=== PATIENT | male | born 1940 | race Caucasian/White ===

== ENCOUNTER → 2017-12-31 09:23 | Outpatient (REF) | payer MEDICARE, BC, SELFPAY ==
[2017-12-31 13:31] LABS: Anion Gap 11.2 mmol/L (3-11); BUN 14 mg/dL (7-18); CO2 25.8 mmol/L (21.0-32.0); CREATININE 1.36 mg/dL (0.70-1.30); Calcium 9.7 mg/dL (8.5-10.1); Chloride 103 mmol/L (98-107); Estimated GFR 50.81 (mL/min/1.73m2); Glucose 194 mg/dL (70-100); Potassium 4.6 mmol/L (3.5-5.1); Sodium 140 mmol/L (136-145); TSH 1.29 uIU/mL (0.358-3.74)
== END ==
LOC: LBN 09:23
PROVIDERS: PCP Student in an Organized Health Care Education/Training Program; Visit Provider Student in an Organized Health Care Education/Training Program
DX: E03.9 Hypothyroidism, unspecified (principal); E78.5 Hyperlipidemia, unspecified; E11.65 Type 2 diabetes mellitus with hyperglycemia
CPT/HCPCS: 80048; 84443

== ENCOUNTER 2018-01-05 05:55 | Emergency (ER) | payer MEDICARE, BC, SELFPAY ==
[2018-01-05] VITALS (14 sets, daily range): BP systolic 105–158; BP diastolic 54–87; PULSE 64–79; RESP 20; TEMP 36.4–36.6; O2SAT 86–96
--- NOTE | 2018-01-05 06:19 | ED.GENADUL ---
Disposition Clinical Impression: Lower back pain Disposition: HOME Condition: Stable Instructions: Low Back Strain (ED) Additional Instructions: follow up with primary care provider within a week if you have inability to urinate, changes in sensation in the legs or weakness or fevers return to the emergency department Medical Decision Making - Radiology Data Radiology results: image reviewed - Medical Decision Making pt here with acute on chronic lower back pain, suspect contusion but will image to eval for fx. He has no other pain elsewhere and no signs of trauma to the head or pain on rom of the neck so do not feel imaging of head and c spine indicated. Pain started after fall, no urinary retention or saddle anesthesia so doubt cauda equina I do not see any acute fracutres or findings on my read. The patient feels well enough to go home if negative and agrees to take him home as well. Oncoming provider will f/u on radiology read and if negative will d/c home - Differential Diagnosis contusion, chronic back pain, fracture History of Present Illness - General Chief complaint: Nk/Back Pain Stated complaint: CALEX Time Seen by Provider: 01/05/18 05:59 Source: patient Mode of arrival: EMS Limitations: no limitations - History of Present Illness Initial comments: 77 yo male with hx of dementia and lower chronic back pain comes in with cc of lower back pain. HE apparently had a mechanical fall where he tripped and hit his lower back on a chair. HE did not lose consciousness or strike his head per his who saw the fall. He has had lower back pain since and is unsure if it is worse than his chronic lower back pain. denies trouble urinating or weakness in the legs. He has midline lower lumbar pain, no stepoffs or other palpable deformities, no pain elsewhere in the thoracic or c spine, no headaches or signs of trauma to the head and no abdominal tenderness MD Complaint: lower back pain Onset/Timin -: year(s) Location: back Radiation: non-radiation Severity scale (1-10): 10 Quality: aching Consistency: constant Improves with: none Worsens with: none Associated Symptoms: denies other symptoms Treatments Prior to Arrival: none - Related Data Aspirin [Aspir 81] 81 mg PO DAILY #100 tab 01/25/14 Calcium Carbonate [Tums] 300 mg PO PRN PRN tab.chew 01/25/14 Ferrous Sulfate [Iron] 325 mg PO DAILY #100 tab 10/03/16 Pen Needle, Diabetic [Insulin Pen Needle] 1 each MC DAILY #100 05/10/17 Nitroglycerin 0.4 mg BC ONCE PRN #25 tab 07/02/17 Metformin HCl 850 mg PO TID #240 tab-cap 07/30/17 Atorvastatin Calcium 10 mg PO DAILY #90 tab-cap 08/03/17 Glimepiride 1 mg PO BID #180 tab 08/03/17 Cholecalciferol (Vitamin D3) [Vitamin D3] 1,000 unit PO DAILY #90 tab-cap 09/03/17 Hydromorphone HCl 8 mg PO Q6H PRN #40 tab-cap 10/14/17 Levothyroxine [Levothroid] 125 mcg PO DAILY #90 tab-cap 11/06/17 Onetouch Ultra Test Strips 1 each MC QID #400 strip 11/16/17 Insulin Degludec [Tresiba Flextouch U-100] 60 unit SQ DAILY #10 pen 12/03/17 Divalproex Sodium [Depakote] 250 mg PO BID #180 tab-cap 12/06/17 Allergies Allergy/AdvReac Type Severity Reaction Status Date / Time prednisone Allergy Intermediate Skin Rash Unverified 01/05/18 06:12 tapentadol Allergy unknown Unverified 01/05/18 06:12 omeprazole AdvReac Severe Low Unverified 01/05/18 06:12 Magnesium Review of Systems Constitutional: denies: chills, fever Respiratory: denies: shortness of breath Cardiovascular: denies: chest pain Gastrointestinal: denies: abdominal pain, nausea, vomiting Musculoskeletal: back pain Neurological: denies: headache Comment: All other systems reviewed and negative Past Medical History - Past Medical History Medical history: AMI, diabetes, GERD, hyperlipidemia, hypertension Renal calculi Surgical history: angioplasty/stent, herniorraphy, other (Cardiac ablation) Family history: cancer, diabetes - Social History Alcohol use: none Drug use: none General Exam - General Limitations: other (dementia) General appearance: alert, in no apparent distress - Head Head exam: Present: atraumatic, normocephalic - Eye Eye exam: Present: normal apperance, PERRL, EOMI - ENT ENT exam: Present: mucous membranes moist - Neck Neck exam: Present: normal inspection, full ROM. Absent: tenderness - Respiratory Respiratory exam: Absent: respiratory distress - Cardiovascular Cardiovascular Exam: Present: regular rate - GI/Abdominal GI/Abdominal exam: Present: soft. Absent: tenderness - Extremities Exam Extremities exam: Present: normal inspection, full ROM - Back Exam Back exam: Present: normal inspection, vertebral tenderness. Absent: CVA tenderness (R), CVA tenderness (L) - Neurological Exam Neurological exam: Present: alert, other (oriented to place and name, not time). Absent: motor sensory deficit - Psychiatric Psychiatric exam: Present: normal affect - Skin Skin exam: Present: warm Course Vital Signs - 24 hr 01/05/18 06:08 Temperature 97.5 F L Pulse 79 Respiratory 20 Rate Blood Pressure 158/87 Pulse Oximetry 96
--- NOTE | 2018-01-05 06:20 | DI.RPTCT_ITS ---
SYMPTOM/DIAGNOSIS: LOWER BACK PAIN CT LUMBAR SPINE: Osteopenia is noted. The vertebral bodies are intact. There is no evidence of a fracture or dislocation. There is mild multi-level degenerative changes with disc space narrowing and facet joint hypertrophy and osteophyte formation. There is an apparent mild broad-based disc protrusion at L2-3 without evidence of significant central or foraminal stenosis. Also, a broad based disc protrusion is noted at L3-4 where there is prominent facet joint DJD and ligamentous hypertrophy. There is mild central canal stenosis at this level. Also, note is made of a broad-based disc protrusion and facet joint hypertrophy at L4-5 which results in mild central spinal stenosis. No significant foraminal stenosis is seen. There are atherosclerotic changes involving the aorta without evidence of an aneurysm. SUMMARY: No acute abnormality is demonstrated. Note is made of degenerative changes as described above.
[2018-01-05] MEDS: Ketorolac 30 MG/ML VIAL IM (06:23)
[2018-01-05] MEDS: HYDROmorphone 4 MG TAB 8 MG PO (06:47)
--- NOTE | 2018-01-05 08:00 | DI.VRAD_ITS ---
EXAM: CT Lumbar Spine Without Intravenous Contrast EXAM DATE/TIME: Exam ordered 01/05/2018 6:21 AM CLINICAL HISTORY: 77 years old, male; Injury or trauma; Fall; Initial encounter; Sprain or strain, lumbar ligaments TECHNIQUE: Axial computed tomography images of the lumbar spine without intravenous contrast. Coronal and sagittal reformatted images were created and reviewed. COMPARISON: No relevant prior studies available. FINDINGS: Vertebrae: Osteopenia. Normal alignment. No acute fracture. Discs/spinal canal/neural foramina: Mild multilevel degenerative changes with disc space narrowing, facet hypertrophy and osteophyte formation throughout the spine. . There is mild broad-based disc at the L2-3 level without evidence of significant foraminal or central canal stenosis. There is prominent facet and ligamentous hypertrophy with a broad-based disc at the L3-4 level. No significant foraminal stenosis. Mild central canal stenosis seen. Mild broad-based disc with facet hypertrophy at the L4-5 level results in mild central canal narrowing. No significant foraminal stenosis. Soft tissues: Atherosclerotic disease. IMPRESSION: No acute findings. Multilevel degenerative changes. Dictated and Authenticated by: Glenis Mansfield MD. Ordering:CAROLINA YEBOAH MD
--- NOTE | 2018-01-05 08:31 | ED.FU ---
Disposition Clinical Impression: Lower back pain Disposition: HOME Condition: Stable Instructions: Low Back Strain (ED) Additional Instructions: follow up with primary care provider within a week if you have inability to urinate, changes in sensation in the legs or weakness or fevers return to the emergency department Care Signed Out By:: Aaron - Vital Signs Recent Vitals - 8H: Vital Signs - 8 hr 01/05/18 01/05/18 01/05/18 06:08 06:17 06:20 Temperature 36.4 C L Pulse 79 Respiratory 20 Rate Blood Pressure 158/87 Pulse Oximetry 96 95 94 L - Continuation of Care Continuation of Care Plan: This patient was signed out to me by my colleague Dr. Walker. CT scan results have returned from virtual radiology of the lumbar spine and demonstrate no acute findings. Multilevel degenerative changes. I reassess the patient and he is pain-free at this point. He is in no acute distress and continues to demonstrate a normal neurologic exam. No red flags or signs or symptoms suggestive of cauda equina syndrome. Patient will be discharged home. We discussed the importance of close follow-up and the patient understands. I have extensively reviewed the treatment plan and discharge instructions with the patient. I have addressed all patient concerns at this time. The patient was made aware of what symptoms to monitor for that would warrant a return to the emergency department. Discussed the plan with the patient, they demonstrate verbal understanding and agreement with our assessment and plan at this time.
--- NOTE | 2018-01-05 15:30 | PDOC.ERCMPRO ---
Care Management Progress Note 01/05-Dr. Walker and nursing requested that I meet with Jimmy and his friend Kaur. Kaur is Jimmy's significant other and she care for him at home. Discussed services. At this time, Jimmy does not have any home services, he did have wound care through [facility]. Currently Kaur utilizes [employer] for insurance. Discussed support groups and services for caregivers through the [employer]. Kaur stated she is aware of those programs but feels at this time, things are going ok at home. The good days out weigh the bad days still. Kaur stated at this time she feels she can manage Jimmy. States that Jimmy is normally happy and easy to get along with. Plan is for Jimmy to be discharged home with Kaur. Kaur has my contact information if further assistance is needed.
--- NOTE | 2018-01-05 15:33 | CMPROGNOTE_ITS ---
Care Management Progress Note 01/05-Dr. Walker and nursing requested that I meet with Jimmy and his friend Kaur. Kaur is Jimmy's significant other and she care for him at home. Discussed services. At this time, Jimmy does not have any home services, he did have wound care through [facility]. Currently Kaur utilizes [employer] for insurance. Discussed support groups and services for caregivers through the [place] [employer]. Kaur stated she is aware of those programs but feels at this time, things are going ok at home. The good days out weigh the bad days still. Kaur stated at this time she feels she can manage Jimmy. States that Jimmy is normally happy and easy to get along with. Plan is for Jimmy to be discharged home with Kaur. Kaur has my contact information if further assistance is needed.
== END 2018-01-05 08:46 | disposition home or self-care (01) ==
PROVIDERS: Emergency Provider Emergency Medicine; PCP Student in an Organized Health Care Education/Training Program
DX: M54.5 Low back pain (principal); G89.29 Other chronic pain; W01.190A Fall on same level from slipping, tripping and stumbling with subsequent striking against furniture, initial encounter; F03.90 Unspecified dementia, unspecified severity, without behavioral disturbance, psychotic disturbance, mood disturbance, and anxiety; E11.9 Type 2 diabetes mellitus without complications; Z79.4 Long term (current) use of insulin
CPT/HCPCS: 72131; 96372; 99284 ×2; J1885

== ENCOUNTER 2018-01-07 09:36 | Inpatient (IN) | payer MEDICARE, BC, SELFPAY ==
[2018-01-07 09:43] VITALS: BP 135/76; PULSE 67; RESP 18; TEMP 36.4; O2SAT 93
[2018-01-07] MEDS: Ketorolac 15 MG/ML VIAL IVP (10:24)
[2018-01-07] MEDS: HYDROmorphone 2 MG/ML VIAL 1 MG IVP (10:25)
--- NOTE | 2018-01-07 10:50 | ED.GENADUL ---
Disposition Clinical Impression: Acute exacerbation of chronic low back pain Disposition: [facility] INPATIENT Condition: Stable Medical Decision Making - Medical Decision Making Patient presenting to the emergency department for continued back pain after fall 3 days ago. Patient states no new or worsening symptoms but simply that symptoms are not resolving. Patient does state and previous records agree with chronic back pain and similar pattern and fashion as his presentation today. Patient only took 4 mg of hydromorphone at 2:30 AM which seemed to provide some relief but patient has been laying supine in bed for the last 2 days as he has been worried about movement and movement causes further pain and discomfort. Patient denies any saddle anesthesia, changes in bowel or bladder function, fever or chills, severe radiating numbness or tingling. Given this I feel that this is more of a natural sequela of chronic back pain with acute injury and reviewing records patient already had radiological imaging performed 2 days ago that showed no acute findings but degenerative changes including bulging disc. Due to patient's significant amount of pain and not taking his hydromorphone as normally prescribed and as frequently as I feel that he may need it I do feel that acute pain medication may benefit the patient. Given otherwise benign exam beyond lumbar tenderness in region of bulging disc along with some right-sided paraspinal tenderness physical exam is unremarkable. I do feel that it is not beneficial for patient to lay supine for 2 days so plan is after we achieve some level of pain relief I do feel that it would be beneficial for patient to have physical therapy assessment in regards to patient being able to safely return home and manage his symptoms at home with further assistance if required. Patient is agreeable to this. I do not feel that any radiological imaging or testing needs to be done due to patient describing and physical exam confirming more natural sequela of acute on chronic back pain. Patient was reassessed and did state appropriate level of pain control while at rest. Physical therapy was contacted for an assessment. Physical therapist stated that patient was able to get out of bed but with any sort of standing he had significant and severe pain causing him to not be able to ambulate. Due to this fact I do feel that patient may need a rehab stay or at least observation stay for more tightly controlled pain control or adjustment of his pain medications and a physical therapy reassessment after pain is more controlled. I spoke with the hospitalist whom accepted the patient for admission and further physical therapy evaluation and possible consideration of rehab outpatient admission or home health resources to help him with his acute on chronic back pain. Patient was in agreement with this plan. History of Present Illness - General Chief complaint: Nk/Back Pain Stated complaint: CALEX Time Seen by Provider: 01/07/18 09:55 Source: patient, RN notes reviewed, old records reviewed Mode of arrival: EMS Limitations: no limitations - History of Present Illness Initial comments: Patient reports 3 days ago he had a fall. After he fell he waited overnight before coming to the emergency department because his pain was not improving. He states that he has chronic back pain from an injury that happened many years ago and that this pain is similar to what he is always had but just is not improving. Patient does state he took his prescribed hydromorphone at 2:30 AM and had been feeling slightly better early this morning when a friend was visiting but then went to turn in bed and had severe onset of pain. Given the pain is not improved he is presenting to the emergency department. Patient denies any fever chills, change in pain pattern, numbness or tingling, bowel or bladder incontinence or retention. Patient states no new injury or trauma just not improving Onset/Timin -: days(s) Location: back Severity scale (1-10): 10 Quality: sharp Consistency: constant Improves with: none Worsens with: movement Associated Symptoms: denies other symptoms Treatments Prior to Arrival: other (4 mg hydromorphone at 2:30 AM) - Related Data Aspirin [Aspir 81] 81 mg PO DAILY #100 tab 01/25/14 Calcium Carbonate [Tums] 300 mg PO PRN PRN tab.chew 01/25/14 Ferrous Sulfate [Iron] 325 mg PO DAILY #100 tab 03/02/16 Pen Needle, Diabetic [Insulin Pen Needle] 1 each MC DAILY #100 05/10/17 Nitroglycerin 0.4 mg BC ONCE PRN #25 tab 07/02/17 Metformin HCl 850 mg PO TID #240 tab-cap 07/30/17 Atorvastatin Calcium 10 mg PO DAILY #90 tab-cap 08/03/17 Glimepiride 1 mg PO BID #180 tab 08/03/17 Cholecalciferol (Vitamin D3) [Vitamin D3] 1,000 unit PO DAILY #90 tab-cap 09/03/17 Hydromorphone HCl 8 mg PO Q6H PRN #40 tab-cap 10/14/17 Levothyroxine [Levothroid] 125 mcg PO DAILY #90 tab-cap 11/06/17 Onetouch Ultra Test Strips 1 each MC QID #400 strip 11/16/17 Insulin Degludec [Tresiba Flextouch U-100] 60 unit SQ DAILY #10 pen 12/03/17 Divalproex Sodium [Depakote] 250 mg PO BID #180 tab-cap 12/06/17 Allergies Allergy/AdvReac Type Severity Reaction Status Date / Time prednisone Allergy Intermediate Skin Rash Unverified 01/07/18 09:48 tapentadol Allergy unknown Unverified 01/07/18 09:48 omeprazole AdvReac Severe Low Unverified 01/07/18 09:48 Magnesium Review of Systems Constitutional: denies: chills, fever Respiratory: denies: cough, shortness of breath Cardiovascular: denies: chest pain Gastrointestinal: denies: abdominal pain, nausea, vomiting, diarrhea, constipation Genitourinary: denies: dysuria, discharge Musculoskeletal: as per HPI, back pain Skin: denies: change in color Neurological: denies: numbness, paresthesias Past Medical History - Past Medical History Medical history: AMI, diabetes, GERD, hyperlipidemia, hypertension Renal calculi, chronic back pain since on disability Surgical history: angioplasty/stent, herniorraphy, other (Cardiac ablation) Family history: cancer, diabetes - Social History Smoking status: never smoker Alcohol use: none Drug use: none Living Situation: lives with family General Exam - General Limitations: no limitations General appearance: alert, obese, other (pt in obvious discomfort) - Head Head exam: Present: atraumatic, normocephalic - Eye Eye exam: Present: PERRL - Neck Neck exam: Present: full ROM - Respiratory Respiratory exam: Present: normal lung sounds bilaterally. Absent: respiratory distress, wheezes, rales, rhonchi, stridor - Cardiovascular Cardiovascular Exam: Present: regular rate, normal rhythm, normal heart sounds. Absent: bradycardia, systolic murmur, diastolic murmur, rubs - GI/Abdominal GI/Abdominal exam: Present: soft, normal bowel sounds. Absent: tenderness, guarding, rebound, rigid, organomegaly, mass, bruit, pulsatile mass - Rectal Rectal exam: Present: deferred - Back Exam Back exam: Present: paraspinal tenderness (2 right sided lumbar spine), vertebral tenderness (2 mid lumbar spine). Absent: rash noted - Expanded Back Exam No standard instances Back exam: Sciatic Notch Tenderness: (Right), Positive Straight Leg Raise: (Right) - Neurological Exam Neurological exam: Present: alert, oriented X3. Absent: motor sensory deficit - Skin Skin exam: Present: warm, dry, normal color. Absent: cyanosis, diaphoretic, erythema, pallor, mottled Course Vital Signs - 24 hr 01/07/18 09:43 Temperature 36.4 C L Pulse 67 Respiratory 18 Rate Blood Pressure 135/76 Pulse Oximetry 93 L
[2018-01-07] MEDS: HYDROmorphone 4 MG TAB PO ×2 (12:06→17:01)
[2018-01-07 13:11] VITALS: BP 138/96; PULSE 66; RESP 18; TEMP 36.6; O2SAT 100
[2018-01-07 13:12] VITALS: BP 152/76; PULSE 72; RESP 19; TEMP 37; O2SAT 93
[2018-01-07 13:47] VITALS: BP 152/76; PULSE 72; RESP 19; TEMP 37; O2SAT 93
--- NOTE | 2018-01-07 14:47 | INPTTR_ITS ---
PHYSICAL THERAPY PROGRESS NOTE Date: 01/07/18 SUBJECTIVE: Jimmy stating he has no pain when lying on his back. This increases with any type of movement. OBJECTIVE Supine in bed. Agreeable to PT treatment. BED MOBILITY/TRANSFERS Rolling L/R: Log Roll instruction Supine-sit: Log roll Min A x 1 Sit-supine: Min A x 1 Sit-stand: CGA Stand-sit: CGA GAIT Stood in place x 30 seconds. Was unable to walk due to pain and spasm right low back. Assistive Device FWW Weightbearing Full Assist: CGA THEREX: Review log roll technique. ASSESSMENT: Continues to have increase in discomfort when moving. He does not tolerate sitting position so once he log rolls he immediately stand up to the walker. Unable to take steps due to spasm right low back. PLAN: Continue with function mobility as he is able to tolerate. TREATMENT CODES/TIME: 10 minutes DANITZA Michaels, [place]
[2018-01-07] MEDS: Heparin 5,000 UNITS/ML VIAL 5000 UNITS SC ×2 (15:06→21:38)
--- NOTE | 2018-01-07 15:21 | IN_ITS ---
INPATIENT PHYSICAL THERAPY EVALUATION Date: January 07, 2018 Referring Doctor: Fahad Duggan NP PT Orders:Chronic back pain with acute worsening due to fall. Pt non-ambulatory x 2 days. Precautions: PATIENT PROFILE/ADMITTING DIAGNOSIS: Pt seen in the ER for evaluation of severe LBP. Pt has a multi-year history of back pain dating back to the . He had a previous ER visit on 01/05/18 after a fall at home, resulting in a sharp increase in back pain. He had a CT scan performed, which showed mild lumbar stenosis and facet DJD. Pt to be admitted on observation status for pain management and initiation of PT intervention. PMHX: Obesity, diabetes, history of [place], hyperlipidemia, multi-year history of LBP. Social History/Home Situation: Pt lives with his Kaur, who is present at time of evaluation. He is normally independent in the home, although has been supine in bed for the past 2 days due to the severity of his pain. Current Functional Limitations: Equipment owned/DME: Walker. SUBJECTIVE: Pt states that he is in 7/10 pain, stating that he knows this will increase if he moves at all. He has not had an episode of pain this bad in many years and states that when he does get episodes like this, it typically takes time to go away. He has had PT in the past and has also done pain management treatments with multiple nerve ablations. He also receives massages 2x/week, which seem to keep his pain at bay. Pt denies radiation of pain to LEs. Denies bowel or bladder changes. OBJECTIVE: General Observation: Pt laying supine with knee supported in slightly flexed position with pillow. He is conversant and not displaying any significant pain behaviors. No lines. Mental Status: A & O x 3. Pt is very hard of hearing. Pain: 7/10. ROM: RUE: Grossly WNL LUE: Grossly WNL RLE: Hip flexion allows at least 90 degrees bilaterally. Knee motion grossly WNL. LLE: Hip flexion allows at least 90 degrees bilaterally. Knee motion grossly WNL. STRENGTH: RUE: Grossly 3/5 for all motions. LUE: Grossly 3/5 for all motions. RLE: WFL LLE: WFL. BED MOBILITY/TRANSFERS: Supine-sit: Pt was instructed in log rolling technique. He requires mod assist x 2 for transition to sitting position. Sit-stand: Pt performs a very rapid sit to stand transfer, requiring CG only. Stand-sit: CG. Sit-supine: Min assist x 1. GAIT: Pt is unable to ambulate. He stands with a walker x 30 sec. with increasing pain with pt reporting 10/10. He is unable to tolerate sitting position, moving quickly out of seated position, where his pain is most severe. During transfers and intensive standing, he does demonstrate poor safety awareness with rapid and poorly controlled movements. BALANCE: Static sitting: Good, although with limited tolerance to position. Dynamic Sitting: Good. Static Standing: Fair. Dynamic Standing: Poor SPECIAL TESTS: Mobility Limitations Standardized Measure [facility] AM -PAC 6 clicks Basic Mobility Inpatient Short Form: raw score: 11 standardized score: 33.86 CMS score: 73% deficit CMS modifier: CL INFORMED CONSENT/EDUCATION: Pt instructed in purpose of PT Consult and plan of care ASSESSMENT: Patient is a 77 year old male referred to physical therapy services with diagnosis of acute on chronic LBP. Patient presents with clinical signs and symptoms consistent with diagnosis with significant limitations in mobility resulting from his sharp increase in pain as demonstrated by the following impairment level findings: 1. Severe pain. . Impairments are contributing to the following functional limitations: 1. Unable to independently transfer. 2.Unable to ambulate. AMPAC score 11 Patient is assessed as a Moderate [id number] __X__complexity based on the following: History: 77 yo pt with acute on chronic LBP without radiation, although with severe limitations in mobility preventing him from returning home with family assistance. Pt will be admitted on observation status for management. Examination: Functional limitations as above. Presentation: Evolving. Decision Making: Moderate complexity. GOALS Goals x1 week 1. Supine-sit: I 2. Sit-Supine: I 3. Sit-Stand: I 4. Stand-sit: I 5. Bed-chair: I 6. Chair-bed: I 7. Gait: I with lease restrictive device x 25 ft. PLAN OF CARE/TREATMENT PLAN: 1-2x/day, 7 days/ week x 1 week Plan of care has been reviewed with the DIRECTOR OF [employer]PERATIONS providing the service under Physical therapy direction. Initiate physical therapy intervention for strengthening, bed mobility, transfers, gait, stairs, balance training, use of assistive device. DISCHARGE RECOMMENDATIONS Home. Pt has been encouraged to seek out PT intervention, either by HH or outpatient services. TREATMENT TIME/MINUTES/CODES 15 min. G Codes in the area mobility of walking and moving around: current status [id number] ___CL based on [facility] score of 73%____projected status GP [id number] . SS/fw
[2018-01-07 15:42] VITALS: BP 114/71; PULSE 75; RESP 18; TEMP 36.7; O2SAT 95
--- NOTE | 2018-01-07 16:09 | CMPROGNOTE_ITS ---
Date of Service: 01/07/18 Time of Service: 15:55 Care Management Progress Note CM received report from ED CM No Bateman, Jimmy is being admitted observation for uncontrolled back pain and Physical therapy. Jimmy lives in his own home in [place], [place] with his spouse he is usually independent with ADL's per his report. He uses a FWW at home. His spouse provides him support at home his children are grown. He states he was receiving home health in the past which he has been discharged due to meeting his goals. He is willing to have home health services again including home PT. Jimmy will return home with his spouse and new home health services for PT and nursing when medically ready for discharge. CM will follow up with patient and complete a full assessment when his spouse returns tomorrow.
[2018-01-07] MEDS: Glimepiride 2 MG TAB 1 MG PO (17:00)
[2018-01-07] MEDS: Acetaminophen 325 MG TAB PO (17:01)
--- NOTE | 2018-01-07 17:02 | HPE_ITS ---
DATE OF ADMISSION: January 07, 2018 REASON FOR ADMISSION: [id number] back pain. ASSESSMENT/PLAN: 1. Back pain - [id number] back pain status post fall three days prior to his admission. Plan t o continue p.o. Dilaudid, as he was taking it at home. Will add a Lidocaine patch to the site and of adelfo heat and ice. PT has been consulted. Will plan to get his pain under control, get him mobilized and hopefully get him back home soon. 2. Hyperlipidemia - continue home dosing of his Lipitor. 3. Coronary artery disease - continue Aspirin 81 mg daily. 4. Diabetes - will continue his home dosing of his Glimepiride and his long-acting insulin, Tresiba F lextouch U-100, 60 units. 5. Disposition - he is a FULL CODE. The plan is for him to get mobilized with Physical Therapy and g et his pain under control and get him discharged back home. This case was discussed with Dr. Wesley, who is in agreement. +++++++++++++++++++++++ HISTORY OF PRESENT ILLNESS: Mr. Arcos is a 76-year-old man with a history of type 2 diabetes, my ocardial infarction with stent placement, memory problems, hyperlipidemia and chronic back pain who p resented to the Emergency Department today with reports of [id number] back pain. He fell three days ago while trying to get up out of his chair; he tripped; he denied any dizziness or syncope at the time. He had difficulty getting up; however his was able to help him up. The following mor ana he could not get out of bed due to increased pain in his right lower back. The ambulance was ca lled and he was taken to the Emergency Department. In the Emergency Department he and his repo rt that he received Toradol and Dilaudid. He was subsequently discharged back home. He reports that yesterday he did not get out of bed all day long due to the severe back pain. At 2:30 this morning his gave him some Dilaudid with some improvement in the pain; however he consistently had signif icant pain and eventually presented back to the hospital today. He did not have any imaging in the Emergency Department today, as he previously had a CT lumbar spine on 8/8/18, two days ago, where no acute abnormality was demonstrated; however he does have degenerat keshav changes in his spine with disc space narrowing and facet joint hypertrophy and osteophyte formati on. There was note made of a mild broad-based disc protrusion at L2-3 without evidence of significan t central or foraminal stenosis. There was also note of a broad-based disc protrusion noted at L3-4 where there is permanent facet joint DJD and ligamentous hypertrophy. There is mild central canal st enosis at this level. Also there is note made of broad-based disc protrusion and facet joint hypertr ophy at L4-5, which results in mild central spinal stenosis. No significant foraminal stenosis noted . Mr. Arcos reports pain only with activity. If he lies still, he is comfortable. He denies any n umbness or tingling. No loss of bowel or bladder. He has had no new injury or trauma since the fall three days ago. He denies any other concerns. He has no other symptoms. No fevers or chills at [facility]. No cough, shortness of breath or wheeze. No chest pain, pressure or palpitations. He is eating and drinking well without nausea, vomiting or diarrhea. He had his last bowel movement yesterday. PAST MEDICAL HISTORY: 1. Obesity. 2. Chronic back pain. 3. Hyperlipidemia. 4. Diverticulitis of the large intestine without perforation. 5. Diabetes type 2. a. Most recent hemoglobin A1c was 7.5 on 12/31/17. 6. Cardiac history. a. Non Q-wave AL in 1998. b. Stent placement x2, most recently in 2012. c. Followed by Cardiology at [facility]. He was a patient of Dr. Garcia. 7. Memory disturbance. 8. Pulmonary nodules. 9. Polyneuropathy. 10. Hearing loss. 11. Elevated PSA. 12. Macular degeneration. 13. GERD. 14. History of renal calculi. PAST SURGICAL HISTORY: 1. Cardiac catheterization. 2. He reports an ablation x6 [facility] in [place] for his chronic back pain. 3. Left rotator cuff surgery x2 by Dr. Cameron. 4. Knee surgery by Dr. Cameron. 5. Colonoscopy and gastroscopy by Dr. Higgins. 6. Hernia repair x2, most recently performed by Dr. Zambrano. ALLERGIES: 1. Prednisone gave him a skin rash. 2. Tapentadol, unknown reaction. MEDICATIONS: 1. Hydromorphone Hcl 8 mg p.o. q6h p.r.n. 2. Glimepiride 1 mg p.o. b.i.d. 3. Iron 325 mg p.o. daily. 4. Depakote 250 mg p.o. b.i.d. 5. Vitamin D3 1000 units p.o. daily. 6. Tums 300 mg p.o. daily p.r.n. 7. Atorvastatin calcium 10 mg p.o. daily. 8. Aspirin 81 mg p.o. daily. 9. Levothyroxine 125 mcg p.o. daily. 10. Tresiba Flextouch U-100 insulin 60 units subcu daily. 11. Nitroglycerin 0.4 mg p.o. p.r.n. as directed. 12. Metformin 850 mg p.o. t.i.d. FAMILY HISTORY: His mother at 50; she gave to eighteen children; he thinks she of stomach cancer. His dad had a cardiac history and at 84. Most of his siblings are . SOCIAL HISTORY: He lives with his in [facility]. 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 He is a non-s moker. He does have a light smoking history that was intermittent. He does have an occasional alcoh olic drink. REVIEW OF SYSTEMS: GENERAL: He denies any constitutional symptoms. No fevers, no chills, no sweats, no weakness, malai se or fatigue. HEENT: He denies headaches. He denies any sinus pain or congestion. No rhinorrhea. No ear pain o r discharge. No difficulty swallowing. No problems with his speech. RESPIRATORY: He denies cough, shortness of breath or wheeze. CARDIAC: He denies chest pain, pressure, palpitations or edema. GI: He had a bowel movement yesterday. He denies any abdominal pain, bloating, nausea, vomiting, di arrhea or constipation. : He denies any urinary changes; no dysuria. He has not noticed any hematuria. No leaking. EXTREMITIES: He reports chronic back pain with intermittent acute flares, which he is currently expe riencing status post fall. He denies any pain, swelling or stiffness of any other joints. SKIN: He has scattered scabs about his arms and legs, which are reportedly from picking. His r eports that he continues to pick at his scabs so they cannot heal. PHYSICAL EXAMINATION: GENERAL: He is an obese male who does not appear to be in any distress at rest. He is alert and paul ented x3. He does have some short-term memory loss, for which his helps him answer questions. HEENT: Normocephalic, atraumatic. Pupils are equal and round. Mucous membranes are moist. Conjunc tivae are clear. Sclerae are nonicteric. NECK: Supple. CARDIAC: Heart has a regular rate and rhythm with distant heart sounds. No murmur appreciated. RESPIRATORY: Respirations are even and unlabored. Lung sounds are clear to auscultation throughout. ABDOMEN: Large and round; it is soft; it is nontender on palpation. No masses appreciated, however it is difficult to assess for HSM due to body habitus. EXTREMITIES: Well-perfused. Trace edema to bilateral ankles. He does have scabs scattered across b oth his upper and lower extremities bilaterally from picking. His peripheral pulses are intact. BACK: He does have some paraspinal tenderness on palpation in the lumbar region to the right side. He has pain with leg lift on the right and none on the left. NEUROLOGIC EXAM: Nonfocal. Speech is clear. LABORATORY DATA: No new labs as of today. However, labs from 12/31 reveal a sodium of 140, potassium 4.6, BUN of 14, creatinine of 1.36, hemoglobin A1c on 12/31/[address] of the lumbar spine reveals osteopenia. No evidence of fracture or dislocation. There are multi- level degenerative changes with disc space narrowing and facet joint hypertrophy and osteophyte forma tion. There is an apparent broad-based disc protrusion at L2-L3 without evidence of significant cent ral or foraminal stenosis. There is a broad-based disc protrusion noted at L3-4 where there is promi nent facet joint DJD and ligamentous hypertrophy. There is mild central canal stenosis at this level . Also note is made of a broad-based disc protrusion and facet joint hypertrophy at L4-5 which resul ts in mild central spinal stenosis. No acute abnormality was demonstrated.
[2018-01-07] MEDS: Divalproex 250 MG TABEC PO (21:36)
[2018-01-07] MEDS: Lidocaine 5% Patch 1 PATCH TP (21:38)
[2018-01-08 00:57] VITALS: BP 170/91; PULSE 70; RESP 20; TEMP 36.8; O2SAT 96
[2018-01-08] MEDS: HYDROmorphone 4 MG TAB PO (01:06)
[2018-01-08] MEDS: Refresh PLUS Eye Drops 0.4ml OU ×2 (04:43→06:11)
[2018-01-08] MEDS: Heparin 5,000 UNITS/ML VIAL 5000 UNITS SC ×3 (06:12→21:18)
[2018-01-08 07:07] LABS: HCT 36.9 % (40.0-50.0); HGB 12.8 g/dL (13.5-17.5); Mean Corp. HGB Concentration 34.7 g/dL (32.0-36.0); Mean Corpuscular Volume 95.1 fL (80-95); Mean Platelet Volume 9.7 fL (8.0-11.0); Platelet Count 212 x1000/uL (130-400); RBC 3.88 m/cumm (4.50-6.00); RBC Distribution Width 12.7 % (11.8-14.1)
[2018-01-08 07:19] LABS: Anion Gap 10.5 mmol/L (3-11); BUN 22 mg/dL (7-18); CO2 27.5 mmol/L (21.0-32.0); CREATININE 1.09 mg/dL (0.70-1.30); Calcium 9.4 mg/dL (8.5-10.1); Chloride 101 mmol/L (98-107); Glucose 101 mg/dL (70-100); Potassium 4.3 mmol/L (3.5-5.1); Sodium 139 mmol/L (136-145)
[2018-01-08 07:55] VITALS: BP 131/73; PULSE 72; RESP 18; TEMP 36.6; O2SAT 94
--- NOTE | 2018-01-08 08:16 | PHARADMIT ---
Addendum entered by Miracle Mejía 01/10/18 17:22: Pharmacy Note Subjective Objective VS-okay SCr-1.38(up) Assessment ketorolac was ordered, but SCr increased so this was discontinued, dexamethasone was started today (challenge dose due to prednisone allergy listed then daily, diphenhydramine ordered PRN if signs/symptoms of allergic reaction occurred). Plan continue to watch VS, labs and for med changes. Original Note: Addendum entered by Red Castillo III 01/09/18 11:30: Observation patient: Provider trying to control back pain. Flexeril TID prn started yesterday to help with muscle spasm. Ketorolac X1 given today, Hydromorphone increased to 6mg. Continue PT. If symptoms pesist or no safe DC plan, may be conveerted to Swing Bed. VS-OK Pain: 01/07 No Labs No BM yet. Original Note: Admission Pharmacy Clinical Review BACK PAIN Code Status Full Code Current Weight Wgt- 120.7 kg Renally Cleared and Narrow Therapeutic Index Meds CrCl~ 58mL/min Meds-OK QTc Value / Action Taken none current BP Control, Fever BP- 170/91 Tmax- 36.8C Electrolytes reviewed Na-139 K+4.3 DVT Prophylaxis Heparin SC Opiate Usage / Scheduled Bowel Regimen Ordered Yes Yes Plt/SCr for Heparin / Enoxaparin Plts-212 SCr-1.09 INR for Warfarin na H/H stable, WBC/Bands H&H- 12.8/36.9 WBC- 6.10 Antibiotic appropriateness none Cultures and Sensitivities none Surgical ABX d/c within 24 hr na DM control / Insulin Dosing BG-101 GLIMEPIRIDE, TRESIBA FLEXPEN Heart Failure (Check EF%) (MAGDALENE's, B-Block, Diuretics) NTG, IV to PO Switch No Home Meds Reviewed Yes Home Meds Not Ordered Metformin Comments PatOwn TRESIBA FLEXPEN
[2018-01-08] MEDS: Atorvastatin 10 MG TAB PO (08:57)
[2018-01-08] MEDS: Glimepiride 2 MG TAB 1 MG PO ×2 (08:57→17:56)
[2018-01-08] MEDS: Levothyroxine 125 MCG TAB PO (08:57)
[2018-01-08] MEDS: Aspirin E.C. 81 MG TABEC PO (08:57)
[2018-01-08] MEDS: Ferrous Sulfate 325 MG TAB PO (08:57)
[2018-01-08] MEDS: Divalproex 250 MG TABEC PO ×2 (08:58→19:42)
--- NOTE | 2018-01-08 10:22 | INPTTR_ITS ---
PHYSICAL THERAPY PROGRESS NOTE Date: 01/08/18 PRECAUTIONS: Fall SUBJECTIVE: Pt reports that he is experiencing a lot of discomfort. He states that he feels no better to day then he did yesterday. OBJECTIVE PAIN: BED MOBILITY/TRANSFERS Rolling L/R: Supine-sit: log roll with Min Assist Sit-supine: I Sit-stand: CGA Stand-sit: CGA Bed-Chair: Chair-bed: GAIT Assistive Device FWW Weightbearing Full Assist: CGAx2 Distance: Pt could only tolerate 10 sec of static standing and was in too much discomfort and had to lie back down. Deviation VITALS: THEREX: I educated pt in single knee to chest stretches and to try and work toward holding for 20 sec each side. Also discussed pt could try ankle pumps throughout the day. STAIRS: ASSESSMENT: Pt seems to be experiencing a lot of discomfort which is not allowing much participation in PT. We will monitor pt's response to today's session and progress accordingly. PLAN: Cont as per Pt POC. TREATMENT CODES/TIME: 10-10:20 (20) TA
--- NOTE | 2018-01-08 11:27 | PDOC.CMIN ---
Date of Service: 01/08/18 Time of Service: 11:27 Care Management Initial Assess REASON FOR HOSPITALIZATION:: Back pain. PAST MEDICAL HISTORY/PAST SURGICAL HISTORY:: Tubular adenomas, cataract, macular degeneration, hearing loss, hyperlipidemia, diverticulitis, type II diabetes, excoriation disorder, frontotemporal dementia, atherosclerosis, neurodermatitis, memory disturbance, pulmonary nodules, tubular adenoma of colon, polyneuropathy. Surgical hx: angioplasty/stent, hernirraphy, cardiac ablation PREVIOUS FUNCTIONAL STATUS/SOCIAL/FAMILY SUPPORTS:: Jimmy resides in [facility] with his , Norma. According to his he has suffered with chronic back pain for quite some time and recently has had increased confusion and trouble swallowing. Kendrick is independent with his ADLs and reports that he has good support from his , Norma. CURRENT FUNCTIONAL STATUS:: Jimmy is lying in bed with Norma at his bedside when CM visits for the second time this morning. He is engaged in conversation, makes good eye contact and is talkative. He has just now been administered flexiril and is waiting for the medication to kick in before attempting to sit up and eat lunch. Kendrick and Norma report that he has been having trouble swallowing. JIVE DEVELOPER aware and ordering a speech consult. ADVANCE DIRECTIVES:: On file at [facility]. Has patient been provided with information about the portal?: Yes Did the patient sign up for the portal?: No CODE STATUS:: Full Code INSURANCE COVERAGE / FINANCIAL ISSUES:: Medicare, [employer]. CURRENT HOME/COMMUNITY SERVICES/EQUIPMENT:: Jimmy currently has no home or community services. He will discharge with new home health nursing and PT services. PRIMARY CARE PHYSICIAN:: Natasha Norton. POTENTIAL DISCHARGE NEEDS:: Follow up appointment with primary care provider. Home health nursing and PT services. PATIENT/FAMILY EDUCATION NEEDS:: Discharge education, limitations and follow up plan of care. Ask Me Three discussion. ANTICIPATED BARRIERS TO DISCHARGE:: No anticipated barriers to discharge. TRANSPORTATION:: Jimmy will transport via private vehicle with his , Norma, when medically ready. PLAN:: Jimmy will discharge home when medically ready per MD. Anticipate pt will follow up with his PCP and have new home health nursing and PT services. CM to continue to provide support to patient, family and careteam in regards to discharge planning and disposition.
[2018-01-08] MEDS: Cyclobenzaprine 10 MG TAB PO (12:03)
--- NOTE | 2018-01-08 12:53 | INITIAL_ITS ---
Date of Service: 01/08/18 Time of Service: 11:27 Care Management Initial Assess REASON FOR HOSPITALIZATION:: Back pain. PAST MEDICAL HISTORY/PAST SURGICAL HISTORY:: Tubular adenomas, cataract, macular degeneration, hearing loss, hyperlipidemia, diverticulitis, type II diabetes, excoriation disorder, frontotemporal dementia, atherosclerosis, neurodermatitis, memory disturbance, pulmonary nodules, tubular adenoma of colon , polyneuropathy. Surgical hx: angioplasty/stent, hernirraphy, cardiac ablation PREVIOUS FUNCTIONAL STATUS/SOCIAL/FAMILY SUPPORTS:: Jimmy resides in [facility] with his , Norma. According to his he has suffered with chronic back pain for quite some time and recently has had increased confusion and trouble swallowing. Kendrick is independent with his ADLs and reports that he has good support from his , Norma. CURRENT FUNCTIONAL STATUS:: Jimmy is lying in bed with Norma at his bedside when CM visits for the second time this morning. He is engaged in conversation, makes good eye contact and is talkative. He has just now been administered flexiril and is waiting for the medication to kick in before attempting to sit up and eat lunch. Kendrick and Norma report that he has been having trouble swallowing. LIQUID COMPOUNDER aware and ordering a speech consult. ADVANCE DIRECTIVES:: On file at [facility]. Has patient been provided with information about the portal?: Yes Did the patient sign up for the portal?: No CODE STATUS:: Full Code INSURANCE COVERAGE / FINANCIAL ISSUES:: Medicare, [employer]. CURRENT HOME/COMMUNITY SERVICES/EQUIPMENT:: Jimmy currently has no home or community services. He will discharge with new home health nursing and PT services. PRIMARY CARE PHYSICIAN:: Natasha Norton. POTENTIAL DISCHARGE NEEDS:: Follow up appointment with primary care provider. Home health nursing and PT services. PATIENT/FAMILY EDUCATION NEEDS:: Discharge education, limitations and follow up plan of care. Ask Me Three discussion. ANTICIPATED BARRIERS TO DISCHARGE:: No anticipated barriers to discharge. TRANSPORTATION:: Jimmy will transport via private vehicle with his , Norma, when medically ready. PLAN:: Jimmy will discharge home when medically ready per MD. Anticipate pt will follow up with his PCP and have new home health nursing and PT services. CM to continue to provide support to patient, family and careteam in regards to discharge planning and disposition.
--- NOTE | 2018-01-08 13:54 | PDOC.PROG ---
Date of Service: 01/08/18 Time of Service: 11:05 Assessment/Plan - Assessment/Plan (1) Back pain Plan: According to nursing patient had a good night and his pain seemed to be well managed. Continue dilaudid at current dosage. I am hesitant to increase any further as he appears quite fatigued and overall comfortable. Unfortunately he has an allergy to prednisone which would be helpful in managing any inflammation. Will hold off on starting NSAIDs for now. Added PRN cyclobenzaprine but discussed that this may lead to increased fatigue and confusion. The patient and his are aware and will let nursing staff know. (2) Type 2 diabetes mellitus Plan: Continue home insulin and glimepiride and monitoring fingersticks. If hyperglycemic would add SS insulin coverage. (3) Coronary artery disease Plan: Continue ASA and statin. Interestingly is not on a BB. Resting HR 60-70 bpm. No med changes currently. Needs routine follow up with cardiology on discharge. Time spent with patient 30 mins Discussed case with Dr. Wesley who is in agreement. History of Present Illness - History of Present Illness History of Present Illness: Jimmy is a 77 yo gentleman with dementia, chronic low back pain who was admitted after a fall resulting in acute worsening of his back discomfort. Overnight he seemed to do well according to nursing, however his reports that he called her at home several times in the middle of the night complaining of back pain. He described the pain to her as muscle spasms. Unfortunately he is allergic to prednisone. Also his describes dysphagia that began a few days/weeks prior to his admission to the hospital. Has been having trouble swallowing food, liquids and meds. Symptoms seem random. Sometimes he tolerates medications fine, other times he will have trouble and be noted to a lot of coughing. Review of Systems - Review of Systems Constitutional: Other (10 point ROS obtained with pertinent positives noted in HPI, otherwise negative) - Medications/Allergies Allergies/Adverse Reactions: Allergies Allergy/AdvReac Type Severity Reaction Status Date / Time prednisone Allergy Intermediate Skin Rash Unverified 01/07/18 09:48 tapentadol Allergy unknown Unverified 01/07/18 09:48 omeprazole AdvReac Severe Low Unverified 01/07/18 09:48 Magnesium Medications: Current Medications Acetaminophen (Tylenol) 0 mg PO Q4H PRN PRN Last Admin: 01/07/18 17:01 Dose: 650 mg Al Hydrox/Mg Hydrox/Simethicone (Mylanta Liquid) 30 ml PO Q2H PRN PRN Albuterol/Ipratropium (Duoneb Updraft) 3 ml UPD Q6H PRN PRN Aspirin (Ecotrin) 81 mg PO DAILY [facility] Last Admin: 01/08/18 08:57 Dose: 81 mg Atorvastatin Calcium (Lipitor) 10 mg PO DAILY [facility] Last Admin: 01/08/18 08:57 Dose: 10 mg Calcium Carbonate (Tums) 500 mg CH PRN PRN Carboxymethylcellulose Sodium (Refresh Plus Eye Drops) 1 - 2 each OU PRN PRN Last Admin: 01/08/18 06:11 Dose: 2 drp Cholecalciferol (Vitamin D) 1,000 units PO DAILY [facility] Last Admin: 01/08/18 08:57 Dose: 1,000 units Cyclobenzaprine HCl (Flexeril) 10 mg PO TID PRN PRN Last Admin: 01/08/18 12:03 Dose: 10 mg Dimethicone/Zinc Oxide (Alexander Protect Cream) 0 gm TP PRN PRN Divalproex Sodium (Depakote) 250 mg PO BID [facility] Last Admin: 01/08/18 08:58 Dose: 250 mg Docusate Sodium (Colace) 100 mg PO TID PRN PRN Ferrous Sulfate (Iron) 325 mg PO DAILY [facility] Last Admin: 01/08/18 08:57 Dose: 325 mg Glimepiride (Amaryl) 1 mg PO BID INSULIN [facility] Last Admin: 01/08/18 08:57 Dose: 1 mg Heparin Sodium (Porcine) () 5,000 units SC Q8H [facility] Last Admin: 01/08/18 06:12 Dose: 5,000 units Hydromorphone HCl (Dilaudid) 4 mg PO Q6H PRN [facility] Last Admin: 01/08/18 01:06 Dose: 4 mg Levothyroxine Sodium (Levothroid) 125 mcg PO DAILY [facility] Last Admin: 01/08/18 08:57 Dose: 125 mcg Lidocaine (Lidoderm 5% Patch) 1 patch TP DAILY@1800 [facility] Last Admin: 01/07/18 21:38 Dose: 1 patch Magnesium Hydroxide (Milk Of Magnesia) 30 ml PO DAILY PRN PRN Miscellaneous (Remove Patch) 1 each TP DAILY@0600 [facility] Last Admin: 01/08/18 06:17 Dose: 1 each Nitroglycerin (Nitrostat) 0.4 mg SL ONCE PRN Patient's Own ( Insulin Degludec [ Tresiba Flextouch U- 100] 0 each SC DAILY@1200 [facility] Last Admin: 01/08/18 11:52 Dose: 60 each Polyethylene Glycol (Miralax) 17 gm PO DAILY PRN PRN PRN Reason: Constipation Objective - Exam Vitals and I&O: Vital Signs Temp 36.8 C 01/08/18 00:57 Pulse 70 01/08/18 00:57 Resp 20 01/08/18 00:57 BP 170/91 01/08/18 00:57 Pulse Ox 96 01/08/18 00:57 Intake & Output 01/07/18 01/08/18 01/08/18 23:59 11:59 23:59 Intake Total 240 150 Output Total 300 400 Balance -60 -250 Weight 120.7 kg Intake: Oral 240 150 Output: Urine 300 400 Other: Urine Color Dark Luisa Dark Luisa Urine Appearance Clear Clear Urine Odor Normal Voiding Methods Urinal Urinal General: Oriented x3, Cooperative, No acute distress, Other (fatigued, short term memory impairement) HEENT: Atraumatic, PERRLA, EOMI, Mucous membr. moist/pink Neck: Supple Lungs: Clear to auscultation, Normal air movement Cardiovascular: Regular rate, Normal S1, Normal S2, Other (distant heart sounds) Abdomen: Normal bowel sounds, Soft. denies: Tenderness, Hepatospenomegaly, Masses, Other Skin: denies: Rashes, Breakdown, Significant lesion Neurological: Other (nonfocal) Psych/Mental Status: Mood NL - Results Results: Laboratory Results WBC 6.10 k/cumm (4.4-10.8) 01/08/18 06:50 RBC 3.88 m/cumm (4.50-6.00) L 01/08/18 06:50 Hgb 12.8 g/dL (13.5-17.5) L 01/08/18 06:50 Hct 36.9 % (40.0-50.0) L 01/08/18 06:50 MCV 95.1 fL (80-95) H 01/08/18 06:50 MCH 33.0 pg (27.0-33.0) 01/08/18 06:50 MCHC 34.7 g/dL (32.0-36.0) 01/08/18 06:50 RDW 12.7 % (11.8-14.1) 01/08/18 06:50 Plt Count 212 x1000/uL (130-400) 01/08/18 06:50 MPV 9.7 fL (8.0-11.0) 01/08/18 06:50 Sodium 139 mmol/L (136-145) 01/08/18 06:50 Potassium 4.3 mmol/L (3.5-5.1) 01/08/18 06:50 Chloride 101 mmol/L (98-107) 01/08/18 06:50 Carbon Dioxide 27.5 mmol/L (21.0-32.0) 01/08/18 06:50 Anion Gap 10.5 mmol/L (3-11) 01/08/18 06:50 BUN 22 mg/dL (7-18) H 01/08/18 06:50 Creatinine 1.09 mg/dL (0.70-1.30) 01/08/18 06:50 Estimated GFR/1.73 m2 >= 60.00 (mL/min/1.73m2) 01/08/18 06:50 Glucose 101 mg/dL (70-100) H 01/08/18 06:50 Calcium 9.4 mg/dL (8.5-10.1) 01/08/18 06:50
--- NOTE | 2018-01-08 13:58 | PDOC.PROG_ITS ---
Date of Service: 01/08/18 Time of Service: 11:05 Assessment/Plan - Assessment/Plan (1) Back pain Plan: According to nursing patient had a good night and his pain seemed to be well managed. Continue dilaudid at current dosage. I am hesitant to increase any further as he appears quite fatigued and overall comfortable. Unfortunately he has an allergy to prednisone which would be helpful in managing any inflammation. Will hold off on starting NSAIDs for now. Added PRN cyclobenzaprine but discussed that this may lead to increased fatigue and confusion. The patient and his are aware and will let nursing staff know. (2) Type 2 diabetes mellitus Plan: Continue home insulin and glimepiride and monitoring fingersticks. If hyperglycemic would add SS insulin coverage. (3) Coronary artery disease Plan: Continue ASA and statin. Interestingly is not on a BB. Resting HR 60-70 bpm. No med changes currently. Needs routine follow up with cardiology on discharge. Time spent with patient 30 mins Discussed case with Dr. Wesley who is in agreement. History of Present Illness - History of Present Illness History of Present Illness: Jimmy is a 77 yo gentleman with dementia, chronic low back pain who was admitted after a fall resulting in acute worsening of his back discomfort. Overnight he seemed to do well according to nursing, however his reports that he called her at home several times in the middle of the night complaining of back pain. He described the pain to her as muscle spasms. Unfortunately he is allergic to prednisone. Also his describes dysphagia that began a few days/weeks prior to his admission to the hospital. Has been having trouble swallowing food, liquids and meds. Symptoms seem random. Sometimes he tolerates medications fine, other times he will have trouble and be noted to a lot of coughing. Review of Systems - Review of Systems Constitutional: Other (10 point ROS obtained with pertinent positives noted in HPI, otherwise negative) - Medications/Allergies Allergies/Adverse Reactions: Allergies Allergy/AdvReac Type Severity Reaction Status Date / Time prednisone Allergy Intermediate Skin Rash Unverified 01/07/18 09:48 tapentadol Allergy unknown Unverified 01/07/18 09:48 omeprazole AdvReac Severe Low Unverified 01/07/18 09:48 Magnesium Medications: Current Medications Acetaminophen (Tylenol) 0 mg PO Q4H PRN PRN Last Admin: 01/07/18 17:01 Dose: 650 mg Al Hydrox/Mg Hydrox/Simethicone (Mylanta Liquid) 30 ml PO Q2H PRN PRN Albuterol/Ipratropium (Duoneb Updraft) 3 ml UPD Q6H PRN PRN Aspirin (Ecotrin) 81 mg PO DAILY [facility] Last Admin: 01/08/18 08:57 Dose: 81 mg Atorvastatin Calcium (Lipitor) 10 mg PO DAILY [facility] Last Admin: 01/08/18 08:57 Dose: 10 mg Calcium Carbonate (Tums) 500 mg CH PRN PRN Carboxymethylcellulose Sodium (Refresh Plus Eye Drops) 1 - 2 each OU PRN PRN Last Admin: 01/08/18 06:11 Dose: 2 drp Cholecalciferol (Vitamin D) 1,000 units PO DAILY [facility] Last Admin: 01/08/18 08:57 Dose: 1,000 units Cyclobenzaprine HCl (Flexeril) 10 mg PO TID PRN PRN Last Admin: 01/08/18 12:03 Dose: 10 mg Dimethicone/Zinc Oxide (Alexander Protect Cream) 0 gm TP PRN PRN Divalproex Sodium (Depakote) 250 mg PO BID [facility] Last Admin: 01/08/18 08:58 Dose: 250 mg Docusate Sodium (Colace) 100 mg PO TID PRN PRN Ferrous Sulfate (Iron) 325 mg PO DAILY [facility] Last Admin: 01/08/18 08:57 Dose: 325 mg Glimepiride (Amaryl) 1 mg PO BID INSULIN [facility] Last Admin: 01/08/18 08:57 Dose: 1 mg Heparin Sodium (Porcine) () 5,000 units SC Q8H [facility] Last Admin: 01/08/18 06:12 Dose: 5,000 units Hydromorphone HCl (Dilaudid) 4 mg PO Q6H PRN [facility] Last Admin: 01/08/18 01:06 Dose: 4 mg Levothyroxine Sodium (Levothroid) 125 mcg PO DAILY [facility] Last Admin: 01/08/18 08:57 Dose: 125 mcg Lidocaine (Lidoderm 5% Patch) 1 patch TP DAILY@1800 [facility] Last Admin: 01/07/18 21:38 Dose: 1 patch Magnesium Hydroxide (Milk Of Magnesia) 30 ml PO DAILY PRN PRN Miscellaneous (Remove Patch) 1 each TP DAILY@0600 [facility] Last Admin: 01/08/18 06:17 Dose: 1 each Nitroglycerin (Nitrostat) 0.4 mg SL ONCE PRN Patient's Own ( Insulin Degludec [ Tresiba Flextouch U- 100] 0 each SC DAILY@ 1200 [facility] Last Admin: 01/08/18 11:52 Dose: 60 each Polyethylene Glycol (Miralax) 17 gm PO DAILY PRN PRN PRN Reason: Constipation Objective - Exam Vitals and I&O: Vital Signs Temp 36.8 C 01/08/18 00:57 Pulse 70 01/08/18 00:57 Resp 20 01/08/18 00:57 BP 170/91 01/08/18 00:57 Pulse Ox 96 01/08/18 00:57 Intake & Output 01/07/18 01/08/18 01/08/18 23:59 11:59 23:59 Intake Total 240 150 Output Total 300 400 Balance -60 -250 Weight 120.7 kg Intake: Oral 240 150 Output: Urine 300 400 Other: Urine Color Dark Luisa Dark Luisa Urine Appearance Clear Clear Urine Odor Normal Voiding Methods Urinal Urinal General: Oriented x3, Cooperative, No acute distress, Other (fatigued, short term memory impairement) HEENT: Atraumatic, PERRLA, EOMI, Mucous membr. moist/pink Neck: Supple Lungs: Clear to auscultation, Normal air movement Cardiovascular: Regular rate, Normal S1, Normal S2, Other (distant heart sounds) Abdomen: Normal bowel sounds, Soft. denies: Tenderness, Hepatospenomegaly, Masses, Other Skin: denies: Rashes, Breakdown, Significant lesion Neurological: Other (nonfocal) Psych/Mental Status: Mood NL - Results Results: Laboratory Results WBC 6.10 k/cumm (4.4-10.8) 01/08/18 06:50 RBC 3.88 m/cumm (4.50-6.00) L 01/08/18 06:50 Hgb 12.8 g/dL (13.5-17.5) L 01/08/18 06:50 Hct 36.9 % (40.0-50.0) L 01/08/18 06:50 MCV 95.1 fL (80-95) H 01/08/18 06:50 MCH 33.0 pg (27.0-33.0) 01/08/18 06:50 MCHC 34.7 g/dL (32.0-36.0) 01/08/18 06:50 RDW 12.7 % (11.8-14.1) 01/08/18 06:50 Plt Count 212 x1000/uL (130-400) 01/08/18 06:50 MPV 9.7 fL (8.0-11.0) 01/08/18 06:50 Sodium 139 mmol/L (136-145) 01/08/18 06:50 Potassium 4.3 mmol/L (3.5-5.1) 01/08/18 06:50 Chloride 101 mmol/L (98-107) 01/08/18 06:50 Carbon Dioxide 27.5 mmol/L (21.0-32.0) 01/08/18 06:50 Anion Gap 10.5 mmol/L (3-11) 01/08/18 06:50 BUN 22 mg/dL (7-18) H 01/08/18 06:50 Creatinine 1.09 mg/dL (0.70-1.30) 01/08/18 06:50 Estimated GFR/1.73 m2 >= 60.00 (mL/min/1.73m2) 01/08/18 06:50 Glucose 101 mg/dL (70-100) H 01/08/18 06:50 Calcium 9.4 mg/dL (8.5-10.1) 01/08/18 06:50
[2018-01-08 16:00] VITALS: BP 105/72; PULSE 64; RESP 19; TEMP 36.6; O2SAT 97
[2018-01-08] MEDS: Lidocaine 5% Patch 1 PATCH TP (17:56)
[2018-01-08 23:59] VITALS: BP 131/80; PULSE 75; RESP 18; TEMP 36; O2SAT 99
[2018-01-09] MEDS: Heparin 5,000 UNITS/ML VIAL 5000 UNITS SC ×2 (06:12→13:57)
[2018-01-09] MEDS: Cyclobenzaprine 10 MG TAB PO ×2 (07:24→17:31)
[2018-01-09] MEDS: Acetaminophen 325 MG TAB PO ×3 (07:24→22:33)
[2018-01-09 07:45] VITALS: BP 108/77; PULSE 68; RESP 18; TEMP 36.7; O2SAT 96
[2018-01-09] MEDS: Ferrous Sulfate 325 MG TAB PO (08:32)
[2018-01-09] MEDS: Divalproex 250 MG TABEC PO ×2 (08:32→20:14)
[2018-01-09] MEDS: HYDROmorphone 4 MG TAB PO ×2 (08:32→22:33)
[2018-01-09] MEDS: Aspirin E.C. 81 MG TABEC PO (08:32)
[2018-01-09] MEDS: Glimepiride 2 MG TAB 1 MG PO ×2 (08:32→17:29)
[2018-01-09] MEDS: Atorvastatin 10 MG TAB PO (08:32)
[2018-01-09] MEDS: Levothyroxine 125 MCG TAB PO (08:33)
--- NOTE | 2018-01-09 10:49 | INPTTR_ITS ---
PHYSICAL THERAPY PROGRESS NOTE Date: 01/09/18 PRECAUTIONS: Fall SUBJECTIVE: Pt reports that he is still experiencing a significant amount of discomfort. He reports that it is no better then yesterday. OBJECTIVE PAIN: BED MOBILITY/TRANSFERS Rolling L/R: Supine-sit: Min assist Sit-supine: Sit-stand: Min assist x2 Stand-sit: Min assist x2 Bed-Chair: Chair-bed: GAIT Assistive Device FWW Weightbearing Full Assist: CGAx2 Distance: Static standing while the bed was being made. Too fatigued/in pain to complete anything else. Deviation VITALS: THEREX: Pt is completing single knee to chest stretching on his own. STAIRS: ASSESSMENT: Pt still cont to not have his pain under control which is making it difficult for him to progress with is PT sessions. We will monitor pt's response to today's session and progress accordingly. PLAN: Cont as per PT POC. TREATMENT CODES/TIME: 10-10:10 (10) TA
--- NOTE | 2018-01-09 11:04 | PDOC.CMPRO ---
Date of Service: 01/09/18 Time of Service: 11:04 Care Management Progress Note S/O: Pt was presented at interdisciplinary rounds. Jimmy is lying in bed with his , Norma, at bedside when CM visits this morning. He is engaged in conversation and makes good eye contact. His pain remains uncontrolled and PT has been unable to get him out of bed. Jimmy's status will change from observation to acute today. Jimmy will be having a speech consult while here due to his reported difficulties with swallowing. A: 77 year old male admitted for back pain. P: Jimmy will discharge home with new nursing services and PT when medically ready per MD. Jimmy will need a follow up appointment with his primary care provider. Pt will transport via private vehicle with his , Norma. CM will continue to provide support to patient, family and careteam regarding discharge planning and disposition.
--- NOTE | 2018-01-09 11:05 | PDOC.PROG_ITS ---
Date of Service: 01/09/18 Time of Service: 09:45 Assessment/Plan - Assessment/Plan (1) Back pain Plan: Continue flexeril TID PRN which seems to have helped with muscle spasm. Will increase dilaudid from 4 mg to 6 mg and try a one time dose of ketorolac IV to see if this helps at all. Continue to participate in PT. May need to consider swing bed or short rehab stay if symptoms persist as his is unable to care for him at home. CM is working on a safe D/C plan. (2) Type 2 diabetes mellitus Plan: Continue home insulin and glimepiride. Continue to check regular fingersticks and will make medication adjustments accordingly. (3) Coronary artery disease Plan: Continue ASA and statin. Interestingly not on a BB with resting HR in the 60- 70bpm. No med changes currently. Should have routine f/u with cardiology as an outpatient. Time spent with patient and his 25 mins Discussed case with Dr. Wesley who is in agreement History of Present Illness - History of Present Illness History of Present Illness: Mr. Arcos is a pleasant 77 yo with newly diagnosed dementia, DM, CAD who is being treated for acute on chronic low back pain. This was recently exacerbated by a fall at home. So far his back pain has been poorly controlled. Flexeril was added to dilaudid yesterday with minimal improvement. His back pain is significantly limiting his ability to mobilize. He is only able to briefly stand at the bedside and has not been able to participate in PT. Other than his discomfort Jimmy has no further complaints or concerns. Review of Systems - Review of Systems Constitutional: Other (10 point ROS obtained with pertinent positives noted in HPI, otherwise negative.) - Medications/Allergies Allergies/Adverse Reactions: Allergies Allergy/AdvReac Type Severity Reaction Status Date / Time prednisone Allergy Intermediate Skin Rash Unverified 01/07/18 09:48 tapentadol Allergy unknown Unverified 01/07/18 09:48 omeprazole AdvReac Severe Low Unverified 01/07/18 09:48 Magnesium Medications: Current Medications Acetaminophen (Tylenol) 0 mg PO Q4H PRN PRN Last Admin: 01/09/18 07:24 Dose: 650 mg Al Hydrox/Mg Hydrox/Simethicone (Mylanta Liquid) 30 ml PO Q2H PRN PRN Albuterol/Ipratropium (Duoneb Updraft) 3 ml UPD Q6H PRN PRN Aspirin (Ecotrin) 81 mg PO DAILY [facility] Last Admin: 01/09/18 08:32 Dose: 81 mg Atorvastatin Calcium (Lipitor) 10 mg PO DAILY [facility] Last Admin: 01/09/18 08:32 Dose: 10 mg Calcium Carbonate (Tums) 500 mg CH PRN PRN Carboxymethylcellulose Sodium (Refresh Plus Eye Drops) 1 - 2 each OU PRN PRN Last Admin: 01/08/18 06:11 Dose: 2 drp Cholecalciferol (Vitamin D) 1,000 units PO DAILY [facility] Last Admin: 01/09/18 08:32 Dose: 1,000 units Cyclobenzaprine HCl (Flexeril) 10 mg PO TID PRN PRN Last Admin: 01/09/18 07:24 Dose: 10 mg Dimethicone/Zinc Oxide (Alexander Protect Cream) 0 gm TP PRN PRN Divalproex Sodium (Depakote) 250 mg PO BID [facility] Last Admin: 01/09/18 08:32 Dose: 250 mg Docusate Sodium (Colace) 100 mg PO TID PRN PRN Ferrous Sulfate (Iron) 325 mg PO DAILY [facility] Last Admin: 01/09/18 08:32 Dose: 325 mg Glimepiride (Amaryl) 1 mg PO BID INSULIN [facility] Last Admin: 01/09/18 08:32 Dose: 1 mg Heparin Sodium (Porcine) () 5,000 units SC Q8H [facility] Last Admin: 01/09/18 06:12 Dose: 5,000 units Hydromorphone HCl (Dilaudid) 4 mg PO Q6H PRN [facility] Last Admin: 01/09/18 08:32 Dose: 4 mg Levothyroxine Sodium (Levothroid) 125 mcg PO DAILY [facility] Last Admin: 01/09/18 08:33 Dose: 125 mcg Lidocaine (Lidoderm 5% Patch) 1 patch TP DAILY@1800 [facility] Last Admin: 01/08/18 17:56 Dose: 1 patch Magnesium Hydroxide (Milk Of Magnesia) 30 ml PO DAILY PRN PRN Miscellaneous (Remove Patch) 1 each TP DAILY@0600 [facility] Last Admin: 01/09/18 06:19 Dose: 1 each Nitroglycerin (Nitrostat) 0.4 mg SL ONCE PRN Patient's Own ( Insulin Degludec [ Tresiba Flextouch U- 100] 0 each SC DAILY@ 1200 [facility] Last Admin: 01/08/18 11:52 Dose: 60 each Polyethylene Glycol (Miralax) 17 gm PO DAILY PRN PRN PRN Reason: Constipation Sodium Chloride (Saline Flush 10 Ml Syringe) 10 ml IVP PRN PRN Objective - Exam Vitals and I&O: Vital Signs Temp 36.7 C 01/09/18 07:45 Pulse 68 01/09/18 07:45 Resp 18 01/09/18 07:45 BP 108/77 01/09/18 07:45 Pulse Ox 96 01/09/18 07:45 Intake & Output 01/08/18 01/08/18 01/09/18 11:59 23:59 11:59 Intake Total 780 Output Total 1290 Balance -510 Intake: Oral 780 Output: Urine 1290 Other: Urine Color Yellow Urine Appearance Clear Clear Urine Odor None Voiding Methods Urinal General: Alert, Oriented x3, Cooperative, No acute distress, Other (short term memory impairement) HEENT: Atraumatic, PERRLA, EOMI, Mucous membr. moist/pink Neck: Supple Lungs: Clear to auscultation, Normal air movement Cardiovascular: Regular rate, Normal S1, Normal S2, Other (distant heart sounds) Abdomen: Normal bowel sounds, Soft. denies: Tenderness, Hepatospenomegaly, Masses, Other Extremities: Normal pulses. denies: Clubbing, Cyanosis, Edema, Tenderness/ swelling, Other Neurological: Other (nonfocal) Psych/Mental Status: Mental status NL - Results Results: Laboratory Results WBC 6.10 k/cumm (4.4-10.8) 01/08/18 06:50 RBC 3.88 m/cumm (4.50-6.00) L 01/08/18 06:50 Hgb 12.8 g/dL (13.5-17.5) L 01/08/18 06:50 Hct 36.9 % (40.0-50.0) L 01/08/18 06:50 MCV 95.1 fL (80-95) H 01/08/18 06:50 MCH 33.0 pg (27.0-33.0) 01/08/18 06:50 MCHC 34.7 g/dL (32.0-36.0) 01/08/18 06:50 RDW 12.7 % (11.8-14.1) 01/08/18 06:50 Plt Count 212 x1000/uL (130-400) 01/08/18 06:50 MPV 9.7 fL (8.0-11.0) 01/08/18 06:50 Sodium 139 mmol/L (136-145) 01/08/18 06:50 Potassium 4.3 mmol/L (3.5-5.1) 01/08/18 06:50 Chloride 101 mmol/L (98-107) 01/08/18 06:50 Carbon Dioxide 27.5 mmol/L (21.0-32.0) 01/08/18 06:50 Anion Gap 10.5 mmol/L (3-11) 01/08/18 06:50 BUN 22 mg/dL (7-18) H 01/08/18 06:50 Creatinine 1.09 mg/dL (0.70-1.30) 01/08/18 06:50 Estimated GFR/1.73 m2 >= 60.00 (mL/min/1.73m2) 01/08/18 06:50 Glucose 101 mg/dL (70-100) H 01/08/18 06:50 Calcium 9.4 mg/dL (8.5-10.1) 01/08/18 06:50
[2018-01-09] MEDS: Ketorolac 15 MG/ML VIAL IVP (11:23)
--- NOTE | 2018-01-09 14:43 | EVALE_ITS ---
DATE: January 09, 2018 SUBJECTIVE: Jimmy Arcos was evaluated at [facility] on January 09, 2018 for diso rders of swallowing. This 77-year-old, male was admitted after a fall in his home significantly affected the jana n in his back and he was admitted to the hospital. He sustained a major fall of 20 or more feet appr oximately 20 years ago which altered his back and seating positioning, but the current disorder has r endered him almost in a supine position for most of his intake. He is able to elevate himself to christine roximately 170 degrees with his head supported by roughly two pillows. This does not appear to be a very safe way for the patient to swallow but the evaluation proved otherwise. TESTS AND RESULTS: The bedside assessment for dysphagia was administered to determine if the patient could take his pill s more effectively and to ascertain if the current diet was safe given his extenuating circumstances. The results are as follows: #1. The patient safely and effectively took his medications with applesauce and for those that were larger and more difficult he was able to safely take them by being crushed in applesauce. #2. He had no difficulty with any texture of food including level 4, level 3, level 2, and surprisin gly level 1 thin liquids. There were no signs of aspiration. The patient did not cough or did not c rob. Transit times were satisfactory and the patient seemed to manage the gravitational pull withou t difficulty. His reports he has had no recent episodes of pneumonia and has not experienced as piration as I describe this to her. She did note, however, that this is the worst pain he has been i n in many years and was not suffering from any difficulty taking pills. CONCLUSIONS AND RECOMMENDATIONS: Jimmy Arcos presents the clinical picture of compromise with seating safety for oral intake due to excruciating back pain. This pathologist observed Mr. Arcos in approximately a 170-degree po sition for thin liquids, puree, altered mechanical soft, and solid foods, and he presented no signifi cant impairment. His voice remained dry, excursion of the larynx was satisfactory, and transit times were within normal limits. Based upon these findings, this pathologist is not recommending therapy at this time but I am recomme nding that his current diet continue with solid foods and thin liquids. Medications should be offere d in puree, either in small whole pills with puree or crushed larger pills in puree. This appears to be the only effective way right now to currently combat the significant and excruciating pain that t his patient experiences. Thank you for referring Mr. Arcos to my attention. Jonathan Causey M.A., C.C.C., Speech Pathologist
[2018-01-09 15:38] VITALS: BP 114/79; PULSE 76; RESP 24; TEMP 36.6; O2SAT 96
[2018-01-09] MEDS: Lidocaine 5% Patch 1 PATCH TP (17:30)
[2018-01-10 00:32] VITALS: BP 108/67; PULSE 60; RESP 19; TEMP 35.9; O2SAT 95
[2018-01-10] MEDS: Cyclobenzaprine 10 MG TAB PO ×4 (01:21→22:15)
[2018-01-10 06:03] LABS: HCT 38.9 % (40.0-50.0); HGB 13.7 g/dL (13.5-17.5); Mean Corp. HGB Concentration 35.2 g/dL (32.0-36.0); Mean Corpuscular Hemoglobin 33.4 pg (27.0-33.0); Mean Corpuscular Volume 94.9 fL (80-95); Mean Platelet Volume 9.8 fL (8.0-11.0); Platelet Count 219 x1000/uL (130-400); RBC Distribution Width 12.8 % (11.8-14.1)
[2018-01-10] MEDS: Heparin 5,000 UNITS/ML VIAL 5000 UNITS SC ×3 (06:53→22:14)
[2018-01-10 07:30] VITALS: BP 137/80; PULSE 70; RESP 19; TEMP 36; O2SAT 97
[2018-01-10] MEDS: Atorvastatin 10 MG TAB PO (08:38)
[2018-01-10] MEDS: Acetaminophen 325 MG TAB PO ×2 (08:38→22:14)
[2018-01-10] MEDS: Aspirin E.C. 81 MG TABEC PO (08:38)
[2018-01-10] MEDS: HYDROmorphone 4 MG TAB PO ×3 (08:38→22:15)
[2018-01-10] MEDS: Ferrous Sulfate 325 MG TAB PO (08:38)
[2018-01-10] MEDS: Divalproex 250 MG TABEC PO ×2 (08:38→19:20)
[2018-01-10] MEDS: Levothyroxine 125 MCG TAB PO (08:38)
[2018-01-10] MEDS: Glimepiride 2 MG TAB 1 MG PO ×2 (08:38→17:05)
[2018-01-10] MEDS: Normal Saline Flush 10 ML SYR IVP ×3 (08:39→15:37)
[2018-01-10 09:45] VITALS: O2SAT 93
--- NOTE | 2018-01-10 12:02 | INPTTR_ITS ---
PHYSICAL THERAPY PROGRESS NOTE Date: 01/10/18 PRECAUTIONS: fall, standard SUBJECTIVE: Jimmy states that his back continues to be incredibly painful. He has not been able to ambulate as of yet. He's planning to transition to [facility] tomorrow. OBJECTIVE PAIN: well managed at rest; 03/09 with movement BED MOBILITY/TRANSFERS Rolling L/R: max cues, min A Supine-sit: min A, max cues, HOB at 45 Sit-supine: min A Sit-stand: CGA Stand-sit: CGA Bed-Chair: unable GAIT Unable. Patient able to stand at WW x 45 seconds with poor safety awareness and sharply increased pain. THEREX: as noted on flow sheet. Patient also received single knee to chest stretching, which he tolerates to approx 95 degrees bilat. ASSESSMENT: Limited gains in mobility due to poorly controlled pain. PLAN: Continue efforts to maximize mobility. TREATMENT CODES/TIME: 30 minutes (GARRISON BOSCH)
[2018-01-10 12:03] LABS: Anion Gap 10.8 mmol/L (3-11); BUN 31 mg/dL (7-18); CO2 27.2 mmol/L (21.0-32.0); CREATININE 1.38 mg/dL (0.70-1.30); Calcium 9.9 mg/dL (8.5-10.1); Chloride 103 mmol/L (98-107); Estimated GFR 49.96 (mL/min/1.73m2); Glucose 109 mg/dL (70-100); Potassium 4.4 mmol/L (3.5-5.1); Sodium 141 mmol/L (136-145)
[2018-01-10] MEDS: Ketorolac 15 MG/ML VIAL IVP (12:10)
--- NOTE | 2018-01-10 13:03 | PDOC.CMPRO ---
Date of Service: 01/10/18 Time of Service: 13:03 Care Management Progress Note S/O: Pt was presented at interdisciplinary rounds. Jimmy is lying in bed with his , Norma, at bedside when CM visits this morning. He is engaged in conversation and makes good eye contact. Jimmy and Norma would like pt to go to a SNF for rehab following discharge. Referral faxed to [facility] per pt. request. [facility] has offered bed and pt has accepted. Pt reports that he had reiki this morning and enjoyed it. CM spoke with reiki provider who is willing to work with Jimmy again later today. His pain remains uncontrolled and PT has been unable to get him out of bed. A: 77 year old male admitted for back pain. P: Jimmy will discharge when medically ready per MD. Pt will transport to [facility] via w/c van at 1400. Norma will bring pt's home medications and clothing at that time. CM will continue to provide support to patient, family and careteam regarding discharge planning and disposition.
--- NOTE | 2018-01-10 13:40 | PGE_ITS ---
DATE: JANUARY 10, 2018 @13:40 ASSESSMENT/PLAN: 1. Acute on chronic low back pain. Continue Flexeril t.i.d. p.r.n. for muscle spasms. Will see how he responds to increased Dilaudid. He did receive one dose of IV Ketorolac at 15 mg. which did seem to help some. Will order this q. 6 hours for a total of 5 doses. I did put in a repeat BMP to evaluate kidney function. If his creatinine has worsened at all will need to reconsider, or at the very least consult with pharmacy. Case Management is currently working on a safe discharge plan that will likely include a short rehab stay. 2. Type 2 diabetes Continue home insulin and Glimepiride. Blood sugars have been trending upward. Will add sliding scale insulin coverage while he is an in-patient. 3. Coronary artery disease No reports of chest discomfort or other exertional symptoms. Continue aspirin and statin. Should discuss initiation of a beta andrea as an out-patient and follow-up with cardiology. Time spent with the patient 35 minutes, over 50% of which was in direct counselling and discussion regarding a safe discharge plan with Case Management at the bedside. I discussed the case with Dr. Wesley who is in agreement. HISTORY: Mr. Arcos is a pleasant 77 year-old gentleman with newly diagnosed dementia (October 2017), diabetes, coronary artery disease who is currently admitted for acute on chronic low back pain that started after a fall at home. Over the last couple of days we have added Flexeril which has been effective in managing muscle spasms. Additionally his Dilaudid was increased from 4 mg. to 6 mg. with minimal improvement. Yesterday we tried an IV dose of Toradol which did seem to help some, however, physical therapy reports that he has still been unable to actively participate more than just standing at the bedside for short periods of time. His does not feel comfortable bringing him home when he is this reliant on physical assistance. Other than his back pain, Kendrick has no other complaints or concerns. REVIEW OF SYSTEMS: Ten point review of systems obtained with pertinent positives noted in history of present illness, otherwise negative. EXAMINATION: General: 77 year-old obese, male. He appears his stated age and in no acute distress. He is alert and oriented times three. He is pleasant and cooperative. He is well developed and well nourished. He has some short term memory impairment. Vital Signs: Temperature 36, pulse 70, blood pressure 137/80, respiratory rate 19, O2 sat 97% on room air. HEENT: Unremarkable. Cardiovascular: Regular rate and rhythm, S-1, S-2, no S-3, S-4. No murmurs, rubs, gallops or thrills. Somewhat distant heart sounds. Lungs: Chest expansion symmetrical, respirations unlabored. Lung are clear to auscultation throughout all lung arroyo, no adventitious breath sounds. Abdomen: Obese, soft, nontender to palpation with normal active bowel sounds in all four quadrants, no hepatosplenomegaly or prominent masses although somewhat difficult to assess given body habitus. Lower extremities: Without deformity or edema, intact pulses. Neurological examination is nonfocal. LABORATORY DATA: White blood count 7.1, hemoglobin 13.7, hematocrit 38.9, platelets 219. Sodium 141, potassium 4.4, chloride 103, bicarb 27.2, BUN 31, creatinine 1.38. Dictated by Cami Lopes N.P. under the supervision of Armani Wesley M.D.
[2018-01-10] MEDS: Dexamethasone 4 MG TAB PO (14:12)
[2018-01-10] MEDS: Polyethylene Glycol 3350 17 GM PACKET PO (14:23)
[2018-01-10] MEDS: diphenhydrAMINE 50 MG/ML VIAL 25 MG IVP (15:36)
--- NOTE | 2018-01-10 16:03 | INPTTR_ITS ---
PHYSICAL THERAPY PROGRESS NOTE Date: 01/10/18 PRECAUTIONS: Fall SUBJECTIVE: Jimmy is agreeable to PT, although he states I will do what I can. Nsg reports that patient walked to bathroom with nsg assist earlier today. OBJECTIVE PAIN: Patient c/o R sided low back pain with all movement and in all positions. BED MOBILITY/TRANSFERS Rolling L/R: Instructed in log rolling technique Supine-sit: Min A with max cuing Sit-supine: Min A Sit-stand: SBA Stand-sit: CGA GAIT Assistive Device FWW Weightbearing WBAT Assist: CGA Distance: 3 steps fwd/back + 3 side steps Deviation Pain THEREX: Patient completed a core stabilization program, as per flow sheet. ASSESSMENT: Patient appears limited by pain, however was able to take several steps. Patient c/o pain with ther ex, although was able to participate some. PLAN: Continue with PT's POC TREATMENT CODES/TIME: 20 minutes; TAx1
[2018-01-10 16:10] VITALS: BP 119/74; PULSE 66; RESP 20; TEMP 36.6; O2SAT 95
[2018-01-10] MEDS: Insulin Aspart 300 UNITS/3 ML PEN SC (17:05)
[2018-01-10] MEDS: Lidocaine 5% Patch 1 PATCH TP (17:06)
[2018-01-10] MEDS: Milk of Magnesia 30 ML CUP PO (22:16)
[2018-01-11 00:04] VITALS: BP 169/94; PULSE 71; RESP 18; TEMP 36.6; O2SAT 93
[2018-01-11] MEDS: Heparin 5,000 UNITS/ML VIAL 5000 UNITS SC (06:18)
[2018-01-11] MEDS: Cyclobenzaprine 10 MG TAB PO (06:18)
[2018-01-11 07:20] VITALS: BP 168/89; PULSE 68; RESP 19; TEMP 36.8; O2SAT 95
[2018-01-11] MEDS: Normal Saline Flush 10 ML SYR IVP (08:14)
[2018-01-11] MEDS: Polyethylene Glycol 3350 17 GM PACKET PO (08:14)
[2018-01-11] MEDS: Glimepiride 2 MG TAB 1 MG PO (08:14)
[2018-01-11] MEDS: HYDROmorphone 4 MG TAB PO (08:15)
[2018-01-11] MEDS: Insulin Aspart 300 UNITS/3 ML PEN SC ×2 (08:15→11:54)
[2018-01-11] MEDS: Dexamethasone 4 MG TAB PO (08:15)
[2018-01-11] MEDS: Aspirin E.C. 81 MG TABEC PO (08:15)
[2018-01-11] MEDS: Ferrous Sulfate 325 MG TAB PO (08:15)
[2018-01-11] MEDS: Levothyroxine 125 MCG TAB PO (08:15)
[2018-01-11] MEDS: Divalproex 250 MG TABEC PO (08:15)
[2018-01-11] MEDS: Atorvastatin 10 MG TAB PO (08:15)
[2018-01-11 09:59] VITALS: O2SAT 94
--- NOTE | 2018-01-11 11:32 | INDS_ITS ---
PHYSICAL THERAPY INPATIENT DISCHARGE NOTE Date: 01/11/18 Dates of Service: 01/07/18-01/10/18 SUBJECTIVE: NT OBJECTIVE 01/07/18-01/10/18 BED MOBILITY/TRANSFERS: Supine-sit minAx1 Sit-supine minAx1 Sit-stand SBA Stand-sit CGA GAIT: CGA with FWW 3-5 steps, limited by pain BALANCE: Static sitting good Dynamic sitting fair Static standing fair Dynamic standing poor ASSESSMENT: Pt was seen for 6 PT visits. Progressed from modAx2 bed transfers to minAx1, from minAx1 standing transfers to SBA, from unable to stand to CGA with FWW 3-5 steps. Pt is limited in mobility due to low back pain. He is being transferred today to rehab facility for continued strengthening and mobility training. GOALS Goals x1 week 1. Supine-sit: I 2. Sit-Supine: I 3. Sit-Stand: I 4. Stand-sit: I 5. Bed-chair: I 6. Chair-bed: I 7. Gait: I with lease restrictive device x 25 ft. Pt did not meet goals due to back pain, recommend continued PT DISCHARGE PLAN/RECOMMENDATIONS: snf care facility for rehab Jeannette Cisneros PT
--- NOTE | 2018-01-11 12:12 | DISCHARGE ---
Discharge - Discharge Orders Referrals: Natasha Norton DO [Primary Care Provider] - 01/21/18 3:15 pm Other Amb Orders: Basic Metabolic Panel [LAB] Time Frame: 3 Days, Location: Determined By Patient - Discharge Plan Disposition: SNF (LEVEL 1) [facility] Condition: Improving Diet:: Carb Counting Equipment/Supplies:: No Equipment Needed Activity:: Activity as Tolerated - Instructions Micromedex Instructions: Acute Low Back Pain (DC)
--- NOTE | 2018-01-11 12:30 | PDOC.CMDIS ---
Date of Service: 01/11/18 Time of Service: 12:31 LACE Index Scoring Tool - Questions: Length of Stay (in days): 4 - 6 Acuity (Admit via E.D.?): Yes Comorbidities: Diabetes w/o Complication, Dementia E.D. Visits: 3 - Answers: Total Score: 15 Risk of Readmission: High Risk Care Management Discharge Reason for Hospitalization: Back pain. Discharge Plan: Jimmy will discharge to [facility] today via W/C van at 1400. CM requested that [facility]R bring a w/c for transport. CM has notified staff climate scientist of time and mode of transport. SNF forms placed on the front of the chart for completion. Patient/Family Education Needs: Review DC instructions, any limitations, and discuss Ask Me three Services Needed at Discharge: Alf Facility ([facility] ), Transportation ([facility] w/c van.)
--- NOTE | 2018-01-11 12:42 | CMDISCH_ITS ---
Date of Service: 01/11/18 Time of Service: 12:31 LACE Index Scoring Tool - Questions: Length of Stay (in days): 4 - 6 Acuity (Admit via E.D.?): Yes Comorbidities: Diabetes w/o Complication, Dementia E.D. Visits: 3 - Answers: Total Score: 15 Risk of Readmission: High Risk Care Management Discharge Reason for Hospitalization: Back pain. Discharge Plan: Jimmy will discharge to [facility] today via W/C van at 1400. CM requested that [facility]R bring a w/c for transport. CM has notified staff development coordinator of time and mode of transport. SNF forms placed on the front of the chart for completion. Patient/Family Education Needs: Review DC instructions, any limitations, and discuss Ask Me three Services Needed at Discharge: Mcfp Facility ([facility] ), Transportation ([facility] w/c van.)
--- NOTE | 2018-01-11 13:30 | DSE_ITS ---
REASON FOR ADMISSION: Back pain, acute on chronic. HOSPITAL COURSE: Mr. Arcos is a 76-year-old man with a history of Type 2 diabetes, myocardial in farction with stent placement, newly diagnosed dementia, hyperlipidemia and chronic back pain, who pr esents to the Emergency Department on 01/08/18 with reports of acute on chronic back pain. He had fal phyllis 3 days prior to his admission when he was attempting to get up out of his chair. The following day, he could not get up out of bed due to increased pain in his right lower back. He was initially discharged back home from the Emergency Department, however his back pain continued despite the pres cription for Dilaudid at home. On the morning of admission, he had difficulty getting up out of bed due to pain, therefore he presented back to the Emergency Department and was admitted to the [facility]. He had a CT of the lumbar spine prior to his admission on an Emergency Room visit which showed n o acute abnormality. However, he did have degenerative changes in his spine with some disc space da rowing and facet joint hypertrophy with osteophyte formation. There was also mild disc protrusion n oted at L2-3, L3-4 and L4-5 which resulted in mild central spinal stenosis. He continued to have pa in and Flexeril was added for muscle spasms which appeared to help with the pain somewhat. However, he was unable to mobilize with Physical Therapy therefore he will transition to [facility] where he will continue rehabilitation with Physical Therapy prior to returning [facility]. He has no other complaints. On examination, he continues to have mild discomfort on palpation of his right lower paraspinous musc les. He was started on Dexamethasone the day prior to his discharge. He will continue this at [facility] for a short time. SIGNIFICANT TEST RESULTS: His most recent sodium was within normal limits at 141, potassium 4.4, ch loride 103, CO2 27.2, BUN elevated at 31, creatinine 1.38. His glucose was 109. He had no leukocyto sis. White blood cell count was 7.10. Red blood cells stable at 4.10. HGB within normal limits at 13.7 . HCT 38.9. Platelet count normal at 219,000. No imaging during this acute hospitalization. CT scan from previous Emergency Room visit of his [facility] dated 01/05/18 revealed degenerative changes but no acute abnormalities as above. DISCHARGE DIAGNOSIS: Acute problems - 1) Acute on chronic back pain, S/P fall at home 3 days prior to admission. Chronic problems - 1) Obesity. 2) Hyperlipidemia. 3) Chronic back pain. 4) Diverticulitis of the large intestine without perforation. 5) Diabetes, Type 2. a) Most recent HGB A1c was 7.5 on 12/31/17. 6) Significant cardiac history. a) Non-Q-wave myocardial infarction in 1998. b) Stent placement x 2 most recently in 2012. c) Followed by Cardiology at . 7) Newly diagnosed dementia in October of 2017. 8) Pulmonary nodule. 9) Polyneuropathy. 10) Hearing loss. 11) Elevated PSA. 12) Macular degeneration. 13) Gastroesophageal reflux disease. 14) History of renal calculi. PAST SURGICAL HISTORY: 1) Cardiac catheterization with stent placement. 2) Reportedly [facility] [place] for his chronic back pain. 3) Left rotator cuff surgery x [address] Cameron. 4) Knee surgery by Dr. Cameron. 5) Colonoscopy and gastroscopy by Dr. Higgins. 6) Hernia repair x 2, most recently by Dr. Zambrano. DISCHARGE MEDICATIONS: Aspirin 81 mg PO daily. Iron 325 mg PO daily. Nitroglycerin 0.4 mg PO as directed. Metformin 850 mg PO t.i.d., placed on hold during acute hospitalization, to be resumed upon discharge . Atorvastatin calcium 10 mg PO daily. Glimepiride 1 mg PO b.i.d. Vitamin D3 1000 U PO daily. Levothyroxine 125 mcg PO daily. Tresiba insulin FlexTouch U 100, 60 U subcutaneous daily. Depakote 250 mg PO b.i.d. Dilaudid 4 mg PO q 6 h PRN. Flexeril 10 mg PO t.i.d. PRN. Dexamethasone 4 mg PO daily x 5 more days. Insulin Aspart per sensitive sliding scale. Lidoderm patch 1 patch topically daily at 1800 hours. MiraLAX 17 gram PO daily PRN. Refresh Plus eyedrops 1-2 drops OU PRN. Milk of Magnesia 30 ml PO daily PRN. Acetaminophen 650 mg PO q 6 h PRN. DISPOSITION: Mr. Arcos is discharged to [facility] where he will co ntinflo to mobilize with Physical Therapy prior to returning home. He will have a follow-up basic metabolic panel in 3 days as he did have elevated BUN and creatinine o n his most recent lab draw. This case was discussed with Dr. Vásquez who is in agreement.
--- NOTE | 2018-01-11 13:36 | PLE_ITS ---
January 11, 2018 Acute problems - 1) Acute on chronic back pain, S/P fall at home 3 days prior to admission. Chronic problems - 1) Obesity. 2) Hyperlipidemia. 3) Chronic back pain. 4) Diverticulitis of the large intestine without perforation. 5) Diabetes, Type 2. a) Most recent HGB A1c was 7.5 on 12/31/17. 6) Significant cardiac history. a) Non-Q-wave myocardial infarction in 1998. b) Stent placement x 2 most recently in 2012. c) Followed by Cardiology at [facility]. 7) Newly diagnosed dementia in October of 2017. 8) Pulmonary nodule. 9) Polyneuropathy. 10) Hearing loss. 11) Elevated PSA. 12) Macular degeneration. 13) Gastroesophageal reflux disease. 14) History of renal calculi.
== END 2018-01-11 14:13 | disposition skilled nursing facility (03) | DRG 552 ==
PROVIDERS: Nurse Practitioner; Nurse Practitioner Primary Care; Admitting Provider Internal Medicine; Emergency Provider Physician Assistant; Visit Provider Family Medicine
DX: M54.5 Low back pain (principal); G89.29 Other chronic pain; W19.XXXA Unspecified fall, initial encounter; E66.9 Obesity, unspecified; I25.10 Atherosclerotic heart disease of native coronary artery without angina pectoris; E11.42 Type 2 diabetes mellitus with diabetic polyneuropathy; Z79.4 Long term (current) use of insulin; I25.2 Old myocardial infarction; Z95.5 Presence of coronary angioplasty implant and graft; F03.90 Unspecified dementia, unspecified severity, without behavioral disturbance, psychotic disturbance, mood disturbance, and anxiety; E78.5 Hyperlipidemia, unspecified; K21.9 Gastro-esophageal reflux disease without esophagitis; E03.9 Hypothyroidism, unspecified
CPT/HCPCS: 36415 ×3; 80048 ×2; 85027 ×2; 97530 ×5; 97110; 97162; 99284; 96374; 96375; 99232; 99233; J8540 ×2; J1200; J1644 ×11; J1885 ×3; G0378 ×2; 92610; 99285; 99219; 99239; G8978; J3490

== ENCOUNTER → 2018-01-14 16:36 | Outpatient (REF) | payer MEDICARE, BC, SELFPAY ==
[2018-01-14 18:47] LABS: Anion Gap 12.8 mmol/L (3-11); BUN 36 mg/dL (7-18); CO2 26.2 mmol/L (21.0-32.0); Calcium 9.4 mg/dL (8.5-10.1); Chloride 100 mmol/L (98-107); Estimated GFR 49.14 (mL/min/1.73m2); Glucose 115 mg/dL (70-100); Potassium 4.8 mmol/L (3.5-5.1); Sodium 139 mmol/L (136-145)
== END ==
LOC: LBN 16:36
PROVIDERS: PCP Student in an Organized Health Care Education/Training Program; Visit Provider Student in an Organized Health Care Education/Training Program
DX: D64.9 Anemia, unspecified (principal); E78.5 Hyperlipidemia, unspecified; E11.9 Type 2 diabetes mellitus without complications; E03.9 Hypothyroidism, unspecified; E55.9 Vitamin D deficiency, unspecified
CPT/HCPCS: 80048

== ENCOUNTER → 2018-02-02 14:09 | Outpatient (BNVA) | payer MEDICARE, BC, SELFPAY | PROVIDERS: PCP Student in an Organized Health Care Education/Training Program; Visit Provider Psychiatry & Neurology Neurology | DX: G31.09 Other frontotemporal neurocognitive disorder (principal); R13.10 Dysphagia, unspecified; F42.4 Excoriation (skin-picking) disorder | CPT/HCPCS: 99214 ==

== ENCOUNTER 2018-02-04 16:01 | Outpatient (REF) | payer MEDICARE, BC, SELFPAY ==
[2018-02-04 18:21] LABS: COMMENT (LAB VIEW ONLY) 339.38 mg/dL; Microalb ug/mg Crea 4.7 ug/mg Cr
== END 2018-02-04 16:21 ==
LOC: LBN 16:01
PROVIDERS: PCP Student in an Organized Health Care Education/Training Program; Visit Provider Student in an Organized Health Care Education/Training Program
DX: E11.9 Type 2 diabetes mellitus without complications (principal)
CPT/HCPCS: 82043; 82570

== ENCOUNTER → 2018-03-15 09:14 | Outpatient (BNVA) | payer MEDICARE, BC, SELFPAY | PROVIDERS: Visit Provider Psychiatry & Neurology Neurology | DX: L98.1 Factitial dermatitis (principal); G31.09 Other frontotemporal neurocognitive disorder; E11.9 Type 2 diabetes mellitus without complications; Z79.4 Long term (current) use of insulin; R13.10 Dysphagia, unspecified | CPT/HCPCS: 99214 ==

== ENCOUNTER → 2018-05-17 08:27 | Outpatient (BNVA) | payer MEDICARE, BC, SELFPAY | PROVIDERS: PCP Student in an Organized Health Care Education/Training Program; Visit Provider Psychiatry & Neurology Neurology | DX: R13.10 Dysphagia, unspecified (principal); G31.09 Other frontotemporal neurocognitive disorder; L98.1 Factitial dermatitis; F02.80 Dementia in other diseases classified elsewhere, unspecified severity, without behavioral disturbance, psychotic disturbance, mood disturbance, and anxiety; E11.9 Type 2 diabetes mellitus without complications; Z79.4 Long term (current) use of insulin | CPT/HCPCS: 99213 ==

== ENCOUNTER → 2018-07-19 13:16 | Outpatient (BNVA) | payer MEDICARE, BC, SELFPAY | PROVIDERS: PCP Student in an Organized Health Care Education/Training Program; Visit Provider Psychiatry & Neurology Neurology | DX: G31.09 Other frontotemporal neurocognitive disorder (principal); F02.80 Dementia in other diseases classified elsewhere, unspecified severity, without behavioral disturbance, psychotic disturbance, mood disturbance, and anxiety; L98.1 Factitial dermatitis; E11.9 Type 2 diabetes mellitus without complications; Z97.4 Presence of external hearing-aid | CPT/HCPCS: 99213 ==

== ENCOUNTER 2018-08-26 11:35 | Outpatient (CLI) | payer MEDICARE, BC, SELFPAY ==
[2018-08-26 12:51] LABS: Hemoglobin A1C 6.5 % (4.5-6.2)
[2018-08-26 13:26] LABS: TSH (W/Ref FT4) 2.74 uIU/mL (0.358-3.74)
[2018-08-29 11:06] LABS: HIV-1/2 Ag & Ab Screen Negative (NEGAT)
[2018-08-29 12:26] LABS: Syphilis Serology (RPR) Negative (Negative)
[2018-08-29 14:02] LABS: Chlamydia Result Negative; GC Result Negative; Specimen Description URINE
== END 2018-08-26 11:55 ==
PROVIDERS: PCP Student in an Organized Health Care Education/Training Program; Visit Provider Student in an Organized Health Care Education/Training Program
DX: E03.9 Hypothyroidism, unspecified (principal); E11.9 Type 2 diabetes mellitus without complications; Z20.2 Contact with and (suspected) exposure to infections with a predominantly sexual mode of transmission
CPT/HCPCS: 36415; 87389; 87491; 87591; 83036; 84443; 86592

== ENCOUNTER 2018-09-16 10:29 | Emergency (ER) | payer MEDICARE, BC, SELFPAY ==
[2018-09-16] VITALS (31 sets, daily range): BP systolic 99–159; BP diastolic 56–122; PULSE 45–75; RESP 8–23; TEMP 36.6; O2SAT 95–100
--- NOTE | 2018-09-16 10:46 | W.ED.GENAD ---
Discharge Plan Disposition Patient Disposition: HOME Condition: Stable Discharge Details Chief Complaint: Chest Pain Clinical Impression: Atrial fibrillation, Chest pain Primary Care Provider: Natasha Nroton ED Provider: Kelechi Walker Home Meds and New Rx's Prescriptions: New Eliquis 5 mg tablet 5 mg PO BID Qty: 60 RF: 0 No Action divalproex 500 mg tablet,delayed release (DR/EC) 500 mg PO BID Qty: 180 RF: 3 blood sugar diagnostic strip .ROUTE .MEDSUPPLY Qty: 10 RF: 0 aspirin [Aspir-81] 81 MG tablet,delayed release (DR/EC) 81 mg PO DAILY Qty: 100 RF: 6 ferrous sulfate 325 MG tablet 325 mg PO DAILY Qty: 100 RF: 6 nitroglycerin 0.4 MG tablet, sublingual 0.4 mg Buccal ONCE PRNQty: 25 RF: 6 cholecalciferol (vitamin D3) 1,000 UNIT capsule 1,000 unit PO DAILY Qty: 90 RF: 0 levothyroxine 125 mcg tablet 125 mcg PO DAILY Qty: 90 RF: 0 pen needle, diabetic 31 gauge x 1/6 needle 1 ea Miscellaneous DAILY Qty: 100 RF: 4 metformin 850 mg tablet 850 mg PO BID Qty: 240 RF: 6 atorvastatin 10 mg tablet 10 mg PO DAILY Qty: 30 RF: 0 acetaminophen 325 MG tablet 650 mg PO Q6H PRN PRNQty: 10 RF: 0 Tresiba FlexTouch U-100 100 UNIT/1 ML insulin pen 40 unit SQ DAILY RF: 0 Discharge Instructions Instructions: Atrial Fibrillation (ED) Additional Instructions: If you have severe worsening of pain or difficulty breathing return to the emergency department follow up as scheduled with your primary care provider next week Medical Decision Making 78 yo male with hx of dm, cad, htn, who comes in with left sided chest pain. He states that it started after he was helping a friend put up a fence, denies any trauma or falls. He has point tenderness to the left atnerior chest just inferior to the left breast and has severe pain when I push in this area and also pain with deep breathing. Denies radiation of the pain and denies n/v or diaphoresis, no abdominal tenderness. He saw his pcp today and had an ecg showing afib which is new for him so he was sent here for an eval. His pain does seem musculoskeletal in nature but given age and risk factors will obtain troponin and also CTA given wells score is moderate to eval for pe. Has no tearing back pain and normal vascular exam so doubt dissection cta negative per Dr. Cristobal, initial labs show probnp of 1300 and troponin of 0.07 but appears to be around where he normally is, around 0.06. Only has pain with palpation. I reommended admission given his new afib and troponin but he declined and doesn't want to stay as he feels better. He has capacity to make his own decisions and willing to accept risks of missing [place]. He is willing to stay for a delta troponin and ecg, so will obtain these and monitor pt remains stable, troponin unchagned, he remains stable and laughing in no distress. Spoke with his pcp who will f/u with him next week, will start eliquis for his afib Differential Diagnosis afib, pe, chest wall strain, acs Medical Records Medical records reviewed: Yes I reviewed the patient's medical records. Imaging Data Radiologic Study: Attestation: I personally reviewed and interpreted this imaging study as follows: Imaging: CT Scan Radiologist's impression: CT ANGIOGRAPHY CHEST: CT angiography was performed with multi slice acquisition and multi planar and 3D reconstruction. CT Angiography of the chest was performed with a bolus infusion of 100 cc's of Omnipaque 350 and ingestion of dilute barium. There was significant motion artifact which limits interpretation of this study. There is no evidence of pulmonary embolic disease. No thoracic aortic aneurysm seen. The lungs are generally clear. The tracheobronchial tree appears intact. No mediastinal or hilar adenopathy. The heart is mildly enlarged. Images obtained through the upper abdomen show unremarkable appearance of visualized portions of the kidneys, adrenals, liver, spleen and pancreas. CONCLUSION: No evidence of pulmonary embolic disease Lab Data Lab results reviewed: Yes I reviewed the patient's lab results. ECG Data Attestation: I personally reviewed and interpreted this ECG (s) as follows: Prior ECG tracings: available for review Interpretation: afib, rate of 50, qtc 396, no acute st t wave ischemic changes 2nd ekg shows afib, rate of 50, qtc 407, no acute st t wave ischemic changes HPI General Mode of arrival: ambulatory. Date/Time Provider Initiated Documentation: 09/16/18 10:30. Limitations to Documentation: no limitations. Information obtained by: patient. History of Present Illness 78 year old M presents to the emergency department with the chief complaint of chest pain, described as moderate, Quality is described as stabbing and aching, and is localized to the chest. Patient reports no radiation. Patient started experiencing this day(s) (1) and it has been intermittent. No relieving factors improve symptom(s), Other factors that worsen symptoms (palpation) . Patient did receive the following treatments prior to arrival, none Related Data Home Medications Medication Instructions Recorded Confirmed aspirin [Aspir-81] 81 mg PO DAILY #100 tab 01/25/14 09/16/18 ferrous sulfate 325 mg PO DAILY #100 tab 03/02/16 09/16/18 nitroglycerin 0.4 mg BUCCAL ONCE PRN #25 tab 07/02/17 09/16/18 cholecalciferol (vitamin D3) 1,000 unit PO DAILY #90 tab-cap 09/03/17 09/16/18 acetaminophen 650 mg PO Q6H PRN PRN #10 tab 01/11/18 09/16/18 divalproex 500 mg tablet,delayed 500 mg PO BID #180 tab 05/17/18 09/16/18 release levothyroxine 125 mcg tablet 125 mcg PO DAILY #90 tab-cap 06/17/18 09/16/18 blood sugar diagnostic strips #10 each 07/01/18 09/16/18 pen needle, diabetic 31 gauge x #100 07/21/18 09/16/18 1/ metformin 850 mg tablet 850 mg PO BID #240 tab-cap 08/11/18 09/16/18 atorvastatin 10 mg tablet 10 mg PO DAILY #30 tab 09/08/18 09/16/18 apixaban [Eliquis] 5 mg PO BID #60 tab 09/16/18 insulin degludec [Tresiba 40 unit SQ DAILY 09/16/18 09/16/18 Flextouch U-100] Previous Rx's Medication Instructions Recorded cholecalciferol (vitamin D3) 1,000 unit PO DAILY #90 tab-cap 09/03/17 acetaminophen 650 mg PO Q6H PRN PRN #10 tab 01/11/18 divalproex 500 mg tablet,delayed 500 mg PO BID #180 tab 05/17/18 release levothyroxine 125 mcg tablet 125 mcg PO DAILY #90 tab-cap 06/17/18 pen needle, diabetic 31 gauge x #100 07/21/18 1/6 metformin 850 mg tablet 850 mg PO BID #240 tab-cap 08/11/18 atorvastatin 10 mg tablet 10 mg PO DAILY #30 tab 09/08/18 apixaban [Eliquis] 5 mg PO BID #60 tab 09/16/18 Allergies Allergy/AdvReac Type Severity Reaction Status Date / Time prednisone Allergy Intermediate Skin Rash Verified 09/16/18 12:22 tapentadol Allergy Unknown unknown Verified 09/16/18 12:22 omeprazole AdvReac Severe Low Verified 09/16/18 12:22 Magnesium Review of Systems Review of Systems All systems reviewed & are unremarkable except as noted in HPI and below Constitutional Denies chills, Denies fever(s) and Denies weakness Eyes Denies loss of vision ENT Denies change in voice Cardiovascular Denies dyspnea Respiratory Denies cough and Denies dyspnea Gastrointestinal Denies abdominal pain, Denies nausea and Denies vomiting Integumentary/Breasts Denies rash Neurologic Denies loss of vision and Denies weakness PFSH Medical History Compulsive skin picking (Chronic) Adjustment disorder, unspecified (Chronic 06/09/16) Dysphagia (Acute) Obstructive sleep apnea (Chronic) Nephrolithiasis (Chronic) Tubular adenoma of colon (Chronic 01/19/14) Pulmonary nodules (Chronic 07/24/16) Memory disturbance (Chronic 09/08/16) Hyperlipidemia (Chronic 08/27/11) Hearing loss (Chronic 08/27/11) 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) Elevated prostate specific antigen [PSA] (Chronic 08/27/11) Diabetes mellitus type 2, controlled, without complications (Chronic 05/31/93) Chronic rhinitis (Chronic 08/27/11) Atherosclerosis of hoh coronary artery of hoh heart without angina pectoris (Chronic 08/21/98) Age-related macular degeneration (Chronic 08/27/11) Acute right-sided low back pain without sciatica (Chronic 01/14/18) Acquired hypothyroidism (Chronic 11/05/17) Back pain (Chronic) Type 2 diabetes mellitus (Acute) Coronary artery disease (Acute) Surgical History H/O lithotripsy (Chronic) H/O umbilical hernia repair (Chronic) History of heart artery stent (Chronic) H/O cardiac radiofrequency ablation (Chronic) S/P right knee arthroscopy (Chronic) Rotator cuff arthropathy of right shoulder (Chronic) Arthroscopy, Shoulder (Resolved 10/02/13) Colonoscopy - MAC (Resolved 02/16/17) Coronary Stent (Resolved 04/03/13) H/O percutaneous transluminal coronary angioplasty (Resolved ~08/23/98) H/O umbilical hernia repair (Resolved ~10/14/09) Hx of arthroscopy of left knee (Resolved ~05/31/05) S/P left rotator cuff repair (Resolved ~03/12/08) H/O lithotripsy (Inactive ~08/25/06) H/O umbilical hernia repair (Inactive ~05/30/79) Status post ablation of ventricular arrhythmia (Inactive ~10/04/09) Social History Smoking/Tobacco Use Status: Former Tobacco Use Tobacco: How many years used: 12 Alcohol Intake: current Alcohol Intake frequency: a few times a week Drug use: Never Substance use type: does not use Housing: house 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 What type of physical activity do you participate in: none Seatbelt use: sometimes Drive intox or ride w/intox chassis driver: No Working smoke detector in home: Yes Do you feel safe at home: Yes Do you feel safe in your relationship?: Yes Exam Const General: no acute distress Orientation: alert HENMT Head: normal to inspection Ears: external ears normal General nose exam: external nose normal Mouth: moist mucous membranes Eyes General: appearance normal, both eyes and all related structures Neck Neck: normal visual inspection Resp Effort & Inspection: normal respiratory effort and able to speak in complete sentences Cardio Rate: regular rate Skin General skin exam: no rashes or lesions noted Neuro General: alert and oriented x3 Extrem General: normal to inspection Psych Mental Status: mental status grossly normal
--- NOTE | 2018-09-16 10:49 | ED.GENADUL_ITS ---
Discharge Plan Disposition Patient Disposition: HOME Condition: Stable Discharge Details Chief Complaint: Chest Pain Clinical Impression: Atrial fibrillation, Chest pain Primary Care Provider: Natasha Norton ED Provider: Kelechi Walker Home Meds and New Rx's Prescriptions: New Eliquis 5 mg tablet 5 mg PO BID Qty: 60 RF: 0 No Action divalproex 500 mg tablet,delayed release (DR/EC) 500 mg PO BID Qty: 180 RF: 3 blood sugar diagnostic strip .ROUTE .MEDSUPPLY Qty: 10 RF: 0 aspirin [Aspir-81] 81 MG tablet,delayed release (DR/EC) 81 mg PO DAILY Qty: 100 RF: 6 ferrous sulfate 325 MG tablet 325 mg PO DAILY Qty: 100 RF: 6 nitroglycerin 0.4 MG tablet, sublingual 0.4 mg Buccal ONCE PRNQty: 25 RF: 6 cholecalciferol (vitamin D3) 1,000 UNIT capsule 1,000 unit PO DAILY Qty: 90 RF: 0 levothyroxine 125 mcg tablet 125 mcg PO DAILY Qty: 90 RF: 0 pen needle, diabetic 31 gauge x 1/6 needle 1 ea Miscellaneous DAILY Qty: 100 RF: 4 metformin 850 mg tablet 850 mg PO BID Qty: 240 RF: 6 atorvastatin 10 mg tablet 10 mg PO DAILY Qty: 30 RF: 0 acetaminophen 325 MG tablet 650 mg PO Q6H PRN PRNQty: 10 RF: 0 Tresiba FlexTouch U-100 100 UNIT/1 ML insulin pen 40 unit SQ DAILY RF: 0 Discharge Instructions Instructions: Atrial Fibrillation (ED) Additional Instructions: If you have severe worsening of pain or difficulty breathing return to the emergency department follow up as scheduled with your primary care provider next week Medical Decision Making 78 yo male with hx of dm, cad, htn, who comes in with left sided chest pain. He states that it started after he was helping a friend put up a fence, denies any trauma or falls. He has point tenderness to the left atnerior chest just inferior to the left breast and has severe pain when I push in this area and also pain with deep breathing. Denies radiation of the pain and denies n/v or diaphoresis, no abdominal tenderness. He saw his pcp today and had an ecg showing afib which is new for him so he was sent here for an eval. His pain does seem musculoskeletal in nature but given age and risk factors will obtain troponin and also CTA given wells score is moderate to eval for pe. Has no tearing back pain and normal vascular exam so doubt dissection cta negative per Dr. Cristobal, initial labs show probnp of 1300 and troponin of 0.07 but appears to be around where he normally is, around 0.06. Only has pain with palpation. I reommended admission given his new afib and troponin but he declined and doesn't want to stay as he feels better. He has capacity to make his own decisions and willing to accept risks of missing [place]. He is willing to stay for a delta troponin and ecg, so will obtain these and monitor pt remains stable, troponin unchagned, he remains stable and laughing in no distress. Spoke with his pcp who will f/u with him next week, will start eliquis for his afib Differential Diagnosis afib, pe, chest wall strain, acs Medical Records Medical records reviewed: Yes I reviewed the patient's medical records. Imaging Data Radiologic Study: Attestation: I personally reviewed and interpreted this imaging study as follows: Imaging: CT Scan Radiologist's impression: CT ANGIOGRAPHY CHEST: CT angiography was performed with multi slice acquisition and multi planar and 3D reconstruction. CT Angiography of the chest was performed with a bolus infusion of 100 cc's of Omnipaque 350 and ingestion of dilute barium. There was significant motion artifact which limits interpretation of this study. There is no evidence of pulmonary embolic disease. No thoracic aortic aneurysm seen. The lungs are generally clear. The tracheobronchial tree appears intact. No mediastinal or hilar adenopathy. The heart is mildly enlarged. Images obtained through the upper abdomen show unremarkable appearance of visualized portions of the kidneys, adrenals, liver, spleen and pancreas. CONCLUSION: No evidence of pulmonary embolic disease Lab Data Lab results reviewed: Yes I reviewed the patient's lab results. ECG Data Attestation: I personally reviewed and interpreted this ECG (s) as follows: Prior ECG tracings: available for review Interpretation: afib, rate of 50, qtc 396, no acute st t wave ischemic changes 2nd ekg shows afib, rate of 50, qtc 407, no acute st t wave ischemic changes HPI General Mode of arrival: ambulatory . Date/Time Provider Initiated Documentation: 09/16/18 10:30 . Limitations to Documentation: no limitations . Information obtained by: patient . History of Present Illness 78 year old M presents to the emergency department with the chief complaint of chest pain, described as moderate, Quality is described as stabbing and aching, and is localized to the chest. Patient reports no radiation. Patient started experiencing this day(s) (1) and it has been intermittent. No relieving factors improve symptom(s), Other factors that worsen symptoms (palpation) . Patient did receive the following treatments prior to arrival, none Related Data Home Medications Medication Instructions Recorded Confirmed aspirin [Aspir-81] 81 mg PO DAILY #100 tab 01/25/14 09/16/18 ferrous sulfate 325 mg PO DAILY #100 tab 03/02/16 09/16/18 nitroglycerin 0.4 mg BUCCAL ONCE PRN #25 tab 07/02/17 09/16/18 cholecalciferol (vitamin D3) 1,000 unit PO DAILY #90 tab-cap 09/03/17 09/16/18 acetaminophen 650 mg PO Q6H PRN PRN #10 tab 01/11/18 09/16/18 divalproex 500 mg tablet,delayed 500 mg PO BID #180 tab 05/17/18 09/16/18 release levothyroxine 125 mcg tablet 125 mcg PO DAILY #90 tab-cap 06/17/18 09/16/18 blood sugar diagnostic strips #10 each 07/01/18 09/16/18 pen needle, diabetic 31 gauge x #100 07/21/18 09/16/18 1/ metformin 850 mg tablet 850 mg PO BID #240 tab-cap 08/11/18 09/16/18 atorvastatin 10 mg tablet 10 mg PO DAILY #30 tab 09/08/18 09/16/18 apixaban [Eliquis] 5 mg PO BID #60 tab 09/16/18 insulin degludec [Tresiba 40 unit SQ DAILY 09/16/18 09/16/18 Flextouch U-100] Previous Rx's Medication Instructions Recorded cholecalciferol (vitamin D3) 1,000 unit PO DAILY #90 tab-cap 09/03/17 acetaminophen 650 mg PO Q6H PRN PRN #10 tab 01/11/18 divalproex 500 mg tablet,delayed 500 mg PO BID #180 tab 05/17/18 release levothyroxine 125 mcg tablet 125 mcg PO DAILY #90 tab-cap 06/17/18 pen needle, diabetic 31 gauge x #100 07/21/18 1/6 metformin 850 mg tablet 850 mg PO BID #240 tab-cap 08/11/18 atorvastatin 10 mg tablet 10 mg PO DAILY #30 tab 09/08/18 apixaban [Eliquis] 5 mg PO BID #60 tab 09/16/18 Allergies Allergy/AdvReac Type Severity Reaction Status Date / Time prednisone Allergy Intermediate Skin Rash Verified 09/16/18 12:22 tapentadol Allergy Unknown unknown Verified 09/16/18 12:22 omeprazole AdvReac Severe Low Verified 09/16/18 12:22 Magnesium Review of Systems Review of Systems All systems reviewed & are unremarkable except as noted in HPI and below Constitutional Denies chills, Denies fever(s) and Denies weakness Eyes Denies loss of vision ENT Denies change in voice Cardiovascular Denies dyspnea Respiratory Denies cough and Denies dyspnea Gastrointestinal Denies abdominal pain, Denies nausea and Denies vomiting Integumentary/Breasts Denies rash Neurologic Denies loss of vision and Denies weakness PFSH Medical History Compulsive skin picking (Chronic) Adjustment disorder, unspecified (Chronic 06/09/16) Dysphagia (Acute) Obstructive sleep apnea (Chronic) Nephrolithiasis (Chronic) Tubular adenoma of colon (Chronic 01/19/14) Pulmonary nodules (Chronic 07/24/16) Memory disturbance (Chronic 09/08/16) Hyperlipidemia (Chronic 08/27/11) Hearing loss (Chronic 08/27/11) 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) Elevated prostate specific antigen [PSA] (Chronic 08/27/11) Diabetes mellitus type 2, controlled, without complications (Chronic 05/31/93) Chronic rhinitis (Chronic 08/27/11) Atherosclerosis of [place] coronary artery of [place] heart without angina pectoris (Chronic 08/21/98) Age-related macular degeneration (Chronic 08/27/11) Acute right-sided low back pain without sciatica (Chronic 01/14/18) Acquired hypothyroidism (Chronic 11/05/17) Back pain (Chronic) Type 2 diabetes mellitus (Acute) Coronary artery disease (Acute) Surgical History H/O lithotripsy (Chronic) H/O umbilical hernia repair (Chronic) History of heart artery stent (Chronic) H/O cardiac radiofrequency ablation (Chronic) S/P right knee arthroscopy (Chronic) Rotator cuff arthropathy of right shoulder (Chronic) Arthroscopy, Shoulder (Resolved 10/02/13) Colonoscopy - MAC (Resolved 02/16/17) Coronary Stent (Resolved 04/03/13) H/O percutaneous transluminal coronary angioplasty (Resolved ~08/23/98) H/O umbilical hernia repair (Resolved ~10/14/09) Hx of arthroscopy of left knee (Resolved ~05/31/05) S/P left rotator cuff repair (Resolved ~03/12/08) H/O lithotripsy (Inactive ~08/25/06) H/O umbilical hernia repair (Inactive ~05/30/79) Status post ablation of ventricular arrhythmia (Inactive ~10/04/09) Social History Smoking/Tobacco Use Status: Former Tobacco Use Tobacco: How many years used: 12 Alcohol Intake: current Alcohol Intake frequency: a few times a week Drug use: Never Substance use type: does not use Housing: house 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 What type of physical activity do you participate in: none Seatbelt use: sometimes Drive intox or ride w/intox 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 lift truck driver: No Working smoke detector in home: Yes Do you feel safe at home: Yes Do you feel safe in your relationship?: Yes Exam Const General: no acute distress Orientation: alert HENMT Head: normal to inspection Ears: external ears normal General nose exam: external nose normal Mouth: moist mucous membranes Eyes General: appearance normal, both eyes and all related structures Neck Neck: normal visual inspection Resp Effort & Inspection: normal respiratory effort and able to speak in complete sentences Cardio Rate: regular rate Skin General skin exam: no rashes or lesions noted Neuro General: alert and oriented x3 Extrem General: normal to inspection Psych Mental Status: mental status grossly normal
[2018-09-16] MEDS: Aspirin 325 MG TAB PO (10:52)
[2018-09-16] MEDS: Normal Saline Flush 10 ML SYR IVP (11:05)
[2018-09-16 11:08] LABS: Abs Immature Grans 0.03 k/cumm (0.0-0.09); Absolute Basophil Count 0.01 k/cumm (0.0-0.2); Absolute Eosinophil Count 0.08 k/cumm (0.0-0.7); Absolute Lymphocyte Count 1.78 k/cumm (1.2-3.4); Absolute Neutrophil Count 4.41 k/cumm (1.2-6.7); Basophils % 0.1; Eosinophils % 1.1; HCT 40.2 % (40.0-50.0); HGB 13.7 g/dL (13.5-17.5); Immature Grans % 0.4; Lymphocytes % 25.4; Mean Corp. HGB Concentration 34.1 g/dL (32.0-36.0); Mean Corpuscular Hemoglobin 33.4 pg (27.0-33.0); Mean Platelet Volume 10.5 fL (8.0-11.0); Platelet Count 199 x1000/uL (130-400); RBC Distribution Width 13.9 % (11.8-14.1); White Blood Cell Count 7.01 k/cumm (4.4-10.8)
[2018-09-16 11:22] LABS: INR 1.1 (0.9-1.1); PTT Activated 24.5 sec (21.0-31.4)
[2018-09-16 11:32] LABS: ALT 17 U/L (12-78); AST 13 U/L (15-37); Albumin 3.3 g/dL (3.4-5.0); Alkaline Phosphatase 67 U/L (46-116); Anion Gap 9.2 mmol/L (3-11); BUN 20 mg/dL (7-18); Bilirubin, Total 0.8 mg/dL (0.2-1.0); CO2 28.8 mmol/L (21.0-32.0); CREATININE 1.43 mg/dL (0.70-1.30); Calcium 9.6 mg/dL (8.5-10.1); Chloride 101 mmol/L (98-107); Estimated GFR 47.83 (mL/min/1.73m2); Glucose 181 mg/dL (70-100); Magnesium 1.5 mg/dL (1.8-2.4); NT-proBNP 1305 pg/mL; Potassium 4.2 mmol/L (3.5-5.1); Sodium 139 mmol/L (136-145); Total Protein 6.9 g/dL (6.4-8.2)
[2018-09-16 11:33] LABS: Troponin I 0.07 ng/mL (0.00-0.06)
--- NOTE | 2018-09-16 11:50 | DI.CT_ITS ---
SYMPTOMS/DIAGNOSIS: LT SIDED CHEST PAIN CT ANGIOGRAPHY CHEST: CT angiography was performed with multi slice acquisition and multi planar and 3D reconstruction. CT Angiography of the chest was performed with a bolus infusion of 100 cc's of Omnipaque 350 and ingestion of dilute barium. There was significant motion artifact which limits interpretation of this study. There is no evidence of pulmonary embolic disease. No thoracic aortic aneurysm seen. The lungs are generally clear. The tracheobronchial tree appears intact. No mediastinal or hilar adenopathy. The heart is mildly enlarged. Images obtained through the upper abdomen show unremarkable appearance of visualized portions of the kidneys, adrenals, liver, spleen and pancreas. CONCLUSION: No evidence of pulmonary embolic disease.
[2018-09-16] MEDS: Omnipaque 350 MG/ML 100 ML BTL IJ (12:00)
[2018-09-16 14:47] LABS: Troponin I 0.07 ng/mL (0.00-0.06)
== END 2018-09-16 15:06 | disposition home or self-care (01) ==
PROVIDERS: Emergency Provider Emergency Medicine; PCP Student in an Organized Health Care Education/Training Program
DX: I48.91 Unspecified atrial fibrillation (principal); R07.9 Chest pain, unspecified; E11.9 Type 2 diabetes mellitus without complications; I25.10 Atherosclerotic heart disease of native coronary artery without angina pectoris
CPT/HCPCS: 36415; 71275; 80053; 93005; 99285; 83735; 83880; 84484; 85025; 85610; 85730; 93010; J3490

== ENCOUNTER 2018-09-19 01:54 | Emergency (ER) | payer MEDICARE, BC, SELFPAY ==
[2018-09-19] VITALS (52 sets, daily range): BP systolic 113–159; BP diastolic 61–108; PULSE 34–68; RESP 11–31; TEMP 36.6; O2SAT 92–100
--- NOTE | 2018-09-19 02:03 | DI.RAD_ITS ---
SYMPTOMS/DIAGNOSIS: LT SIDED CHEST PAIN PORTABLE CHEST: Comparison is made with [id number]. Leads overlie the chest. The lungs are suboptimally inflated. No infiltrate, effusion or pulmonary edema is seen. IMPRESSION: Limited exam. No acute abnormality.
--- NOTE | 2018-09-19 02:06 | W.ED.GENAD ---
Discharge Plan Disposition Patient Disposition: [facility] Condition: Stable Discharge Details Chief Complaint: Chest Pain Clinical Impression: Non-ST elevation HI (NSTEMI), Chest pain Primary Care Provider: Natasha Norton ED Provider: Renan Hopper Home Meds and New Rx's Prescriptions: No Action divalproex 500 mg tablet,delayed release (DR/EC) 500 mg PO BID Qty: 180 RF: 3 blood sugar diagnostic strip .ROUTE .MEDSUPPLY Qty: 10 RF: 0 aspirin [Aspir-81] 81 MG tablet,delayed release (DR/EC) 81 mg PO DAILY Qty: 100 RF: 6 ferrous sulfate 325 MG tablet 325 mg PO DAILY Qty: 100 RF: 6 nitroglycerin 0.4 MG tablet, sublingual 0.4 mg Buccal ONCE PRNQty: 25 RF: 6 cholecalciferol (vitamin D3) 1,000 UNIT capsule 1,000 unit PO DAILY Qty: 90 RF: 0 levothyroxine 125 mcg tablet 125 mcg PO DAILY Qty: 90 RF: 0 pen needle, diabetic 31 gauge x 1/6 needle 1 ea Miscellaneous DAILY Qty: 100 RF: 4 metformin 850 mg tablet 850 mg PO BID Qty: 240 RF: 6 atorvastatin 10 mg tablet 10 mg PO DAILY Qty: 30 RF: 0 acetaminophen 325 MG tablet 650 mg PO Q6H PRN PRNQty: 10 RF: 0 Tresiba FlexTouch U-100 100 UNIT/1 ML insulin pen 40 unit SQ DAILY RF: 0 Eliquis 5 mg tablet 5 mg PO BID Qty: 60 RF: 0 Medical Decision Making This is a 78-year-old male with past medical history of coronary artery disease with a stent, HI, diabetes, hypertension high cholesterol, who is a notably poor historian. He was seen and assessed here 3 days ago at that time he had a negative CT angiogram, notable reproducible chest pain, elevated troponin which appeared stable, he refused to stay overnight. Patient was given a prescription for Eliquis however he is uncertain as to whether or not he is actually been taking this medication since then. Currently he states that for the last hour he has had chest pain that occurred while resting. It is sharp it at the left side of his chest. CT angiogram 3 days ago notes no evidence of PE or fracture or dissection. Patient states that the pain is similar. EKG demonstrates A. fib with mild bradycardia. Pacer pads will be placed. The patient remains hemodynamically stable here. We will trial nitroglycerin for his chest pain, as well as a Lidoderm patch. We will evaluate for cardiac etiology. 4:36 AM Troponin has returned higher than before at 0.09, proBNP is slightly improved at 950. TSH is elevated at 7.9. Chest x-ray reads the pacer pads is a masslike structure, this is not the case. There is no evidence of infiltrate. Patient had temporary improvement with nitroglycerin, however the pain eventually came back, he was subsequently started on a nitroglycerin drip which is now relieved his pain. Started him on aspirin, heparin. I have contacted the [facility] and they do not have any beds available at this time. I have contacted [facility] and discussed the case with , he agrees with the assessment and plan, and recommends transfer under Dr. Karl Warren. We also recommend administration of 300 mg Plavix. No additional recommendations at this time. I have extensively reviewed the treatment plan with the patient. I have addressed all patient concerns at this time. I have also discussed the plan with the admitting physician and they agree with the current assessment and plan and have agreed to assume responsibility for the patient. All parties demonstrate verbal understanding and agreement with our assessment and plan at this time. Of note in conjunction with the patient's notable poor historian component, he did have some repeat questioning here in the ED, because of this I did get a CT scan to make sure there is no acute process. CT scan was negative. The patient shows no focal neurologic deficits, no evidence of stroke. At time of transfer the patient was reassessed and continued to demonstrate current medical stability. No signs of acute respiratory distress requiring intubation, hemodynamic instability requiring pressor support, or rapidly declining mental status. The patient is stable for transport. EKG 2: 01 Rate 56, QTc 427, QRS 96, atrial fibrillation versus flutter with irregular conduction, nonspecific ST elevation or depression, no Q waves. FINDINGS: Lungs: There is no evidence of focal pulmonary consolidation. The pulmonary vasculature is normal. Pleural space: There is no evidence of pneumothorax. There are no pleural effusions present. Heart/Mediastinum: Well-circumscribed masslike structure within the left pericardial region. This may be extrinsic to the patient. Clinical correlation recommended. Consider CT for further evaluation if indicated. Probable external monitoring device overlying the mid mediastinum. The cardiac silhouette is within normal limits. The mediastinum is prominent but unchanged. Diaphragm: Mild elevation of the right hemidiaphragm. Bones/joints: The spine, sternum, ribs, and pectoral girdles show no evidence of acute abnormality Soft tissues: There are no soft tissue masses or calcifications. Other findings: Prominent epicardial fat pad present. IMPRESSION: 1. Well-circumscribed masslike structure within the left pericardial region. This may be extrinsic to the patient. Clinical correlation recommended. Consider CT for further evaluation if indicated. 2. Probable external monitoring device overlying the mid mediastinum. 3. Mild elevation of the right hemidiaphragm. 4. Otherwise, no definitive explanation for patient's current clinical presentation elicited on this study. Dictated and Authenticated by: Wilmar Johnson MD. Ordering:DARLING Urrutia MD COMPARISON: CT HEAD WITHOUT CONTRAST 03/29/2014 12:24 PM FINDINGS: Brain: There is moderate diffuse heterogeneity of the white matter attenuation, consistent with chronic white matter microangiopathic ischemic changes. There is moderate diffuse cerebral atrophy present. There is no evidence of intracranial hemorrhage. There is no evidence of acute intracranial injury or other pathologic process. There is no evidence of an acute ischemic event. Ventricles: The ventricular system demonstrates mild to moderate diffuse compensatory enlargement. Bones/joints: The orbits are normal without evidence of fracture. The bony cranium shows no evidence of injury or other acute pathologic processes. Sinuses: Mucoperiosteal thickening consistent with chronic sinusitis. No air-fluid levels to suggest evidence of acute sinusitis. Mastoid air cells: The mastoid aircells are normal. Orbits: There is no evidence of retro-bulbar hemorrhage. There is no evidence of globe or lens injury. Soft tissues: The extracranial soft tissues are normal. Vasculature: Vascular calcifications seen consistent with chronic atherosclerotic cerebrovascular disease. IMPRESSION: 1. No evidence of an acute intracranial abnormality. 2. There is moderate age-related atrophy and chronic white matter ischemic changes, with compensatory ventricular dilation. Dictated and Authenticated by: Wilmar Johnson MD. Ordering:DARLING Urrutia MD HPI General Date/Time Provider Initiated Documentation: 09/19/18 01:55. HPI Narrative: This is a 78-year-old male who is an extremely poor historian with very little insight, with a past medical history of coronary artery disease, diabetes, hypertension, previous HI, who presents today for evaluation of chest pain. The patient states that roughly 1 hour ago he began having left-sided chest pain which she describes as sharp in nature. He denies any pleuritic component, shortness of breath, or radiation to his arms, neck, or shoulder. He denies any cough, hemoptysis, fever, or chills. He denies any vomiting or diarrhea. He did have similar pain that began when he was moving a fence 4 days ago, at that time he was seen here in the ED where he had a negative CT angiogram. He did have new onset A. fib and was given a prescription for Eliquis, and he refused admission at that time. He did have an elevated troponin at that time, but in spite of this refused admission when it was found to be relatively stable. Patient denies any recent surgeries or procedures. He denies any IV or illicit drug use. Of note the patient was given a prescription for Eliquis, however patient is uncertain if he has been taking this or not. Related Data Home Medications Medication Instructions Recorded Confirmed aspirin [Aspir-81] 81 mg PO DAILY #100 tab 01/25/14 09/19/18 ferrous sulfate 325 mg PO DAILY #100 tab 03/02/16 09/19/18 nitroglycerin 0.4 mg BUCCAL ONCE PRN #25 tab 07/02/17 09/19/18 cholecalciferol (vitamin D3) 1,000 unit PO DAILY #90 tab-cap 09/03/17 09/19/18 acetaminophen 650 mg PO Q6H PRN PRN #10 tab 01/11/18 09/19/18 divalproex 500 mg tablet,delayed 500 mg PO BID #180 tab 05/17/18 09/19/18 release levothyroxine 125 mcg tablet 125 mcg PO DAILY #90 tab-cap 06/17/18 09/19/18 blood sugar diagnostic strips #10 each 07/01/18 09/19/18 pen needle, diabetic 31 gauge x #100 07/21/18 09/19/18 1/ metformin 850 mg tablet 850 mg PO BID #240 tab-cap 08/11/18 09/19/18 atorvastatin 10 mg tablet 10 mg PO DAILY #30 tab 09/08/18 09/19/18 apixaban [Eliquis] 5 mg PO BID #60 tab 09/16/18 09/19/18 insulin degludec [Tresiba 40 unit SQ DAILY 09/16/18 09/19/18 Flextouch U-100] Previous Rx's Medication Instructions Recorded cholecalciferol (vitamin D3) 1,000 unit PO DAILY #90 tab-cap 09/03/17 acetaminophen 650 mg PO Q6H PRN PRN #10 tab 01/11/18 divalproex 500 mg tablet,delayed 500 mg PO BID #180 tab 05/17/18 release levothyroxine 125 mcg tablet 125 mcg PO DAILY #90 tab-cap 06/17/18 pen needle, diabetic 31 gauge x #100 07/21/1806/05 metformin 850 mg tablet 850 mg PO BID #240 tab-cap 08/11/18 atorvastatin 10 mg tablet 10 mg PO DAILY #30 tab 09/08/18 apixaban [Eliquis] 5 mg PO BID #60 tab 09/16/18 Allergies Allergy/AdvReac Type Severity Reaction Status Date / Time prednisone Allergy Intermediate Skin Rash Verified 09/19/18 02:02 tapentadol Allergy Unknown unknown Verified 09/19/18 02:02 omeprazole AdvReac Severe Low Verified 09/19/18 02:02 Magnesium General Stated Complaint: Chest Pain MAHNAZ: 2 Review of Systems Review of Systems All systems reviewed & are unremarkable except as noted in HPI and below PFSH Medical History Compulsive skin picking (Chronic) Adjustment disorder, unspecified (Chronic 06/09/16) Dysphagia (Acute) Obstructive sleep apnea (Chronic) Nephrolithiasis (Chronic) Tubular adenoma of colon (Chronic 01/19/14) Pulmonary nodules (Chronic 07/24/16) Memory disturbance (Chronic 09/08/16) Hyperlipidemia (Chronic 08/27/11) Hearing loss (Chronic 08/27/11) 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) Elevated prostate specific antigen [PSA] (Chronic 08/27/11) Diabetes mellitus type 2, controlled, without complications (Chronic 05/31/93) Chronic rhinitis (Chronic 08/27/11) Atherosclerosis of [place] coronary artery of [place] heart without angina pectoris (Chronic 08/21/98) Age-related macular degeneration (Chronic 08/27/11) Acute right-sided low back pain without sciatica (Chronic 01/14/18) Acquired hypothyroidism (Chronic 11/05/17) Back pain (Chronic) Type 2 diabetes mellitus (Acute) Coronary artery disease (Acute) Surgical History H/O lithotripsy (Chronic) H/O umbilical hernia repair (Chronic) History of heart artery stent (Chronic) H/O cardiac radiofrequency ablation (Chronic) S/P right knee arthroscopy (Chronic) Rotator cuff arthropathy of right shoulder (Chronic) Arthroscopy, Shoulder (Resolved 10/02/13) Colonoscopy - MAC (Resolved 02/16/17) Coronary Stent (Resolved 04/03/13) H/O percutaneous transluminal coronary angioplasty (Resolved ~08/23/98) H/O umbilical hernia repair (Resolved ~10/14/09) Hx of arthroscopy of left knee (Resolved ~05/31/05) S/P left rotator cuff repair (Resolved ~03/12/08) H/O lithotripsy (Inactive ~08/25/06) H/O umbilical hernia repair (Inactive ~05/30/79) Status post ablation of ventricular arrhythmia (Inactive ~10/04/09) Social History Smoking/Tobacco Use Status: Former Tobacco Use Tobacco: How many years used: 12 Alcohol Intake: current Alcohol Intake frequency: a few times a month Drug use: Never Substance use type: does not use Housing: house 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 3.ENT: Atraumatic external nose and ears. Moist MM. Neck: Symmetric, trachea midline, No thyromegaly. 4.CVS: +S1/S2, No murmurs or gallops. Peripheral pulses 2+ and equal in all extremities. Brisk capillary refill in all extremities. Notable reproducible chest pain on palpation of the left anterior chest wall by the left breast. Radial pulses +2 bilaterally, no evidence of vascular compromise. 5.RESP: Unlabored respiratory effort. Clear to auscultation bilaterally. No wheezes rales or rhonchi 6.GI: Soft, Nontender/Nondistended, No hepatosplenomegaly. No guarding or rebound. 7.MSK: Normocephalic/Atraumatic, Extremities w/o deformity or ttp No cyanosis or clubbing, Normal movement of all extremities. No calf tenderness. 8.Skin: Warm, Dry. No rashes or lesions. 9.Neuro: farebox repairer II-XII grossly intact. Sensation grossly intact, no focal neurologic deficits. 10.Psych: (AAO) x3. Appropriate mood and affect Course Vital Signs Temperature 36.6 C 09/19/18 01:59 Pulse 56 L 09/19/18 01:59 Respiratory Rate 15 09/19/18 01:59 Blood Pressure 159/102 H 09/19/18 01:59 Pulse Oximetry 99 09/19/18 01:59 Temperature 36.6 C 09/19/18 01:59 Temperature Source Temporal Artery Scan 09/19/18 01:59 Pulse 56 L 09/19/18 01:59 Respiratory Rate 15 09/19/18 01:59 Blood Pressure 159/102 H 09/19/18 01:59 Blood Pressure Position Supine 09/19/18 01:59 Pulse Oximetry 99 09/19/18 01:59 Oxygen Delivery Method Room Air 09/19/18 01:59 Oxygen Flow Rate 0 09/19/18 01:59 Pain Level 10 09/19/18 01:59
[2018-09-19 02:13] LABS: Abs Immature Grans 0.03 k/cumm (0.0-0.09); Absolute Basophil Count 0.02 k/cumm (0.0-0.2); Absolute Eosinophil Count 0.12 k/cumm (0.0-0.7); Absolute Lymphocyte Count 2.38 k/cumm (1.2-3.4); Absolute Monocyte Count 0.73 k/cumm (0.11-0.7); Absolute Neutrophil Count 5.33 k/cumm (1.2-6.7); Basophils % 0.2; Eosinophils % 1.4; HCT 45.4 % (40.0-50.0); HGB 15.3 g/dL (13.5-17.5); Immature Grans % 0.3; Lymphocytes % 27.6; Mean Corp. HGB Concentration 33.7 g/dL (32.0-36.0); Mean Corpuscular Hemoglobin 33.3 pg (27.0-33.0); Mean Corpuscular Volume 98.9 fL (80-95); Mean Platelet Volume 10.2 fL (8.0-11.0); Monocytes % 8.5; Platelet Count 217 x1000/uL (130-400); RBC 4.59 m/cumm (4.50-6.00); RBC Distribution Width 14.2 % (11.8-14.1); White Blood Cell Count 8.61 k/cumm (4.4-10.8)
[2018-09-19] MEDS: Lidocaine 5% Patch 1 PATCH TP (02:20)
[2018-09-19 02:22] LABS: Magnesium 1.7 mg/dL (1.8-2.4)
[2018-09-19 02:27] LABS: PTT Activated 24.2 sec (21.0-31.4); Prothrombin Time 10.3 sec (9.3-11.0)
[2018-09-19 02:34] LABS: ALT 21 U/L (12-78); AST 17 U/L (15-37); Alkaline Phosphatase 79 U/L (46-116); Anion Gap 9.4 mmol/L (3-11); BUN 18 mg/dL (7-18); Bilirubin, Total 0.7 mg/dL (0.2-1.0); CO2 30.6 mmol/L (21.0-32.0); CREATININE 1.52 mg/dL (0.70-1.30); Calcium 9.8 mg/dL (8.5-10.1); Chloride 99 mmol/L (98-107); Estimated GFR 44.58 (mL/min/1.73m2); Glucose 115 mg/dL (70-100); NT-proBNP 957 pg/mL; Potassium 4.2 mmol/L (3.5-5.1); Sodium 139 mmol/L (136-145); TSH (W/Ref FT4) 7.98 uIU/mL (0.358-3.74); Total Protein 8.4 g/dL (6.4-8.2)
[2018-09-19 02:37] LABS: Troponin I 0.09 ng/mL (0.00-0.06)
[2018-09-19 02:53] LABS: FREE T4 1.03 ng/dL (0.76-1.46)
--- NOTE | 2018-09-19 02:57 | DI.VRAD_ITS ---
EXAM: XR Chest, 1 View EXAM DATE/TIME: 09/19/2018 2:03 AM CLINICAL HISTORY: 78 years old, male; Chest wall pain; Patient HX: Left sided chest pain. TECHNIQUE: Imaging protocol: XR of the chest, 1 view. COMPARISON: CR CHEST 2 VIEWS PA,LAT 10/19/2017 5:20 PM FINDINGS: Lungs: There is no evidence of focal pulmonary consolidation. The pulmonary vasculature is normal. Pleural space: There is no evidence of pneumothorax. There are no pleural effusions present. Heart/Mediastinum: Well-circumscribed masslike structure within the left pericardial region. This may be extrinsic to the patient. Clinical correlation recommended. Consider CT for further evaluation if indicated. Probable external monitoring device overlying the mid mediastinum. The cardiac silhouette is within normal limits. The mediastinum is prominent but unchanged. Diaphragm: Mild elevation of the right hemidiaphragm. Bones/joints: The spine, sternum, ribs, and pectoral girdles show no evidence of acute abnormality Soft tissues: There are no soft tissue masses or calcifications. Other findings: Prominent epicardial fat pad present. IMPRESSION: 1. Well-circumscribed masslike structure within the left pericardial region. This may be extrinsic to the patient. Clinical correlation recommended. Consider CT for further evaluation if indicated. 2. Probable external monitoring device overlying the mid mediastinum. 3. Mild elevation of the right hemidiaphragm. 4. Otherwise, no definitive explanation for patient's current clinical presentation elicited on this study. Dictated and Authenticated by: Wilmar Johnson MD. Ordering:DARLING Urrutia MD
[2018-09-19] MEDS: Aspirin 81 MG CHEW (03:49)
--- NOTE | 2018-09-19 05:15 | DI.CT_ITS ---
SYMPTOMS/DIAGNOSIS: PERSEVERATIONS NONCONTRAST HEAD CT: Comparison is made with [id number]. No acute infarct, hemorrhage or mass is identified. There is moderate cerebral atrophy, unchanged. There are mild hyperdensities consistent with microvascular changes. There is mild mucosal thickening in the sinuses. Cerumen is seen in the left external auditory canal. IMPRESSION: No acute abnormality.
--- NOTE | 2018-09-19 05:31 | DI.VRAD_ITS ---
EXAM: CT Head Without Contrast EXAM DATE/TIME: 09/19/2018 4:49 AM CLINICAL HISTORY: 78 years old, male; Signs and symptoms; Other: Perseverations TECHNIQUE: Imaging protocol: Axial computed tomography images of the head/brain without contrast. Coronal and sagittal reformatted images were created and reviewed. Radiation optimization: All CT scans at this facility use at least one of these dose optimization techniques: automated exposure control; mA and/or kV adjustment per patient size (includes targeted exams where dose is matched to clinical indication); or iterative reconstruction. COMPARISON: CT HEAD WITHOUT CONTRAST 03/29/2014 12:24 PM FINDINGS: Brain: There is moderate diffuse heterogeneity of the white matter attenuation, consistent with chronic white matter microangiopathic ischemic changes. There is moderate diffuse cerebral atrophy present. There is no evidence of intracranial hemorrhage. There is no evidence of acute intracranial injury or other pathologic process. There is no evidence of an acute ischemic event. Ventricles: The ventricular system demonstrates mild to moderate diffuse compensatory enlargement. Bones/joints: The orbits are normal without evidence of fracture. The bony cranium shows no evidence of injury or other acute pathologic processes. Sinuses: Mucoperiosteal thickening consistent with chronic sinusitis. No air-fluid levels to suggest evidence of acute sinusitis. Mastoid air cells: The mastoid aircells are normal. Orbits: There is no evidence of retro-bulbar hemorrhage. There is no evidence of globe or lens injury. Soft tissues: The extracranial soft tissues are normal. Vasculature: Vascular calcifications seen consistent with chronic atherosclerotic cerebrovascular disease. IMPRESSION: 1. No evidence of an acute intracranial abnormality. 2. There is moderate age-related atrophy and chronic white matter ischemic changes, with compensatory ventricular dilation. Dictated and Authenticated by: Wilmar Johnson MD. Ordering:DARLING Urrutia MD
[2018-09-19] MEDS: Clopidogrel 300 MG TAB PO (05:34)
--- NOTE | 2018-09-19 06:11 | NUR.NOTE ---
Nursing Note: pt resting comfortably at this time. Attempt has been made to contact all local services for mold preparer level transfer, including [facility], [facility], [facility], [address] [place] [address], and [facility] ground. No mold preparer service available. Pt to continue to wait in ED until mold preparer crew is able to transfer, hopefully after change of shift 0700 for [facility].
--- NOTE | 2018-09-19 06:32 | NUR.NOTE ---
Nursing Note: Pt continues throughout the evening/early AM to repeatedly ask questions which have been answered many times during the night, including where he is going and whether or not he had a heart attack. Provider is aware. No mention of dementia or short term memory problems. Pt has talked to to inquire about his truck and leaving it here at [facility].
[2018-09-19] MEDS: Acetaminophen 500 MG TAB (07:49)
== END 2018-09-19 07:45 | disposition short-term general hospital (02) ==
LOC: ER 04:50
PROVIDERS: Emergency Provider Student in an Organized Health Care Education/Training Program; PCP Student in an Organized Health Care Education/Training Program
DX: I21.4 Non-ST elevation (NSTEMI) myocardial infarction (principal); R48.8 Other symbolic dysfunctions; R00.1 Bradycardia, unspecified; I48.91 Unspecified atrial fibrillation; I10 Essential (primary) hypertension; E11.9 Type 2 diabetes mellitus without complications; Z95.5 Presence of coronary angioplasty implant and graft; Z79.84 Long term (current) use of oral hypoglycemic drugs
CPT/HCPCS: 36415; 80053; 93005; 96365; 96366; 96368; 99285; 70450; 71045; 83735; 83880; 84439; 84443; 84484; 85025; 85610; 85730; 93010

== ENCOUNTER 2018-10-03 02:19 | Outpatient (CLI) | payer MEDICARE, BC, SELFPAY ==
--- NOTE | 2018-10-26 11:43 | ZIOP_ITS ---
HOLTER MONITOR DATE OF DICTATION October 26, 2018 STUDY INDICATION Atrial fibrillation. REQUESTING PROVIDER Natasha Vega D.O. FINDINGS The patient was monitored for 14 days. The patient was in atrial fibrillation throughout, average heart rate 63 beats per minute, range 32 to 144 beats per minute. There were 2 pauses, the longest lasting 3.2 and 3 seconds, occurring at 1:49 a.m. and 9:53 p.m. No patient events. FINAL INTERPRETATION Atrial fibrillation with overall controlled ventricular response Nocturnal pauses of up to 3.2 seconds, asymptomatic. Warren Ewing M.D. HIMANSHU/sarkis T - 10/26/2018
== END 2018-10-03 02:39 ==
PROVIDERS: PCP Student in an Organized Health Care Education/Training Program; Visit Provider Student in an Organized Health Care Education/Training Program
DX: I48.91 Unspecified atrial fibrillation (principal)
CPT/HCPCS: 0296T

== ENCOUNTER → 2018-10-18 13:20 | Outpatient (BNVA) | payer MEDICARE, BC, SELFPAY | PROVIDERS: PCP Student in an Organized Health Care Education/Training Program; Visit Provider Psychiatry & Neurology Neurology | DX: L98.1 Factitial dermatitis; G31.09 Other frontotemporal neurocognitive disorder; F02.80 Dementia in other diseases classified elsewhere, unspecified severity, without behavioral disturbance, psychotic disturbance, mood disturbance, and anxiety; I48.91 Unspecified atrial fibrillation; Z79.01 Long term (current) use of anticoagulants; E11.42 Type 2 diabetes mellitus with diabetic polyneuropathy | CPT/HCPCS: 99213 ==

== ENCOUNTER 2018-10-26 08:11 | Outpatient (CLI) | payer MEDICARE, BC, SELFPAY | END 2018-10-26 08:31 | PROVIDERS: PCP Student in an Organized Health Care Education/Training Program; Referring Provider Student in an Organized Health Care Education/Training Program; Visit Provider Student in an Organized Health Care Education/Training Program | DX: I48.91 Unspecified atrial fibrillation (principal) | CPT/HCPCS: 0298T ==

== ENCOUNTER 2019-01-03 09:26 | Inpatient (IN) | payer MEDICARE, BC, SELFPAY ==
[2019-01-03] VITALS (44 sets, daily range): BP systolic 138–199; BP diastolic 79–165; PULSE 43–73; RESP 11–29; TEMP 36.1–37.5; O2SAT 92–100
--- NOTE | 2019-01-03 09:37 | W.ED.GENAD ---
Discharge Plan Discharge Details Chief Complaint: Abd Prob Admit Date/Time: 01/03/19 12:57 Admit Provider: Cira Dang Attending Provider: Cira Dang Primary Care Provider: Natasha Norton ED Provider: Fior Cantu Discharge Data Discharge Date/Time-TO BE ENTERED AT DEPARTURE: 01/03/19 13:53 Medical Decision Making Jimmy Arcos is a 78 y/o man with history of atrial fibrillation with slow ventricular response, NSTEMI, obstructive sleep apnea, hyperlipidemia, dementia, diabetes who presented to the emergency department with abdominal pain and vomiting. On exam patient appears uncomfortable and in pain but nontoxic. Cardiopulmonary exam shows bradycardic atrial fibrillation which patient has had in the past, and is otherwise benign. Generalized abdominal tenderness without focality, positive guarding, positive rebound, positive Burns sign. [id number] bedside ultrasound shows no free fluid in the abdomen, no apparent abnormality of the abdominal aorta. Concern for acute aortic pathology versus mesenteric ischemia versus appendicitis versus cholecystitis versus pancreatitis versus other. Doubt ACS. Exam/history is not consistent with sepsis, meningitis, acute emergent intracranial process. Plan for EKG, CTA abdomen/pelvis, screening labs, IV pain control, IV fluid hydration, UA, telemetry. Will monitor and reassess. Patient received IV fentanyl en route, which he reported did not help his pain at all. Has required multiple doses of IV opiate pain medication in the emergency department. CTA read as negative. Patient does have gallstones in the gallbladder and positive Burns sign, plan for right upper quadrant ultrasound for further evaluation. Vital signs remain unchanged. Right upper quadrant ultrasound with abnormal findings but no cholecystitis. Unclear etiology of the abdominal pain at this time, but suspect biliary cause. Patient's troponin resulted at 0.07 patient without chest pain, without shortness of breath, with exquisite abdominal tenderness that reproduces pain. Doubt cardiac etiology at this time. Will send repeat troponin and will repeat EKG. Dr. Dang of surgery consulted at 1140 for further evaluation of abdominal pain. Patient admitted to Dr. Dang. Clinical impression: Abdominal pain Disposition: [facility] inpatient Medical Records Medical records reviewed: Yes I reviewed the patient's medical records. Imaging Data Radiologic Study: Attestation: I personally reviewed and interpreted this imaging study as follows: Radiologist's impression: CT angiography was performed with multi slice acquisition and multi planar and 3D reconstruction. There is enlargement of both atria and both ventricles. Dependent changes are seen at the lung bases. There may be mild pulmonary edema versus fibrotic changes. There is no evidence of aortic aneurysm, dissection, significant stenosis or branch vessel occlusion. Stones are noted in the gallbladder. There is no biliary dilatation or gallbladder wall thickening. The liver, spleen and adrenals are unremarkable. The pancreas is somewhat atrophic. There is no hydronephrosis. The appendix appears normal. There is a normal quantity of stool. There are diverticula in the descending and sigmoid colon but no evidence of inflammatory changes. The small bowel is unremarkable. The prostate is mildly enlarged. The urinary bladder is mildly distended. There is a small hiatal hernia. Degenerative changes are seen in the spine. IMPRESSION: Mild atherosclerotic changes. No evidence of significant stenosis., occlusion or dissection. Lab Data Lab results reviewed: Yes I reviewed the patient's lab results. ECG Data Attestation: I personally reviewed and interpreted this ECG (s) as follows: Interpretation: EKG shows atrial fibrillation at 50, normal axis, no acute ischemic changes, nondiagnostic EKG HPI General Mode of arrival: EMS. Date/Time Provider Initiated Documentation: 01/03/19 09:37. Limitations to Documentation: no limitations. Information obtained by: patient, RN notes reviewed and old records reviewed. HPI Narrative: Jimmy Arcos is a 78 y/o man with history of atrial fibrillation with slow ventricular response, NSTEMI, obstructive sleep apnea, hyperlipidemia, dementia, diabetes presenting to the emergency department with abdominal pain. Patient reports that approximately 6 and this morning he developed abdominal pain that is generalized but worse around the umbilicus, constant, does not wax and wane. Patient has also had several episodes of vomiting that began more recently, reports yellow emesis. Patient reports that he had a normal bowel movement yesterday and no bowel movement since. He is unsure if he is passing gas or not. He denies any other pain, shortness of breath, cough, numbness/weakness the extremities, fever. Had been eating and drinking as usual. No recent illness. Related Data Home Medications Medication Instructions Recorded Confirmed aspirin [Aspir-81] 81 mg PO DAILY #100 tab 01/25/14 01/03/19 ferrous sulfate 325 mg PO DAILY #100 tab 03/02/16 01/03/19 nitroglycerin 0.4 mg BUCCAL ONCE PRN #25 tab 02/02/18 08/06/19 cholecalciferol (vitamin D3) 1,000 unit PO DAILY #90 tab-cap 09/03/17 01/03/19 acetaminophen 650 mg PO Q6H PRN PRN #10 tab 01/11/18 01/03/19 divalproex 500 mg tablet,delayed 500 mg PO BID #180 tab 05/17/18 01/03/19 release blood sugar diagnostic #10 each 07/01/18 12/21/18 pen needle, diabetic 31 gauge x #100 07/21/18 12/21/1806/05 metformin 850 mg tablet 850 mg PO BID #240 tab-cap 08/11/18 01/03/19 insulin degludec [Tresiba 40 unit SQ DAILY 09/16/18 01/03/19 Flextouch U-100] atorvastatin 40 mg tablet 40 mg PO DAILY 09/21/18 01/03/19 diclofenac sodium 1 % topical gel 2 gm TP QID #100 gm 09/23/18 01/03/19 lidocaine 5 % topical patch 1 patch TP DAILY #15 each 09/23/18 01/03/19 levothyroxine 125 mcg tablet 125 mcg PO DAILY #90 tab-cap 10/20/18 01/03/19 apixaban 5 mg tablet 5 mg PO BID #60 tab 11/04/18 01/03/19 tramadol 50 mg tablet 50 mg PO Q8H PRN #6 tab 11/17/18 01/03/19 Previous Rx's Medication Instructions Recorded cholecalciferol (vitamin D3) 1,000 unit PO DAILY #90 tab-cap 09/03/17 acetaminophen 650 mg PO Q6H PRN PRN #10 tab 01/11/18 divalproex 500 mg tablet,delayed 500 mg PO BID #180 tab 05/17/18 release pen needle, diabetic 31 gauge x #100 07/21/1806/05 metformin 850 mg tablet 850 mg PO BID #240 tab-cap 08/11/18 diclofenac sodium 1 % topical gel 2 gm TP QID #100 gm 09/23/18 lidocaine 5 % topical patch 1 patch TP DAILY #15 each 09/23/18 levothyroxine 125 mcg tablet 125 mcg PO DAILY #90 tab-cap 10/20/18 apixaban 5 mg tablet 5 mg PO BID #60 tab 11/04/18 tramadol 50 mg tablet 50 mg PO Q8H PRN #6 tab 11/17/18 Allergies Allergy/AdvReac Type Severity Reaction Status Date / Time prednisone Allergy Intermediate Skin Rash Verified 01/03/19 10:09 tapentadol Allergy Unknown unknown Verified 01/03/19 10:09 omeprazole AdvReac Severe Low Verified 01/03/19 10:09 Magnesium General MAHNAZ: 2 Review of Systems Review of Systems Constitutional: denies fevers Eyes: denies eye pain ENT: denies facial pain, dental pain, sore throat Cardiovascular: denies chest pain, edema Respiratory: denies SOB, cough GI: Reports abdominal pain, vomiting, denies constipation, diarrhea : denies flank pain MSK: denies back pain, neck pain, arthralgias, myalgias Skin: denies rash Neuro: denies headaches, numbness, weakness PFS Medical History (Updated 01/11/19 @ 12:12 by Sophie Bush DO) Acquired hypothyroidism (Chronic 11/05/17) Acute right-sided low back pain without sciatica (Chronic 01/14/18) Adjustment disorder, unspecified (Chronic 06/09/16) Age-related macular degeneration (Chronic 08/27/11) Atherosclerosis of [place] coronary artery of [place] heart without angina pectoris (Chronic 08/21/98) Back pain (Chronic) Chronic rhinitis (Chronic 08/27/11) Compulsive skin picking (Chronic) Coronary artery disease (Acute) Diabetes mellitus type 2, controlled, without complications (Chronic 05/31/93) Dysphagia (Acute) Elevated prostate specific antigen [PSA] (Chronic 08/27/11) 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) Hearing loss (Chronic 08/27/11) Hyperlipidemia (Chronic 08/27/11) Memory disturbance (Chronic 09/08/16) Nephrolithiasis (Chronic) Obstipation (Acute) Obstructive sleep apnea (Chronic) Pulmonary nodules (Chronic 07/24/16) Sick sinus syndrome (Acute) Type 2 diabetes mellitus (Acute) Surgical History (Updated 01/12/19 @ 12:47 by Danielle Ta RN) Arthroscopy, Shoulder (Resolved 10/02/13) Colonoscopy - MAC (Resolved 02/16/17) Coronary Stent (Resolved 04/03/13) H/O cardiac radiofrequency ablation (Resolved) H/O lithotripsy (Inactive ~08/25/06) H/O lithotripsy (Resolved) H/O percutaneous transluminal coronary angioplasty (Resolved ~08/23/98) H/O umbilical hernia repair (Resolved ~10/14/09) H/O umbilical hernia repair (Inactive ~05/30/79) H/O umbilical hernia repair (Resolved) History of heart artery stent (Resolved) Hx of arthroscopy of left knee (Resolved ~05/31/05) Hx of cholecystectomy (Chronic) Rotator cuff arthropathy of right shoulder (Resolved) S/P left rotator cuff repair (Resolved ~03/12/08) S/P right knee arthroscopy (Resolved) Status post ablation of ventricular arrhythmia (Inactive ~10/04/09) Tubular adenoma of colon (Resolved 01/19/14) Family History Mother Personal history of malignant neoplasm Father Heart disease Sister Colon cancer Diabetes Other Colon cancer Brother Diabetes Social History Smoking/Tobacco Use Status: Former Tobacco Use Tobacco: How many years used: 12 Alcohol Intake: current Alcohol Intake frequency: a few times a month Drug use: Never Substance use type: does not use Household members: none Housing: house Number of Children: 2 Communication Needs: Corrective Lenses 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 What type of physical activity do you participate in: none Seatbelt use: sometimes Drive intox or ride w/intox tier truck driver: No Working smoke detector in home: Yes Carbon monox detector in home: Yes Do you feel safe at home: Yes Exam Narrative Exam Narrative: Constitutional: Uncomfortable but [id number], conversing normally HENT: head atraumatic/normocephalic/normal inspection, mucous membranes moist Eyes: conjunctiva normal, sclera normal, pupils 3mm b/l Neck: no stridor, normal ROM, trachea midline Chest: normal inspection Resp: normal work of breathing, LCTAB Cardio: Bradycardic rate, irregularly irregular rhythm GI: abdomen soft, diffusely tender to palpation, positive guarding, positive rebound, positive Burns sign, no focal McBurney's point tenderness to palpation Back: normal inspection, no rash Skin: warm, dry, normal color, no rash Neuro: alert, not altered, grossly non-focal, normal tone Ext: no edema Psych: normal mood, normal affect, normal behavior
--- NOTE | 2019-01-03 09:43 | DI.CT_ITS ---
SYMPTOM/DIAGNOSIS: ABD PAIN CTA OF THE ABDOMEN AND PELVIS: CT angiography was performed with multi slice acquisition and multi planar and 3D reconstruction. There is enlargement of both atria and both ventricles. Dependent changes are seen at the lung bases. There may be mild pulmonary edema versus fibrotic changes. There is no evidence of aortic aneurysm, dissection, significant stenosis or branch vessel occlusion. Stones are noted in the gallbladder. There is no biliary dilatation or gallbladder wall thickening. The liver, spleen and adrenals are unremarkable. The pancreas is somewhat atrophic. There is no hydronephrosis. The appendix appears normal. There is a normal quantity of stool. There are diverticula in the descending and sigmoid colon but no evidence of inflammatory changes. The small bowel is unremarkable. The prostate is mildly enlarged. The urinary bladder is mildly distended. There is a small hiatal hernia. Degenerative changes are seen in the spine. IMPRESSION: Mild atherosclerotic changes. No evidence of significant stenosis., occlusion or dissection.
[2019-01-03] MEDS: Normal Saline 500 ML 1000 ML IV ×2 (09:45→11:49)
[2019-01-03] MEDS: HYDROmorphone 2 MG/ML VIAL (09:45)
[2019-01-03 09:57] LABS: Abs Immature Grans 0.02 k/cumm (0.0-0.09); Absolute Basophil Count 0.01 k/cumm (0.0-0.2); Absolute Eosinophil Count 0.05 k/cumm (0.0-0.7); Absolute Lymphocyte Count 1.22 k/cumm (1.2-3.4); Absolute Monocyte Count 0.63 k/cumm (0.11-0.7); Absolute Neutrophil Count 6.16 k/cumm (1.2-6.7); Basophils % 0.1; Eosinophils % 0.6; HCT 40.6 % (40.0-50.0); HGB 14.2 g/dL (13.5-17.5); Immature Grans % 0.2; Lymphocytes % 15.1; Mean Corpuscular Hemoglobin 34.1 pg (27.0-33.0); Mean Corpuscular Volume 97.6 fL (80-95); Mean Platelet Volume 10.3 fL (8.0-11.0); Monocytes % 7.8; Neutrophils % 76.2; Platelet Count 187 x1000/uL (130-400); RBC 4.16 m/cumm (4.50-6.00); RBC Distribution Width 13.3 % (11.8-14.1); White Blood Cell Count 8.09 k/cumm (4.4-10.8)
[2019-01-03 10:09] LABS: INR 1.1 (0.9-1.1)
[2019-01-03] MEDS: Omnipaque 350 MG/ML 100 ML BTL IJ (10:14)
[2019-01-03 10:19] LABS: Bilirubin Negative (Negative); Blood Negative (Negative); Clarity Clear (Clear); Glucose Negative (Negative); Ketones Negative (Negative); Leukocyte Esterase Negative (Negative); Nitrite Negative (Negative); Specific Gravity 1.015 (1.005-1.025)
[2019-01-03 10:29] LABS: ALT 164 U/L (12-78); AST 143 U/L (15-37); Albumin 3.5 g/dL (3.4-5.0); Alkaline Phosphatase 207 U/L (46-116); Anion Gap 13.1 mmol/L (3-11); BUN 14 mg/dL (7-18); Bilirubin, Total 1.7 mg/dL (0.2-1.0); CO2 25.9 mmol/L (21.0-32.0); CREATININE 1.27 mg/dL (0.70-1.30); Calcium 9.5 mg/dL (8.5-10.1); Chloride 102 mmol/L (98-107); Estimated GFR 54.85 (mL/min/1.73m2); Glucose 146 mg/dL (70-100); Lipase 64 U/L (73-393); Potassium 3.2 mmol/L (3.5-5.1); Sodium 141 mmol/L (136-145); TSH (W/Ref FT4) 1.77 uIU/mL (0.36-3.74); Total Protein 7.9 g/dL (6.4-8.2)
--- NOTE | 2019-01-03 10:34 | DI.US_ITS ---
SYMPTOMS/DIAGNOSIS: ABD PAIN, ? BILIARY DISEASE RIGHT UPPER QUADRANT ULTRASOUND: Comparison is made with CT of the abdomen performed earlier the same day. Gallstones are again demonstrated. There is no significant gallbladder wall thickening or pericholecystic fluid. The patient was not tender while scanning over the gallbladder. No biliary dilatation is seen. No common duct stones are visible. IMPRESSION: Cholelithiasis and gallbladder sludge.
[2019-01-03] MEDS: Ondansetron 4 MG/2 ML VIAL IVP ×2 (10:36→12:03)
[2019-01-03] MEDS: HYDROmorphone 2 MG/ML VIAL 0.5 MG IVP ×2 (10:37→12:23)
[2019-01-03 10:52] LABS: Lactate-non-spesis 2.4 mmol/l (0.6-1.4)
[2019-01-03] MEDS: POTASSIUM CHLORIDE 20 MEQ/100 ML BAG 50 MEQ IVPB ×2 (11:50→14:53)
[2019-01-03] MEDS: Normal Saline 1,000 ML 125 ML IV (12:05)
[2019-01-03 12:58] LABS: Troponin I 0.06 ng/mL (0.00-0.06)
[2019-01-03] MEDS: Normal Saline Flush 10 ML SYR IVP (14:23)
[2019-01-03] MEDS: Acetaminophen 325 MG TAB 650 MG PO ×2 (14:25→19:29)
[2019-01-03] MEDS: Lactated Ringers 1,000 ML 125 ML IV ×2 (14:26→21:39)
--- NOTE | 2019-01-03 15:29 | NUR.NOTE ---
Nursing Note: 1344 pt transferred to room 211 from emergency room via stretcher.
--- NOTE | 2019-01-03 15:34 | W.PM.HP.N ---
Date of service: 01/03/19 Time of Service: 12:30 Assessment and Plan (1) Cholelithiases: Current visit: Yes Status: Acute The location of the patient's pain ia difficult to assess based on his dementia. He points to the central abdomen but is tender in the left lower quadrant and right upper quadrant. The objective findings of gallstones and mildly elevated LFTs do suggest a gallbladder source for his symptoms. The elevated liver tests are new finding from previous labs. His lipase is normal. The patient will be placed in the hospital for pain management, fluids and repeat labs in the a.m. His Eliquis will be held. Hopefully these issues will resolve and he can have an outpatient cardiology clearance with possible outpatient cholecystectomy. The patient was diagnosed with an LA in August and ideally would not have surgery for 6 months afterwards. Cardiology notes from [facility] have been requested. Qualifiers: Cholecystitis presence: without cholecystitis Biliary obstruction: without biliary obstruction History of Present Illness Narrative: Patient presents with complaints of abdominal pain since approximately 6:00 this morning. This is been constant and located centrally. He has had some nausea. He does not recall having this pain in the past. He is a poor historian due to dementia. He had a CT angiogram of the abdomen and pelvis initially due to his atrial fibrillation which was normal. Subsequent gallbladder ultrasound showed cholelithiasis with no pericholecystic fluid or biliary dilation. Review of Systems Review of Systems Unobtainable due to mental condition (patient is a vague and poor historian but does deny chest pain or SOB) [facility] Medical History Acquired hypothyroidism (Chronic 11/05/17) Acute right-sided low back pain without sciatica (Chronic 01/14/18) Adjustment disorder, unspecified (Chronic 06/09/16) Age-related macular degeneration (Chronic 08/27/11) Atherosclerosis of [place] coronary artery of [place] heart without angina pectoris (Chronic 08/21/98) Back pain (Chronic) Chronic rhinitis (Chronic 08/27/11) Compulsive skin picking (Chronic) Coronary artery disease (Acute) Diabetes mellitus type 2, controlled, without complications (Chronic 05/31/93) Dysphagia (Acute) Elevated prostate specific antigen [PSA] (Chronic 08/27/11) 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) Hearing loss (Chronic 08/27/11) Hyperlipidemia (Chronic 08/27/11) Memory disturbance (Chronic 09/08/16) Nephrolithiasis (Chronic) Obstructive sleep apnea (Chronic) Pulmonary nodules (Chronic 07/24/16) Tubular adenoma of colon (Chronic 01/19/14) Type 2 diabetes mellitus (Acute) Surgical History Arthroscopy, Shoulder (Resolved 10/02/13) Colonoscopy - MAC (Resolved 02/16/17) Coronary Stent (Resolved 04/03/13) H/O cardiac radiofrequency ablation (Chronic) H/O lithotripsy (Inactive ~08/25/06) H/O lithotripsy (Chronic) H/O percutaneous transluminal coronary angioplasty (Resolved ~08/23/98) H/O umbilical hernia repair (Resolved ~10/14/09) H/O umbilical hernia repair (Inactive ~05/30/79) H/O umbilical hernia repair (Chronic) History of heart artery stent (Chronic) Hx of arthroscopy of left knee (Resolved ~05/31/05) Rotator cuff arthropathy of right shoulder (Chronic) S/P left rotator cuff repair (Resolved ~03/12/08) S/P right knee arthroscopy (Chronic) Status post ablation of ventricular arrhythmia (Inactive ~10/04/09) Family History Mother Personal history of malignant neoplasm Father Heart disease Sister Colon cancer Diabetes Other Colon cancer Brother Diabetes Social History Smoking/Tobacco Use Status: Former Tobacco Use Tobacco: How many years used: 12 Alcohol Intake: current Alcohol Intake frequency: a few times a month Drug use: Never Substance use type: does not use Household members: none Housing: house Number of Children: 2 Communication Needs: Corrective Lenses 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 What type of physical activity do you participate in: none Seatbelt use: sometimes Drive intox or ride w/intox flag car driver: No Working smoke detector in home: Yes Carbon monox detector in home: Yes Do you feel safe at home: Yes Meds Home Medications Medication Instructions Recorded Confirmed Type aspirin [Aspir-81] 81 mg PO DAILY #100 tab 01/25/14 01/03/19 History ferrous sulfate 325 mg PO DAILY #100 tab 03/02/16 01/03/19 History nitroglycerin 0.4 mg BUCCAL ONCE PRN #25 tab 07/02/17 01/03/19 History cholecalciferol (vitamin D3) 1,000 unit PO DAILY #90 tab-cap 09/03/17 01/03/19 Rx acetaminophen 650 mg PO Q6H PRN PRN #10 tab 01/11/18 01/03/19 Rx divalproex 500 mg tablet,delayed 500 mg PO BID #180 tab 05/17/18 01/03/19 Rx release blood sugar diagnostic #10 each 07/01/18 12/21/18 History pen needle, diabetic 31 gauge x #100 07/21/18 12/21/18 Rx / metformin 850 mg tablet 850 mg PO BID #240 tab-cap 08/11/18 01/03/19 Rx insulin degludec [Tresiba 40 unit SQ DAILY 09/16/18 01/03/19 History Flextouch U-100] atorvastatin 40 mg tablet 40 mg PO DAILY 09/21/18 01/03/19 History diclofenac sodium 1 % topical gel 2 gm TP QID #100 gm 09/23/18 01/03/19 Rx lidocaine 5 % topical patch 1 patch TP DAILY #15 each 09/23/18 01/03/19 Rx levothyroxine 125 mcg tablet 125 mcg PO DAILY #90 tab-cap 10/20/18 01/03/19 Rx apixaban 5 mg tablet 5 mg PO BID #60 tab 11/04/18 01/03/19 Rx tramadol 50 mg tablet 50 mg PO Q8H PRN #6 tab 11/17/18 01/03/19 Rx Allergies Allergy/AdvReac Type Severity Reaction Status Date / Time prednisone Allergy Intermediate Skin Rash Verified 01/03/19 10:09 tapentadol Allergy Unknown unknown Verified 01/03/19 10:09 omeprazole AdvReac Severe Low Verified 01/03/19 10:09 Magnesium Exam Const General: not in acute distress Nutritional Appearance: well nourished Orientation: oriented x3 HENMT Head: normal to inspection Eyes Sclera: sclerae normal Pupils: PERRL Neck Neck: no lymphadenopathy Thyroid: thyroid normal Carotids: no bruits Resp Effort & Inspection: normal respiratory effort Auscultation: clear to auscultation bilaterally and no wheezes Cardio Rate: regular rate Rhythm: regular rhythm GI Inspection: non-distended Palpation: soft, no hepatosplenomegaly, no hernias and tender in the LLQ and in the RUQ Neuro General: alert Extrem General: normal to inspection Psych Attitude: cooperative Results Labs : 01/03/19 09:40 01/03/19 09:40 Laboratory Results - last 24 hr 01/03/19 01/03/19 01/03/19 09:40 09:40 09:40 WBC 8.09 RBC 4.16 L Hgb 14.2 Hct 40.6 MCV 97.6 H MCH 34.1 H MCHC 35.0 RDW 13.3 Plt Count 187 MPV 10.3 Immature Gran % 0.2 Neutrophils % 76.2 Lymphocytes % 15.1 Monocytes % 7.8 Eosinophils % 0.6 Basophils % 0.1 Absolute Neutrophils 6.16 Absolute Lymphocytes 1.22 Absolute Monocytes 0.63 Absolute Eosinophils 0.05 Absolute Basophils 0.01 PT 11.0 INR 1.1 Sodium 141 Potassium 3.2 L Chloride 102 Carbon Dioxide 25.9 Anion Gap 13.1 H BUN 14 Creatinine 1.27 Estimated GFR/1.73 m2 54.85 Glucose 146 H Lactate Calcium 9.5 Total Bilirubin 1.7 H AST 143 H ALT 164 H Alkaline Phosphatase 207 H Troponin I 0.07 H Total Protein 7.9 Albumin 3.5 Lipase 64 L TSH 1.77 Urine Color Urine Clarity Urine pH Ur Specific [place] Urine Protein Urine Ketones Urine Blood Urine Nitrite Urine Bilirubin Urine Urobilinogen Ur Leukocyte Esterase Urine Glucose 01/03/19 01/03/19 01/03/19 10:13 10:45 12:33 WBC RBC Hgb Hct MCV MCH MCHC RDW Plt Count MPV Immature Gran % Neutrophils % Lymphocytes % Monocytes % Eosinophils % Basophils % Absolute Neutrophils Absolute Lymphocytes Absolute Monocytes Absolute Eosinophils Absolute Basophils PT INR Sodium Potassium Chloride Carbon Dioxide Anion Gap BUN Creatinine Estimated GFR/1.73 m2 Glucose Lactate 2.4 H Calcium Total Bilirubin AST ALT Alkaline Phosphatase Troponin I 0.06 Total Protein Albumin Lipase TSH Urine Color Yellow Urine Clarity Clear Urine pH 8.0 Ur Specific [place] 1.015 Urine Protein Negative Urine Ketones Negative Urine Blood Negative Urine Nitrite Negative Urine Bilirubin Negative Urine Urobilinogen 1.0 H Ur Leukocyte Esterase Negative Urine Glucose Negative Last Vital Signs Temp 97.7 F 01/03/19 15:19 Pulse 60 01/03/19 15:19 Resp 20 01/03/19 15:19 BP 185/95 H 01/03/19 15:19 Pulse Ox 99 01/03/19 15:19
[2019-01-03] MEDS: Insulin Aspart 300 UNITS/3 ML PEN SC (17:04)
[2019-01-03] MEDS: Divalproex 500 MG TABEC PO (19:30)
[2019-01-04] VITALS (13 sets, daily range): BP systolic 100–162; BP diastolic 60–97; PULSE 64–77; RESP 18–22; TEMP 36.1–38.4; O2SAT 95–98
[2019-01-04] MEDS: Levothyroxine 125 MCG TAB PO (05:21)
[2019-01-04] MEDS: Lactated Ringers 1,000 ML 125 ML IV (05:21)
--- NOTE | 2019-01-04 06:52 | W.PM.PROGNOT ---
Date of Service Date of service: 01/04/19 Time of Service: 06:53 Assessment and Plan (1) Cholelithiases: Current visit: Yes Status: Acute Abdominal pain is improving. Complaints of mild abdominal pain. However with exam, he denies pain/discomfort with palpation. Tolerating regular diet. Continue with IV hydration and pain management. Encouraged activity out of bed as tolerated. AM labs pending. Qualifiers: Cholecystitis presence: without cholecystitis Biliary obstruction: without biliary obstruction Subjective Interval history since last seen: Mr. Arcos reports that he is feeling better than yesterday. Denies any nausea or vomiting. Tolerating a regular diet without any difficulty. Exam Const General: cooperative, healthy appearing and comfortable Orientation: alert and oriented to person Resp Effort & Inspection: normal respiratory effort, audible wheezes and cough GI Inspection: normal to inspection and non-distended Palpation: soft, no guarding and nontender Objective Objective Clinical Data: Abnormal lab results 01/03/19 01/03/19 01/03/19 Range/Units 09:40 09:40 10:13 RBC 4.16 L (4.50-6.00) m/cumm MCV 97.6 H (80-95) fL MCH 34.1 H (27.0-33.0) pg Potassium 3.2 L (3.5-5.1) mmol/L Anion Gap 13.1 H (3-11) mmol/L Glucose 146 H (70-100) mg/dL Lactate (0.6-1.4) mmol/l Total Bilirubin 1.7 H (0.2-1.0) mg/dL AST 143 H (15-37) U/L ALT 164 H (12-78) U/L Alkaline Phosphatase 207 H (46-116) U/L Troponin I 0.07 H (0.00-0.06) ng/mL Lipase 64 L (73-393) U/L Urine Urobilinogen 1.0 H (Up TO 0.2) EU/dL 01/03/19 Range/Units 10:45 RBC (4.50-6.00) m/cumm MCV (80-95) fL MCH (27.0-33.0) pg Potassium (3.5-5.1) mmol/L Anion Gap (3-11) mmol/L Glucose (70-100) mg/dL Lactate 2.4 H (0.6-1.4) mmol/l Total Bilirubin (0.2-1.0) mg/dL AST (15-37) U/L ALT (12-78) U/L Alkaline Phosphatase (46-116) U/L Troponin I (0.00-0.06) ng/mL Lipase (73-393) U/L Urine Urobilinogen (Up TO 0.2) EU/dL Vital Signs Temperature 37.2 C 01/04/19 03:54 Temperature Source Tympanic 01/04/19 03:54 Pulse 70 01/04/19 03:54 Pulse Rhythm Regular 01/03/19 19:20 Pulse 60 01/03/19 13:20 Respiratory Rate 20 01/04/19 03:54 Respiratory Effort 01/03/19 19:20 Respiratory Depth Normal 01/03/19 19:20 Respiratory Pattern Normal 01/03/19 19:20 Blood Pressure 150/65 H 01/04/19 03:54 Blood Pressure Mean 125 01/03/19 13:16 Blood Pressure Position Supine 01/03/19 09:32 Pulse Oximetry 98 01/04/19 03:54 Oxygen Delivery Method Nasal Cannula 01/04/19 03:54 Oxygen Flow Rate 2 01/04/19 03:54 Pain Level 10 01/04/19 05:22 Intake & Output 01/03/19 01/03/19 01/04/19 06:59 18:59 06:59 Intake Total 1695.833 / 3560.416 1864.583 / 3560.416 Output Total 2952 / 3552 600 / 3552 Balance -1256.167 / 8.416 1264.583 / 8.416 Weight 110.2 kg Intake: IV 1395.833 / 3260.416 1864.583 / 3260.416 Oral 300 / 300 Output: Urine 2500 / 3100 600 / 3100 Emesis 452 / 452 Other: Urine Color Yellow Dark Luisa Urine Appearance Clear Clear Urine Odor Strong Emesis Description Bile Gastric Occult Blood Negative Voiding Methods Urinal Urinal Laboratory Results WBC 8.09 k/cumm (4.4-10.8) 01/03/19 09:40 RBC 4.16 m/cumm (4.50-6.00) L 01/03/19 09:40 Hgb 14.2 g/dL (13.5-17.5) 01/03/19 09:40 Hct 40.6 % (40.0-50.0) 01/03/19 09:40 MCV 97.6 fL (80-95) H 01/03/19 09:40 MCH 34.1 pg (27.0-33.0) H 01/03/19 09:40 MCHC 35.0 g/dL (32.0-36.0) 01/03/19 09:40 RDW 13.3 % (11.8-14.1) 01/03/19 09:40 Plt Count 187 x1000/uL (130-400) 01/03/19 09:40 MPV 10.3 fL (8.0-11.0) 01/03/19 09:40 Immature Gran % 0.2 01/03/19 09:40 76.2 01/03/19 09:40 15.1 01/03/19 09:40 7.8 01/03/19 09:40 0.6 01/03/19 09:40 0.1 01/03/19 09:40 Absolute Neutrophils 6.16 k/cumm (1.2-6.7) 01/03/19 09:40 Absolute Lymphocytes 1.22 k/cumm (1.2-3.4) 01/03/19 09:40 Absolute Monocytes 0.63 k/cumm (0.11-0.7) 01/03/19 09:40 Absolute Eosinophils 0.05 k/cumm (0.0-0.7) 01/03/19 09:40 Absolute Basophils 0.01 k/cumm (0.0-0.2) 01/03/19 09:40 PT 11.0 sec (9.3-11.0) 01/03/19 09:40 INR 1.1 (0.9-1.1) 01/03/19 09:40 Sodium 141 mmol/L (136-145) 01/03/19 09:40 Potassium 3.2 mmol/L (3.5-5.1) L 01/03/19 09:40 Chloride 102 mmol/L (98-107) 01/03/19 09:40 Carbon Dioxide 25.9 mmol/L (21.0-32.0) 01/03/19 09:40 13.1 mmol/L (3-11) H 01/03/19 09:40 BUN 14 mg/dL (7-18) 01/03/19 09:40 1.27 mg/dL (0.70-1.30) 01/03/19 09:40 54.85 (mL/min/1.73m2) 01/03/19 09:40 Glucose 146 mg/dL (70-100) H 01/03/19 09:40 2.4 mmol/l (0.6-1.4) H 01/03/19 10:45 Calcium 9.5 mg/dL (8.5-10.1) 01/03/19 09:40 1.7 mg/dL (0.2-1.0) H 01/03/19 09:40 AST 143 U/L (15-37) H 01/03/19 09:40 ALT 164 U/L (12-78) H 01/03/19 09:40 207 U/L (46-116) H 01/03/19 09:40 0.06 ng/mL (0.00-0.06) 01/03/19 12:33 7.9 g/dL (6.4-8.2) 01/03/19 09:40 3.5 g/dL (3.4-5.0) 01/03/19 09:40 64 U/L (73-393) L 01/03/19 09:40 TSH 1.77 uIU/mL (0.36-3.74) 01/03/19 09:40 Yellow (Yellow) 01/03/19 10:13 Clear (Clear) 01/03/19 10:13 8.0 (5-8) 01/03/19 10:13 Ur Specific [place] 1.015 (1.005-1.025) 01/03/19 10:13 Negative mg/dL (Negative) 01/03/19 10:13 Negative mg/dL (Negative) 01/03/19 10:13 Negative (Negative) 01/03/19 10:13 Negative (Negative) 01/03/19 10:13 Negative (Negative) 01/03/19 10:13 1.0 EU/dL (Up TO 0.2) H 01/03/19 10:13 Ur Leukocyte Esterase Negative (Negative) 01/03/19 10:13 Negative mg/dL (Negative) 01/03/19 10:13
[2019-01-04 07:18] LABS: Abs Immature Grans 0.04 k/cumm (0.0-0.09); Absolute Eosinophil Count 0.03 k/cumm (0.0-0.7); Absolute Lymphocyte Count 0.61 k/cumm (1.2-3.4); Absolute Monocyte Count 1.17 k/cumm (0.11-0.7); Basophils % 0.1; Eosinophils % 0.2; HCT 40.1 % (40.0-50.0); HGB 13.5 g/dL (13.5-17.5); Immature Grans % 0.3; Mean Corp. HGB Concentration 33.7 g/dL (32.0-36.0); Mean Corpuscular Hemoglobin 33.6 pg (27.0-33.0); Mean Corpuscular Volume 99.8 fL (80-95); Mean Platelet Volume 10.4 fL (8.0-11.0); Monocytes % 7.6; Neutrophils % 87.8; Platelet Count 166 x1000/uL (130-400); RBC 4.02 m/cumm (4.50-6.00); RBC Distribution Width 13.7 % (11.8-14.1); White Blood Cell Count 15.34 k/cumm (4.4-10.8)
[2019-01-04 07:19] LABS: Absolute Basophil Count 0.02 k/cumm (0.0-0.2); Absolute Neutrophil Count 13.47 k/cumm (1.2-6.7)
[2019-01-04 07:37] LABS: ALT 141 U/L (12-78); AST 83 U/L (15-37); Albumin 2.9 g/dL (3.4-5.0); Alkaline Phosphatase 177 U/L (46-116); Anion Gap 10.2 mmol/L (3-11); BUN 12 mg/dL (7-18); Bilirubin, Total 3.4 mg/dL (0.2-1.0); CO2 26.8 mmol/L (21.0-32.0); CREATININE 1.28 mg/dL (0.70-1.30); Calcium 8.8 mg/dL (8.5-10.1); Chloride 99 mmol/L (98-107); Estimated GFR 54.35 (mL/min/1.73m2); Glucose 148 mg/dL (70-100); Lipase 76 U/L (73-393); Potassium 4.1 mmol/L (3.5-5.1); Sodium 136 mmol/L (136-145)
--- NOTE | 2019-01-04 08:16 | PHARADMIT ---
Addendum entered by Cheyenne Ferrera 01/15/19 12:26: Pharmacy Note Subjective not eating well, refusing to wear oxygen, refusing SCD's Objective Temp 37.7, BP 163/81, FSBS 154, pain 10/10 Assessment refused PT x 2 due to pain in abdomen-given Vicodin Plan Pt using own Tresiba to be returned at discharge working w/PT discharge planned for Wednesday to new SNF in [facility] Addendum entered by Cheyenne Ferrera 01/14/19 10:58: Pharmacy Note Subjective Objective VS good, no labs, no urine or stool recorded although incontinent Assessment no med changes Plan Pt using own Tresiba to be returned at discharge working w/PT discharge planned for Wednesday to new SNF in [facility] Addendum entered by Miracle Mejía 01/13/19 15:59: Pharmacy Note Subjective [place] [facility] [place] for symptom relief per progress note Objective BP-144/83 other VS okay BG-133 Assessment now dose of hydromorphone given prior to transport Plan continue to watch VS, labs and for med changes Addendum entered by Kaitlyn Arcos 01/10/19 16:25: Pharmacy Note Subjective post op pt needing palliative consult, and constipated Objective bp 144/92, pain 8/10 Assessment pt own tresiba brought in today. one pen sent upstairs the rest is in pharmacy fridge. ordered mag citrate which pt refused Plan palliative care consult with family present Addendum entered by Red Castillo III 01/07/19 11:46: Pharmacy Note Subjective Post-op Day#1 Gallbladder removal. Patient was to be on clears but received a food tray and consumed it. C/O of abdominal pain now.(02/07). Overnight Tele showed HR-38 ??? to review. Objective VS-OK HR-66 K+3.6 SCr-1.25 WBC-9.04 H&H,Plts-OK Assessment Dilaudid IV for pain control ordered. Zosyn continues. Plan Overall plan is for him to go to SNF Wednesday. Original Note: Admission Pharmacy Clinical Review CHOLELITHIASIS Code Status Full Code Current Weight Wgt-110.2 kg Renally Cleared and Narrow Therapeutic Index Meds CrCl~ 49 mL/min Meds-OK QTc Value / Action Taken QTc-453 BP Control, Fever BP- 162/97 Tmax- 37.5C Electrolytes reviewed Na- 136 K+4.1 DVT Prophylaxis ASA, SCDs Opiate Usage / Scheduled Bowel Regimen Ordered Yes No Plt/SCr for Heparin / Enoxaparin Plts- 166 SCr- 1.28 INR for Warfarin inr-1.1 H/H stable, WBC/Bands H&H- 13.5/40.1 WBC- 15.34 Antibiotic appropriateness Zosyn Cultures and Sensitivities none Surgical ABX d/c within 24 hr na DM control / Insulin Dosing BG-148 Aspart, Heart Failure (Check EF%) (MAGDALENE's, B-Block, Diuretics) NTG IV to PO Switch No Home Meds Reviewed Yes Home Meds Not Ordered Apixaban, Vit-D, Diclofenac Gel, Iron, Tramodol, Tresiba, Dilaudid, Glimepiride, Lidoderm, Metformin Comments ALT-141 AST-83 [id number]
[2019-01-04] MEDS: Normal Saline Flush 10 ML SYR IVP ×5 (08:32→19:59)
[2019-01-04] MEDS: Normal Saline 1,000 ML 125 ML IV ×2 (08:33→19:59)
[2019-01-04] MEDS: PIPERACILLIN/TAZO 3.375 GM in Normal Saline 50 ML IVPB ×3 (08:41→20:02)
[2019-01-04] MEDS: Aspirin E.C. 81 MG TABEC PO (08:42)
[2019-01-04] MEDS: Atorvastatin 40 MG TAB PO (08:42)
[2019-01-04] MEDS: Acetaminophen 325 MG TAB 650 MG PO ×2 (08:46→21:18)
[2019-01-04] MEDS: Divalproex 500 MG TABEC PO ×2 (08:46→20:00)
[2019-01-04] MEDS: Ondansetron 4 MG/2 ML VIAL IVP (09:13)
[2019-01-04] MEDS: Ketorolac 15 MG/ML VIAL IVP ×2 (10:29→20:00)
--- NOTE | 2019-01-04 11:08 | CHAPLAIN ---
Jimmy was out for an MRI, but I visited with his son who is here with him and brought his laptop so he could work from here today. Jimmy is listed as being a member of [employer], but his son said he hasn't been in [employer] in many years and would not be interested in having the [employer] know he is here. I explained my role and offered support.
[2019-01-04] MEDS: Insulin Aspart 300 UNITS/3 ML PEN SC (11:52)
[2019-01-04 12:24] LABS: ALT 140 U/L (12-78); AST 92 U/L (15-37); Albumin 2.6 g/dL (3.4-5.0); Alkaline Phosphatase 186 U/L (46-116); Anion Gap 10.7 mmol/L (3-11); BUN 16 mg/dL (7-18); Bilirubin, Total 4.6 mg/dL (0.2-1.0); CO2 25.3 mmol/L (21.0-32.0); CREATININE 1.39 mg/dL (0.70-1.30); Calcium 8.5 mg/dL (8.5-10.1); Chloride 99 mmol/L (98-107); Estimated GFR 49.42 (mL/min/1.73m2); Glucose 153 mg/dL (70-100); Potassium 4.2 mmol/L (3.5-5.1); Sodium 135 mmol/L (136-145); Total Protein 6.5 g/dL (6.4-8.2)
--- NOTE | 2019-01-04 13:06 | W.PM.PROGNOT ---
Date of Service Date of service: 01/04/19 Time of Service: 12:30 Assessment and Plan (1) Cholelithiases: Current visit: Yes Status: Acute A\\ Todays increase in T. bilirubin and LFTs' is suspicious for a stone being in the CBD vs ascending Cholangitis MRI ordered but patient is unable to tolerate P\\ Diet: NPO Fluids: continue NS at 125 cc/hr Activity: ambulate as tolerated Leukocytosis: Zosyn started this am Hyperbilirubinemia and Increased LFT's: Continue to watch. HIDA scan tomorrow Pain control: Tylenol and Toradol as needed. Unable to give Narcotics until after HIDA scan Plan discussed with family. Will discuss patient with Dr. Dang who will see him tomorrow and take over care May need to call GI at [facility] Qualifiers: Cholecystitis presence: without cholecystitis Biliary obstruction: without biliary obstruction Cholelithiasis location: gallbladder Qualified Code(s): K80.20 - Calculus of gallbladder without cholecystitis without obstruction Subjective Interval history since last seen: Mr. Arcos is doing OK. he intermittently complains of pain in his abdomen. usually not in the same spot. he is hungry and wants to eat. reminded patient that he had been throwing up all last night. He denies nausea now since being NPO. He was unable to tolerate the MRCP I ordered. Family is in the room. Discussed with Daughter and son the Labs from this morning and the testing I am trying to do. We also discussed potential surgery and that he may or may not be able to have surgery done here depending on the Cardiac clearance and how sick he is. Exam Const General: cooperative, comfortable and no acute distress Orientation: alert HENFL Head: normocephalic and atraumatic Resp Auscultation: clear to auscultation bilaterally Cardio Rate: regular rate Rhythm: abnormal rhythm GI Inspection: normal to inspection Palpation: soft and nontender Auscultation: normal bowel sounds Objective Objective Clinical Data: Abnormal lab results 01/04/19 01/04/19 01/04/19 Range/Units 06:30 06:30 11:58 WBC 15.34 H D (4.4-10.8) k/cumm RBC 4.02 L (4.50-6.00) m/cumm MCV 99.8 H (80-95) fL MCH 33.6 H (27.0-33.0) pg Absolute Neutrophils 13.47 H (1.2-6.7) k/cumm Absolute Lymphocytes 0.61 L (1.2-3.4) k/cumm Absolute Monocytes 1.17 H (0.11-0.7) k/cumm Sodium 135 L (136-145) mmol/L Creatinine 1.39 H (0.70-1.30) mg/dL Glucose 148 H 153 H (70-100) mg/dL Total Bilirubin 3.4 H 4.6 H (0.2-1.0) mg/dL AST 83 H 92 H (15-37) U/L ALT 141 H 140 H (12-78) U/L Alkaline Phosphatase 177 H 186 H (46-116) U/L Albumin 2.9 L 2.6 L (3.4-5.0) g/dL Vital Signs Temperature 97.0 F L 01/04/19 11:32 Temperature Source Tympanic 01/04/19 11:32 Pulse 64 01/04/19 11:32 Pulse Rhythm Regular 01/04/19 08:56 Pulse 60 01/03/19 13:20 Respiratory Rate 21 01/04/19 11:32 Respiratory Effort Non-Labored 01/04/19 08:56 Respiratory Depth Normal 01/04/19 08:56 Respiratory Pattern Normal 01/04/19 08:56 Blood Pressure 112/70 01/04/19 11:32 Blood Pressure Mean 125 01/03/19 13:16 Blood Pressure Position Supine 01/03/19 09:32 Pulse Oximetry 95 01/04/19 11:32 Oxygen Delivery Method Room Air 01/04/19 11:32 Oxygen Flow Rate 0 01/04/19 11:32 Pain Level 7 01/04/19 11:32 Intake & Output 01/03/19 01/04/19 01/04/19 23:59 11:59 23:59 Intake Total 2097.916 / 2597.916 1402.917 / 1402.917 Output Total 2350 / 3302 375 / 375 Balance -252.084 / -574.354 2815.917 / 1027.917 Weight 242 lb 15.19 oz Intake: IV 1797.916 / 2297.916 1402.917 / 1402.917 Oral 300 / 300 Output: Urine 2050 / 2850 375 / 375 Emesis 300 / 452 Other: Urine Color Dark Luisa Dark Luisa Urine Appearance Clear Clear Urine Odor None Strong Emesis Description Bile Voiding Methods Urinal Urinal Laboratory Results WBC 15.34 k/cumm (4.4-10.8) H D 01/04/19 06:30 RBC 4.02 m/cumm (4.50-6.00) L 01/04/19 06:30 Hgb 13.5 g/dL (13.5-17.5) 01/04/19 06:30 Hct 40.1 % (40.0-50.0) 01/04/19 06:30 MCV 99.8 fL (80-95) H 01/04/19 06:30 MCH 33.6 pg (27.0-33.0) H 01/04/19 06:30 MCHC 33.7 g/dL (32.0-36.0) 01/04/19 06:30 RDW 13.7 % (11.8-14.1) 01/04/19 06:30 Plt Count 166 x1000/uL (130-400) 01/04/19 06:30 MPV 10.4 fL (8.0-11.0) 01/04/19 06:30 Immature Gran % 0.3 01/04/19 06:30 87.8 01/04/19 06:30 4.0 01/04/19 06:30 7.6 01/04/19 06:30 0.2 01/04/19 06:30 0.1 01/04/19 06:30 Absolute Neutrophils 13.47 k/cumm (1.2-6.7) H 01/04/19 06:30 Absolute Lymphocytes 0.61 k/cumm (1.2-3.4) L 01/04/19 06:30 Absolute Monocytes 1.17 k/cumm (0.11-0.7) H 01/04/19 06:30 Absolute Eosinophils 0.03 k/cumm (0.0-0.7) 01/04/19 06:30 Absolute Basophils 0.02 k/cumm (0.0-0.2) 01/04/19 06:30 PT 11.0 sec (9.3-11.0) 01/03/19 09:40 INR 1.1 (0.9-1.1) 01/03/19 09:40 Sodium 135 mmol/L (136-145) L 01/04/19 11:58 Potassium 4.2 mmol/L (3.5-5.1) 01/04/19 11:58 Chloride 99 mmol/L (98-107) 01/04/19 11:58 Carbon Dioxide 25.3 mmol/L (21.0-32.0) 01/04/19 11:58 10.7 mmol/L (3-11) 01/04/19 11:58 BUN 16 mg/dL (7-18) 01/04/19 11:58 1.39 mg/dL (0.70-1.30) H 01/04/19 11:58 49.42 (mL/min/1.73m2) 01/04/19 11:58 Glucose 153 mg/dL (70-100) H 01/04/19 11:58 2.4 mmol/l (0.6-1.4) H 01/03/19 10:45 Calcium 8.5 mg/dL (8.5-10.1) 01/04/19 11:58 4.6 mg/dL (0.2-1.0) H 01/04/19 11:58 AST 92 U/L (15-37) H 01/04/19 11:58 ALT 140 U/L (12-78) H 01/04/19 11:58 186 U/L (46-116) H 01/04/19 11:58 0.06 ng/mL (0.00-0.06) 01/03/19 12:33 6.5 g/dL (6.4-8.2) 01/04/19 11:58 2.6 g/dL (3.4-5.0) L 01/04/19 11:58 76 U/L (73-393) 01/04/19 06:30 TSH 1.77 uIU/mL (0.36-3.74) 01/03/19 09:40 Yellow (Yellow) 01/03/19 10:13 Clear (Clear) 01/03/19 10:13 8.0 (5-8) 01/03/19 10:13 Ur Specific [place] 1.015 (1.005-1.025) 01/03/19 10:13 Negative mg/dL (Negative) 01/03/19 10:13 Negative mg/dL (Negative) 01/03/19 10:13 Negative (Negative) 01/03/19 10:13 Negative (Negative) 01/03/19 10:13 Negative (Negative) 01/03/19 10:13 1.0 EU/dL (Up TO 0.2) H 01/03/19 10:13 Ur Leukocyte Esterase Negative (Negative) 01/03/19 10:13 Negative mg/dL (Negative) 01/03/19 10:13
[2019-01-04 13:53] LABS: Abs Immature Grans 0.06 k/cumm (0.0-0.09); Absolute Eosinophil Count 0.03 k/cumm (0.0-0.7); Absolute Lymphocyte Count 0.85 k/cumm (1.2-3.4); Absolute Monocyte Count 1.22 k/cumm (0.11-0.7); Basophils % 0.1; Eosinophils % 0.2; HCT 36.3 % (40.0-50.0); HGB 12.4 g/dL (13.5-17.5); Immature Grans % 0.4; Lymphocytes % 5.5; Mean Corp. HGB Concentration 34.2 g/dL (32.0-36.0); Mean Corpuscular Volume 99.5 fL (80-95); Mean Platelet Volume 10.1 fL (8.0-11.0); Monocytes % 7.9; Neutrophils % 85.9; Platelet Count 153 x1000/uL (130-400); RBC 3.65 m/cumm (4.50-6.00); RBC Distribution Width 13.5 % (11.8-14.1); White Blood Cell Count 15.44 k/cumm (4.4-10.8)
[2019-01-04 13:55] LABS: Absolute Basophil Count 0.02 k/cumm (0.0-0.2); Absolute Neutrophil Count 13.26 k/cumm (1.2-6.7); Lactate-non-spesis 2.3 mmol/l (0.6-1.4)
--- NOTE | 2019-01-04 14:15 | DI.RAD_ITS ---
SYMPTOMS/DIAGNOSIS: LEUKOCYTOSIS, CHOLELITHIASIS PA AND LATERAL CHEST: Comparison is made with portable chest of December,. The heart size is at the upper limits of normal. There are underlying fibrotic changes. A prominent spur is again noted at the end of the right 1st rib. There are mild underlying fibrotic changes. No superimposed infiltrate, effusion or pulmonary edema is seen. IMPRESSION: No acute abnormality.
--- NOTE | 2019-01-04 16:02 | INITIAL_ITS ---
Care Management Initial Assess REASON FOR HOSPITALIZATION:: Cholelithiasis PAST MEDICAL HISTORY/PAST SURGICAL HISTORY:: Tubular adenomas, cataract, macular degeneration, hearing loss, hyperlipidemia, diverticulitis, type II diabetes, excoriation disorder, frontotemporal dementia, atherosclerosis, neurodermatitis, memory disturbance, pulmonary nodules, tubular adenoma of colon, polyneuropathy. Surgical hx: angioplasty/stent, hernirraphy, cardiac ablation PREVIOUS FUNCTIONAL STATUS/SOCIAL/FAMILY SUPPORTS:: Kendrick is residing alone in [facility] as his , Norma eleven months ago. Kendrick has [facility] private pay service 1x/mth and reports his toe nails are trimmed and homemaker supports completed. Kendrick shares that he is independent with all ADLs in the community; though it appears he has required SNF rehab and home supports over the last year. Kendrick's daughter reports that her and her brother Clive pour Kendrick's medications weekly but often are noticing that the medications remain in their trays. She reports Kendrick historically has discontinued coordinated supports. Francine reports Kendrick would be best served with increased services at home and daily medication management; she reports he will self pay for these services. CURRENT FUNCTIONAL STATUS:: Kendrick was lying in bed when CM met with him. He used good humor to interact with this life insurance underwriter fully though after a period of time it became apparent that Kendrick was presenting with memory deficits as he reported his car was in the parking lot and he would be driving himself home. He did present well and offered mostly accurate information; as confirmed by his son, Clive, daughter; Francine and his brother who were present at his bedside. ADVANCE DIRECTIVES:: On file at [facility]. Has patient been provided with information about the portal?: Yes Did the patient sign up for the portal?: No CODE STATUS:: Full Code INSURANCE COVERAGE / FINANCIAL ISSUES:: Medicare, Blue Cross Blue Shield. CURRENT HOME/COMMUNITY SERVICES/EQUIPMENT:: Jimmy currently has non skilled VNA RN for medication management per Umm at [facility]. Anticipate he will discharge with new orders for home health nursing (medication management), [employer] and PT services. PRIMARY CARE PHYSICIAN:: Natasha Norton POTENTIAL DISCHARGE NEEDS:: Increased service support coordination, PATIENT/FAMILY EDUCATION NEEDS:: Review of community based supports, discuss [employer]. ANTICIPATED BARRIERS TO DISCHARGE:: None identified. TRANSPORTATION:: Via private vehicle with family. PLAN:: Kendrick continues to be closely monitored; undetermined at this time if Jimmy will require surgical intervention; CM continues to follow. 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 He will transport home via private vehicle with family.
[2019-01-05] MEDS: PIPERACILLIN/TAZO 3.375 GM in Normal Saline 50 ML IVPB ×4 (02:20→22:05)
[2019-01-05 03:46] VITALS: BP 131/83; PULSE 69; RESP 18; TEMP 37.2; O2SAT 96
[2019-01-05] MEDS: Normal Saline 1,000 ML 125 ML IV ×2 (04:51→16:50)
[2019-01-05 07:20] VITALS: BP 162/110; PULSE 74; RESP 19; TEMP 37.4; O2SAT 93
--- NOTE | 2019-01-05 07:30 | DI.NM_ITS ---
SYMPTOM/DIAGNOSIS: INCREASED BILIRUBIN HEPATOBILIARY SCAN: Hepatobiliary scan was performed according to the usual protocol with intravenous infusion of 5.0 millicuries of Technetium 99 labeled Mebrofenin. Following intravenous administration of radiopharmaceutical, there is prompt homogeneous hepatic uptake and prompt uptake in the bile ducts and small intestine. 2 and 4 hour delayed images as well as the initial images show no evidence of gallbladder uptake. CONCLUSION: No gallbladder uptake. The findings are consistent with acute or chronic cholecystitis.
[2019-01-05 07:31] LABS: Abs Immature Grans 0.04 k/cumm (0.0-0.09); Absolute Basophil Count 0.01 k/cumm (0.0-0.2); Absolute Eosinophil Count 0.03 k/cumm (0.0-0.7); Absolute Lymphocyte Count 0.64 k/cumm (1.2-3.4); Basophils % 0.1; Eosinophils % 0.2; HCT 36.9 % (40.0-50.0); HGB 12.4 g/dL (13.5-17.5); Immature Grans % 0.3; Lymphocytes % 4.9; Mean Corp. HGB Concentration 33.6 g/dL (32.0-36.0); Mean Corpuscular Hemoglobin 33.3 pg (27.0-33.0); Mean Corpuscular Volume 99.2 fL (80-95); Mean Platelet Volume 10.4 fL (8.0-11.0); Monocytes % 7.8; Neutrophils % 86.7; Platelet Count 142 x1000/uL (130-400); RBC 3.72 m/cumm (4.50-6.00); RBC Distribution Width 13.6 % (11.8-14.1); White Blood Cell Count 13.03 k/cumm (4.4-10.8)
[2019-01-05] MEDS: Normal Saline Flush 10 ML SYR IVP ×2 (07:36→10:21)
[2019-01-05] MEDS: LORazepam 2 MG/ML VIAL 1 MG IVP (07:36)
[2019-01-05 07:49] LABS: ALT 95 U/L (12-78); AST 38 U/L (15-37); Albumin 2.5 g/dL (3.4-5.0); Alkaline Phosphatase 168 U/L (46-116); Anion Gap 11.9 mmol/L (3-11); BUN 22 mg/dL (7-18); Bilirubin, Total 4.2 mg/dL (0.2-1.0); CO2 25.1 mmol/L (21.0-32.0); CREATININE 1.44 mg/dL (0.70-1.30); Calcium 8.4 mg/dL (8.5-10.1); Chloride 102 mmol/L (98-107); Estimated GFR 47.45 (mL/min/1.73m2); Glucose 86 mg/dL (70-100); Potassium 3.8 mmol/L (3.5-5.1); Sodium 139 mmol/L (136-145); Total Protein 6.6 g/dL (6.4-8.2)
[2019-01-05 08:04] LABS: Absolute Monocyte Count 1.02 k/cumm (0.11-0.7)
--- NOTE | 2019-01-05 08:28 | PGE_ITS ---
Date of Service Date of service: 01/05/19 Time of Service: 08:28 Assessment and Plan (1) Cholelithiases: Current visit: Yes Status: Acute Diet- Continue NPO Scheduled to have HIDA scan today. Encouraged use of mouth swabs and oral hygiene for complaints of dry mouth. Continue IV fluids and Zoysn. WBC count decreased from yesterday. Qualifiers: Biliary obstruction: without biliary obstruction Cholecystitis presence: without cholecystitis Cholelithiasis location: gallbladder Qualified Code(s): K80.20 - Calculus of gallbladder without cholecystitis without obstruction Subjective Interval history since last seen: I just want to drink something. Denies abdominal pain at this time. Exam Const General: cooperative and comfortable Orientation: alert and confused Resp Effort & Inspection: normal respiratory effort, no audible wheezes and no cough GI Inspection: normal to inspection and non-distended Palpation: soft, no guarding and nontender Objective Objective Clinical Data: Abnormal lab results 01/04/19 01/04/19 01/04/19 Range/Units 11:58 13:43 13:43 WBC 15.44 H (4.4-10.8) k/cumm RBC 3.65 L (4.50-6.00) m/cumm Hgb 12.4 L (13.5-17.5) g/dL Hct 36.3 L (40.0-50.0) % MCV 99.5 H (80-95) fL MCH 34.0 H (27.0-33.0) pg Absolute Neutrophils 13.26 H (1.2-6.7) k/cumm Absolute Lymphocytes 0.85 L (1.2-3.4) k/cumm Absolute Monocytes 1.22 H (0.11-0.7) k/cumm Sodium 135 L (136-145) mmol/L Anion Gap (3-11) mmol/L BUN (7-18) mg/dL Creatinine 1.39 H (0.70-1.30) mg/dL Glucose 153 H (70-100) mg/dL Lactate 2.3 H (0.6-1.4) mmol/l Calcium (8.5-10.1) mg/dL Total Bilirubin 4.6 H (0.2-1.0) mg/dL AST 92 H (15-37) U/L ALT 140 H (12-78) U/L Alkaline Phosphatase 186 H (46-116) U/L Albumin 2.6 L (3.4-5.0) g/dL 01/05/19 01/05/19 Range/Units 06:55 06:55 WBC 13.03 H (4.4-10.8) k/cumm RBC 3.72 L (4.50-6.00) m/cumm Hgb 12.4 L (13.5-17.5) g/dL Hct 36.9 L (40.0-50.0) % MCV 99.2 H (80-95) fL MCH 33.3 H (27.0-33.0) pg Absolute Neutrophils 11.30 H (1.2-6.7) k/cumm Absolute Lymphocytes 0.64 L (1.2-3.4) k/cumm Absolute Monocytes 1.02 H (0.11-0.7) k/cumm Sodium (136-145) mmol/L Anion Gap 11.9 H (3-11) mmol/L BUN 22 H D (7-18) mg/dL Creatinine 1.44 H (0.70-1.30) mg/dL Glucose (70-100) mg/dL Lactate (0.6-1.4) mmol/l Calcium 8.4 L (8.5-10.1) mg/dL Total Bilirubin 4.2 H (0.2-1.0) mg/dL AST 38 H (15-37) U/L ALT 95 H (12-78) U/L Alkaline Phosphatase 168 H (46-116) U/L Albumin 2.5 L (3.4-5.0) g/dL Vital Signs Temperature 37.4 C 01/05/19 07:20 Temperature Source Tympanic 01/05/19 07:20 Pulse 74 01/05/19 07:20 Pulse Rhythm Regular 01/04/19 19:50 Pulse 60 01/03/19 13:20 Respiratory Rate 19 01/05/19 07:20 Respiratory Effort Non-Labored 01/04/19 19:50 Respiratory Depth Normal 01/04/19 19:50 Respiratory Pattern Normal 01/04/19 19:50 Blood Pressure 162/110 H 01/05/19 07:20 Blood Pressure Mean 125 01/03/19 13:16 Blood Pressure Position Supine 01/03/19 09:32 Pulse Oximetry 93 L 01/05/19 07:20 Oxygen Delivery Method Room Air 01/05/19 07:20 Oxygen Flow Rate 0 01/05/19 07:20 Pain Level 0 01/04/19 23:31 Comment 01/04/19 21:13 Intake & Output 01/04/19 01/05/19 01/05/19 18:59 06:59 18:59 Intake Total 1240.417 / 2384.167 1143.75 / 2384.167 Output Total 225 / 1112 887 / 1112 125 / 125 Balance 1015.417 / 1272.167 256.75 / 1272.167 -125 / -125 Intake: IV 1240.417 / 2384.167 1143.75 / 2384.167 Output: Urine 225 / 1112 887 / 1112 125 / 125 Other: Urine Color Dark Luisa Dark Luisa Light Luisa Urine Appearance Clear Clear Clear Urine Odor None None None Comment pt breif was lightly wet diaper weighed 0.5 lb 8 ounce of urine Voiding Methods Urinal Urinal Laboratory Results WBC 13.03 k/cumm (4.4-10.8) H 01/05/19 06:55 RBC 3.72 m/cumm (4.50-6.00) L 01/05/19 06:55 Hgb 12.4 g/dL (13.5-17.5) L 01/05/19 06:55 Hct 36.9 % (40.0-50.0) L 01/05/19 06:55 MCV 99.2 fL (80-95) H 01/05/19 06:55 MCH 33.3 pg (27.0-33.0) H 01/05/19 06:55 MCHC 33.6 g/dL (32.0-36.0) 01/05/19 06:55 RDW 13.6 % (11.8-14.1) 01/05/19 06:55 Plt Count 142 x1000/uL (130-400) 01/05/19 06:55 MPV 10.4 fL (8.0-11.0) 01/05/19 06:55 Immature Gran % 0.3 01/05/19 06:55 86.7 01/05/19 06:55 4.9 01/05/19 06:55 7.8 01/05/19 06:55 0.2 01/05/19 06:55 0.1 01/05/19 06:55 Absolute Neutrophils 11.30 k/cumm (1.2-6.7) H 01/05/19 06:55 Absolute Lymphocytes 0.64 k/cumm (1.2-3.4) L 01/05/19 06:55 Absolute Monocytes 1.02 k/cumm (0.11-0.7) H 01/05/19 06:55 Absolute Eosinophils 0.03 k/cumm (0.0-0.7) 01/05/19 06:55 Absolute Basophils 0.01 k/cumm (0.0-0.2) 01/05/19 06:55 PT 11.0 sec (9.3-11.0) 01/03/19 09:40 INR 1.1 (0.9-1.1) 01/03/19 09:40 Sodium 139 mmol/L (136-145) 01/05/19 06:55 Potassium 3.8 mmol/L (3.5-5.1) 01/05/19 06:55 Chloride 102 mmol/L (98-107) 01/05/19 06:55 Carbon Dioxide 25.1 mmol/L (21.0-32.0) 01/05/19 06:55 11.9 mmol/L (3-11) H 01/05/19 06:55 BUN 22 mg/dL (7-18) H D 01/05/19 06:55 1.44 mg/dL (0.70-1.30) H 01/05/19 06:55 47.45 (mL/min/1.73m2) 01/05/19 06:55 Glucose 86 mg/dL (70-100) D 01/05/19 06:55 2.3 mmol/l (0.6-1.4) H 01/04/19 13:43 Calcium 8.4 mg/dL (8.5-10.1) L 01/05/19 06:55 4.2 mg/dL (0.2-1.0) H 01/05/19 06:55 AST 38 U/L (15-37) H 01/05/19 06:55 ALT 95 U/L (12-78) H 01/05/19 06:55 168 U/L (46-116) H 01/05/19 06:55 0.06 ng/mL (0.00-0.06) 01/03/19 12:33 6.6 g/dL (6.4-8.2) 01/05/19 06:55 2.5 g/dL (3.4-5.0) L 01/05/19 06:55 76 U/L (73-393) 01/04/19 06:30 TSH 1.77 uIU/mL (0.36-3.74) 01/03/19 09:40 Yellow (Yellow) 01/03/19 10:13 Clear (Clear) 01/03/19 10:13 8.0 (5-8) 01/03/19 10:13 Ur Specific [place] 1.015 (1.005-1.025) 01/03/19 10:13 Negative mg/dL (Negative) 01/03/19 10:13 Negative mg/dL (Negative) 01/03/19 10:13 Negative (Negative) 01/03/19 10:13 Negative (Negative) 01/03/19 10:13 Negative (Negative) 01/03/19 10:13 1.0 EU/dL (Up TO 0.2) H 01/03/19 10:13 Ur Leukocyte Esterase Negative (Negative) 01/03/19 10:13 Negative mg/dL (Negative) 01/03/19 10:13
--- NOTE | 2019-01-05 10:47 | PGE_ITS ---
Date of Service Date of service: 01/05/19 Time of Service: 10:47 Assessment and Plan (1) Cholelithiases: Current visit: Yes Status: Acute prelim on HIDA show filling into sm bowel after 2hrs and the GB does not appear. will re-imagine at 4hrs and see if there is GB visualization. pt has been NPO. labs show slt improvement. TBil around 4.0. pt has had no pain. VSS repeat at noon adn will d/w pt and family. Qualifiers: Biliary obstruction: without biliary obstruction Cholecystitis presence: without cholecystitis Cholelithiasis location: gallbladder Qualified Code(s): K80.20 - Calculus of gallbladder without cholecystitis without obstruction Objective Objective Clinical Data: Abnormal lab results 01/04/19 01/04/19 01/04/19 Range/Units 11:58 13:43 13:43 WBC 15.44 H (4.4-10.8) k/cumm RBC 3.65 L (4.50-6.00) m/cumm Hgb 12.4 L (13.5-17.5) g/dL Hct 36.3 L (40.0-50.0) % MCV 99.5 H (80-95) fL MCH 34.0 H (27.0-33.0) pg Absolute Neutrophils 13.26 H (1.2-6.7) k/cumm Absolute Lymphocytes 0.85 L (1.2-3.4) k/cumm Absolute Monocytes 1.22 H (0.11-0.7) k/cumm Sodium 135 L (136-145) mmol/L Anion Gap (3-11) mmol/L BUN (7-18) mg/dL Creatinine 1.39 H (0.70-1.30) mg/dL Glucose 153 H (70-100) mg/dL Lactate 2.3 H (0.6-1.4) mmol/l Calcium (8.5-10.1) mg/dL Total Bilirubin 4.6 H (0.2-1.0) mg/dL AST 92 H (15-37) U/L ALT 140 H (12-78) U/L Alkaline Phosphatase 186 H (46-116) U/L Albumin 2.6 L (3.4-5.0) g/dL 01/05/19 01/05/19 Range/Units 06:55 06:55 WBC 13.03 H (4.4-10.8) k/cumm RBC 3.72 L (4.50-6.00) m/cumm Hgb 12.4 L (13.5-17.5) g/dL Hct 36.9 L (40.0-50.0) % MCV 99.2 H (80-95) fL MCH 33.3 H (27.0-33.0) pg Absolute Neutrophils 11.30 H (1.2-6.7) k/cumm Absolute Lymphocytes 0.64 L (1.2-3.4) k/cumm Absolute Monocytes 1.02 H (0.11-0.7) k/cumm Sodium (136-145) mmol/L Anion Gap 11.9 H (3-11) mmol/L BUN 22 H D (7-18) mg/dL Creatinine 1.44 H (0.70-1.30) mg/dL Glucose (70-100) mg/dL Lactate (0.6-1.4) mmol/l Calcium 8.4 L (8.5-10.1) mg/dL Total Bilirubin 4.2 H (0.2-1.0) mg/dL AST 38 H (15-37) U/L ALT 95 H (12-78) U/L Alkaline Phosphatase 168 H (46-116) U/L Albumin 2.5 L (3.4-5.0) g/dL Vital Signs Temperature 37.4 C 01/05/19 07:20 Temperature Source Tympanic 01/05/19 07:20 Pulse 74 01/05/19 07:20 Pulse Rhythm Regular 01/04/19 19:50 Pulse 60 01/03/19 13:20 Respiratory Rate 19 01/05/19 07:20 Respiratory Effort Non-Labored 01/04/19 19:50 Respiratory Depth Normal 01/04/19 19:50 Respiratory Pattern Normal 01/04/19 19:50 Blood Pressure 162/110 H 01/05/19 07:20 Blood Pressure Mean 125 01/03/19 13:16 Blood Pressure Position Supine 01/03/19 09:32 Pulse Oximetry 93 L 01/05/19 07:20 Oxygen Delivery Method Room Air 01/05/19 07:20 Oxygen Flow Rate 0 01/05/19 07:20 Pain Level 0 01/04/19 23:31 Comment 01/04/19 21:13 Intake & Output 01/04/19 01/04/19 01/05/19 11:59 23:59 11:59 Intake Total 1402.917 / 2502.917 1100.000 / 2502.917 843.75 / 843.75 Output Total 375 / 912 537 / 912 575 / 575 Balance 1027.917 / 1590.917 563.000 / 1590.917 268.75 / 268.75 Intake: IV 1402.917 / 2502.917 1100.000 / 2502.917 843.75 / 843.75 Output: Urine 375 / 912 537 / 912 575 / 575 Other: Urine Color Dark Luisa Dark Luisa Light Luisa Urine Appearance Clear Clear Clear Urine Odor Strong Normal None Comment diaper weighed 0.5 lb 8 ounce of urine 16 oz of urine noted (diaper weighed) Voiding Methods Urinal Incontinent Urinal Laboratory Results WBC 13.03 k/cumm (4.4-10.8) H 01/05/19 06:55 RBC 3.72 m/cumm (4.50-6.00) L 01/05/19 06:55 Hgb 12.4 g/dL (13.5-17.5) L 01/05/19 06:55 Hct 36.9 % (40.0-50.0) L 01/05/19 06:55 MCV 99.2 fL (80-95) H 01/05/19 06:55 MCH 33.3 pg (27.0-33.0) H 01/05/19 06:55 MCHC 33.6 g/dL (32.0-36.0) 01/05/19 06:55 RDW 13.6 % (11.8-14.1) 01/05/19 06:55 Plt Count 142 x1000/uL (130-400) 01/05/19 06:55 MPV 10.4 fL (8.0-11.0) 01/05/19 06:55 Immature Gran % 0.3 01/05/19 06:55 86.7 01/05/19 06:55 4.9 01/05/19 06:55 7.8 01/05/19 06:55 0.2 01/05/19 06:55 0.1 01/05/19 06:55 Absolute Neutrophils 11.30 k/cumm (1.2-6.7) H 01/05/19 06:55 Absolute Lymphocytes 0.64 k/cumm (1.2-3.4) L 01/05/19 06:55 Absolute Monocytes 1.02 k/cumm (0.11-0.7) H 01/05/19 06:55 Absolute Eosinophils 0.03 k/cumm (0.0-0.7) 01/05/19 06:55 Absolute Basophils 0.01 k/cumm (0.0-0.2) 01/05/19 06:55 PT 11.0 sec (9.3-11.0) 01/03/19 09:40 INR 1.1 (0.9-1.1) 01/03/19 09:40 Sodium 139 mmol/L (136-145) 01/05/19 06:55 Potassium 3.8 mmol/L (3.5-5.1) 01/05/19 06:55 Chloride 102 mmol/L (98-107) 01/05/19 06:55 Carbon Dioxide 25.1 mmol/L (21.0-32.0) 01/05/19 06:55 11.9 mmol/L (3-11) H 01/05/19 06:55 BUN 22 mg/dL (7-18) H D 01/05/19 06:55 1.44 mg/dL (0.70-1.30) H 01/05/19 06:55 47.45 (mL/min/1.73m2) 01/05/19 06:55 Glucose 86 mg/dL (70-100) D 01/05/19 06:55 2.3 mmol/l (0.6-1.4) H 01/04/19 13:43 Calcium 8.4 mg/dL (8.5-10.1) L 01/05/19 06:55 4.2 mg/dL (0.2-1.0) H 01/05/19 06:55 AST 38 U/L (15-37) H 01/05/19 06:55 ALT 95 U/L (12-78) H 01/05/19 06:55 168 U/L (46-116) H 01/05/19 06:55 0.06 ng/mL (0.00-0.06) 01/03/19 12:33 6.6 g/dL (6.4-8.2) 01/05/19 06:55 2.5 g/dL (3.4-5.0) L 01/05/19 06:55 76 U/L (73-393) 01/04/19 06:30 TSH 1.77 uIU/mL (0.36-3.74) 01/03/19 09:40 Yellow (Yellow) 01/03/19 10:13 Clear (Clear) 01/03/19 10:13 8.0 (5-8) 01/03/19 10:13 Ur Specific [place] 1.015 (1.005-1.025) 01/03/19 10:13 Negative mg/dL (Negative) 01/03/19 10:13 Negative mg/dL (Negative) 01/03/19 10:13 Negative (Negative) 01/03/19 10:13 Negative (Negative) 01/03/19 10:13 Negative (Negative) 01/03/19 10:13 1.0 EU/dL (Up TO 0.2) H 01/03/19 10:13 Ur Leukocyte Esterase Negative (Negative) 01/03/19 10:13 Negative mg/dL (Negative) 01/03/19 10:13
[2019-01-05 11:45] VITALS: BP 141/87; PULSE 84; RESP 20; TEMP 37.3; O2SAT 95
--- NOTE | 2019-01-05 12:21 | W.INDIABCONS ---
Date of service: 01/05/19 Time of Service: 12:21 Diabetes Inpatient Consult DESCRIPTION/ASSESSMENT: Appreciate diabetes consult for Jimmy Arcos who is 78 years with dementia. A1c 5.9 His medication list indicates he manages his diabetes at home with 40u tresiba and Metformin. During this hospitalization he has received sensitive insulin correction only. Blood sugars all below 147mg/dl. after first day. He is not visited today. INTERVENTION: No intervention suggested at this time. PLAN: Will follow blood sugars Time Spent in Nutritional Counseling and Treatment: 0 minutes face to face
[2019-01-05 15:53] VITALS: BP 157/90; PULSE 72; RESP 21; TEMP 38.5; O2SAT 97
--- NOTE | 2019-01-05 16:49 | W.MEDCONSULT ---
Date of service: 01/05/19 Time of Service: 16:49 History of Present Illness Chief Complaint: Abdominal Pain Narrative: 78 year old man with a prior history of CAD and Afib on AC, admitted from [facility] Emergency Department on 01/03 with a diagnosis of Acute Cholecystitis. Mr. Arcos has a Past Medical History significant for Afib on AC, KIYA, Dyslipidemia, NIDDM, GERD, Dementia, and prior tobacco use. There is note of a prior cardiac radiofrequency ablation by review of records, details unavailable. He also has a history of CAD, with noted PCI to LAD in 1997, and OM in 2012. [place] [facility] [place] with a chronic appearing CP that had worsened, with a minimal and equivocal elevation in troponin. At that time he was transferred at presentation to [facility] where he had negative serial Troponins, and underwent testing with a normal appearing ECHO (normal LVEF, no wall motion abnormalities), and a negative nuclear stress test. His CP was deemed atypical, positional, and reproducible, and he was discharged from the hospital. The patient presented to the ED with reported abdominal pain, with concurrent nausea and vomiting. His labwork showed evidence of leukocytosis, and new transaminits. His troponin was minimally and equivocally elevated, and soon trended down. Lactate was also elevated. Imaging with CTA of the abdomen showed no stenosis, occlusion, or dissection, with gallstones but no biliary dilation or gallbladder wall thickening. Ultrasound showed cholelithiasis and GB sludge, but similiarly no evidence of acute cholecystitis. The patient however continued to have significant discomfort, and eventually developed fevers despite broad spectrum antibiotic therapy. There is also note of potential food aversion in the recent past, with evidence of 15-17 pound weight loss over the last 6 months. HIDA scan obtained today was grossly abnormal and suggestive of either acute or chronic Cholecystitis. Medicine service was consulted regarding a pre-operative evaluation for a planned Cholecystectomy. Assessment and Plan: 1. Cholecystitis Plans for surgical intervention. Currently with leukocytosis and fever, with continued abdominal pain and abnormal HIDA scan. - ECG reviewed, non-ischemic and unchanged. Also reassuring that patient underwent a negative ischemic work-up in August of this year with ECHO and nuclear stress test. - Unsure of functional capacity, but patient verbally reports being able to perform everyday activities of daily living. No prior history of CHF, CKD, or prior CVA. - Risk is not completely absent in elderly male with history of DM and CAD about to undergo an intermediate risk surgery. Recent negative ischemic work-up is reassuring however. No further testing or medication change is required at this time. Apixaban has been on hold since admission. May proceed with planned procedure without need for further testing or change in medication regimen. Review of Systems Review of Systems All systems reviewed & are unremarkable except as noted in HPI and below (Abdominal Pain, Nausea, fever.) [facility] Medical History (Updated 01/04/19 @ 13:37 by Parris Erwin MD) Acquired hypothyroidism (Chronic 11/05/17) Acute right-sided low back pain without sciatica (Chronic 01/14/18) Adjustment disorder, unspecified (Chronic 06/09/16) Age-related macular degeneration (Chronic 08/27/11) Atherosclerosis of barrow coronary artery of barrow heart without angina pectoris (Chronic 08/21/98) Back pain (Chronic) Chronic rhinitis (Chronic 08/27/11) Compulsive skin picking (Chronic) Coronary artery disease (Acute) Diabetes mellitus type 2, controlled, without complications (Chronic 05/31/93) Dysphagia (Acute) Elevated prostate specific antigen [PSA] (Chronic 08/27/11) 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) Hearing loss (Chronic 08/27/11) Hyperlipidemia (Chronic 08/27/11) Memory disturbance (Chronic 09/08/16) Nephrolithiasis (Chronic) Obstructive sleep apnea (Chronic) Pulmonary nodules (Chronic 07/24/16) Type 2 diabetes mellitus (Acute) Surgical History (Updated 01/04/19 @ 11:43 by MAREK Manzanares) Arthroscopy, Shoulder (Resolved 10/02/13) Colonoscopy - MAC (Resolved 02/16/17) Coronary Stent (Resolved 04/03/13) H/O cardiac radiofrequency ablation (Resolved) H/O lithotripsy (Inactive ~08/25/06) H/O lithotripsy (Resolved) H/O percutaneous transluminal coronary angioplasty (Resolved ~08/23/98) H/O umbilical hernia repair (Resolved ~10/14/09) H/O umbilical hernia repair (Inactive ~05/30/79) H/O umbilical hernia repair (Resolved) History of heart artery stent (Resolved) Hx of arthroscopy of left knee (Resolved ~05/31/05) Rotator cuff arthropathy of right shoulder (Resolved) S/P left rotator cuff repair (Resolved ~03/12/08) S/P right knee arthroscopy (Resolved) Status post ablation of ventricular arrhythmia (Inactive ~10/04/09) Tubular adenoma of colon (Resolved 01/19/14) Family History Mother Personal history of malignant neoplasm Father Heart disease Sister Colon cancer Diabetes Other Colon cancer Brother Diabetes Social History Smoking/Tobacco Use Status: Former Tobacco Use Tobacco: How many years used: 12 Alcohol Intake: current Alcohol Intake frequency: a few times a month Drug use: Never Substance use type: does not use Household members: none Housing: house Number of Children: 2 Communication Needs: Corrective Lenses 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 Pulmonary: Clear to auscultation bilaterally, no crackles, wheezing, or rhonchi Abdomen: + Bowel Sounds, soft, nondistended. RUQ pain endorsed. Vascular: No lower extremity edema Psych: Normal mood and affect. Results Last Vital Signs Temp 38.5 C H 01/05/19 15:53 Pulse 72 01/05/19 15:53 Resp 21 01/05/19 15:53 BP 157/90 H 01/05/19 15:53 Pulse Ox 97 01/05/19 15:53 Labs : 01/05/19 06:55 01/05/19 06:55 Laboratory Results - last 24 hr 01/05/19 01/05/19 06:55 06:55 WBC 13.03 H RBC 3.72 L Hgb 12.4 L Hct 36.9 L MCV 99.2 H MCH 33.3 H MCHC 33.6 RDW 13.6 Plt Count 142 MPV 10.4 Immature Gran % 0.3 Neutrophils % 86.7 Lymphocytes % 4.9 Monocytes % 7.8 Eosinophils % 0.2 Basophils % 0.1 Absolute Neutrophils 11.30 H Absolute Lymphocytes 0.64 L Absolute Monocytes 1.02 H Absolute Eosinophils 0.03 Absolute Basophils 0.01 Sodium 139 Potassium 3.8 Chloride 102 Carbon Dioxide 25.1 Anion Gap 11.9 H BUN 22 H D Creatinine 1.44 H Estimated GFR/1.73 m2 47.45 Glucose 86 D Calcium 8.4 L Total Bilirubin 4.2 H AST 38 H ALT 95 H Alkaline Phosphatase 168 H Total Protein 6.6 Albumin 2.5 L
--- NOTE | 2019-01-05 17:09 | W.PM.PROGNOT ---
Date of Service Date of service: 01/05/19 Time of Service: 17:09 Assessment and Plan (1) Cholelithiases: Current visit: Yes Status: Acute I did review his HIDA scan- there was no visulization of the GB at 4 hrs. There was ready visualizaton of the tracer into the small.bowel. The pt cannot give any Hx. He does appear to have limited short term memory. He does appear to be clinically better today I did review the pt extensively w/ his son and daughter. Pt is no longer a good historian. Apparently he has been having vomting for the past year. He has not forthcoming with any s/s to his family. They don't feel he has been having any nausea or heartburn. He eats a very fatty diet. He has been vomting, and not telling his family. He has been losing wt over the psat year. He hasn't been eating well. He is very adement about maintining his independence. He did deny having H/I. chest pain or back pain. Nausea e or diarrhea. He has not had a bad Rx to anethesia in the past. He was in the hosp 8wks ago w/ Chest pain. Per the son and daughter- the pt was found that he had a nl echo and stress test. He does not walk very much and has developed a shuffling gate. He has lost muscle mass in the last year as well. I did review the case w/ aenthesia and hosp- who agree the pt is slt higher risk, but adequate candidate to do at [facility]. I did review the option w/ the son and daughter. We did review the pro's adn con's of surgery vs abx and waiting. At this time- it apears that the pt has been having s/s for about a yrs time. His recent cardiology eval showed a nl echo and GXT. He is currently rate controlled. anticoags have been held. There is a concern for further infection and sepsis and continued Dx. B/c the pt is not eating well- there is a concern for quality of life. risks of surgery include; bleeding infection pneumonia and blood clots. Damage to bowel bladder blood vessels bile ducts. Possibility of open procedure complications of anesthesia anesthesia including MA CVA . Possibility of progression of dementia following anesthesia and decline. Patient's family is very realistic in the understanding of the risks versus expectations in the past possibility of and morbidity from this surgery. quests. Family would like him to be DNR- but the pt does't wish to be. family does wish to proceed w/ surgery. The pt is a full code at this time- per his request. Qualifiers: Biliary obstruction: without biliary obstruction Cholecystitis presence: without cholecystitis Cholelithiasis location: gallbladder Qualified Code(s): K80.20 - Calculus of gallbladder without cholecystitis without obstruction Subjective Interval history since last seen: pt denies pain or nausea. very thirsty. pt states he was told he had a fever earlier today by RN's. pt can't really give me any pertinent PMHx or ROS He doesn't remember if he's had any abdominal surgery before. He has a scar from what appears to be a umbiical hernia repair. Exam Const General: comfortable Orientation: alert, awake and oriented to person Other: no distress Eyes Sclera: sclerae normal Other: no jaundice Chest Chest: normal inspection of the chest Resp Effort & Inspection: normal respiratory effort and able to speak in complete sentences Auscultation: clear to auscultation bilaterally Other: a. fib Cardio Rhythm: other GI Inspection: normal to inspection and scar Palpation: soft Auscultation: normal bowel sounds Other: no abdominal pain or distention. no n/v. scar from umiblical hernia noted. Objective Objective Clinical Data: Abnormal lab results 01/05/19 01/05/19 Range/Units 06:55 06:55 WBC 13.03 H (4.4-10.8) k/cumm RBC 3.72 L (4.50-6.00) m/cumm Hgb 12.4 L (13.5-17.5) g/dL Hct 36.9 L (40.0-50.0) % MCV 99.2 H (80-95) fL MCH 33.3 H (27.0-33.0) pg Absolute Neutrophils 11.30 H (1.2-6.7) k/cumm Absolute Lymphocytes 0.64 L (1.2-3.4) k/cumm Absolute Monocytes 1.02 H (0.11-0.7) k/cumm Anion Gap 11.9 H (3-11) mmol/L BUN 22 H D (7-18) mg/dL Creatinine 1.44 H (0.70-1.30) mg/dL Calcium 8.4 L (8.5-10.1) mg/dL Total Bilirubin 4.2 H (0.2-1.0) mg/dL AST 38 H (15-37) U/L ALT 95 H (12-78) U/L Alkaline Phosphatase 168 H (46-116) U/L Albumin 2.5 L (3.4-5.0) g/dL Vital Signs Temperature 38.5 C H 01/05/19 15:53 Temperature Source Tympanic 01/05/19 15:53 Pulse 72 01/05/19 15:53 Pulse Rhythm Regular 01/05/19 07:30 Pulse 60 01/03/19 13:20 Respiratory Rate 21 01/05/19 15:53 Respiratory Effort 01/05/19 07:30 Respiratory Depth Normal 01/05/19 07:30 Respiratory Pattern Normal 01/05/19 07:30 Blood Pressure 157/90 H 01/05/19 15:53 Blood Pressure Mean 125 01/03/19 13:16 Blood Pressure Position Supine 01/03/19 09:32 Pulse Oximetry 97 01/05/19 15:53 Oxygen Delivery Method Room Air 01/05/19 15:53 Oxygen Flow Rate 0 01/05/19 15:53 Pain Level 0 01/05/19 15:53 Comment 01/04/19 21:13 Intake & Output 01/04/19 01/05/19 01/05/19 23:59 11:59 23:59 Intake Total 1100.000 / 2502.917 3.75 / 109975 Output Total 537 / 912 575 / 875 300 / 875 Balance 563.000 / 1590.917 338.75 / 1138.75 800 / 1138.75 Intake: IV 1100.000 / 2502.917 913.75 / 1912.75 1000 / 1912.75 Oral 100 / 100 Output: Urine 537 / 912 575 / 875 300 / 875 Other: Urine Color Dark Luisa Light Luisa Yellow Urine Appearance Clear Clear Clear Urine Odor Normal None None Comment diaper weighed 0.5 lb 8 ounce of urine 16 oz of urine noted (diaper weighed) Lg amount of urine on floor. Patient missed urinal. Voiding Methods Incontinent Urinal Diaper Laboratory Results WBC 13.03 k/cumm (4.4-10.8) H 01/05/19 06:55 RBC 3.72 m/cumm (4.50-6.00) L 01/05/19 06:55 Hgb 12.4 g/dL (13.5-17.5) L 01/05/19 06:55 Hct 36.9 % (40.0-50.0) L 01/05/19 06:55 MCV 99.2 fL (80-95) H 01/05/19 06:55 MCH 33.3 pg (27.0-33.0) H 01/05/19 06:55 MCHC 33.6 g/dL (32.0-36.0) 01/05/19 06:55 RDW 13.6 % (11.8-14.1) 01/05/19 06:55 Plt Count 142 x1000/uL (130-400) 01/05/19 06:55 MPV 10.4 fL (8.0-11.0) 01/05/19 06:55 Immature Gran % 0.3 01/05/19 06:55 86.7 01/05/19 06:55 4.9 01/05/19 06:55 7.8 01/05/19 06:55 0.2 01/05/19 06:55 0.1 01/05/19 06:55 Absolute Neutrophils 11.30 k/cumm (1.2-6.7) H 01/05/19 06:55 Absolute Lymphocytes 0.64 k/cumm (1.2-3.4) L 01/05/19 06:55 Absolute Monocytes 1.02 k/cumm (0.11-0.7) H 01/05/19 06:55 Absolute Eosinophils 0.03 k/cumm (0.0-0.7) 01/05/19 06:55 Absolute Basophils 0.01 k/cumm (0.0-0.2) 01/05/19 06:55 PT 11.0 sec (9.3-11.0) 01/03/19 09:40 INR 1.1 (0.9-1.1) 01/03/19 09:40 Sodium 139 mmol/L (136-145) 01/05/19 06:55 Potassium 3.8 mmol/L (3.5-5.1) 01/05/19 06:55 Chloride 102 mmol/L (98-107) 01/05/19 06:55 Carbon Dioxide 25.1 mmol/L (21.0-32.0) 01/05/19 06:55 11.9 mmol/L (3-11) H 01/05/19 06:55 BUN 22 mg/dL (7-18) H D 01/05/19 06:55 1.44 mg/dL (0.70-1.30) H 01/05/19 06:55 47.45 (mL/min/1.73m2) 01/05/19 06:55 Glucose 86 mg/dL (70-100) D 01/05/19 06:55 2.3 mmol/l (0.6-1.4) H 01/04/19 13:43 Calcium 8.4 mg/dL (8.5-10.1) L 01/05/19 06:55 4.2 mg/dL (0.2-1.0) H 01/05/19 06:55 AST 38 U/L (15-37) H 01/05/19 06:55 ALT 95 U/L (12-78) H 01/05/19 06:55 168 U/L (46-116) H 01/05/19 06:55 0.06 ng/mL (0.00-0.06) 01/03/19 12:33 6.6 g/dL (6.4-8.2) 01/05/19 06:55 2.5 g/dL (3.4-5.0) L 01/05/19 06:55 76 U/L (73-393) 01/04/19 06:30 TSH 1.77 uIU/mL (0.36-3.74) 01/03/19 09:40 Yellow (Yellow) 01/03/19 10:13 Clear (Clear) 01/03/19 10:13 8.0 (5-8) 01/03/19 10:13 Ur Specific [place] 1.015 (1.005-1.025) 01/03/19 10:13 Negative mg/dL (Negative) 01/03/19 10:13 Negative mg/dL (Negative) 01/03/19 10:13 Negative (Negative) 01/03/19 10:13 Negative (Negative) 01/03/19 10:13 Negative (Negative) 01/03/19 10:13 1.0 EU/dL (Up TO 0.2) H 01/03/19 10:13 Ur Leukocyte Esterase Negative (Negative) 01/03/19 10:13 Negative mg/dL (Negative) 01/03/19 10:13
--- NOTE | 2019-01-05 18:52 | CMPROGNOTE_ITS ---
- If Service Date Differs Date of service: 01/05/19 Time of Service: 18:52 Care Management Progress Note S/O: CM unable to meet with Jimmy today he was asleep each visit attempt. CM did review notes and current plan. Jimmy's WBC remains elevated, he is receiving IV antibiotics. He will have lap shirley here at [facility] anticipate this will occur on Wednesday @ 0730. A: Jimmy is a 78 year old male admitted with Cholelithiases and elevated WBC. P: Kendrick continues as acute admission. Plan will be for him to have his gallbladder removed on Wednesday. He will transport home via private vehicle with family when he is medically ready for discharge. CM to continue to assess for discharge needs including SNF if needed due to prolonged hospital admission and post surgery.
[2019-01-05 20:00] VITALS: BP 143/86; PULSE 77; RESP 22; TEMP 37.6; O2SAT 95
[2019-01-05 20:40] VITALS: O2SAT 95
[2019-01-05] MEDS: Acetaminophen 325 MG TAB 650 MG PO (20:41)
[2019-01-05] MEDS: Divalproex 500 MG TABEC PO (20:41)
[2019-01-06] VITALS (25 sets, daily range): BP systolic 99–139; BP diastolic 52–85; PULSE 57–78; RESP 16–28; TEMP 35.7–37.7; O2SAT 94–98
[2019-01-06] MEDS: Acetaminophen 325 MG TAB 650 MG PO ×2 (01:50→11:40)
[2019-01-06] MEDS: Normal Saline 1,000 ML 125 ML IV ×3 (02:05→23:53)
[2019-01-06] MEDS: PIPERACILLIN/TAZO 3.375 GM in Normal Saline 50 ML IVPB ×4 (03:20→21:24)
[2019-01-06] MEDS: Levothyroxine 125 MCG TAB PO (06:28)
[2019-01-06 07:07] LABS: Abs Immature Grans 0.03 k/cumm (0.0-0.09); Absolute Basophil Count 0.01 k/cumm (0.0-0.2); Absolute Eosinophil Count 0.03 k/cumm (0.0-0.7); Absolute Lymphocyte Count 0.98 k/cumm (1.2-3.4); Absolute Monocyte Count 1.12 k/cumm (0.11-0.7); Absolute Neutrophil Count 10.72 k/cumm (1.2-6.7); Basophils % 0.1; Eosinophils % 0.2; HCT 39.4 % (40.0-50.0); HGB 13.2 g/dL (13.5-17.5); Immature Grans % 0.2; Lymphocytes % 7.6; Mean Corp. HGB Concentration 33.5 g/dL (32.0-36.0); Mean Corpuscular Hemoglobin 33.3 pg (27.0-33.0); Mean Corpuscular Volume 99.5 fL (80-95); Mean Platelet Volume 10.4 fL (8.0-11.0); Monocytes % 8.7; Neutrophils % 83.2; Platelet Count 157 x1000/uL (130-400); RBC 3.96 m/cumm (4.50-6.00); RBC Distribution Width 13.5 % (11.8-14.1); White Blood Cell Count 12.88 k/cumm (4.4-10.8)
[2019-01-06 07:27] LABS: ALT 61 U/L (12-78); AST 23 U/L (15-37); Albumin 2.4 g/dL (3.4-5.0); Alkaline Phosphatase 190 U/L (46-116); Anion Gap 9.6 mmol/L (3-11); BUN 16 mg/dL (7-18); Bilirubin, Total 3.5 mg/dL (0.2-1.0); CO2 25.4 mmol/L (21.0-32.0); CREATININE 1.24 mg/dL (0.70-1.30); Chloride 103 mmol/L (98-107); Estimated GFR 56.38 (mL/min/1.73m2); Glucose 89 mg/dL (70-100); Potassium 3.7 mmol/L (3.5-5.1); Sodium 138 mmol/L (136-145); Total Protein 7.1 g/dL (6.4-8.2)
--- NOTE | 2019-01-06 07:30 | PGE_ITS ---
Date of Service Date of service: 01/06/19 Time of Service: 07:31 Assessment and Plan (1) Cholelithiases: Current visit: Yes Status: Acute pt feeling ok consent obtained ffrom son /daughter who is POA. pt has moderate dementia. no change sin psat 24 hrs stable to procede Qualifiers: Cholelithiasis location: gallbladder Cholecystitis presence: without cholecystitis Biliary obstruction: without biliary obstruction Qualified Code(s): K80.20 - Calculus of gallbladder without cholecystitis without obstruction Subjective Interval history since last seen: pt says he feels better and wants to go home. no pain or nausea. reviewed case w/ hosp and anethesia. no changes from last pm. no temps. no vomting. labs still pd. no headaches. No CP or SOB. no productive cough. no dysuria. no leg pain or swelling. Exam Const General: cooperative, healthy appearing, comfortable, no acute distress, well developed and well groomed Nutritional Appearance: average body habitus and well nourished Orientation: alert, awake and oriented x3 Other: pt has slt yellowish hue nad excoriations from scratching HENMT Head: normal to inspection, normocephalic and atraumatic Ears: hearing grossly normal bilaterally and external ears normal General nose exam: external nose normal Face and sinus: normal facial exam and sinuses nontender Mouth: oral mucosae normal, lip normal, tongue normal and moist mucous membranes Teeth and gingiva: dentition normal Eyes General: appearance normal, both eyes and all related structures Conjunctivae: conjunctivae normal Sclera: sclerae normal Pupils: PERRL Neck Neck: normal visual inspection and full ROM Chest Chest: normal inspection of the chest Resp Effort & Inspection: normal respiratory effort, able to speak in complete sentences, no cough, no nasal flaring, not tachypneic and no use of accessory muscles Auscultation: clear to auscultation bilaterally, no rales, no rhonchi and no wheezes Cardio Jugular venous pressure: no JVD Rate: regular rate Rhythm: regular rhythm GI Inspection: normal to inspection, no edema and non-distended Palpation: soft, no masses, nontender and No ascites Auscultation: normal bowel sounds Skin General skin exam: no rashes or lesions noted Trauma: no lacerations or abrasions Neuro General: alert, oriented x3, oriented, gait normal, moves all extremities, no focal motor deficits and CN's II-XI intact bilaterally Cognition: normal cognition Speech: speech normal Gait: normal gait Motor: muscle tone normal throughout Extrem General: normal to inspection, full ROM and no clubbing, cyanosis or edema Psych Appearance: grossly normal and well kempt Mental Status: mental status grossly normal Speech and Movement: speech and movement normal Affect: normal affect Objective Objective Clinical Data: Abnormal lab results 01/05/19 01/05/19 01/06/19 Range/Units 06:55 06:55 06:35 WBC 13.03 H 12.88 H (4.4-10.8) k/cumm RBC 3.72 L 3.96 L (4.50-6.00) m/cumm Hgb 12.4 L 13.2 L (13.5-17.5) g/dL Hct 36.9 L 39.4 L (40.0-50.0) % MCV 99.2 H 99.5 H (80-95) fL MCH 33.3 H 33.3 H (27.0-33.0) pg Absolute Neutrophils 11.30 H 10.72 H (1.2-6.7) k/cumm Absolute Lymphocytes 0.64 L 0.98 L (1.2-3.4) k/cumm Absolute Monocytes 1.02 H 1.12 H (0.11-0.7) k/cumm Anion Gap 11.9 H (3-11) mmol/L BUN 22 H D (7-18) mg/dL Creatinine 1.44 H (0.70-1.30) mg/dL Calcium 8.4 L (8.5-10.1) mg/dL Total Bilirubin 4.2 H (0.2-1.0) mg/dL AST 38 H (15-37) U/L ALT 95 H (12-78) U/L Alkaline Phosphatase 168 H (46-116) U/L Albumin 2.5 L (3.4-5.0) g/dL Vital Signs Temperature 37.7 C H 01/06/19 01:50 Temperature Source Tympanic 01/06/19 01:30 Pulse 65 01/06/19 01:30 Pulse Rhythm Regular 01/05/19 20:40 Pulse 60 01/03/19 13:20 Respiratory Rate 20 01/06/19 01:30 Respiratory Effort 01/05/19 20:40 Respiratory Depth Normal 01/05/19 20:40 Respiratory Pattern Normal 01/05/19 20:40 Blood Pressure 130/77 01/06/19 01:30 Blood Pressure Mean 125 01/03/19 13:16 Blood Pressure Position Supine 01/03/19 09:32 Pulse Oximetry 98 01/06/19 01:30 Oxygen Delivery Method Room Air 01/06/19 01:30 Oxygen Flow Rate 0 01/06/19 01:30 Pain Level 0 01/06/19 01:50 Comment 01/04/19 21:13 Intake & Output 01/05/19 01/05/19 01/06/19 11:59 23:59 11:59 Intake Total 913.75 / 2770.00 1856.25 / 2770.00 343.75 / 343.75 Output Total 2014 550 / 550 Balance 338.75 / 755.00 416.25 / 755.00 -206.25 / -206.25 Intake: IV 913.75 / 2670.00 1756.25 / 2670.00 343.75 / 343.75 Oral 100 / 100 Output: Urine 2014 550 / 550 Other: Urine Color Light Luisa Yellow Dark Luisa Urine Appearance Clear Clear Clear Urine Odor None None Comment 16 oz of urine noted (diaper weighed) Full bed change. Voiding Methods Urinal Incontinent Diaper Incontinent Laboratory Results WBC 12.88 k/cumm (4.4-10.8) H 01/06/19 06:35 RBC 3.96 m/cumm (4.50-6.00) L 01/06/19 06:35 Hgb 13.2 g/dL (13.5-17.5) L 01/06/19 06:35 Hct 39.4 % (40.0-50.0) L 01/06/19 06:35 MCV 99.5 fL (80-95) H 01/06/19 06:35 MCH 33.3 pg (27.0-33.0) H 01/06/19 06:35 MCHC 33.5 g/dL (32.0-36.0) 01/06/19 06:35 RDW 13.5 % (11.8-14.1) 01/06/19 06:35 Plt Count 157 x1000/uL (130-400) 01/06/19 06:35 MPV 10.4 fL (8.0-11.0) 01/06/19 06:35 Immature Gran % 0.2 01/06/19 06:35 83.2 01/06/19 06:35 7.6 01/06/19 06:35 8.7 01/06/19 06:35 0.2 01/06/19 06:35 0.1 01/06/19 06:35 Absolute Neutrophils 10.72 k/cumm (1.2-6.7) H 01/06/19 06:35 Absolute Lymphocytes 0.98 k/cumm (1.2-3.4) L 01/06/19 06:35 Absolute Monocytes 1.12 k/cumm (0.11-0.7) H 01/06/19 06:35 Absolute Eosinophils 0.03 k/cumm (0.0-0.7) 01/06/19 06:35 Absolute Basophils 0.01 k/cumm (0.0-0.2) 01/06/19 06:35 PT 11.0 sec (9.3-11.0) 01/03/19 09:40 INR 1.1 (0.9-1.1) 01/03/19 09:40 Sodium 139 mmol/L (136-145) 01/05/19 06:55 Potassium 3.8 mmol/L (3.5-5.1) 01/05/19 06:55 Chloride 102 mmol/L (98-107) 01/05/19 06:55 Carbon Dioxide 25.1 mmol/L (21.0-32.0) 01/05/19 06:55 11.9 mmol/L (3-11) H 01/05/19 06:55 BUN 22 mg/dL (7-18) H D 01/05/19 06:55 1.44 mg/dL (0.70-1.30) H 01/05/19 06:55 47.45 (mL/min/1.73m2) 01/05/19 06:55 Glucose 86 mg/dL (70-100) D 01/05/19 06:55 2.3 mmol/l (0.6-1.4) H 01/04/19 13:43 Calcium 8.4 mg/dL (8.5-10.1) L 01/05/19 06:55 4.2 mg/dL (0.2-1.0) H 01/05/19 06:55 AST 38 U/L (15-37) H 01/05/19 06:55 ALT 95 U/L (12-78) H 01/05/19 06:55 168 U/L (46-116) H 01/05/19 06:55 0.06 ng/mL (0.00-0.06) 01/03/19 12:33 6.6 g/dL (6.4-8.2) 01/05/19 06:55 2.5 g/dL (3.4-5.0) L 01/05/19 06:55 76 U/L (73-393) 01/04/19 06:30 TSH 1.77 uIU/mL (0.36-3.74) 01/03/19 09:40 Yellow (Yellow) 01/03/19 10:13 Clear (Clear) 01/03/19 10:13 8.0 (5-8) 01/03/19 10:13 Ur Specific [place] 1.015 (1.005-1.025) 01/03/19 10:13 Negative mg/dL (Negative) 01/03/19 10:13 Negative mg/dL (Negative) 01/03/19 10:13 Negative (Negative) 01/03/19 10:13 Negative (Negative) 01/03/19 10:13 Negative (Negative) 01/03/19 10:13 1.0 EU/dL (Up TO 0.2) H 01/03/19 10:13 Ur Leukocyte Esterase Negative (Negative) 01/03/19 10:13 Negative mg/dL (Negative) 01/03/19 10:13
[2019-01-06] MEDS: Lactated Ringers 1,000 ML 150 ML IV ×2 (07:33→10:42)
[2019-01-06] MEDS: LIDOCAINE/D5W 2,000 MG/500 ML BAG 45 MG IV (07:50)
--- NOTE | 2019-01-06 09:10 | GB_PTH ---
PATIENT: KIRILL RAMIREZ LOC: U#:[id number] AGE/SX: 78/M ROOM: 211 RE01/03/[address]: Cira Dang MD : 1940 BED: A DIS: 01/17/2019 SPEC #: [id number] RECD: 01/06/19 12:42 STATUS: ELFEGO REQ #: [id number] RAKESH: 01/06/19 09:[address]: Sophie Bush DEPT: Surgical Specimen RECD BY: Monika Obrien ENTERED: 01/06/19 12:43 SP TYPE: GB OTHR DR: MD Natasha Bell DO Tissues: 1 - GALLBLADDER Procedures: GROSS AND MICRO LEVEL 3 Comments: [id number]
[2019-01-06] MEDS: Cellulose,Oxidized 4X8 1 PACKET MC (09:16)
--- NOTE | 2019-01-06 09:46 | W.PM.OP ---
Date of service: 01/06/19 Time of Service: 09:47 Operative Note DATE OF PROCEDURE: 01/06/19 PRE-OP DIAGNOSIS: acute shirley w/ stones POST-OP DIAGNOSIS: other (gangrene ) PROCEDURE: attempted lap open shirley SURGEON: Sophie Bush HOMICIDE SQUAD COMMANDING OFFICER: Radha Martínez ANESTHESIA: GETElisha ESTIMATED BLOOD LOSS: 100 PATHOLOGY: other COMPLICATIONS: None Patient was transported to: PACU Patient's condition: stable Implants: FELA drain Indications: acute shirley w/ stones and failed outpt conervative management Procedure Description: dictated
[2019-01-06] MEDS: fentaNYL 100 MCG/2 ML VIAL IVP ×2 (10:16→10:40)
--- NOTE | 2019-01-06 10:51 | ROE_ITS ---
DATE OF PROCEDURE: January 06, 2019 PREOPERATIVE DIAGNOSIS: [id number] cholecystitis, cholelithiasis. POSTOPERATIVE DIAGNOSIS: Same and gangrenous cholecystitis. SURGEON: Sophie Bush M.D. BOTTLE ASSEMBLER: Wilbert Manzanares ANESTHESIA: General. ESTIMATED BLOOD LOSS: 100 cc's SPECIMEN: Gallbladder. DRAINS: A J-P drain was placed in the gallbladder fossa. DISPOSITION: The patient tolerated the procedure well without complication. INDICATIONS FOR PROCEDURE: Mr. Arcos is a 78-year-old male who presented to the hospital with acute abdominal pain and was found to have cholelithiasis and acute/chronic cholecystitis. The patient's case was complicated by the fact that he has some mild dementia and is unable to give a complete history. After discussing the case with the family, it does sound like he has been vomiting and losing weight for the past year. The patient is not very forthcoming with his symptoms. He does have dementia but is adamant about maintaining his independence. Family is very involved with his care. He did have an ultrasound done that shows cholelithiasis, but was otherwise unremarkable. He did have a HIDA scan, which showed that there is no obstruction in the common bile duct, but did show complete obstruction of the cystic duct. He has had a low-grade temp and white count and he did have an elevation of his bilirubin, but this is resolving, and it appears that he did pass a gallstone. There is no CBD obstruction on the HIDA scan. I did have a long discussion with the family about how we wanted to proceed with his care. Because of his continuing inability to eat and weight loss, he is probably going to require gallbladder removal for symptom control. He did recently have a cardiac evaluation eight weeks ago at [facility] and had an echo and stress test that were both normal. The case was reviewed with the hospitalist and with the anesthesia services and he is deemed higher than normal risk, but acceptable candidate to be done at [facility]. Informed consent was obtained from his son, who is Power of Dividing Machine Operator, explaining risks and benefits of the procedure and possible comorbidities. They are aware of the risk of cardiac complications and complications from anesthesia. Risks include but are not limited to bleeding, infection, pneumonia, blood clots, possible damage to bowel, bladder, blood vessels, bile ducts; interim postop cardiac complications that this could worsen his dementia and/or push him to need long-term nursing care. They are aware of risks versus benefits and wish to proceed with surgery. The patient is seen and examined prior to surgery today and his status appears stable and no significant changes in the past 24 hours. PROCEDURE: The patient is brought back to the operative suite and placed in the supine position. Anesthesia is administered per the Department of Anesthesia. The patient is prepped and draped in the usual sterile fashion using a ChloraPrep scrub solution. He is on antibiotics. A Callaway catheter is placed. A time-out is performed. 30 cc's of 0.25% Marcaine is used for local anesthetization. We did initially try to attempt to do the procedure laparoscopically. He has had a previous umbilical repair, so a cutdown was done laterally to the umbilicus on the left. Marcaine is used for local field blocks. A half-inch incision was made with a #11 blade. Blunt dissection is used to dissect down to the fascia. The fascia is then incised. Stay suture is then placed inferior to posterior w/ #0 Vicryl. The muscle is retracted laterally. The peritoneum is elevated and a small knick is made with the [place]. The finger is then placed in the abdomen and it is swept. There are no significant adhesions. A Luis M is placed. Camera was inserted through the trocars and shows no damage to underlying structures. Insufflation is then begun. He has one small adhesion up to his previous umbilical hernia surgery; this is not disturbed. A 5 mm port is then inserted in the right upper quadrant for visualization. There is free- flow of bile above the liver. The omentum is intimately adhered and wrapped around the gallbladder. A 10 mm trocar is then placed in the epigastric position and a second 5 mm port is inserted in the right upper quadrant under direct visualization. We did attempt to clear the omentum down. I am able to dissect out the gallbladder, but once we get to the point where I was attempting to identify the ducts, there is significant inflammation, edema and infective process and none of the ductal structures can be identified. At this point the laparoscopic portion of the procedure is abandoned and turned over to an open procedure. All the ports are removed; the pneumoperitoneum is evacuated; the laparoscopic instruments are passed off the field. A #12 blade is used to create a Peace incision in standard fashion. Electrocautery is used to provide hemostasis and dissect down through the fatty tissues. The external oblique is opened up. The peritoneum is entered. Once the gallbladder is visualized and I am able to enter the abdomen, the bile was suctioned and removed. The small bowel is packed away. There is no injury or bleeding from the omentum. The gallbladder is extremely friable and it was basically auto-excised; it fell from the liver bed. I am then, from a top-down fashion, able to identify the cystic duct and artery complex and these are clipped with multiple clips and the gallbladder is excised and passed off the field. Again, it was already off the liver bed. There is no bleeding or bile leakage from the clip sites. The abdomen is then copiously irrigated. A 5 mm drain is then placed in the liver bed and brought out through a separate stab incision. Surgicel is placed on the liver bed. This was copiously irrigated with 2 liters of saline prior to placement. Again there is no bile leakage at the time of closure. All instruments and sponges are removed. Sponge and instrument counts are correct. Interceed is placed under the surgical incision. The peritoneum is closed with #1 PDS in a running fashion. The fascia was closed with #1 PDS in a running fashion. The fat pad is irrigated. The deep tissue is approximated with #3-0 Vicryl. The skin is approximated with rosemary. The fascia under the Luis M is closed with #0 Vicryl. The skin sites are closed with rosemary. The drain is sewn in with #2-0 Prolene. Sterile compression dressings are applied. The patient tolerated the procedure well without complications, transferred to the recovery room in stable condition. cc: Natasha Norton D.O.
[2019-01-06] MEDS: Divalproex 500 MG TABEC PO ×2 (11:39→19:30)
[2019-01-06] MEDS: Atorvastatin 40 MG TAB PO (11:39)
[2019-01-06] MEDS: Normal Saline Flush 10 ML SYR IVP (12:53)
--- NOTE | 2019-01-06 16:25 | CMPROGNOTE_ITS ---
Care Management Progress Note S/O: Jimmy was brought to the OR today, CM met with Dr. Bush and Jimmy's son and daughter; Clive and Francine. Clive provided POA (HC and Financial) paperwork which CM processed. CM reviewed options regarding disposition, determination will depend on mobility, and if Jimmy returns to his previous mental baseline. Anticipate short rehab stay followed by placement in assisted living or returning home with time signal wirer caregivers. CM continues to follow. A: 78 year old male admitted to [facility] 01/03/19 for Cholelithiasis-brought to OR today for Open Cholecystectomy. P: Jimmy will continue to be closely monitored and evaluated post-surgically. Per MD, anticipate discharge to SNF for ongoing rehabilitation no sooner than 01/10/19. CM will continue to follow.
[2019-01-06] MEDS: Insulin Aspart 300 UNITS/3 ML PEN SC ×2 (17:48→23:29)
--- NOTE | 2019-01-06 19:26 | PGE_ITS ---
Date of Service Date of service: 01/08/19 Time of Service: 11:13 Assessment and Plan (1) Bile peritonitis: Current visit: Yes Status: Acute (2) Acute gangrenous cholecystitis: Current visit: Yes Status: Acute pt is doing well. labs are improving cont pulm toilet PT. pt needs to walk needs to do pulm toilet cont abx supportive care doing very well (3) Cholelithiases: Current visit: Yes Status: Acute Qualifiers: Cholelithiasis location: gallbladder Cholecystitis presence: without c holecystitis Biliary obstruction: without biliary obstruction Qualified Code(s): K80.20 - Calculus of gallbladder without cholecystitis without obst ruction (4) Other specified cardiac dysrhythmias: Current visit: No Status: Acute (5) Sick sinus syndrome: Current visit: Yes Status: Acute (6) Atrial fibrillation with slow ventricular response: Current visit: No Status: Chronic (7) Type 2 diabetes mellitus: Current visit: No Status: Acute (8) Frontotemporal dementia: Current visit: No Status: Chronic Subjective Patient reports: tolerating liquids well and tolerating a regular diet Interval history since last seen: pleasently confused. pt ate someone else dinner tray last night- does not remember. mild soreness and bloating today. dialudid seems to work better for pain. Pt is doing well. no headaches. No CP or SOB. no productive cough. no leg pain or swelling. FELA is out 75cc every 4 hrs. it is billous- but he had gross bile in the belly at the time of surgery. I dont think it is leaking from the clip sites. urine is dark, but adequate in [place]. drak- is from bilirubin. pt is refusing to get up and walk- will consult PT. d/w social service coordinator- pt will be ready to go to rehab or wed. He cannot be in independent living situation. He needs 24 care. He should not be driving. Exam Const General: cooperative, healthy appearing, comfortable, no acute distress, well developed and well groomed Nutritional Appearance: average body habitus and well nourished Orientation: alert, awake and oriented x3 HENMT Head: normal to inspection, normocephalic and atraumatic Ears: hearing grossly normal bilaterally and external ears normal General nose exam: external nose normal Face and sinus: normal facial exam and sinuses nontender Mouth: oral mucosae normal, lip normal, tongue normal and moist mucous membranes Teeth and gingiva: dentition normal Eyes General: appearance normal, both eyes and all related structures Conjunctivae: conjunctivae normal Sclera: sclerae normal Pupils: PERRL Neck Neck: normal visual inspection and full ROM Chest Chest: normal inspection of the chest Resp Effort & Inspection: normal respiratory effort, able to speak in complete sentences, no cough, no nasal flaring, not tachypneic and no use of accessory muscles Auscultation: clear to auscultation bilaterally, no rales, no rhonchi and no wheezes Cardio Jugular venous pressure: no JVD Rate: regular rate Rhythm: regular rhythm GI Inspection: normal to inspection, no edema and distended Palpation: soft, no masses, tender and No ascites Auscultation: normal bowel sounds Other: incison c/d/i. scant fluid in drain- billous tinge but don't think it is from a leak. He did have bile in the belly at the time of opening. Skin General skin exam: no rashes or lesions noted Trauma: no lacerations or abrasions Neuro General: alert, oriented x3, oriented, gait normal, moves all extremities, no focal motor deficits and CN's II-XI intact bilaterally Cognition: normal cognition Speech: speech normal Gait: normal gait Motor: muscle tone normal throughout Extrem General: normal to inspection, full ROM and no clubbing, cyanosis or edema Psych Appearance: grossly normal and well kempt Mental Status: mental status grossly normal Speech and Movement: speech and movement normal Affect: normal affect Objective Objective Clinical Data: Abnormal lab results 01/06/19 01/06/19 Range/Units 06:35 06:35 WBC 12.88 H (4.4-10.8) k/cumm RBC 3.96 L (4.50-6.00) m/cumm Hgb 13.2 L (13.5-17.5) g/dL Hct 39.4 L (40.0-50.0) % MCV 99.5 H (80-95) fL MCH 33.3 H (27.0-33.0) pg Absolute Neutrophils 10.72 H (1.2-6.7) k/cumm Absolute Lymphocytes 0.98 L (1.2-3.4) k/cumm Absolute Monocytes 1.12 H (0.11-0.7) k/cumm Total Bilirubin 3.5 H (0.2-1.0) mg/dL Alkaline Phosphatase 190 H (46-116) U/L Albumin 2.4 L (3.4-5.0) g/dL Vital Signs Temperature 37 C 01/06/19 15:15 Temperature Source Tympanic 01/06/19 15:15 Pulse 70 01/06/19 16:03 Pulse Rhythm Regular 01/06/19 15:05 Pulse 60 01/03/19 13:20 Respiratory Rate 18 01/06/19 15:15 Respiratory Effort Non-Labored 01/06/19 15:05 Respiratory Depth Normal 01/06/19 15:05 Respiratory Pattern Normal 01/06/19 15:05 Blood Pressure 119/72 01/06/19 15:15 Blood Pressure Mean 125 01/03/19 13:16 Blood Pressure Position Supine 01/03/19 09:32 Pulse Oximetry 95 01/06/19 15:15 Respiratory End-tidal CO2 24 01/06/19 11:00 Oxygen Delivery Method Room Air 01/06/19 15:15 Oxygen Flow Rate 0 01/06/19 15:15 Pain Level 9 01/06/19 17:44 Comment 01/06/19 13:00 Intake & Output 01/05/19 01/06/19 01/06/19 23:59 11:59 23:59 Intake Total 1856.25 / 2770.00 2227.083 / 2663.750 436.667 / 2663.750 Output Total 1439 775 / 1050 275 / 1050 Balance 416.25 / 755.00 1452.083 / 1613.750 161.667 / 1613.750 Intake: IV 1756.25 / 2670.00 2227.083 / 2613.750 386.667 / 2613.750 Oral 100 / 100 50 / 50 Output: Drainage 125 / 125 Abdomen 125 / 125 Urine 1439 675 / 825 150 / 825 Estimated Blood Loss 100 / 100 Other: Urine Color Yellow Straw Dark Luisa Light Luisa Brown Urine Appearance Clear Clear Clear Urine Odor None Comment Full bed change. Emesis Description None Voiding Methods Incontinent Diaper Incontinent Laboratory Results WBC 12.88 k/cumm (4.4-10.8) H 01/06/19 06:35 RBC 3.96 m/cumm (4.50-6.00) L 01/06/19 06:35 Hgb 13.2 g/dL (13.5-17.5) L 01/06/19 06:35 Hct 39.4 % (40.0-50.0) L 01/06/19 06:35 MCV 99.5 fL (80-95) H 01/06/19 06:35 MCH 33.3 pg (27.0-33.0) H 01/06/19 06:35 MCHC 33.5 g/dL (32.0-36.0) 01/06/19 06:35 RDW 13.5 % (11.8-14.1) 01/06/19 06:35 Plt Count 157 x1000/uL (130-400) 01/06/19 06:35 MPV 10.4 fL (8.0-11.0) 01/06/19 06:35 Immature Gran % 0.2 01/06/19 06:35 83.2 01/06/19 06:35 7.6 01/06/19 06:35 8.7 01/06/19 06:35 0.2 01/06/19 06:35 0.1 01/06/19 06:35 Absolute Neutrophils 10.72 k/cumm (1.2-6.7) H 01/06/19 06:35 Absolute Lymphocytes 0.98 k/cumm (1.2-3.4) L 01/06/19 06:35 Absolute Monocytes 1.12 k/cumm (0.11-0.7) H 01/06/19 06:35 Absolute Eosinophils 0.03 k/cumm (0.0-0.7) 01/06/19 06:35 Absolute Basophils 0.01 k/cumm (0.0-0.2) 01/06/19 06:35 PT 11.0 sec (9.3-11.0) 01/03/19 09:40 INR 1.1 (0.9-1.1) 01/03/19 09:40 Sodium 138 mmol/L (136-145) 01/06/19 06:35 Potassium 3.7 mmol/L (3.5-5.1) 01/06/19 06:35 Chloride 103 mmol/L (98-107) 01/06/19 06:35 Carbon Dioxide 25.4 mmol/L (21.0-32.0) 01/06/19 06:35 9.6 mmol/L (3-11) 01/06/19 06:35 BUN 16 mg/dL (7-18) D 01/06/19 06:35 1.24 mg/dL (0.70-1.30) 01/06/19 06:35 56.38 (mL/min/1.73m2) 01/06/19 06:35 Glucose 89 mg/dL (70-100) 01/06/19 06:35 2.3 mmol/l (0.6-1.4) H 01/04/19 13:43 Calcium 9.0 mg/dL (8.5-10.1) 01/06/19 06:35 3.5 mg/dL (0.2-1.0) H 01/06/19 06:35 AST 23 U/L (15-37) 01/06/19 06:35 ALT 61 U/L (12-78) 01/06/19 06:35 190 U/L (46-116) H 01/06/19 06:35 0.06 ng/mL (0.00-0.06) 01/03/19 12:33 7.1 g/dL (6.4-8.2) 01/06/19 06:35 2.4 g/dL (3.4-5.0) L 01/06/19 06:35 76 U/L (73-393) 01/04/19 06:30 TSH 1.77 uIU/mL (0.36-3.74) 01/03/19 09:40 Yellow (Yellow) 01/03/19 10:13 Clear (Clear) 01/03/19 10:13 8.0 (5-8) 01/03/19 10:13 Ur Specific [place] 1.015 (1.005-1.025) 01/03/19 10:13 Negative mg/dL (Negative) 01/03/19 10:13 Negative mg/dL (Negative) 01/03/19 10:13 Negative (Negative) 01/03/19 10:13 Negative (Negative) 01/03/19 10:13 Negative (Negative) 01/03/19 10:13 1.0 EU/dL (Up TO 0.2) H 01/03/19 10:13 Ur Leukocyte Esterase Negative (Negative) 01/03/19 10:13 Negative mg/dL (Negative) 01/03/19 10:13
[2019-01-06] MEDS: Enoxaparin 30 MG/0.3 ML SYR SC (21:24)
[2019-01-07] VITALS (12 sets, daily range): BP systolic 117–146; BP diastolic 70–87; PULSE 38–77; RESP 18–20; TEMP 36.1–37.1; O2SAT 94–98
[2019-01-07] MEDS: ACETAMINOPHEN 1,000 MG/100 ML BTL 400 MG IVPB ×2 (01:15→21:17)
[2019-01-07] MEDS: PIPERACILLIN/TAZO 3.375 GM in Normal Saline 50 ML IVPB ×4 (03:03→22:16)
[2019-01-07] MEDS: Levothyroxine 125 MCG TAB PO (05:41)
[2019-01-07] MEDS: Insulin Aspart 300 UNITS/3 ML PEN SC ×3 (05:41→18:23)
[2019-01-07] MEDS: MORPHine 2 MG/ML SYR IVP (06:52)
--- NOTE | 2019-01-07 07:36 | PDOC.CMPRO ---
Care Management Progress Note S/O: Jimmy continues to be monitored post surgically. He will work with PT and OT to determine goals and needs upon discharge. Jimmy's son and daughter; Clive and Francine continue to be present and supportive. Clive provided POA (HC and Financial) paperwork which CM processed and [facility] to [facility] Anticipate short rehab stay followed by placement in assisted living or returning home with maritime guard caregivers. CM continues to follow. A: 78 year old male admitted to [facility] 01/03/19 for Cholelithiasis-brought to OR today for Open Cholecystectomy. P: Jimmy will continue to be closely monitored and evaluated post-surgically. Per MD, anticipate discharge to SNF for ongoing rehabilitation no sooner than 01/10/19. CM faxed referral to [facility] for review. CM will continue to follow.
[2019-01-07 07:52] LABS: Abs Immature Grans 0.02 k/cumm (0.0-0.09); Absolute Lymphocyte Count 0.48 k/cumm (1.2-3.4); Absolute Neutrophil Count 7.64 k/cumm (1.2-6.7); HCT 33.6 % (40.0-50.0); HGB 11.4 g/dL (13.5-17.5); Immature Grans % 0.2; Lymphocytes % 5.3; Mean Corp. HGB Concentration 33.9 g/dL (32.0-36.0); Mean Corpuscular Hemoglobin 33.3 pg (27.0-33.0); Mean Corpuscular Volume 98.2 fL (80-95); Mean Platelet Volume 10.8 fL (8.0-11.0); Neutrophils % 84.5; Platelet Count 160 x1000/uL (130-400); RBC 3.42 m/cumm (4.50-6.00); RBC Distribution Width 13.1 % (11.8-14.1); White Blood Cell Count 9.04 k/cumm (4.4-10.8)
[2019-01-07 08:12] LABS: ALT 46 U/L (12-78); AST 26 U/L (15-37); Albumin 1.9 g/dL (3.4-5.0); Alkaline Phosphatase 139 U/L (46-116); Amylase 20 U/L (25-115); Anion Gap 10.3 mmol/L (3-11); BUN 21 mg/dL (7-18); Bilirubin, Total 2.2 mg/dL (0.2-1.0); CO2 21.7 mmol/L (21.0-32.0); CREATININE 1.25 mg/dL (0.70-1.30); Calcium 8.4 mg/dL (8.5-10.1); Chloride 104 mmol/L (98-107); Estimated GFR 55.86 (mL/min/1.73m2); Glucose 189 mg/dL (70-100); Lipase 43 U/L (73-393); Potassium 3.6 mmol/L (3.5-5.1); Sodium 136 mmol/L (136-145); Total Protein 6.3 g/dL (6.4-8.2)
[2019-01-07] MEDS: HYDROmorphone 2 MG/ML VIAL 0.5 MG IVP ×4 (08:13→23:26)
[2019-01-07] MEDS: Normal Saline Flush 10 ML SYR IVP ×2 (08:14→09:08)
[2019-01-07] MEDS: Normal Saline 1,000 ML 125 ML IV ×2 (08:35→18:25)
[2019-01-07 11:48] LABS: Magnesium 1.8 mg/dL (1.8-2.4)
[2019-01-07] MEDS: MAGNESIUM SULFATE 1 GM/100 ML BAG IVPB (12:37)
--- NOTE | 2019-01-07 16:06 | W.PM.PROGNOT ---
Date of Service Date of service: 01/07/19 Time of Service: 16:06 Assessment and Plan (1) Acute gangrenous cholecystitis: Current visit: Yes Status: Acute s/p open cholecystectomy 01/06/19, still has a FELA drain in place. On zosyn - agree with management. (2) Bile peritonitis: Current visit: Yes Status: Acute As above (3) Atrial fibrillation with slow ventricular response: Current visit: No Status: Chronic The patient has known sick sinus syndrome - previously not agreeable to a pacer. Would continue to monitor on tele. Asymptomatic. (4) Obstructive sleep apnea: Current visit: No Status: Chronic Reportedly, intolerant of CPAP. This, too, could be contributing to periodic bradycardia. Monitor respiratory status. (5) Type 2 diabetes mellitus: Current visit: No Status: Acute Continue SSI (6) Coronary artery disease: Current visit: No Status: Acute Stable - follow up as outpatient (7) Acquired hypothyroidism: Current visit: No Status: Chronic TSH wnl. Continue current synthroid dose. Follow up as outpatient. Subjective Interval history since last seen: Mr Arcos states he has 10/10 pain - points to his RLQ, where he has a FELA drain. Denies dizziness, chest pain, shortness of breath, nausea, vomiting. + flatus, - BM. Tolerating clears. Evidently, he ate a whoe tray of regular food by mistake yesterday post-op. Telemetry demonstrates HR down to 38 (afib, unclear if it's symptomatic). Patient has a history of sick sinus syndrome and previously refused a pacer. Exam Narrative Exam Narrative: General: Very pleasant elderly male, A&Ox2, uncomfortable in bed HEENT: EOMI, MMM Heart: Irreguarly irregular rhythm Lungs: CTAB GI: abdomen is soft, RUQ incision with rosemary - not draining; FELA drain RLQ, hypoactive BS Extremities: no e/c/c BLE's Objective Objective Clinical Data: Abnormal lab results 01/07/19 01/07/19 Range/Units 07:15 07:15 RBC 3.42 L (4.50-6.00) m/cumm Hgb 11.4 L (13.5-17.5) g/dL Hct 33.6 L (40.0-50.0) % MCV 98.2 H (80-95) fL MCH 33.3 H (27.0-33.0) pg Absolute Neutrophils 7.64 H (1.2-6.7) k/cumm Absolute Lymphocytes 0.48 L (1.2-3.4) k/cumm Absolute Monocytes 0.90 H (0.11-0.7) k/cumm BUN 21 H (7-18) mg/dL Glucose 189 H D (70-100) mg/dL Calcium 8.4 L (8.5-10.1) mg/dL Total Bilirubin 2.2 H (0.2-1.0) mg/dL Alkaline Phosphatase 139 H (46-116) U/L Total Protein 6.3 L (6.4-8.2) g/dL Albumin 1.9 L (3.4-5.0) g/dL Amylase 20 L (25-115) U/L Lipase 43 L (73-393) U/L Vital Signs Temperature 36.5 C 01/07/19 12:00 Temperature Source Tympanic 01/07/19 12:00 Pulse 65 01/07/19 12:00 Pulse Rhythm Regular 01/07/19 08:01 Pulse 60 01/03/19 13:20 Respiratory Rate 18 01/07/19 12:00 Respiratory Effort Non-Labored 01/06/19 19:40 Respiratory Depth Normal 01/06/19 19:40 Respiratory Pattern Normal 01/06/19 19:40 Blood Pressure 117/70 01/07/19 12:00 Blood Pressure Mean 125 01/03/19 13:16 Blood Pressure Position Supine 01/03/19 09:32 Pulse Oximetry 96 01/07/19 12:00 Respiratory End-tidal CO2 24 01/06/19 11:00 Oxygen Delivery Method Room Air 01/07/19 12:00 Oxygen Flow Rate 0 01/07/19 12:00 Pain Level 10 01/07/19 15:17 Comment 01/06/19 13:00 Intake & Output 01/06/19 01/07/19 01/07/19 23:59 11:59 23:59 Intake Total 1496.667 / 3723.750 2710.000 / 3190.000 480 / 3190.000 Output Total 325 / 1100 875 / 1025 150 / 1025 Balance 1171.667 / 2623.750 1835.000 / 2165.000 330 / 2165.000 Intake: IV 1446.667 / 3673.750 1220.000 / 1220.000 Oral 50 / 50 1490 / 1970 480 / 1970 Output: Drainage 175 / 175 325 / 325 Abdomen 175 / 175 325 / 325 Urine 150 / 825 550 / 700 150 / 700 Other: Urine Color Dark Luisa Dark Luisa Dark Luisa Brown Urine Appearance Clear Sediment Clear Hematuria Laboratory Results WBC 9.04 k/cumm (4.4-10.8) 01/07/19 07:15 RBC 3.42 m/cumm (4.50-6.00) L 01/07/19 07:15 Hgb 11.4 g/dL (13.5-17.5) L 01/07/19 07:15 Hct 33.6 % (40.0-50.0) L 01/07/19 07:15 MCV 98.2 fL (80-95) H 01/07/19 07:15 MCH 33.3 pg (27.0-33.0) H 01/07/19 07:15 MCHC 33.9 g/dL (32.0-36.0) 01/07/19 07:15 RDW 13.1 % (11.8-14.1) 01/07/19 07:15 Plt Count 160 x1000/uL (130-400) 01/07/19 07:15 MPV 10.8 fL (8.0-11.0) 01/07/19 07:15 Immature Gran % 0.2 01/07/19 07:15 84.5 01/07/19 07:15 5.3 01/07/19 07:15 10.0 01/07/19 07:15 0.0 01/07/19 07:15 0.0 01/07/19 07:15 Absolute Neutrophils 7.64 k/cumm (1.2-6.7) H 01/07/19 07:15 Absolute Lymphocytes 0.48 k/cumm (1.2-3.4) L 01/07/19 07:15 Absolute Monocytes 0.90 k/cumm (0.11-0.7) H 01/07/19 07:15 Absolute Eosinophils 0.00 k/cumm (0.0-0.7) 01/07/19 07:15 Absolute Basophils 0.00 k/cumm (0.0-0.2) 01/07/19 07:15 PT 11.0 sec (9.3-11.0) 01/03/19 09:40 INR 1.1 (0.9-1.1) 01/03/19 09:40 Sodium 136 mmol/L (136-145) 01/07/19 07:15 Potassium 3.6 mmol/L (3.5-5.1) 01/07/19 07:15 Chloride 104 mmol/L (98-107) 01/07/19 07:15 Carbon Dioxide 21.7 mmol/L (21.0-32.0) 01/07/19 07:15 10.3 mmol/L (3-11) 01/07/19 07:15 BUN 21 mg/dL (7-18) H 01/07/19 07:15 1.25 mg/dL (0.70-1.30) 01/07/19 07:15 55.86 (mL/min/1.73m2) 01/07/19 07:15 Glucose 189 mg/dL (70-100) H D 01/07/19 07:15 2.3 mmol/l (0.6-1.4) H 01/04/19 13:43 Calcium 8.4 mg/dL (8.5-10.1) L 01/07/19 07:15 Magnesium 1.8 mg/dL (1.8-2.4) 01/07/19 07:15 2.2 mg/dL (0.2-1.0) H 01/07/19 07:15 AST 26 U/L (15-37) 01/07/19 07:15 ALT 46 U/L (12-78) 01/07/19 07:15 139 U/L (46-116) H 01/07/19 07:15 0.06 ng/mL (0.00-0.06) 01/03/19 12:33 6.3 g/dL (6.4-8.2) L 01/07/19 07:15 1.9 g/dL (3.4-5.0) L 01/07/19 07:15 Amylase 20 U/L (25-115) L 01/07/19 07:15 43 U/L (73-393) L 01/07/19 07:15 TSH 1.77 uIU/mL (0.36-3.74) 01/03/19 09:40 Yellow (Yellow) 01/03/19 10:13 Clear (Clear) 01/03/19 10:13 8.0 (5-8) 01/03/19 10:13 Ur Specific [place] 1.015 (1.005-1.025) 01/03/19 10:13 Negative mg/dL (Negative) 01/03/19 10:13 Negative mg/dL (Negative) 01/03/19 10:13 Negative (Negative) 01/03/19 10:13 Negative (Negative) 01/03/19 10:13 Negative (Negative) 01/03/19 10:13 1.0 EU/dL (Up TO 0.2) H 01/03/19 10:13 Ur Leukocyte Esterase Negative (Negative) 01/03/19 10:13 Negative mg/dL (Negative) 01/03/19 10:13
[2019-01-07] MEDS: Divalproex 500 MG TABEC PO (19:27)
[2019-01-07] MEDS: Enoxaparin 30 MG/0.3 ML SYR SC (22:16)
[2019-01-08] VITALS (11 sets, daily range): BP systolic 112–174; BP diastolic 71–92; PULSE 48–78; RESP 18–20; TEMP 36.5–37.4; O2SAT 95–97
[2019-01-08] MEDS: PIPERACILLIN/TAZO 3.375 GM in Normal Saline 50 ML IVPB ×4 (03:08→21:55)
[2019-01-08] MEDS: Normal Saline 1,000 ML 125 ML IV (03:08)
[2019-01-08] MEDS: HYDROmorphone 2 MG/ML VIAL 0.5 MG IVP ×2 (03:33→08:22)
[2019-01-08] MEDS: Levothyroxine 125 MCG TAB PO (06:30)
[2019-01-08 07:55] LABS: Abs Immature Grans 0.06 k/cumm (0.0-0.09); Absolute Basophil Count 0.01 k/cumm (0.0-0.2); Absolute Eosinophil Count 0.03 k/cumm (0.0-0.7); Absolute Lymphocyte Count 0.73 k/cumm (1.2-3.4); Absolute Monocyte Count 1.02 k/cumm (0.11-0.7); Basophils % 0.1; Eosinophils % 0.3; HCT 34.4 % (40.0-50.0); Immature Grans % 0.6; Lymphocytes % 7.6; Mean Corp. HGB Concentration 34.9 g/dL (32.0-36.0); Mean Corpuscular Hemoglobin 34.2 pg (27.0-33.0); Mean Platelet Volume 10.7 fL (8.0-11.0); Monocytes % 10.6; Neutrophils % 80.8; Platelet Count 178 x1000/uL (130-400); RBC 3.51 m/cumm (4.50-6.00); RBC Distribution Width 13.3 % (11.8-14.1); White Blood Cell Count 9.65 k/cumm (4.4-10.8)
[2019-01-08] MEDS: Divalproex 500 MG TABEC PO ×2 (08:22→20:00)
[2019-01-08] MEDS: Psyllium PKT 1 EACH PO ×2 (08:22→20:00)
[2019-01-08] MEDS: Atorvastatin 40 MG TAB PO (08:23)
[2019-01-08] MEDS: Normal Saline Flush 10 ML SYR IVP ×3 (08:23→15:51)
[2019-01-08 08:26] LABS: ALT 33 U/L (12-78); AST 24 U/L (15-37); Albumin 1.8 g/dL (3.4-5.0); Alkaline Phosphatase 148 U/L (46-116); BUN 16 mg/dL (7-18); Bilirubin, Total 1.8 mg/dL (0.2-1.0); CREATININE 1.08 mg/dL (0.70-1.30); Calcium 8.6 mg/dL (8.5-10.1); Chloride 104 mmol/L (98-107); Glucose 123 mg/dL (70-100); Magnesium 1.8 mg/dL (1.8-2.4); Potassium 3.6 mmol/L (3.5-5.1); Sodium 139 mmol/L (136-145); Total Protein 6.4 g/dL (6.4-8.2)
[2019-01-08] MEDS: MAGNESIUM SULFATE 1 GM/100 ML BAG IVPB (09:55)
--- NOTE | 2019-01-08 10:28 | PT.INIE ---
Date of service: 01/08/19 Time of Service: 10:28 PT Notes Inpatient Physical Therapy Evaluation Date: Date: 1118 Referring Doctor: Sophie Bush PT Orders: PT CONSULT: Weak, dementia status post open cholecystectomy Precautions: Falls Patient Profile/Admitting Diagnosis: 78-year-old male admitted approximately 1 week ago with abdominal pain. Status post open cholecystectomy PMHX: Hypothyroidism, ASCVD, DM, hyperlipidemia Social History/Home Situation: , has a two-story home but lives on the first floor. Current Functional Limitations: Drives, makes his own meals, independent with all ADLs, hires out lawncare etc. Equipment Owned/DME: Is walking shower with a shower seat and flexible holes, has a ramp with one step entering the house. Notes that he owns a couple canes and walkers but generally walks without Subjective: Patient expresses concern regarding mobilization due to his abdominal pain Objective: [] General Observation: Alert, cooperative until this time to sit up and ambulate due to complaints of intense abdominal pain Mental Status: Oriented to person, place, and knows that is December and that Nba is president. Pain: Resting pain is 7/10 on a VAS and increases to 9/10 with movement Vital Signs: His resting O2 sat is 94% and pulse is 81 bpm and after standing his O2 sat is 97% and pulse is 83 bpm ROM: His active assistive range of motion the articular structures throughout eye within functional limits and without pain on movement Strength: Has full motor control and strength is generally rated -5 / 5 except for his core due to his abdominal pain Neuro: Reflexes symmetrical, sensation is intact light touch Bed Mobility/Transfers: Requires assistance with his lower extremities and grasps onto my hand in order to assume the supine to sitting position while complaining of abdominal discomfort. He requires less assistance from the sitting to supine position, and can slide back to towards the head of the bed independently but with effort. He required contact guarding with mild assist with assuming the sitting to standing position, and refused to walk due to pain. I was able to convince him to attempt marching in place, and he was able to do this but poorly. Gait: Refused to ambulate due to his pain Balance: [] Static Sitting: Good Dynamic Sitting: Good Static Standing: Good Dynamic Standing: Fair Special Tests: Mobility Limitations Standardized Measure [facility] 6 clicks Basic Mobility Inpatient Short Form: Raw Score: 10 standardized Score: 27.31 CMS Score: 74.7% [facility] Modifier: CL Informed Consent/Education: Patient instructed in purpose of PT consult and plan of care. Assessment: Patient is a 78 year old male referred to physical therapy services with the diagnosis of status post cholecystectomy. Patient presents with clinical signs and symptoms consistent with this diagnosis, as demonstrated by the following impairment level findings: Significant abdominal pain which restricts his ability to maneuver independently and comfortably in bed, stand, or walk.. Patient is assessed as a Moderate 80008 complexity based on the following: History: See above for comorbidities Examination: See above for functional impairments Presentation: Evolving Decision making: Moderate based on his clinical findings Goals: Independent bed mobility Independent ambulation with a wheeled walker Plan: Patient be seen twice per day. Plan of care has been reviewed with STUDENT ADVISOR providing this service under physical therapy direction. Initiate physical therapy intervention for bed mobility activities, transfers, ambulation with a wheeled walker, etc. Discharge recommendations: Probable short-term rehab with SNF Treatment time 45 minutes Treatment code: 94533 Disclaimer: This note was created using [facility] voice recognition software. It was reviewed for major content. However, there may be multiple small discrepancies and errors due to the voice recognition aspects of the software. History: [] Examination: [] Presentation: [] Decision Making: [] Goals: Goals X1 week 1. Supine-Sit [] 2. Sit-Supine [] 3. Sit-Stand [] 4. Stand-Sit [] 5. Bed-Chair [] 6. Chair-Bed [] 7. Gait [] 8. Stairs [] 9. Independent with home exercise program [] 10. Balance [] Plan of Care/Treatment Plan: 1-2x/day, 7 days/week x 1 week. Plan of care has been reviewed with the STUDENT ADVISOR providing the service under Physical Therapy direction. Initiate Physical Therapy intervention for strengthening, bed mobility, transfers, gait, stairs, balance training, use of assistive device. DISCHARGE RECOMMENDATIONS: [] TREATMENT CODE/TIME: []
--- NOTE | 2019-01-08 10:54 | PDOC.CMPRO ---
Care Management Progress Note S/O: Kendrick was unable to complete PT session due to pain per Triston Downing's report. Kendrick continues to be closely monitored post surgically and per RNCC he is expressing an increase in pain and presents more confused today as well. Jimmy was lying in bed when CM met with him, he was pleasant in interaction and used good humor appropriately. He smiled often and laughed appropriately during the conversation. Discussing discharge planning, he reported his son may not have as much say as he thought he did, CM agreed to discuss more in the future. Plan is for Jimmy to return home with multimedia authoring specialist caregivers after a short rehab stay at [facility]. CM provided resources for Memory Unit at [place] by [employer]. CM continues to follow. A: 78 year old male admitted to [facility] 01/03/19 for Cholelithiasis-brought to OR today for Open Cholecystectomy. P: Jimmy will continue to be closely monitored and evaluated post-surgically. Per MD, anticipate discharge to SNF for ongoing rehabilitation no sooner than 01/10/19. CM faxed referral to [facility] for review. CM will continue to follow.
[2019-01-08] MEDS: ACETAMINOPHEN 1,000 MG/100 ML BTL 400 MG IVPB ×2 (11:31→23:44)
--- NOTE | 2019-01-08 12:44 | W.PM.PROGNOT ---
Date of Service Date of service: 01/08/19 Time of Service: 12:44 Assessment and Plan (1) Sick sinus syndrome: Current visit: Yes Status: Acute (2) Acute gangrenous cholecystitis: Current visit: Yes Status: Acute POD#2 s/p open shirley. GB was perf adn had bile and stones in abdom. min from FELA- some bile residue from perforation/not from leak. abx: zosyn GI: reg diet DVT: lovenox and scd diet: regular. can resume po meds and will adjust electrolytes adjusted PT ordered. not seen there notes. pt is going to need rehab pt has signif cognitive issues. Should not be driving or living alone. Pt has resources to have 24 home care- family is going to work on this piece. palative care consult ordered. pt has sick sinus syndrome adn develops bradycardia and A. fib. BP and HR stable for last 24 hrs. pt refused pacer. (3) Cholelithiases: Current visit: Yes Status: Acute Qualifiers: Biliary obstruction: without biliary obstruction Cholecystitis presence: without cholecystitis Cholelithiasis location: gallbladder Qualified Code(s): K80.20 - Calculus of gallbladder without cholecystitis without obstruction Subjective Patient reports: tolerating a regular diet and no bowel movement Interval history since last seen: pt denies everything and says he feels good. no BM documented. pt very sleepy today. short erm memory is limited. Exam Const General: cooperative, healthy appearing, comfortable, no acute distress, well developed and well groomed Nutritional Appearance: average body habitus and well nourished Orientation: alert, awake and oriented to person [facility] Head: normal to inspection, normocephalic and atraumatic Ears: hearing grossly normal bilaterally and external ears normal General nose exam: external nose normal Face and sinus: normal facial exam and sinuses nontender Mouth: oral mucosae normal, lip normal, tongue normal and moist mucous membranes Teeth and gingiva: dentures Other: no thrush Eyes General: appearance normal, both eyes and all related structures Conjunctivae: conjunctivae normal Sclera: sclerae normal Pupils: PERRL Neck Neck: normal visual inspection and full ROM Chest Chest: normal inspection of the chest Resp Effort & Inspection: normal respiratory effort, able to speak in complete sentences, no cough, no nasal flaring, not tachypneic and no use of accessory muscles Auscultation: clear to auscultation bilaterally, no rales, no rhonchi and no wheezes Cardio Jugular venous pressure: no JVD Rate: regular rate Rhythm: regular rhythm GI Inspection: normal to inspection, no edema and distended (more than yest. needs to have bm.) Palpation: soft, no masses, tender and No ascites Auscultation: normal bowel sounds Other: FELA- serous Skin General skin exam: no rashes or lesions noted Trauma: no lacerations or abrasions Neuro General: alert, oriented x3, oriented, gait normal, moves all extremities, no focal motor deficits and CN's II-XI intact bilaterally Cognition: normal cognition Speech: speech normal Gait: normal gait Motor: muscle tone normal throughout Extrem General: normal to inspection, full ROM and no clubbing, cyanosis or edema Psych Appearance: grossly normal and well kempt Mental Status: mental status grossly normal Speech and Movement: speech and movement normal Affect: normal affect Objective Objective Clinical Data: Abnormal lab results 01/08/19 01/08/19 Range/Units 06:47 06:47 RBC 3.51 L (4.50-6.00) m/cumm Hgb 12.0 L (13.5-17.5) g/dL Hct 34.4 L (40.0-50.0) % MCV 98.0 H (80-95) fL MCH 34.2 H (27.0-33.0) pg Absolute Neutrophils 7.80 H (1.2-6.7) k/cumm Absolute Lymphocytes 0.73 L (1.2-3.4) k/cumm Absolute Monocytes 1.02 H (0.11-0.7) k/cumm Anion Gap 13.0 H (3-11) mmol/L Glucose 123 H (70-100) mg/dL Total Bilirubin 1.8 H (0.2-1.0) mg/dL Alkaline Phosphatase 148 H (46-116) U/L Albumin 1.8 L (3.4-5.0) g/dL Vital Signs Temperature 36.7 C 01/08/19 08:07 Temperature Source Tympanic 01/08/19 08:07 Pulse 72 01/08/19 08:07 Pulse Rhythm Regular 01/08/19 08:51 Pulse 60 01/03/19 13:20 Respiratory Rate 20 01/08/19 08:07 Respiratory Effort Non-Labored 01/08/19 08:51 Respiratory Depth Normal 01/08/19 08:51 Respiratory Pattern Normal 01/08/19 08:51 Blood Pressure 158/81 H 01/08/19 08:07 Blood Pressure Mean 125 01/03/19 13:16 Blood Pressure Position Supine 01/03/19 09:32 Pulse Oximetry 97 01/08/19 08:51 Respiratory End-tidal CO2 24 01/06/19 11:00 Oxygen Delivery Method Room Air 01/08/19 08:51 Oxygen Flow Rate 0 01/08/19 08:51 Pain Level 8 01/08/19 11:31 Comment 01/06/19 13:00 Intake & Output 01/07/19 01/08/19 01/08/19 23:59 11:59 23:59 Intake Total 3293.750 / 6003.750 1745.417 / 1745.417 Output Total 700 / 1575 815 / 815 Balance 2593.750 / 4428.750 930.417 / 930.417 Intake: IV 1753.750 / 2973.750 1505.417 / 1505.417 Oral 1540 / 3030 240 / 240 Output: Drainage 100 / 425 15 / 15 Abdomen 100 / 425 15 / 15 Urine 600 / 1150 800 / 800 Other: Urine Color Dark Luisa Yellow Urine Appearance Clear Clear Laboratory Results WBC 9.65 k/cumm (4.4-10.8) 01/08/19 06:47 RBC 3.51 m/cumm (4.50-6.00) L 01/08/19 06:47 Hgb 12.0 g/dL (13.5-17.5) L 01/08/19 06:47 Hct 34.4 % (40.0-50.0) L 01/08/19 06:47 MCV 98.0 fL (80-95) H 01/08/19 06:47 MCH 34.2 pg (27.0-33.0) H 01/08/19 06:47 MCHC 34.9 g/dL (32.0-36.0) 01/08/19 06:47 RDW 13.3 % (11.8-14.1) 01/08/19 06:47 Plt Count 178 x1000/uL (130-400) 01/08/19 06:47 MPV 10.7 fL (8.0-11.0) 01/08/19 06:47 Immature Gran % 0.6 01/08/19 06:47 80.8 01/08/19 06:47 7.6 01/08/19 06:47 10.6 01/08/19 06:47 0.3 01/08/19 06:47 0.1 01/08/19 06:47 Absolute Neutrophils 7.80 k/cumm (1.2-6.7) H 01/08/19 06:47 Absolute Lymphocytes 0.73 k/cumm (1.2-3.4) L 01/08/19 06:47 Absolute Monocytes 1.02 k/cumm (0.11-0.7) H 01/08/19 06:47 Absolute Eosinophils 0.03 k/cumm (0.0-0.7) 01/08/19 06:47 Absolute Basophils 0.01 k/cumm (0.0-0.2) 01/08/19 06:47 PT 11.0 sec (9.3-11.0) 01/03/19 09:40 INR 1.1 (0.9-1.1) 01/03/19 09:40 Sodium 139 mmol/L (136-145) 01/08/19 06:47 Potassium 3.6 mmol/L (3.5-5.1) 01/08/19 06:47 Chloride 104 mmol/L (98-107) 01/08/19 06:47 Carbon Dioxide 22.0 mmol/L (21.0-32.0) 01/08/19 06:47 13.0 mmol/L (3-11) H 01/08/19 06:47 BUN 16 mg/dL (7-18) 01/08/19 06:47 1.08 mg/dL (0.70-1.30) 01/08/19 06:47 >= 60.00 (mL/min/1.73m2) 01/08/19 06:47 Glucose 123 mg/dL (70-100) H 01/08/19 06:47 2.3 mmol/l (0.6-1.4) H 01/04/19 13:43 Calcium 8.6 mg/dL (8.5-10.1) 01/08/19 06:47 Magnesium 1.8 mg/dL (1.8-2.4) 01/08/19 06:47 1.8 mg/dL (0.2-1.0) H 01/08/19 06:47 AST 24 U/L (15-37) 01/08/19 06:47 ALT 33 U/L (12-78) 01/08/19 06:47 148 U/L (46-116) H 01/08/19 06:47 0.06 ng/mL (0.00-0.06) 01/03/19 12:33 6.4 g/dL (6.4-8.2) 01/08/19 06:47 1.8 g/dL (3.4-5.0) L 01/08/19 06:47 Amylase 20 U/L (25-115) L 01/07/19 07:15 43 U/L (73-393) L 01/07/19 07:15 TSH 1.77 uIU/mL (0.36-3.74) 01/03/19 09:40 Yellow (Yellow) 01/03/19 10:13 Clear (Clear) 01/03/19 10:13 8.0 (5-8) 01/03/19 10:13 Ur Specific [place] 1.015 (1.005-1.025) 01/03/19 10:13 Negative mg/dL (Negative) 01/03/19 10:13 Negative mg/dL (Negative) 01/03/19 10:13 Negative (Negative) 01/03/19 10:13 Negative (Negative) 01/03/19 10:13 Negative (Negative) 01/03/19 10:13 1.0 EU/dL (Up TO 0.2) H 01/03/19 10:13 Ur Leukocyte Esterase Negative (Negative) 01/03/19 10:13 Negative mg/dL (Negative) 01/03/19 10:13
[2019-01-08] MEDS: Normal Saline 1,000 ML 80 ML IV ×2 (13:55→21:55)
--- NOTE | 2019-01-08 15:14 | PGE_ITS ---
Date of Service Date of service: 01/08/19 Time of Service: 15:16 Assessment and Plan (1) Acute gangrenous cholecystitis: Current visit: Yes Status: Acute s/p open cholecystectomy 01/06/19, FELA drain in place. On zosyn - Defervesced. Continue current therapy (2) Bile peritonitis: Current visit: Yes Status: Acute As above (3) Atrial fibrillation with slow ventricular response: Current visit: No Status: Chronic The patient has known sick sinus syndrome - previously not agreeable to a pacer. Family is interested in meeting with palliative care - consult placed. Would continue to monitor on tele. Asymptomatic. (4) Obstructive sleep apnea: Current visit: No Status: Chronic Reportedly, intolerant of CPAP. This, too, contributes to bradycardia - especially while asleep. Monitor respiratory status. (5) Type 2 diabetes mellitus: Current visit: No Status: Acute Continue SSI (6) Coronary artery disease: Current visit: No Status: Acute Stable - follow up as outpatient (7) Acquired hypothyroidism: Current visit: No Status: Chronic TSH wnl. Continue current synthroid dose. Follow up as outpatient. (8) Discharge planning issues: Current visit: Yes Status: Acute Full code, previously refused pacer. [place] [facility] Palliative care consult placed. Hospitalists will be signing off - please, reconsult with any questions. Subjective Interval history since last seen: Mr Arcos complains of headache and neck pain. He denies dizziness, chest pain, shortness of breath, nausea. He complains of RLQ and RUQ pain. His daughter and I talked about getting palliative care involved to talk about goals of care (code status). She and the patient are interested. She just informed me that [facility] [place] directives with the patient. Exam Narrative Exam Narrative: General: Very pleasant elderly male, A&Ox3, uncomfortable in bed, seems slightly confused HEENT: EOMI, MMM Heart: Irreguarly irregular rhythm Lungs: CTAB anteriorly - patient declined me listening to his back GI: abdomen is soft, RUQ incision with rosemary - not draining; FELA drain RLQ, +BS Extremities: no e/c/c BLE's Objective Objective Clinical Data: Abnormal lab results 01/08/19 01/08/19 Range/Units 06:47 06:47 RBC 3.51 L (4.50-6.00) m/cumm Hgb 12.0 L (13.5-17.5) g/dL Hct 34.4 L (40.0-50.0) % MCV 98.0 H (80-95) fL MCH 34.2 H (27.0-33.0) pg Absolute Neutrophils 7.80 H (1.2-6.7) k/cumm Absolute Lymphocytes 0.73 L (1.2-3.4) k/cumm Absolute Monocytes 1.02 H (0.11-0.7) k/cumm Anion Gap 13.0 H (3-11) mmol/L Glucose 123 H (70-100) mg/dL Total Bilirubin 1.8 H (0.2-1.0) mg/dL Alkaline Phosphatase 148 H (46-116) U/L Albumin 1.8 L (3.4-5.0) g/dL Vital Signs Temperature 37.4 C 01/08/19 12:00 Temperature Source Tympanic 01/08/19 12:00 Pulse 70 01/08/19 12:00 Pulse Rhythm Regular 01/08/19 08:51 Pulse 60 01/03/19 13:20 Respiratory Rate 20 01/08/19 12:00 Respiratory Effort Non-Labored 01/08/19 08:51 Respiratory Depth Normal 01/08/19 08:51 Respiratory Pattern Normal 01/08/19 08:51 Blood Pressure 157/91 H 01/08/19 12:00 Blood Pressure Mean 125 01/03/19 13:16 Blood Pressure Position Supine 01/03/19 09:32 Pulse Oximetry 95 01/08/19 12:00 Respiratory End-tidal CO2 24 01/06/19 11:00 Oxygen Delivery Method Room Air 01/08/19 12:00 Oxygen Flow Rate 0 01/08/19 12:00 Pain Level 8 01/08/19 11:31 Comment 01/06/19 13:00 Intake & Output 01/07/19 01/08/19 01/08/19 23:59 11:59 23:59 Intake Total 3293.750 / 6003.750 1897.500 / 2487.500 590 / 2487.500 Output Total 700 / 1575 815 / 1025 210 / 1025 Balance 2593.750 / 4428.750 1082.500 / 1462.500 380 / 1462.500 Intake: IV 1753.750 / 2973.750 1657.500 / 1657.500 Oral 1540 / 3030 240 / 830 590 / 830 Output: Drainage 100 / Abdomen 100 / 425 Urine 600 / 1150 800 / 1000 200 / 1000 Other: Urine Color Dark Luisa Yellow Yellow Light Luisa Urine Appearance Clear Clear Laboratory Results WBC 9.65 k/cumm (4.4-10.8) 01/08/19 06:47 RBC 3.51 m/cumm (4.50-6.00) L 01/08/19 06:47 Hgb 12.0 g/dL (13.5-17.5) L 01/08/19 06:47 Hct 34.4 % (40.0-50.0) L 01/08/19 06:47 MCV 98.0 fL (80-95) H 01/08/19 06:47 MCH 34.2 pg (27.0-33.0) H 01/08/19 06:47 MCHC 34.9 g/dL (32.0-36.0) 01/08/19 06:47 RDW 13.3 % (11.8-14.1) 01/08/19 06:47 Plt Count 178 x1000/uL (130-400) 01/08/19 06:47 MPV 10.7 fL (8.0-11.0) 01/08/19 06:47 Immature Gran % 0.6 01/08/19 06:47 80.8 01/08/19 06:47 7.6 01/08/19 06:47 10.6 01/08/19 06:47 0.3 01/08/19 06:47 0.1 01/08/19 06:47 Absolute Neutrophils 7.80 k/cumm (1.2-6.7) H 01/08/19 06:47 Absolute Lymphocytes 0.73 k/cumm (1.2-3.4) L 01/08/19 06:47 Absolute Monocytes 1.02 k/cumm (0.11-0.7) H 01/08/19 06:47 Absolute Eosinophils 0.03 k/cumm (0.0-0.7) 01/08/19 06:47 Absolute Basophils 0.01 k/cumm (0.0-0.2) 01/08/19 06:47 PT 11.0 sec (9.3-11.0) 01/03/19 09:40 INR 1.1 (0.9-1.1) 01/03/19 09:40 Sodium 139 mmol/L (136-145) 01/08/19 06:47 Potassium 3.6 mmol/L (3.5-5.1) 01/08/19 06:47 Chloride 104 mmol/L (98-107) 01/08/19 06:47 Carbon Dioxide 22.0 mmol/L (21.0-32.0) 01/08/19 06:47 13.0 mmol/L (3-11) H 01/08/19 06:47 BUN 16 mg/dL (7-18) 01/08/19 06:47 1.08 mg/dL (0.70-1.30) 01/08/19 06:47 >= 60.00 (mL/min/1.73m2) 01/08/19 06:47 Glucose 123 mg/dL (70-100) H 01/08/19 06:47 2.3 mmol/l (0.6-1.4) H 01/04/19 13:43 Calcium 8.6 mg/dL (8.5-10.1) 01/08/19 06:47 Magnesium 1.8 mg/dL (1.8-2.4) 01/08/19 06:47 1.8 mg/dL (0.2-1.0) H 01/08/19 06:47 AST 24 U/L (15-37) 01/08/19 06:47 ALT 33 U/L (12-78) 01/08/19 06:47 148 U/L (46-116) H 01/08/19 06:47 0.06 ng/mL (0.00-0.06) 01/03/19 12:33 6.4 g/dL (6.4-8.2) 01/08/19 06:47 1.8 g/dL (3.4-5.0) L 01/08/19 06:47 Amylase 20 U/L (25-115) L 01/07/19 07:15 43 U/L (73-393) L 01/07/19 07:15 TSH 1.77 uIU/mL (0.36-3.74) 01/03/19 09:40 Yellow (Yellow) 01/03/19 10:13 Clear (Clear) 01/03/19 10:13 8.0 (5-8) 01/03/19 10:13 Ur Specific [place] 1.015 (1.005-1.025) 01/03/19 10:13 Negative mg/dL (Negative) 01/03/19 10:13 Negative mg/dL (Negative) 01/03/19 10:13 Negative (Negative) 01/03/19 10:13 Negative (Negative) 01/03/19 10:13 Negative (Negative) 01/03/19 10:13 1.0 EU/dL (Up TO 0.2) H 01/03/19 10:13 Ur Leukocyte Esterase Negative (Negative) 01/03/19 10:13 Negative mg/dL (Negative) 01/03/19 10:13
[2019-01-08] MEDS: Ketorolac 15 MG/ML VIAL IVP (15:51)
--- NOTE | 2019-01-08 17:32 | EVALE_ITS ---
Date of service: 01/08/19 Time of Service: 17:00 Speech Therapy Evaluation Note: Clinical bedside swallow evaluation Reason for Referral: Pt referred for [facility] OPERATOR services with reports of ongoing s/sx dysphagia at home. Medical History (Include any history of Dysphagia, Aspiration, and/or Pneumonia): S/p open cholecystectomy 01/06/19, sick sinus, obstructive sleep apnea, DM II, dementia, CAD Current Diet/Liquid Consistency: regular/thin Recommended Diet/Liquid Consistency: soft and bite sized/ thin Dietary Restrictions: Carbohydrate consistent/Heart healthy Nutritional Status: unknown Feeding Method: self with set up Weight Change: unknown Respiratory Status: room air Positioning and Mobility: slightly reclined in bed (d/t pain in surgical site) Cognitive Status: pleasantly confused; dementia at baseline Oral Peripheral Exam: Facial -WFL Lips -WFL Tongue -WFL Jaw -WFL Hard Palate -WFL Soft Palate -WFL Uvula -WFL Dentition - upper denture, lower scattered and broken natural teeth Pharyngeal Exam: Volitional Cough -WFL Volitional Swallow -WFL Gag Reflex : not tested Soft Palate -WFL Vocal Quality:-WFL Comments: Trial Consistencies: Thin__x_ Nectar___ Honey___ Pudding_x__ Regular_x__Bite size__x_Chopped___Mechanical Soft___Ground___Puree_x__Pudding___ Oral Preparatory Phase: Lip seal via spoon/cup: WFL_x__ Impaired___ Bolus Containment: WFL__x_ Impaired___ Oral Stage: Bolus Formation: WFL_x__ Impaired___ Bolus Propulsion: WFL_x__ Impaired___ Bolus Accumulation: WFL_x__ Impaired___ Mastication: WFL___ Impaired__x_ Pharyngeal Stage: Laryngeal Elevation: WFL _x__ Impaired ___ Vocal Quality after swallow: -WFL Timely swallow noted. Coughing: No___ YesxBefore Swallow___ During Swallow___ After Swallow_x__ (x2 after 6oz thin liquid, possibly attributed to slightly reclined posture, low lighting) Esophageal Stage: Nasal Regurgitation___ Oral Regurgitation___ C/O Fullness Around Sternum___ Signs/Symptoms of Aspiration (please specify): Clinical Summary: Pt presents to therapy with impaired oral and suspect pharyngeal dysphagia characterized by timely mastication, s/sx aspiration or penetration with thin liquids, poor positioning, xerostomia and normal presbyphagia. Recommended Diet/Liquid Consistency: soft and bite sized/ thin Recommended Referral(s): Recommended Adaptive Equipment (please specify): Plan of Treatment (check all that apply): Aspiration Precautions__x_ Reflux Precautions___ Therapeutic Feeding Sessions_x__ Compensatory Strategies for Safe Swallowing__x_ Therapeutic Exercises___ Therapeutic Activities___ Other: Card Boxer Goals: 1. Pt will consume least restrictive diet textures with <10% s/sx aspiration or penetration. Short Term Goals: 1. Pt will demonstrate understanding and use of trained safe swallow strategies across 3 consecutive meals. 2. Pt will consume regular textures with <10% s/sx aspiration or penetration across 3 consecutive meals. Frequency/Duration of Treatment: 3x a week for 1 week. [facility] DEHY[employer]ATOR OPERATOR Printed Name: Rosana Lr Signature/License #:Rosana Lr MA [facility]/ [employer]PERATOR, [place] [phone]
[2019-01-08] MEDS: Enoxaparin 30 MG/0.3 ML SYR SC (21:54)
[2019-01-08] MEDS: Insulin Aspart 300 UNITS/3 ML PEN SC (23:44)
[2019-01-09] VITALS (7 sets, daily range): BP systolic 144–170; BP diastolic 70–92; PULSE 65–73; RESP 18–20; TEMP 36.2–37; O2SAT 96–98
[2019-01-09] MEDS: Ketorolac 15 MG/ML VIAL IVP ×2 (02:33→11:18)
[2019-01-09] MEDS: HYDROmorphone 2 MG/ML VIAL 0.5 MG IVP ×3 (03:23→22:07)
[2019-01-09] MEDS: PIPERACILLIN/TAZO 3.375 GM in Normal Saline 50 ML IVPB ×4 (03:24→22:08)
[2019-01-09] MEDS: Levothyroxine 125 MCG TAB PO (06:06)
[2019-01-09 07:47] LABS: Anion Gap 9.4 mmol/L (3-11); BUN 14 mg/dL (7-18); CO2 25.6 mmol/L (21.0-32.0); CREATININE 0.97 mg/dL (0.70-1.30); Calcium 8.3 mg/dL (8.5-10.1); Chloride 104 mmol/L (98-107); Glucose 123 mg/dL (70-100); Magnesium 1.8 mg/dL (1.8-2.4); Potassium 3.6 mmol/L (3.5-5.1); Sodium 139 mmol/L (136-145)
--- NOTE | 2019-01-09 07:47 | W.PM.PROGNOT ---
Documented by User: MAREK Manzanares 01/09/19 07:54 Date of Service Date of service: 01/09/19 Time of Service: 07:47 Assessment and Plan (1) Acute gangrenous cholecystitis: Current visit: Yes Status: Acute POD #3 Open [place]. Generalized abdominal pain with palpation. Incisions are healing well. FELA drain in place. Sharma in place. Encouraged activity with PT and OT to increase strength and activity tolerance. Slowly progressing diet. (2) Bile peritonitis: Current visit: Yes Status: Acute Subjective Interval history since last seen: I guess I am feeling okay. Exam Const General: cooperative, healthy appearing and comfortable Orientation: alert and oriented x3 Resp Effort & Inspection: normal respiratory effort, normal respiratory pattern, no audible wheezes and cough GI Inspection: normal to inspection and distended Palpation: soft, guarding and tender Auscultation: hypoactive bowel sounds Objective Objective Clinical Data: Abnormal lab results 01/08/19 01/08/19 Range/Units 06:47 06:47 RBC 3.51 L (4.50-6.00) m/cumm Hgb 12.0 L (13.5-17.5) g/dL Hct 34.4 L (40.0-50.0) % MCV 98.0 H (80-95) fL MCH 34.2 H (27.0-33.0) pg Absolute Neutrophils 7.80 H (1.2-6.7) k/cumm Absolute Lymphocytes 0.73 L (1.2-3.4) k/cumm Absolute Monocytes 1.02 H (0.11-0.7) k/cumm Anion Gap 13.0 H (3-11) mmol/L Glucose 123 H (70-100) mg/dL Total Bilirubin 1.8 H (0.2-1.0) mg/dL Alkaline Phosphatase 148 H (46-116) U/L Albumin 1.8 L (3.4-5.0) g/dL Vital Signs Temperature 36.3 C L 01/09/19 02:35 Temperature Source Tympanic 01/09/19 02:35 Pulse 67 01/09/19 07:16 Pulse Rhythm Irregular 01/08/19 20:25 Pulse 60 01/03/19 13:20 Respiratory Rate 20 01/09/19 02:35 Respiratory Effort Non-Labored 01/08/19 20:25 Respiratory Depth Normal 01/08/19 20:25 Respiratory Pattern Normal 01/08/19 20:25 Blood Pressure 170/92 H 01/09/19 02:35 Blood Pressure Mean 125 01/03/19 13:16 Blood Pressure Position Supine 01/03/19 09:32 Pulse Oximetry 97 01/09/19 04:21 Respiratory End-tidal CO2 24 01/06/19 11:00 Oxygen Delivery Method Room Air 01/09/19 04:21 Oxygen Flow Rate 0 01/09/19 04:21 Pain Level 0 01/08/19 23:18 Comment 01/06/19 13:00 Intake & Output 01/08/19 01/09/19 01/09/19 18:59 06:59 18:59 Intake Total 2160.000 / 3120.000 960 / 3120.000 Output Total 735 / 1605 870 / 1605 Balance 1425.000 / 1515.000 90 / 1515.000 Intake: IV 1330.000 / 2170.000 840 / 2170.000 Oral 830 / 950 120 / 950 Output: Drainage 10 / 80 70 / 80 Abdomen 10 / 80 70 / 80 Urine 725 / 1525 800 / 1525 Other: Urine Color Dark Luisa Brown Urine Appearance Clear Clear Laboratory Results WBC 9.65 k/cumm (4.4-10.8) 01/08/19 06:47 RBC 3.51 m/cumm (4.50-6.00) L 01/08/19 06:47 Hgb 12.0 g/dL (13.5-17.5) L 01/08/19 06:47 Hct 34.4 % (40.0-50.0) L 01/08/19 06:47 MCV 98.0 fL (80-95) H 01/08/19 06:47 MCH 34.2 pg (27.0-33.0) H 01/08/19 06:47 MCHC 34.9 g/dL (32.0-36.0) 01/08/19 06:47 RDW 13.3 % (11.8-14.1) 01/08/19 06:47 Plt Count 178 x1000/uL (130-400) 01/08/19 06:47 MPV 10.7 fL (8.0-11.0) 01/08/19 06:47 Immature Gran % 0.6 01/08/19 06:47 80.8 01/08/19 06:47 7.6 01/08/19 06:47 10.6 01/08/19 06:47 0.3 01/08/19 06:47 0.1 01/08/19 06:47 Absolute Neutrophils 7.80 k/cumm (1.2-6.7) H 01/08/19 06:47 Absolute Lymphocytes 0.73 k/cumm (1.2-3.4) L 01/08/19 06:47 Absolute Monocytes 1.02 k/cumm (0.11-0.7) H 01/08/19 06:47 Absolute Eosinophils 0.03 k/cumm (0.0-0.7) 01/08/19 06:47 Absolute Basophils 0.01 k/cumm (0.0-0.2) 01/08/19 06:47 PT 11.0 sec (9.3-11.0) 01/03/19 09:40 INR 1.1 (0.9-1.1) 01/03/19 09:40 Sodium 139 mmol/L (136-145) 01/08/19 06:47 Potassium 3.6 mmol/L (3.5-5.1) 01/08/19 06:47 Chloride 104 mmol/L (98-107) 01/08/19 06:47 Carbon Dioxide 22.0 mmol/L (21.0-32.0) 01/08/19 06:47 13.0 mmol/L (3-11) H 01/08/19 06:47 BUN 16 mg/dL (7-18) 01/08/19 06:47 1.08 mg/dL (0.70-1.30) 01/08/19 06:47 >= 60.00 (mL/min/1.73m2) 01/08/19 06:47 Glucose 123 mg/dL (70-100) H 01/08/19 06:47 2.3 mmol/l (0.6-1.4) H 01/04/19 13:43 Calcium 8.6 mg/dL (8.5-10.1) 01/08/19 06:47 Magnesium 1.8 mg/dL (1.8-2.4) 01/08/19 06:47 1.8 mg/dL (0.2-1.0) H 01/08/19 06:47 AST 24 U/L (15-37) 01/08/19 06:47 ALT 33 U/L (12-78) 01/08/19 06:47 148 U/L (46-116) H 01/08/19 06:47 0.06 ng/mL (0.00-0.06) 01/03/19 12:33 6.4 g/dL (6.4-8.2) 01/08/19 06:47 1.8 g/dL (3.4-5.0) L 01/08/19 06:47 Amylase 20 U/L (25-115) L 01/07/19 07:15 43 U/L (73-393) L 01/07/19 07:15 TSH 1.77 uIU/mL (0.36-3.74) 01/03/19 09:40 Yellow (Yellow) 01/03/19 10:13 Clear (Clear) 01/03/19 10:13 8.0 (5-8) 01/03/19 10:13 Ur Specific [place] 1.015 (1.005-1.025) 01/03/19 10:13 Negative mg/dL (Negative) 01/03/19 10:13 Negative mg/dL (Negative) 01/03/19 10:13 Negative (Negative) 01/03/19 10:13 Negative (Negative) 01/03/19 10:13 Negative (Negative) 01/03/19 10:13 1.0 EU/dL (Up TO 0.2) H 01/03/19 10:13 Ur Leukocyte Esterase Negative (Negative) 01/03/19 10:13 Negative mg/dL (Negative) 01/03/19 10:13 Documented by User: Sophie Bush DO 01/09/19 13:52 Assessment and Plan (1) Acute gangrenous cholecystitis: Current visit: Yes Status: Acute pt seen and examined. notes from PT and adela reviewed. Pt not up walking- can walk only from bed to door. very week. But, I don't think he was walking much at home. -d/c FELA drain and sharma today -IV iron for iron defn anemia. -planning on doing short term rehab for strength. unsure if pt will be able to coorporate in rehab due to cognitive impairments. -pt still lives independently and drives. Will have palative care eval from sx standpoint he can be dc'ed in am provided he has had a BM
[2019-01-09] MEDS: Psyllium PKT 1 EACH PO ×2 (07:50→20:09)
[2019-01-09] MEDS: Divalproex 500 MG TABEC PO ×2 (07:50→20:09)
[2019-01-09] MEDS: Atorvastatin 40 MG TAB PO (07:50)
[2019-01-09 07:53] LABS: Iron 17 ug/dL (50-175); Total Iron Binding Capacity 135 ug/dL (250-450); Transferrin Sat 13 % (20-55)
[2019-01-09 09:32] LABS: CEA 1.3 ng/ml
[2019-01-09 09:36] LABS: CA 19-9 12 U/mL (<35)
[2019-01-09] MEDS: Milk of Magnesia 30 ML CUP PO (11:48)
--- NOTE | 2019-01-09 12:00 | PT.INTREAT ---
Date of service: 01/09/19 Time of Service: 12:00 PT Notes Inpatient Physical Therapy Treatment Note [facility] Date: 01/09/19 PRECAUTIONS: Fall SUBJECTIVE: Jimmy is agreeable to participating in PT following some encouragement. He states that he is not sure if he has been out of bed or walking yet, nursing present reports that he has been up several times over the past few days. In the afternoon, patient asks multiple times if it's night or morning, and also states you don't know what it's like to have this pain. OBJECTIVE: PAIN: Patient c/o significant abdominal pain with transfers and gait training BED MOBILITY/TRANSFERS Supine-sit: Mod A with HOB at 30 degrees in a.m.; Mod A with HOB at 50 degrees p.m. Sit-stand: Min A in a.m.; CGA from elevated surface in p.m. Stand-sit: CGA x2 in a.m.; CGA p.m. GAIT Assistive Device: FWW Weight bearing: Full Assist: CGA x2 Distance: 15' in a.m.; 3' forward/backward + 6' Deviation: Standing rest x3, cueing for FWW mechanics Static stand x5 minutes with B UE support and SBA TOILETING: Patient was incontinent of urine in standing position, requiring assist ASSESSMENT: Patient tolerated session with c/o increased abdominal pain with transfers and gait. He was able to tolerate a progression in gait distance with FWW support and CGA x2 in a.m. He would benefit from continued gait and transfer training, as well as global strengthening for improved mobility and ability to perform daily functional tasks at more independent level. PLAN: Continue with PT's POC TREATMENT CODE/TIME: Session 1: 20 minutes; 11855 Session 2: 25 minutes; 19044 x2
[2019-01-09] MEDS: Insulin Aspart 300 UNITS/3 ML PEN SC ×3 (12:01→23:19)
--- NOTE | 2019-01-09 12:20 | W.SPEECHNOTE ---
Date of service: 01/09/19 Time of Service: 12:00 Speech Therapy Visit Note Note: S: Pt upright in chair for noon present. Son present and active for session. O:To assess meal tolerance, teach compensatory strategies and provide education. A: Educated son and pt findings in diet texture recommendations and strategies for PO medications. Son states swallowing is an ongoing issue at home. Reviewed safe swallow recommendations and compensatory strategies. Educated son and pt in implications of dysphagia and to seek outpatient treatment if issues persist with return of understanding. Pt consumed 25% of noon meal with no overt s/sx aspiration or penetration noted. Provided cues for alternating bites and sips and physical assist to obtain better positioning. Pt: Pt has met goals and completed treatment.
--- NOTE | 2019-01-09 15:59 | PDOC.CMPRO ---
- If Service Date Differs Date of service: 01/09/19 Time of Service: 15:59 Care Management Progress Note S/O: Jimmy was lying in bed when CM met with him. He reported that he was in a lot of pain. His daughter Francine was at his bedside. Home meds were brought in by Francine, as requested. Information was provided to Francine on SNF's in [place], at her request. A: 78 year old male admitted to [facility] 01/03/19 for Cholelithiasis-brought to OR 01/06/19 for Open Cholecystectomy. P: Jimmy will continue to be closely monitored and evaluated post-surgically. Per MD, anticipate discharge to SNF for ongoing rehabilitation no sooner than 01/10/19. CM faxed referral to [facility], the [facility], and [facility]. CM will continue to follow. Family has requested a palliative consult, which CLARISSA is coordinating.
[2019-01-09] MEDS: Normal Saline Flush 10 ML SYR IVP ×2 (16:05→22:07)
--- NOTE | 2019-01-09 16:06 | PDOC.CMPRO ---
Care Management Progress Note S/O: Jimmy was lying in bed when CM met with him. He reported increased pain but remained pleasant in interaction. His son Clive was at his bedside. Later in the day RNCC requested CM assistance with obtaining home medication; Degludec (Tresiba). CM spoke with Clive who reported Francine would deliver it tomorrow. CM notified RN[facility]. CM spoke with Dr. Bush who reported anticipating Jimmy would be discharge ready within the next few days. Clive reported wanting to broaden placement options to [facility] and [place]. A: 78 year old male admitted to [facility] 01/03/19 for Cholelithiasis-brought to OR today for Open Cholecystectomy. P: Jimmy will continue to be closely monitored and evaluated post-surgically. Per MD, anticipate discharge to SNF for ongoing rehabilitation no sooner than 01/10/19. CM faxed referral to [facility] for review. CM will continue to follow.
[2019-01-09] MEDS: metFORMIN 850 MG TAB PO (17:00)
[2019-01-09] MEDS: Normal Saline 1,000 ML 80 ML IV (17:24)
[2019-01-09] MEDS: Enoxaparin 30 MG/0.3 ML SYR SC (22:08)
[2019-01-10] VITALS (8 sets, daily range): BP systolic 127–178; BP diastolic 77–118; PULSE 67–87; RESP 16–21; TEMP 35.5–38; O2SAT 92–98
[2019-01-10] MEDS: traMADol 50 MG TAB PO ×2 (03:35→18:56)
[2019-01-10] MEDS: Normal Saline Flush 10 ML SYR IVP ×5 (03:36→21:20)
[2019-01-10] MEDS: PIPERACILLIN/TAZO 3.375 GM in Normal Saline 50 ML IVPB ×4 (03:36→21:20)
[2019-01-10] MEDS: ACETAMINOPHEN 1,000 MG/100 ML BTL 400 MG IVPB (04:41)
[2019-01-10] MEDS: Bisacodyl 5 MG TABEC PO ×3 (04:43→15:46)
[2019-01-10] MEDS: Milk of Magnesia 30 ML CUP PO ×2 (04:43→10:56)
[2019-01-10] MEDS: Ketorolac 15 MG/ML VIAL IVP ×2 (05:47→16:10)
[2019-01-10] MEDS: Levothyroxine 125 MCG TAB PO (05:48)
--- NOTE | 2019-01-10 07:19 | PGE_ITS ---
Date of Service Date of service: 01/10/19 Time of Service: 07:20 Assessment and Plan (1) Acute gangrenous cholecystitis: Current visit: Yes Status: Acute POD #4 Open [place]. Generalized abdominal pain with palpation. ? Ileus Hypoactive bowel sounds. No BM overnight despite Mag Citrate and Ducolax PO. Ordered Suppository and KUB (+) Fevers; Ordered CBCD, Mag and CMP Encouraged activity with PT and OT to increase strength and activity tolerance. Encourage use of Incentive Spirometer. (2) Bile peritonitis: Current visit: Yes Status: Acute Subjective Interval history since last seen: Per nsg the patient was awake all night with complaints of abdominal pain. He has been given Mag Citrate and Ducolax PO without any BM. Patient reports that he hurts all over and is unable to point to a specific location of discomfort. Exam Const General: cooperative Orientation: alert and awake Resp Effort & Inspection: normal respiratory effort, no audible wheezes and no cough GI Inspection: normal to inspection and distended Palpation: soft, guarding and tender Auscultation: hypoactive bowel sounds Objective Objective Clinical Data: Abnormal lab results 01/09/19 01/09/19 Range/Units 06:48 06:48 Glucose 123 H (70-100) mg/dL Calcium 8.3 L (8.5-10.1) mg/dL Iron 17 L (50-175) ug/dL TIBC 135 L (250-450) ug/dL Transferrin % Sat 13 L (20-55) % Vital Signs Temperature 38.0 C H 01/10/19 03:36 Temperature Source Tympanic 01/10/19 03:36 Pulse 87 01/10/19 03:36 Pulse Rhythm Regular 01/10/19 04:00 Pulse 60 01/03/19 13:20 Respiratory Rate 20 01/10/19 03:36 Respiratory Effort Non-Labored 01/10/19 04:00 Respiratory Depth Normal 01/10/19 04:00 Respiratory Pattern Normal 01/10/19 04:00 Blood Pressure 178/84 H 01/10/19 03:36 Blood Pressure Mean 125 01/03/19 13:16 Blood Pressure Position Supine 01/03/19 09:32 Pulse Oximetry 96 01/10/19 03:36 Respiratory End-tidal CO2 24 01/06/19 11:00 Oxygen Delivery Method Room Air 01/10/19 03:36 Oxygen Flow Rate 0 01/10/19 03:36 Pain Level 10 01/10/19 05:47 Comment 01/06/19 13:00 Intake & Output 01/09/19 01/10/19 01/10/19 18:59 06:59 18:59 Intake Total 1391.333 / 1692.666 301.333 / 1692.666 Output Total 525 / 725 200 / 725 Balance 866.333 / 967.666 101.333 / 967.666 Intake: IV 1221.333 / 1522.666 301.333 / 1522.666 Oral 170 / 170 Output: Drainage 150 / 150 Abdomen 150 / 150 Urine 375 / 575 200 / 575 Other: Urine Color [place] Yellow Urine Appearance Clear Clear Urine Odor Normal Comment pt incontinent x 1 so far this shift in brief. pt attempts to void unsuccessfully r/t urgency and not being able to get urinal in time Voiding Methods Urinal Diaper Incontinent Incontinent Laboratory Results WBC 9.65 k/cumm (4.4-10.8) 01/08/19 06:47 RBC 3.51 m/cumm (4.50-6.00) L 01/08/19 06:47 Hgb 12.0 g/dL (13.5-17.5) L 01/08/19 06:47 Hct 34.4 % (40.0-50.0) L 01/08/19 06:47 MCV 98.0 fL (80-95) H 01/08/19 06:47 MCH 34.2 pg (27.0-33.0) H 01/08/19 06:47 MCHC 34.9 g/dL (32.0-36.0) 01/08/19 06:47 RDW 13.3 % (11.8-14.1) 01/08/19 06:47 Plt Count 178 x1000/uL (130-400) 01/08/19 06:47 MPV 10.7 fL (8.0-11.0) 01/08/19 06:47 Immature Gran % 0.6 01/08/19 06:47 80.8 01/08/19 06:47 7.6 01/08/19 06:47 10.6 01/08/19 06:47 0.3 01/08/19 06:47 0.1 01/08/19 06:47 Absolute Neutrophils 7.80 k/cumm (1.2-6.7) H 01/08/19 06:47 Absolute Lymphocytes 0.73 k/cumm (1.2-3.4) L 01/08/19 06:47 Absolute Monocytes 1.02 k/cumm (0.11-0.7) H 01/08/19 06:47 Absolute Eosinophils 0.03 k/cumm (0.0-0.7) 01/08/19 06:47 Absolute Basophils 0.01 k/cumm (0.0-0.2) 01/08/19 06:47 PT 11.0 sec (9.3-11.0) 01/03/19 09:40 INR 1.1 (0.9-1.1) 01/03/19 09:40 Sodium 139 mmol/L (136-145) 01/09/19 06:48 Potassium 3.6 mmol/L (3.5-5.1) 01/09/19 06:48 Chloride 104 mmol/L (98-107) 01/09/19 06:48 Carbon Dioxide 25.6 mmol/L (21.0-32.0) 01/09/19 06:48 9.4 mmol/L (3-11) 01/09/19 06:48 BUN 14 mg/dL (7-18) 01/09/19 06:48 0.97 mg/dL (0.70-1.30) 01/09/19 06:48 >= 60.00 (mL/min/1.73m2) 01/09/19 06:48 Glucose 123 mg/dL (70-100) H 01/09/19 06:48 2.3 mmol/l (0.6-1.4) H 01/04/19 13:43 Calcium 8.3 mg/dL (8.5-10.1) L 01/09/19 06:48 Magnesium 1.8 mg/dL (1.8-2.4) 01/09/19 06:48 Iron 17 ug/dL (50-175) L 01/09/19 06:48 TIBC 135 ug/dL (250-450) L 01/09/19 06:48 Transferrin % Sat 13 % (20-55) L 01/09/19 06:48 1.8 mg/dL (0.2-1.0) H 01/08/19 06:47 AST 24 U/L (15-37) 01/08/19 06:47 ALT 33 U/L (12-78) 01/08/19 06:47 148 U/L (46-116) H 01/08/19 06:47 0.06 ng/mL (0.00-0.06) 01/03/19 12:33 6.4 g/dL (6.4-8.2) 01/08/19 06:47 1.8 g/dL (3.4-5.0) L 01/08/19 06:47 Amylase 20 U/L (25-115) L 01/07/19 07:15 43 U/L (73-393) L 01/07/19 07:15 Carcinoembryonic Ag 1.3 ng/ml 01/05/19 06:55 12 U/mL (<35) 01/04/19 06:30 TSH 1.77 uIU/mL (0.36-3.74) 01/03/19 09:40 Yellow (Yellow) 01/03/19 10:13 Clear (Clear) 01/03/19 10:13 8.0 (5-8) 01/03/19 10:13 Ur Specific [place] 1.015 (1.005-1.025) 01/03/19 10:13 Negative mg/dL (Negative) 01/03/19 10:13 Negative mg/dL (Negative) 01/03/19 10:13 Negative (Negative) 01/03/19 10:13 Negative (Negative) 01/03/19 10:13 Negative (Negative) 01/03/19 10:13 1.0 EU/dL (Up TO 0.2) H 01/03/19 10:13 Ur Leukocyte Esterase Negative (Negative) 01/03/19 10:13 Negative mg/dL (Negative) 01/03/19 10:13
--- NOTE | 2019-01-10 07:26 | W.PM.PROGNOT ---
Date of Service Date of service: 01/10/19 Time of Service: 07:26 Subjective Interval history since last seen: Patient denies abdominal pain or chest pain. He reports that he is tired, but otherwise feeling okay. Exam Const General: cooperative and diaphoretic Orientation: alert and oriented x3 Resp Effort & Inspection: normal respiratory effort, no audible wheezes and no cough Auscultation: clear to auscultation bilaterally Cardio Jugular venous pressure: no JVD Rate: regular rate Rhythm: regular rhythm Heart Sounds: S1 normal, S2 normal and no murmurs GI Inspection: normal to inspection and other (Ostomy pink. Dark brown, liquid stool in colostomy. ) Palpation: soft, no guarding and nontender Auscultation: hypoactive bowel sounds Objective Objective Clinical Data: Abnormal lab results 01/09/19 01/09/19 Range/Units 06:48 06:48 Glucose 123 H (70-100) mg/dL Calcium 8.3 L (8.5-10.1) mg/dL Iron 17 L (50-175) ug/dL TIBC 135 L (250-450) ug/dL Transferrin % Sat 13 L (20-55) % Vital Signs Temperature 38.0 C H 01/10/19 03:36 Temperature Source Tympanic 01/10/19 03:36 Pulse 87 01/10/19 03:36 Pulse Rhythm Regular 01/10/19 04:00 Pulse 60 01/03/19 13:20 Respiratory Rate 20 01/10/19 03:36 Respiratory Effort Non-Labored 01/10/19 04:00 Respiratory Depth Normal 01/10/19 04:00 Respiratory Pattern Normal 01/10/19 04:00 Blood Pressure 178/84 H 01/10/19 03:36 Blood Pressure Mean 125 01/03/19 13:16 Blood Pressure Position Supine 01/03/19 09:32 Pulse Oximetry 96 01/10/19 03:36 Respiratory End-tidal CO2 24 01/06/19 11:00 Oxygen Delivery Method Room Air 01/10/19 03:36 Oxygen Flow Rate 0 01/10/19 03:36 Pain Level 10 01/10/19 05:47 Comment 01/06/19 13:00 Intake & Output 01/09/19 01/10/19 01/10/19 18:59 06:59 18:59 Intake Total 1391.333 / 1692.666 301.333 / 1692.666 Output Total 525 / 725 200 / 725 Balance 866.333 / 967.666 101.333 / 967.666 Intake: IV 1221.333 / 1522.666 301.333 / 1522.666 Oral 170 / 170 Output: Drainage 150 / 150 Abdomen 150 / 150 Urine 375 / 575 200 / 575 Other: Urine Color [place] Yellow Urine Appearance Clear Clear Urine Odor Normal Comment pt incontinent x 1 so far this shift in brief. pt attempts to void unsuccessfully r/t urgency and not being able to get urinal in time Voiding Methods Urinal Diaper Incontinent Incontinent Laboratory Results WBC 9.65 k/cumm (4.4-10.8) 01/08/19 06:47 RBC 3.51 m/cumm (4.50-6.00) L 01/08/19 06:47 Hgb 12.0 g/dL (13.5-17.5) L 01/08/19 06:47 Hct 34.4 % (40.0-50.0) L 01/08/19 06:47 MCV 98.0 fL (80-95) H 01/08/19 06:47 MCH 34.2 pg (27.0-33.0) H 01/08/19 06:47 MCHC 34.9 g/dL (32.0-36.0) 01/08/19 06:47 RDW 13.3 % (11.8-14.1) 01/08/19 06:47 Plt Count 178 x1000/uL (130-400) 01/08/19 06:47 MPV 10.7 fL (8.0-11.0) 01/08/19 06:47 Immature Gran % 0.6 01/08/19 06:47 80.8 01/08/19 06:47 7.6 01/08/19 06:47 10.6 01/08/19 06:47 0.3 01/08/19 06:47 0.1 01/08/19 06:47 Absolute Neutrophils 7.80 k/cumm (1.2-6.7) H 01/08/19 06:47 Absolute Lymphocytes 0.73 k/cumm (1.2-3.4) L 01/08/19 06:47 Absolute Monocytes 1.02 k/cumm (0.11-0.7) H 01/08/19 06:47 Absolute Eosinophils 0.03 k/cumm (0.0-0.7) 01/08/19 06:47 Absolute Basophils 0.01 k/cumm (0.0-0.2) 01/08/19 06:47 PT 11.0 sec (9.3-11.0) 01/03/19 09:40 INR 1.1 (0.9-1.1) 01/03/19 09:40 Sodium 139 mmol/L (136-145) 01/09/19 06:48 Potassium 3.6 mmol/L (3.5-5.1) 01/09/19 06:48 Chloride 104 mmol/L (98-107) 01/09/19 06:48 Carbon Dioxide 25.6 mmol/L (21.0-32.0) 01/09/19 06:48 9.4 mmol/L (3-11) 01/09/19 06:48 BUN 14 mg/dL (7-18) 01/09/19 06:48 0.97 mg/dL (0.70-1.30) 01/09/19 06:48 >= 60.00 (mL/min/1.73m2) 01/09/19 06:48 Glucose 123 mg/dL (70-100) H 01/09/19 06:48 2.3 mmol/l (0.6-1.4) H 01/04/19 13:43 Calcium 8.3 mg/dL (8.5-10.1) L 01/09/19 06:48 Magnesium 1.8 mg/dL (1.8-2.4) 01/09/19 06:48 Iron 17 ug/dL (50-175) L 01/09/19 06:48 TIBC 135 ug/dL (250-450) L 01/09/19 06:48 Transferrin % Sat 13 % (20-55) L 01/09/19 06:48 1.8 mg/dL (0.2-1.0) H 01/08/19 06:47 AST 24 U/L (15-37) 01/08/19 06:47 ALT 33 U/L (12-78) 01/08/19 06:47 148 U/L (46-116) H 01/08/19 06:47 0.06 ng/mL (0.00-0.06) 01/03/19 12:33 6.4 g/dL (6.4-8.2) 01/08/19 06:47 1.8 g/dL (3.4-5.0) L 01/08/19 06:47 Amylase 20 U/L (25-115) L 01/07/19 07:15 43 U/L (73-393) L 01/07/19 07:15 Carcinoembryonic Ag 1.3 ng/ml 01/05/19 06:55 12 U/mL (<35) 01/04/19 06:30 TSH 1.77 uIU/mL (0.36-3.74) 01/03/19 09:40 Yellow (Yellow) 01/03/19 10:13 Clear (Clear) 01/03/19 10:13 8.0 (5-8) 01/03/19 10:13 Ur Specific [place] 1.015 (1.005-1.025) 01/03/19 10:13 Negative mg/dL (Negative) 01/03/19 10:13 Negative mg/dL (Negative) 01/03/19 10:13 Negative (Negative) 01/03/19 10:13 Negative (Negative) 01/03/19 10:13 Negative (Negative) 01/03/19 10:13 1.0 EU/dL (Up TO 0.2) H 01/03/19 10:13 Ur Leukocyte Esterase Negative (Negative) 01/03/19 10:13 Negative mg/dL (Negative) 01/03/19 10:13
--- NOTE | 2019-01-10 08:00 | DI.RAD_ITS ---
SYMPTOM/DIAGNOSIS: POST SURGERY, ? ILEUS ABDOMEN: 01/10 Multiple views were obtained. There are multiple vascular clips in the right upper quadrant which are new along with skin sutures consistent with the patient's reported recent cholecystectomy. Bowel gas pattern is essentially unremarkable with a few loops of minimally dilated small bowel noted. CONCLUSION: Findings consistent with mild post surgical ileus. PA CHEST: 01/10 There is mild elevation of the diaphragm on the right. Lungs appear clear. Cardiac size at the upper limits of normal to mildly enlarged. CONCLUSION: No evidence of acute process.
[2019-01-10] MEDS: Divalproex 500 MG TABEC PO ×2 (08:45→20:15)
[2019-01-10] MEDS: Bisacodyl 10 MG SUPP PR (08:45)
[2019-01-10] MEDS: HYDROcodone 5/Acetaminophen 325 TAB PO (11:37)
[2019-01-10 11:50] LABS: Abs Immature Grans 0.63 k/cumm (0.0-0.09); HCT 35.5 % (40.0-50.0); HGB 11.9 g/dL (13.5-17.5); Mean Corp. HGB Concentration 33.5 g/dL (32.0-36.0); Mean Corpuscular Hemoglobin 32.9 pg (27.0-33.0); Mean Corpuscular Volume 98.1 fL (80-95); Mean Platelet Volume 9.9 fL (8.0-11.0); Platelet Count 251 x1000/uL (130-400); RBC 3.62 m/cumm (4.50-6.00); RBC Distribution Width 13.3 % (11.8-14.1); White Blood Cell Count 10.89 k/cumm (4.4-10.8)
[2019-01-10 12:22] LABS: Absolute Eosinophil Count 0.11 k/cumm (0.0-0.7); Absolute Lymphocyte Count 1.42 k/cumm (1.2-3.4); Absolute Monocyte Count 1.96 k/cumm (0.11-0.7); Absolute Neutrophil Count 6.97 k/cumm (1.2-6.7); Atypical Lymphocytes % 4
[2019-01-10 12:23] LABS: Diff Comment Manual Differential; Polychromasia Present
[2019-01-10 12:28] LABS: ALT 24 U/L (12-78); AST 28 U/L (15-37); Albumin 1.7 g/dL (3.4-5.0); Alkaline Phosphatase 337 U/L (46-116); Anion Gap 6.7 mmol/L (3-11); BUN 14 mg/dL (7-18); Bilirubin, Total 1.7 mg/dL (0.2-1.0); CO2 30.3 mmol/L (21.0-32.0); CREATININE 1.12 mg/dL (0.70-1.30); Calcium 8.6 mg/dL (8.5-10.1); Chloride 103 mmol/L (98-107); Glucose 144 mg/dL (70-100); Sodium 140 mmol/L (136-145); Total Protein 5.8 g/dL (6.4-8.2)
--- NOTE | 2019-01-10 12:29 | PT.INTREAT ---
Date of service: 01/10/19 Time of Service: 10:49 PT Notes Inpatient Physical Therapy Treatment Note [facility] Date: 01/10/2019 PRECAUTIONS:Fall. Impaired safety awareness. Activity as tolerated. SUBJECTIVE: Patient reports severe pain on his lower abdominal area and low back area that is aggravated by movement. He is significantly frustrated about how being in the hospital can still cause so much pain. He is adamant about walking out of here as soon as he could. Daughter and grandson were present during the second and third attempt of this PT for a treatment with this patient. Daughter tried to reinforce the benefit of participating in therapy. OBJECTIVE: Patient is seen resting in bed moaning about his body hurting all over. Surgical incision with 17 rosemary on the right upper quadrant and 5 on the lower left quadrant. PAIN: 9/10 BED MOBILITY/TRANSFERS Rolling L/R: SBA Supine-sit: SBA Sit-supine: SBA Sit-stand: Patient refused x 5 Stand-sit: Patient refused x 5 Bed-Chair: Patient refused x 5 Chair-bed: Patient refused x 5 GAIT Patient refused x 5 THEREX: Patient refused x 5 ASSESSMENT: Patient currently limited in mobility-related ADLs by pain. Will coordinate with nursing staff for premedication to maximize functional performance. PLAN: Patient will benefit from home health PT services in order to progress mobility level using least restrictive assistive ambulatory device/using no device, assess home safety, identify additional equipment needs, and establish a functional maintenance program that will increase ability of patient to remain at home. TREATMENT CODE/TIME: 79753 x 26 minutes beginning at 10:49 AM.
--- NOTE | 2019-01-10 14:02 | PT.INTREAT ---
Date of service: 01/10/19 Time of Service: 14:02 PT Notes Inpatient Physical Therapy Treatment Note [facility] Date: 01/10/19 PRECAUTIONS: Fall SUBJECTIVE: Jimmy is agreeable to participating in PT, he reports that he is feeling extremely fatigued today and would like to just take a nap. OBJECTIVE: PAIN: Patient c/o minimal abdominal pain with transfers and gait training BED MOBILITY/TRANSFERS Sit-supine: SBA with HOB at 10 degrees Sit-stand: SBA Stand-sit: SBA GAIT Assistive Device: FWW Weight bearing: Full Assist: CGA Distance: 15' Static stand x1 minutes with B UE support and SBA ASSESSMENT: Patient tolerated session with minimal c/o increased abdominal pain with transfers and gait. He would benefit from continued gait and transfer training, as well as global strengthening for improved mobility and ability to perform daily functional tasks at more independent level. PLAN: Continue with PT's POC TREATMENT CODE/TIME: 15 minutes; [id number]
--- NOTE | 2019-01-10 14:11 | CHAPLAIN ---
Jimmy was sleeping when I stopped in. I spoke with his daughter who is visiting from [place], [place]. She said Jimmy has said he has pain and was recently give pain medication which will hopefully kick in soon. Jimmy's daughter plans to be here again tomorrow along with her brother, Clive. I met Clive last week while Jimmy was out of the room, but hadn't yet met Jimmy. His daughter is hoping to speak with the hospital this afternoon before leaving for home today. Jimmy woke up occasionally while I was talking with his daughter and asked for a spoon at one point. His daughter said he had made that request a few times today.
--- NOTE | 2019-01-10 16:25 | W.INDIABCONS ---
Date of service: 01/10/19 Time of Service: 16:25 Diabetes Inpatient Consult DESCRIPTION/ASSESSMENT: Appreciate diabetes consult for Mr. Arcos. He is hospitalized with peritonitis. Blood sugars are reasonable early in the day, however they tend to increase by supper or bedtime. Current A1c 5.9 taking 850mg Metformin BID and 40uTresiba. Concern remains high risk for hypoglycemia given his tight glucose management and concern that he not able to identify and communicate symptoms. Given his 78 years and tight glycemic control, no further management is suggested other than possibly decreasing his basal insulin slightly to decrease risk for hypoglycemia. PLAN: WIll follow blood sugars. Time Spent in Nutritional Counseling and Treatment: 0 minutes face to face
--- NOTE | 2019-01-10 16:32 | W.PM.PROGNOT ---
Date of Service Date of service: 01/10/19 Time of Service: 16:33 Assessment and Plan (1) Acute gangrenous cholecystitis: Current visit: Yes Status: Acute A\\ POD #4 s/p open Cholecystectomy Patient complaining of 8-9/10 pain but is comfortable when I walk in the room. His abdomen is soft and there is no guarding. He is at risk for an abscess XRAY today showed a mild post-op ileus WBC count slightly up- he is on antibiotics P\\ Will continue to monitor Give him Toradol, tylenol and if absolutely necessary then give him some dilauded He needs to be up and walking which he refuses May need a follow up CT scan but would like to wait for a few days for better imaging results (2) Bile peritonitis: Current visit: Yes Status: Acute A\\ He is at risk for abscess formation P\\ Continue to monitor his pain and other vitals (3) Sick sinus syndrome: Current visit: Yes Status: Acute A\\ Stable P\\ Continue to monitor (4) Discharge planning issues: Current visit: Yes Status: Acute A\P: 1. dementia- awaiting Palliative care consult with patient and family 2. Leukocytosis- just barely above normal. Recheck in am Subjective Interval history since last seen: Mr. Arcos continues to complain of generalized abdominal pain. He is tolerating clears. He is confused and complains of being tired. I just want a pill so I can go to sleep and have people leave me alone. He has not had a BM yet. He was given a suppository without results. He refused the Mag Citrate ordered yesterday. Exam Resp Effort & Inspection: normal respiratory effort Auscultation: clear to auscultation bilaterally Cardio Rate: regular rate Rhythm: regular rhythm GI Inspection: incision (c/d/i) and other (dressing over the old FELA site. ) Palpation: soft, no hepatosplenomegaly and tender (mild generalized, no guarding or rebound) Auscultation: hypoactive bowel sounds Objective Objective Clinical Data: Abnormal lab results 01/10/19 01/10/19 Range/Units 11:35 11:35 WBC 10.89 H (4.4-10.8) k/cumm RBC 3.62 L (4.50-6.00) m/cumm Hgb 11.9 L (13.5-17.5) g/dL Hct 35.5 L (40.0-50.0) % MCV 98.1 H (80-95) fL Absolute Neutrophils 6.97 H (1.2-6.7) k/cumm Absolute Monocytes 1.96 H (0.11-0.7) k/cumm Glucose 144 H (70-100) mg/dL Total Bilirubin 1.7 H (0.2-1.0) mg/dL Alkaline Phosphatase 337 H (46-116) U/L Total Protein 5.8 L (6.4-8.2) g/dL Albumin 1.7 L (3.4-5.0) g/dL Vital Signs Temperature 95.9 F L 01/10/19 11:32 Temperature Source Tympanic 01/10/19 11:32 Pulse 72 01/10/19 11:32 Pulse Rhythm Regular 01/10/19 08:45 Pulse 60 01/03/19 13:20 Respiratory Rate 19 01/10/19 11:32 Respiratory Effort 01/10/19 08:45 Respiratory Depth Normal 01/10/19 08:45 Respiratory Pattern Normal 01/10/19 08:45 Blood Pressure 144/92 H 01/10/19 11:32 Blood Pressure Mean 125 01/03/19 13:16 Blood Pressure Position Supine 01/03/19 09:32 Pulse Oximetry 97 01/10/19 11:32 Respiratory End-tidal CO2 24 01/06/19 11:00 Oxygen Delivery Method Room Air 01/10/19 11:32 Oxygen Flow Rate 0 01/10/19 11:32 Pain Level 8 01/10/19 16:10 Comment 01/06/19 13:00 Intake & Output 01/09/19 01/10/19 01/10/19 23:59 11:59 23:59 Intake Total 422.666 / 1592.666 240 / 240 Output Total 500 / 1595 Balance -77.334 / -2.334 240 / 240 Intake: IV 302.666 / 1422.666 240 / 240 Oral 120 / 170 Output: Drainage 100 / 220 Abdomen 100 / 220 Urine 400 / 1375 Other: Urine Color [place] Yellow Urine Appearance Clear Clear Clear Urine Odor Normal Comment pt incontinent x 1 so far this shift in brief. pt attempts to void unsuccessfully r/t urgency and not being able to get urinal in time void x 2 this shift in toilet Stool Size Smear Voiding Methods Diaper Diaper Toilet Incontinent Incontinent Laboratory Results WBC 10.89 k/cumm (4.4-10.8) H 01/10/19 11:35 RBC 3.62 m/cumm (4.50-6.00) L 01/10/19 11:35 Hgb 11.9 g/dL (13.5-17.5) L 01/10/19 11:35 Hct 35.5 % (40.0-50.0) L 01/10/19 11:35 MCV 98.1 fL (80-95) H 01/10/19 11:35 MCH 32.9 pg (27.0-33.0) 01/10/19 11:35 MCHC 33.5 g/dL (32.0-36.0) 01/10/19 11:35 RDW 13.3 % (11.8-14.1) 01/10/19 11:35 Plt Count 251 x1000/uL (130-400) 01/10/19 11:35 MPV 9.9 fL (8.0-11.0) 01/10/19 11:35 Immature Gran % See Differential 01/10/19 11:35 64.0 01/10/19 11:35 9.0 01/10/19 11:35 Atypical Lymphs % 4 01/10/19 11:35 18.0 01/10/19 11:35 1.0 01/10/19 11:35 0.0 01/10/19 11:35 2.0 % 01/10/19 11:35 1.0 % 01/10/19 11:35 Absolute Neutrophils 6.97 k/cumm (1.2-6.7) H 01/10/19 11:35 Absolute Lymphocytes 1.42 k/cumm (1.2-3.4) 01/10/19 11:35 Absolute Monocytes 1.96 k/cumm (0.11-0.7) H 01/10/19 11:35 Absolute Eosinophils 0.11 k/cumm (0.0-0.7) 01/10/19 11:35 Absolute Basophils 0.00 k/cumm (0.0-0.2) 01/10/19 11:35 Manual differential 01/10/19 11:35 RBC Morphology See below 01/10/19 11:35 Present 01/10/19 11:35 PT 11.0 sec (9.3-11.0) 01/03/19 09:40 INR 1.1 (0.9-1.1) 01/03/19 09:40 Sodium 140 mmol/L (136-145) 01/10/19 11:35 Potassium 4.0 mmol/L (3.5-5.1) 01/10/19 11:35 Chloride 103 mmol/L (98-107) 01/10/19 11:35 Carbon Dioxide 30.3 mmol/L (21.0-32.0) 01/10/19 11:35 6.7 mmol/L (3-11) 01/10/19 11:35 BUN 14 mg/dL (7-18) 01/10/19 11:35 1.12 mg/dL (0.70-1.30) 01/10/19 11:35 >= 60.00 (mL/min/1.73m2) 01/10/19 11:35 Glucose 144 mg/dL (70-100) H 01/10/19 11:35 2.3 mmol/l (0.6-1.4) H 01/04/19 13:43 Calcium 8.6 mg/dL (8.5-10.1) 01/10/19 11:35 Magnesium 2.0 mg/dL (1.8-2.4) 01/10/19 11:35 Iron 17 ug/dL (50-175) L 01/09/19 06:48 TIBC 135 ug/dL (250-450) L 01/09/19 06:48 Transferrin % Sat 13 % (20-55) L 01/09/19 06:48 1.7 mg/dL (0.2-1.0) H 01/10/19 11:35 AST 28 U/L (15-37) 01/10/19 11:35 ALT 24 U/L (12-78) 01/10/19 11:35 337 U/L (46-116) H 01/10/19 11:35 0.06 ng/mL (0.00-0.06) 01/03/19 12:33 5.8 g/dL (6.4-8.2) L 01/10/19 11:35 1.7 g/dL (3.4-5.0) L 01/10/19 11:35 Amylase 20 U/L (25-115) L 01/07/19 07:15 43 U/L (73-393) L 01/07/19 07:15 Carcinoembryonic Ag 1.3 ng/ml 01/05/19 06:55 12 U/mL (<35) 01/04/19 06:30 TSH 1.77 uIU/mL (0.36-3.74) 01/03/19 09:40 Yellow (Yellow) 01/03/19 10:13 Clear (Clear) 01/03/19 10:13 8.0 (5-8) 01/03/19 10:13 Ur Specific [place] 1.015 (1.005-1.025) 01/03/19 10:13 Negative mg/dL (Negative) 01/03/19 10:13 Negative mg/dL (Negative) 01/03/19 10:13 Negative (Negative) 01/03/19 10:13 Negative (Negative) 01/03/19 10:13 Negative (Negative) 01/03/19 10:13 1.0 EU/dL (Up TO 0.2) H 01/03/19 10:13 Ur Leukocyte Esterase Negative (Negative) 01/03/19 10:13 Negative mg/dL (Negative) 01/03/19 10:13
[2019-01-10] MEDS: Simethicone 80 MG CHEW PO (16:52)
[2019-01-10] MEDS: metFORMIN 850 MG TAB PO (16:55)
[2019-01-10] MEDS: Psyllium PKT 1 EACH PO (20:15)
[2019-01-10] MEDS: Melatonin 3 MG TAB PO (21:21)
[2019-01-10] MEDS: Enoxaparin 30 MG/0.3 ML SYR SC (21:21)
[2019-01-11] MEDS: HYDROcodone 5/Acetaminophen 325 TAB PO ×4 (00:08→19:56)
[2019-01-11] MEDS: Insulin Aspart 300 UNITS/3 ML PEN SC ×2 (00:16→17:39)
[2019-01-11] MEDS: PIPERACILLIN/TAZO 3.375 GM in Normal Saline 50 ML IVPB ×4 (04:55→22:46)
[2019-01-11] MEDS: Normal Saline Flush 10 ML SYR IVP ×2 (04:55→09:18)
[2019-01-11 05:00] VITALS: BP 160/91; PULSE 77; RESP 19; TEMP 36.7; O2SAT 96
[2019-01-11] MEDS: Levothyroxine 125 MCG TAB PO (06:26)
[2019-01-11] MEDS: Lactobacillus Acidophilus CAP 1 CAP PO (06:26)
[2019-01-11] MEDS: Bisacodyl 5 MG TABEC PO (06:26)
[2019-01-11 07:24] LABS: Abs Immature Grans 0.74 k/cumm (0.0-0.09); Mean Corp. HGB Concentration 34.2 g/dL (32.0-36.0); Mean Corpuscular Hemoglobin 33.1 pg (27.0-33.0); Mean Corpuscular Volume 96.7 fL (80-95); Mean Platelet Volume 9.9 fL (8.0-11.0); Platelet Count 283 x1000/uL (130-400); RBC 3.93 m/cumm (4.50-6.00); RBC Distribution Width 13.3 % (11.8-14.1); White Blood Cell Count 11.18 k/cumm (4.4-10.8)
--- NOTE | 2019-01-11 07:31 | PGE_ITS ---
Documented by User: MAREK Manzanares 01/11/19 07:33 Date of Service Date of service: 01/11/19 Time of Service: 07:31 Assessment and Plan (1) Bile peritonitis: Current visit: Yes Status: Acute (2) Acute gangrenous cholecystitis: Current visit: Yes Status: Acute POD #5 s/p open shirley. Encouraged patient to participate in PT/OT and to sit up in the chair throughout the day. No BM, (+) Bowel sounds Subjective Interval history since last seen: I hurt every where. I can't get up. Exam Const General: cooperative and comfortable Orientation: alert and awake Resp Effort & Inspection: normal respiratory effort, no audible wheezes and no cough GI Inspection: normal to inspection and distended Palpation: soft, no guarding and tender Auscultation: normal bowel sounds Objective Objective Clinical Data: Abnormal lab results 01/10/19 01/10/19 Range/Units 11:35 11:35 WBC 10.89 H (4.4-10.8) k/cumm RBC 3.62 L (4.50-6.00) m/cumm Hgb 11.9 L (13.5-17.5) g/dL Hct 35.5 L (40.0-50.0) % MCV 98.1 H (80-95) fL Absolute Neutrophils 6.97 H (1.2-6.7) k/cumm Absolute Monocytes 1.96 H (0.11-0.7) k/cumm Glucose 144 H (70-100) mg/dL Total Bilirubin 1.7 H (0.2-1.0) mg/dL Alkaline Phosphatase 337 H (46-116) U/L Total Protein 5.8 L (6.4-8.2) g/dL Albumin 1.7 L (3.4-5.0) g/dL Vital Signs Temperature 36.7 C 01/11/19 05:00 Temperature Source Tympanic 01/11/19 05:00 Pulse 77 01/11/19 05:00 Pulse Rhythm Regular 01/11/19 05:00 Pulse 60 01/03/19 13:20 Respiratory Rate 19 01/11/19 05:00 Respiratory Effort Non-Labored 01/11/19 05:00 Respiratory Depth Normal 01/11/19 05:00 Respiratory Pattern Normal 01/11/19 05:00 Blood Pressure 160/91 H 01/11/19 05:00 Blood Pressure Mean 125 01/03/19 13:16 Blood Pressure Position Supine 01/03/19 09:32 Pulse Oximetry 96 01/11/19 05:00 Respiratory End-tidal CO2 24 01/06/19 11:00 Oxygen Delivery Method Room Air 01/11/19 05:00 Oxygen Flow Rate 0 01/11/19 05:00 Pain Level 9 01/10/19 21:37 Comment 01/10/19 23:45 Intake & Output 01/10/19 01/11/19 01/11/19 18:59 06:59 18:59 Intake Total 190 / 290 100 / 290 Output Total 200 / 300 100 / 300 Balance -10 / -10 0 / -10 Intake: IV 190 / 290 100 / 290 Output: Urine 200 / 300 100 / 300 Other: Urine Color Light Luisa Yellow Urine Appearance Clear Clear Comment void x 2 this shift in toilet Stool Size Smear Voiding Methods Urinal Diaper Incontinent Laboratory Results WBC 10.89 k/cumm (4.4-10.8) H 01/10/19 11:35 RBC 3.62 m/cumm (4.50-6.00) L 01/10/19 11:35 Hgb 11.9 g/dL (13.5-17.5) L 01/10/19 11:35 Hct 35.5 % (40.0-50.0) L 01/10/19 11:35 MCV 98.1 fL (80-95) H 01/10/19 11:35 MCH 32.9 pg (27.0-33.0) 01/10/19 11:35 MCHC 33.5 g/dL (32.0-36.0) 01/10/19 11:35 RDW 13.3 % (11.8-14.1) 01/10/19 11:35 Plt Count 251 x1000/uL (130-400) 01/10/19 11:35 MPV 9.9 fL (8.0-11.0) 01/10/19 11:35 Immature Gran % See Differential 01/10/19 11:35 64.0 01/10/19 11:35 9.0 01/10/19 11:35 Atypical Lymphs % 4 01/10/19 11:35 18.0 01/10/19 11:35 1.0 01/10/19 11:35 0.0 01/10/19 11:35 2.0 % 01/10/19 11:35 1.0 % 01/10/19 11:35 Absolute Neutrophils 6.97 k/cumm (1.2-6.7) H 01/10/19 11:35 Absolute Lymphocytes 1.42 k/cumm (1.2-3.4) 01/10/19 11:35 Absolute Monocytes 1.96 k/cumm (0.11-0.7) H 01/10/19 11:35 Absolute Eosinophils 0.11 k/cumm (0.0-0.7) 01/10/19 11:35 Absolute Basophils 0.00 k/cumm (0.0-0.2) 01/10/19 11:35 Manual differential 01/10/19 11:35 RBC Morphology See below 01/10/19 11:35 Present 01/10/19 11:35 PT 11.0 sec (9.3-11.0) 01/03/19 09:40 INR 1.1 (0.9-1.1) 01/03/19 09:40 Sodium 140 mmol/L (136-145) 01/10/19 11:35 Potassium 4.0 mmol/L (3.5-5.1) 01/10/19 11:35 Chloride 103 mmol/L (98-107) 01/10/19 11:35 Carbon Dioxide 30.3 mmol/L (21.0-32.0) 01/10/19 11:35 6.7 mmol/L (3-11) 01/10/19 11:35 BUN 14 mg/dL (7-18) 01/10/19 11:35 1.12 mg/dL (0.70-1.30) 01/10/19 11:35 >= 60.00 (mL/min/1.73m2) 01/10/19 11:35 Glucose 144 mg/dL (70-100) H 01/10/19 11:35 2.3 mmol/l (0.6-1.4) H 01/04/19 13:43 Calcium 8.6 mg/dL (8.5-10.1) 01/10/19 11:35 Magnesium 2.0 mg/dL (1.8-2.4) 01/10/19 11:35 Iron 17 ug/dL (50-175) L 01/09/19 06:48 TIBC 135 ug/dL (250-450) L 01/09/19 06:48 Transferrin % Sat 13 % (20-55) L 01/09/19 06:48 1.7 mg/dL (0.2-1.0) H 01/10/19 11:35 AST 28 U/L (15-37) 01/10/19 11:35 ALT 24 U/L (12-78) 01/10/19 11:35 337 U/L (46-116) H 01/10/19 11:35 0.06 ng/mL (0.00-0.06) 01/03/19 12:33 5.8 g/dL (6.4-8.2) L 01/10/19 11:35 1.7 g/dL (3.4-5.0) L 01/10/19 11:35 Amylase 20 U/L (25-115) L 01/07/19 07:15 43 U/L (73-393) L 01/07/19 07:15 Carcinoembryonic Ag 1.3 ng/ml 01/05/19 06:55 12 U/mL (<35) 01/04/19 06:30 TSH 1.77 uIU/mL (0.36-3.74) 01/03/19 09:40 Yellow (Yellow) 01/03/19 10:13 Clear (Clear) 01/03/19 10:13 8.0 (5-8) 01/03/19 10:13 Ur Specific [place] 1.015 (1.005-1.025) 01/03/19 10:13 Negative mg/dL (Negative) 01/03/19 10:13 Negative mg/dL (Negative) 01/03/19 10:13 Negative (Negative) 01/03/19 10:13 Negative (Negative) 01/03/19 10:13 Negative (Negative) 01/03/19 10:13 1.0 EU/dL (Up TO 0.2) H 01/03/19 10:13 Ur Leukocyte Esterase Negative (Negative) 01/03/19 10:13 Negative mg/dL (Negative) 01/03/19 10:13 Documented by User: Sophie Bush, DO 01/11/19 12:15 Assessment and Plan (1) Obstipation: Current visit: Yes Status: Acute pt has still not had a BM. He has not been walking- refusesd to do so. RN's have noticed decreased po intake today, he is not even drinking. Will re- start IV fluid. -start pt on some chronic magnesium supplementation as well for his SSS. -try PEG soln mixed in favorite fluid every 15 mins until BM- like prepping for a CE. -once he has a BM, can go to rehab. -intermediate project manager placement per family -have not been able to coordinate a palliative care consult
[2019-01-11 07:44] LABS: ALT 22 U/L (12-78); AST 34 U/L (15-37); Albumin 1.6 g/dL (3.4-5.0); Alkaline Phosphatase 317 U/L (46-116); BUN 12 mg/dL (7-18); Bilirubin, Total 1.6 mg/dL (0.2-1.0); CREATININE 0.96 mg/dL (0.70-1.30); Calcium 8.7 mg/dL (8.5-10.1); Chloride 101 mmol/L (98-107); Glucose 116 mg/dL (70-100); Magnesium 1.8 mg/dL (1.8-2.4); Potassium 3.6 mmol/L (3.5-5.1); Sodium 138 mmol/L (136-145); Total Protein 6.7 g/dL (6.4-8.2)
[2019-01-11] MEDS: Divalproex 500 MG TABEC PO ×2 (07:45→19:56)
[2019-01-11] MEDS: metFORMIN 850 MG TAB PO ×2 (07:45→17:38)
[2019-01-11] MEDS: Atorvastatin 40 MG TAB PO (07:45)
[2019-01-11 08:05] LABS: Absolute Eosinophil Count 0.11 k/cumm (0.0-0.7); Absolute Lymphocyte Count 1.23 k/cumm (1.2-3.4); Absolute Monocyte Count 1.23 k/cumm (0.11-0.7); Absolute Neutrophil Count 8.16 k/cumm (1.2-6.7); Atypical Lymphocytes % 2
[2019-01-11 08:06] LABS: Diff Comment Manual Differential; Nucleated RBC 1 /100WBC; Polychromasia Present
--- NOTE | 2019-01-11 09:35 | W.PALLCONSUL ---
Date of service: 01/11/19 History of Present Illness Chief Complaint: gangrenous gallbladder; uncontrolled pain Narrative: I met with Jimmy, his son Clive and daughter Francine on 01/11. Jimmy's pain has been uncontrolled by his report. However, some staff say he appeared comfortable after being given tramadol and/or tylenol. He says They are not treating my pain. He reports he has not been able to sleep. He has no energy. At home, prior to this admission, he has been failing, since last January when he lost his partner of 26 years. He lives with his son who says a long walk for his dad would be 50 feet; he usually walks less than 20 feet per day. He sleeps 14--18 hrs per day. He has been suffering from severe pain all over. No source was found for his pain until this admission. His son says over his lifetime, Jimmy as taken a ton of pain medications. He has high tolerance to opioids. Currently, he does have constipation. He has tried bowel meds without success. Consults Consult date: 01/11/19 Requesting physician: Sharon Cross Assessment and Plan (1) Pain: Current visit: Yes Status: Acute Not getting his prn vicodin. Scheduled it. Will see how he does re: comfort. Unclear how much pain is acute from his recent gangrenous shirley and how much is chronic. Will see IF he can recover. Level of chronic illness before this hospitalization is significant. (2) Goals of care, counseling/discussion: Current visit: Yes Status: Acute Both Jimmy and his family recognize that he will not be able to go directly home. Will need rehab stay---if he is able to recover. He has been failing at home. He is DNR/DNI. COLST done. He was very self-conscious about his weakness, poor handwriting. He does not want to be in SNF long-term. He does not want to in a SNF if possible Family looking at [facility] in [place], [place]. They will pay out of pocket for ambulance to transfer him if needed. They do not feel safe transporting him, given his long-term weakness and non-ambulatory status. (3) Palliative care patient: Current visit: Yes Status: Acute Will see him again for pain control as needed. I am concerned that Jimmy will not recover from this event. Family is aware, and share same concerns. (4) Obstipation: Current visit: No Status: Acute (5) Acute gangrenous cholecystitis: Current visit: Yes Status: Acute Surgery managing as best they can. Jimmy is both acutely and chronically ill. Review of Systems Constitutional Reports body ache(s), Reports daytime sleepiness, Reports difficulty sleeping, Reports fatigue, Reports fever(s), Reports lethargy and Reports weakness Eyes Reports requires corrective lenses ENT Reports abnormal hearing, Reports dysphagia, Reports dizziness, Reports hearing loss, Reports neck pain and Reports disequilibrium Cardiovascular Reports leg edema, Reports lightheadedness, Reports palpitations, Reports dyspnea and Reports dyspnea on exertion Respiratory Reports dyspnea and Reports dyspnea on exertion Gastrointestinal Reports abdominal pain, Reports bloating, Reports constipation, Reports dysphagia, Reports early satiety and Reports nausea Genitourinary Reports difficulty urinating Musculoskeletal Reports back pain, Reports myalgias, Reports arthralgias, Reports muscle weakness, Reports neck pain and Reports stiffness Integumentary/Breasts Reports dry skin and Reports wounds Neurologic Reports abnormal hearing, Reports abnormal speech, Reports dizziness, Reports memory loss, Reports disequilibrium and Reports weakness Psychiatric Reports anxiety, Reports depression, Reports difficulty concentrating, Reports hopelessness, Reports irritability, Reports anhedonia and Reports memory loss Comments: denies depression, anxiety or sadness, says he is stressed appears to have all of the above Endocrine Reports fatigue and Reports palpitations Hematologic/Lymphatic Reports easy bruising [facility] Medical History (Updated 01/16/19 @ 10:04 by Adia Whyte MD) Acquired hypothyroidism (Chronic 11/05/17) Acute right-sided low back pain without sciatica (Chronic 01/14/18) Adjustment disorder, unspecified (Chronic 06/09/16) Age-related macular degeneration (Chronic 08/27/11) Atherosclerosis of [place] coronary artery of [place] heart without angina pectoris (Chronic 08/21/98) Back pain (Chronic) Chronic rhinitis (Chronic 08/27/11) Compulsive skin picking (Chronic) Coronary artery disease (Acute) Diabetes mellitus type 2, controlled, without complications (Chronic 05/31/93) Dysphagia (Acute) Elevated prostate specific antigen [PSA] (Chronic 08/27/11) 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) Goals of care, counseling/discussion (Acute) Hearing loss (Chronic 08/27/11) Hyperlipidemia (Chronic 08/27/11) Memory disturbance (Chronic 09/08/16) Nephrolithiasis (Chronic) Obstipation (Acute) Obstructive sleep apnea (Chronic) Pain (Acute) Palliative care patient (Acute) Pulmonary nodules (Chronic 07/24/16) Sick sinus syndrome (Acute) Type 2 diabetes mellitus (Acute) Surgical History Arthroscopy, Shoulder (Resolved 10/02/13) Colonoscopy - MAC (Resolved 02/16/17) Coronary Stent (Resolved 04/03/13) H/O cardiac radiofrequency ablation (Resolved) H/O lithotripsy (Inactive ~08/25/06) H/O lithotripsy (Resolved) H/O percutaneous transluminal coronary angioplasty (Resolved ~08/23/98) H/O umbilical hernia repair (Resolved ~10/14/09) H/O umbilical hernia repair (Inactive ~05/30/79) H/O umbilical hernia repair (Resolved) History of heart artery stent (Resolved) Hx of arthroscopy of left knee (Resolved ~05/31/05) Hx of cholecystectomy (Chronic) Rotator cuff arthropathy of right shoulder (Resolved) S/P left rotator cuff repair (Resolved ~03/12/08) S/P right knee arthroscopy (Resolved) Status post ablation of ventricular arrhythmia (Inactive ~10/04/09) Tubular adenoma of colon (Resolved 01/19/14) Family History Mother Personal history of malignant neoplasm Father Heart disease Dementia Sister Colon cancer Diabetes Other Colon cancer Brother Diabetes Sister Obesity Brother No problems noted. 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 Pets and animals: No What is your relationship status?: How often do you talk on the phone with friends or family?: three or more times per week How often do you get together with friends or relatives?: once per week Panel score (0-1 are the most socially isolated patients): 1 What type of physical activity do you participate in: none and sedentary lifestyle Duration: < 15 minutes/day Special bucky needs: No Seatbelt use: sometimes Drive intox or ride w/intox school bus driver: No Working smoke detector in home: Yes Carbon monox detector in home: Yes Do you feel safe at home: Yes Do you feel safe in your relationship?: Yes Additional Social history: once; first at age 50. Then with next partner, Norma x 27years. She in 2018. He has not recovered from her . His health continues to decline. Not able to live alone anymore. Prior to this illness, family looking at assisted living/SNF. He doesn't want to in SNF. Exam Const General: in distress (uncomfortable, restless, irritable) mild and ill appearing Nutritional Appearance: obese Orientation: awake, oriented to person and oriented to place [facility] Head: normocephalic and atraumatic Ears: hearing grossly impaired General nose exam: external nose normal and no nasal discharge Face and sinus: normal facial exam, face symmetric and dry mucous membranes Eyes Periorbital: periorbital findings normal Conjunctivae: conjunctivae normal Sclera: sclerae normal Other: visual acuity poor hard for him to read, has to have document read to him Neck Neck: no lymphadenopathy and no JVD Resp Effort & Inspection: normal respiratory effort and able to speak in complete sentences Auscultation: crackles (bases) bilaterally and diminished lung sounds Cardio Jugular venous pressure: no JVD Rate: regular rate Rhythm: regular rhythm Heart Sounds: S1 normal and S2 normal GI Inspection: incision and obesity Palpation: tender Auscultation: hypoactive bowel sounds Skin General skin exam: dry skin Nails: clubbing and discolored Neuro General: awake and oriented Patient Orientation: Person Cognition: abnormal cognition Speech: abnormal speech Extrem General: edema and muscle atrophy Psych Appearance: disheveled Speech and Movement: delayed speech, restless and slowed movement (due to pain, moving very gingerly) Mood: dysthymic mood and irritable mood Affect: sad, dysphoric affect and irritable affect Attitude: avoids eye contact (due to discomfort) Thought Process: impoverished Insight: limited Judgment: limited Results Last Vital Signs Temp 99.0 F 01/16/19 07:25 Pulse 56 L 01/16/19 07:25 Resp 27 H 01/16/19 07:25 BP 123/61 01/16/19 07:25 Pulse Ox 97 01/16/19 07:25 Labs : 01/16/19 06:50 01/15/19 12:55 Laboratory Results - last 24 hr 01/15/19 01/15/19 01/16/19 12:55 12:55 06:50 WBC 29.90 H* 47.42 H* D RBC 3.87 L 3.69 L Hgb 12.9 L 12.2 L Hct 37.9 L 37.0 L MCV 97.9 H 100.3 H MCH 33.3 H 33.1 H MCHC 34.0 33.0 RDW 13.5 14.1 Plt Count 418 H 314 D MPV 9.5 10.0 Immature Gran % See Differential Neutrophils % 77.0 Band Neutrophils % 11.0 Lymphocytes % 2.0 Monocytes % 9.0 Eosinophils % 0.0 Basophils % 0.0 Metamyelocytes % 1.0 Absolute Neutrophils 41.73 H Absolute Lymphocytes 0.95 L Absolute Monocytes 4.27 H Absolute Eosinophils 0.00 Absolute Basophils 0.00 Differential Comment Manual differential RBC Morphology Normal Sodium 134 L Potassium 4.8 D Chloride 101 Carbon Dioxide 23.7 Anion Gap 9.3 BUN 7 Creatinine 1.05 Estimated GFR/1.73 m2 >= 60.00 Glucose 159 H Calcium 8.7 Total Bilirubin 1.6 H AST 25 ALT 16 Alkaline Phosphatase 341 H Total Protein 6.9 Albumin 1.6 L
[2019-01-11] MEDS: POTASSIUM CHLORIDE/D5-0.45NACL 1,000 ML 100 MEQ IV (11:14)
[2019-01-11] MEDS: MAGNESIUM SULFATE 1 GM/100 ML BAG IVPB (11:14)
[2019-01-11 11:17] VITALS: BP 153/93; PULSE 78; RESP 19; TEMP 36.5; O2SAT 96
--- NOTE | 2019-01-11 12:16 | PT.INTREAT ---
Date of service: 01/11/19 Time of Service: 12:16 PT Notes Inpatient Physical Therapy Treatment Note [facility] Date: 01/11/19 PRECAUTIONS: Fall SUBJECTIVE: Jimmy reporting that he is experiencing significant pain in his abdomen. He states I don't want to walk, I just want to lay in my bed. I'd just like to be on bed rest. OBJECTIVE: PAIN: Patient c/o significant pain in abdomen with gait, transfers, and bed mobility. BED MOBILITY/TRANSFERS Supine?sit: Mod a with HOB at 30 degrees Sit-supine: SBA with HOB flat Sit-stand: CGA in a.m.; SBA in p.m. Stand-sit: SBA GAIT Assistive Device: FWW Weight bearing: Full Assist: CGA Distance: 20' in a.m.; patient refused gait training in p.m. Deviation: Slow pace, increased abdominal pain, verbal and tactile cueing for FWW mechanics Static standing with SBA and FWW support x3 minutes and p.m. THEREX: Patient performed AP, GS, and QS exercises, following significant encouragement, as per flow sheet. Patient performed bridging exercise x5 in p.m., with complaints of increased pain. ASSESSMENT: Patient tolerated a progression in gait distance with FWW support and CGA. Patient requires cueing for FWW mechanics for safety, and demonstrates a slow pace. Patient would benefit from continued gait and transfer training, as well as strengthening for improved activity tolerance and mobility. PLAN: Continue with PT's POC TREATMENT CODE/TIME: Session 1: 15 minutes; 10166 Session 2: 30 minutes; 90544 x2
[2019-01-11] MEDS: IRON SUCROSE COMPLEX 200 MG in Normal Saline 100 ML 110 MG IVPB (12:50)
[2019-01-11 13:54] VITALS: O2SAT 84
[2019-01-11 14:00] VITALS: BP 164/99; PULSE 87; RESP 20; TEMP 36.6; O2SAT 91
[2019-01-11] MEDS: Methylnaltrexone 12 MG/0.6 ML VIAL 17 MG SC (15:14)
--- NOTE | 2019-01-11 15:32 | PDOC.CMPRO ---
- If Service Date Differs Date of service: 01/11/19 Time of Service: 15:32 Care Management Progress Note S/O: Jimmy was lying in bed and appeared to be sleeping when CM entered the room. His daughter Francine was at his bedside. CM spoke with Francine about the Palliative consult appt with Dr. Whyte which happened earlier today. Jimmy woke up while CM was in the room, and stated that he was in a lot of pain. Francine expressed that Dr. Whyte had addressed his pain management. A: 78 year old male admitted to [facility] 01/03/19 for Cholelithiasis-brought to OR 01/06/19 for Open Cholecystectomy. P: Jimmy will continue to be closely monitored and evaluated post-surgically. Per MD, anticipate discharge to SNF for ongoing rehabilitation. CM faxed referral to [facility], the [facility], and [facility]. CM will continue to follow.
--- NOTE | 2019-01-11 16:59 | PDOC.CMPRO ---
Care Management Progress Note S/O: Jimmy, his son Clive and daughter Francine met with Palliative Care today; Dr. Whyte-please refer to her note for further information. He continues to report ongoing pain but remains pleasant in interaction. CM continues to follow. A: 78 year old male admitted to [facility] 01/03/19 for Cholelithiasis-brought to OR today for Open Cholecystectomy. P: Jimmy will continue to be closely monitored and evaluated post-surgically. CM spoke to the [facility] who reported the facility was unable to offer a bed at this time and did not anticipate bed availability for at least a few weeks. CM continues to seek placement. [facility] is reviewing at this time. CM will continue to follow.
[2019-01-11] MEDS: traMADol 50 MG TAB PO ×2 (17:38→23:29)
[2019-01-11 20:22] VITALS: BP 153/92; PULSE 75; RESP 20; TEMP 36.3; O2SAT 96
[2019-01-11] MEDS: Melatonin 3 MG TAB PO (23:29)
[2019-01-11] MEDS: Magnesium Oxide 400 MG TAB 800 MG PO (23:29)
[2019-01-11] MEDS: Enoxaparin 30 MG/0.3 ML SYR SC (23:29)
[2019-01-12 00:27] VITALS: BP 166/91; PULSE 79; RESP 20; TEMP 36.2; O2SAT 93
[2019-01-12] MEDS: HYDROcodone 5/Acetaminophen 325 TAB PO ×2 (01:46→20:34)
[2019-01-12] MEDS: POTASSIUM CHLORIDE/D5-0.45NACL 1,000 ML 100 MEQ IV (01:46)
[2019-01-12] MEDS: Insulin Aspart 300 UNITS/3 ML PEN SC (01:47)
[2019-01-12] MEDS: Normal Saline Flush 10 ML SYR IVP ×4 (02:25→20:38)
[2019-01-12] MEDS: Ketorolac 15 MG/ML VIAL IVP ×3 (02:26→16:30)
[2019-01-12] MEDS: PIPERACILLIN/TAZO 3.375 GM in Normal Saline 50 ML IVPB ×2 (04:15→09:28)
[2019-01-12] MEDS: Levothyroxine 125 MCG TAB PO (06:31)
[2019-01-12 06:33] VITALS: BP 135/85; PULSE 71; RESP 18; TEMP 36.5; O2SAT 95
--- NOTE | 2019-01-12 08:48 | W.PM.PROGNOT ---
Documented by User: MAREK Manzanares 01/12/19 08:51 Date of Service Date of service: 01/12/19 Time of Service: 08:48 Assessment and Plan (1) Bile peritonitis: Current visit: Yes Status: Acute (2) Acute gangrenous cholecystitis: Current visit: Yes Status: Acute POD #6 s/p open shirley. Encouraged patient to participate in PT/OT and to sit up in the chair throughout the day. He had Bowel movement yesterday. Discussed with his daughter encouraging him to sit in the chair during the day and to participate in rehab. (3) Obstipation: Current visit: No Status: Acute Subjective Interval history since last seen: I just hurt everywhere. He is unable to identify a specific location that hurts the most. (+) BM yesterday. Exam Const General: cooperative and comfortable Orientation: alert and oriented x3 Resp Effort & Inspection: normal respiratory effort, no audible wheezes and no cough GI Inspection: distended Palpation: soft, guarding and tender (Generalized.) Auscultation: normal bowel sounds Objective Objective Clinical Data: Vital Signs Temperature 36.5 C 01/12/19 06:33 Temperature Source Tympanic 01/12/19 06:33 Pulse 71 01/12/19 06:33 Pulse Rhythm Regular 01/12/19 01:56 Pulse 60 01/03/19 13:20 Respiratory Rate 18 01/12/19 06:33 Respiratory Effort Non-Labored 01/12/19 01:56 Respiratory Depth Normal 01/12/19 01:56 Respiratory Pattern Normal 01/12/19 01:56 Blood Pressure 135/85 01/12/19 06:33 Blood Pressure Mean 125 01/03/19 13:16 Blood Pressure Position Supine 01/03/19 09:32 Pulse Oximetry 95 01/12/19 06:33 Respiratory End-tidal CO2 24 01/06/19 11:00 Oxygen Delivery Method Room Air 01/12/19 06:33 Oxygen Flow Rate 0 01/12/19 06:33 Pain Level 8 01/12/19 06:33 Comment 01/12/19 00:27 Intake & Output 01/11/19 01/12/19 01/12/19 18:59 06:59 18:59 Intake Total 430 / 1780 1350 / 1780 Balance 430 / 1780 1350 / 1780 Intake: IV 330 / 1440 1110 / 1440 Oral 100 / 340 240 / 340 Other: Urine Color Yellow Yellow Urine Appearance Clear Clear Urine Odor Normal Normal Comment pt alerts RN that he needs to void, pt declines urinal and voids in brief Stool Size Copious Stool Characteristics Soft Formed Brown Voiding Methods Diaper Diaper Incontinent Laboratory Results WBC 11.18 k/cumm (4.4-10.8) H 01/11/19 06:50 RBC 3.93 m/cumm (4.50-6.00) L 01/11/19 06:50 Hgb 13.0 g/dL (13.5-17.5) L 01/11/19 06:50 Hct 38.0 % (40.0-50.0) L 01/11/19 06:50 MCV 96.7 fL (80-95) H 01/11/19 06:50 MCH 33.1 pg (27.0-33.0) H 01/11/19 06:50 MCHC 34.2 g/dL (32.0-36.0) 01/11/19 06:50 RDW 13.3 % (11.8-14.1) 01/11/19 06:50 Plt Count 283 x1000/uL (130-400) 01/11/19 06:50 MPV 9.9 fL (8.0-11.0) 01/11/19 06:50 Immature Gran % See Differential 01/11/19 06:50 73.0 01/11/19 06:50 9.0 01/11/19 06:50 Atypical Lymphs % 2 01/11/19 06:50 11.0 01/11/19 06:50 1.0 01/11/19 06:50 0.0 01/11/19 06:50 1.0 % 01/11/19 06:50 3.0 % 01/11/19 06:50 Absolute Neutrophils 8.16 k/cumm (1.2-6.7) H 01/11/19 06:50 Absolute Lymphocytes 1.23 k/cumm (1.2-3.4) 01/11/19 06:50 Absolute Monocytes 1.23 k/cumm (0.11-0.7) H 01/11/19 06:50 Absolute Eosinophils 0.11 k/cumm (0.0-0.7) 01/11/19 06:50 Absolute Basophils 0.00 k/cumm (0.0-0.2) 01/11/19 06:50 Nucleated RBCs 1 /100WBC 01/11/19 06:50 Manual differential 01/11/19 06:50 RBC Morphology See below 01/11/19 06:50 Present 01/11/19 06:50 PT 11.0 sec (9.3-11.0) 01/03/19 09:40 INR 1.1 (0.9-1.1) 01/03/19 09:40 Sodium 138 mmol/L (136-145) 01/11/19 06:50 Potassium 3.6 mmol/L (3.5-5.1) 01/11/19 06:50 Chloride 101 mmol/L (98-107) 01/11/19 06:50 Carbon Dioxide 27.0 mmol/L (21.0-32.0) 01/11/19 06:50 10.0 mmol/L (3-11) 01/11/19 06:50 BUN 12 mg/dL (7-18) 01/11/19 06:50 0.96 mg/dL (0.70-1.30) 01/11/19 06:50 >= 60.00 (mL/min/1.73m2) 01/11/19 06:50 Glucose 116 mg/dL (70-100) H 01/11/19 06:50 2.3 mmol/l (0.6-1.4) H 01/04/19 13:43 Calcium 8.7 mg/dL (8.5-10.1) 01/11/19 06:50 Magnesium 1.8 mg/dL (1.8-2.4) 01/11/19 06:50 Iron 17 ug/dL (50-175) L 01/09/19 06:48 TIBC 135 ug/dL (250-450) L 01/09/19 06:48 Transferrin % Sat 13 % (20-55) L 01/09/19 06:48 1.6 mg/dL (0.2-1.0) H 01/11/19 06:50 AST 34 U/L (15-37) 01/11/19 06:50 ALT 22 U/L (12-78) 01/11/19 06:50 317 U/L (46-116) H 01/11/19 06:50 0.06 ng/mL (0.00-0.06) 01/03/19 12:33 6.7 g/dL (6.4-8.2) 01/11/19 06:50 1.6 g/dL (3.4-5.0) L 01/11/19 06:50 Amylase 20 U/L (25-115) L 01/07/19 07:15 43 U/L (73-393) L 01/07/19 07:15 Carcinoembryonic Ag 1.3 ng/ml 01/05/19 06:55 12 U/mL (<35) 01/04/19 06:30 TSH 1.77 uIU/mL (0.36-3.74) 01/03/19 09:40 Yellow (Yellow) 01/03/19 10:13 Clear (Clear) 01/03/19 10:13 8.0 (5-8) 01/03/19 10:13 Ur Specific [place] 1.015 (1.005-1.025) 01/03/19 10:13 Negative mg/dL (Negative) 01/03/19 10:13 Negative mg/dL (Negative) 01/03/19 10:13 Negative (Negative) 01/03/19 10:13 Negative (Negative) 01/03/19 10:13 Negative (Negative) 01/03/19 10:13 1.0 EU/dL (Up TO 0.2) H 01/03/19 10:13 Ur Leukocyte Esterase Negative (Negative) 01/03/19 10:13 Negative mg/dL (Negative) 01/03/19 10:13 Documented by User: Sophie Bush DO 01/12/19 14:31 Assessment and Plan (1) Acute gangrenous cholecystitis: Current visit: Yes Status: Acute pt seen and examined. Agree w/ above pt is an unreliable historian. His story changes drastically. He says his in terrible pain and than immediately falls asleep. No tachycardia. BP stable. RN's are trying to avoid narcotics. tylenol does not work well for him. Toradol does seem to work well. -pt finally had a BM yest. -pt has had a good appetite consistently, even postOp. For the last 3 days pt has been refusing to eat. We assumed it was b/c he did not move his bowels. He is refusing to eat or drink today. We did resume his IVF. Calorie counts and protein supplements. -he did more PT today. We are working on placement in [facility]. -will check UA today -no diarrhea. stopped abx today. no fever or chills. Lungs= clear. no cp or sob or cough. no leg swelling. woundlooks good. -suitable for discharge at this point, once suitable rehab/SNF bed secured.
[2019-01-12] MEDS: Atorvastatin 40 MG TAB PO (09:14)
[2019-01-12] MEDS: Divalproex 500 MG TABEC PO (09:14)
[2019-01-12] MEDS: metFORMIN 850 MG TAB PO ×2 (09:14→17:46)
--- NOTE | 2019-01-12 11:11 | CMPROGNOTE_ITS ---
Care Management Progress Note S/O: Jimmy, his daughter Francine and CLARISSA reviewed planning with Jimmy's son Clive today; the family reported their preference would be for Jimmy to rehab at a SNF in [facility]. He continues to report ongoing pain but remains pleasant in interaction and was able to sit up in the chair and work with Physical Therapy well today. Please note SNF referral options below. CLARISSA continues to follow. A: 78 year old male admitted to [facility] 01/03/19 for Cholelithiasis-brought to OR today for Open Cholecystectomy. P: Jimmy will continue to be closely monitored and evaluated post-surgically. Bed offers received from [facility] and [facility] is reviewing; [facility] is reportedly the family's first choice; hopeful for determination tomorrow. CLARISSA will continue to follow. [facility]: [facility]: [phone], Sophie [phone] (on vacation) [facility] [phone]-left , [facility] called to notify that no male beds available; anticipated male bed availability 01/23/19. [facility]: [phone]--[facility]--Unable to offer dementia care or LTC for dementia. Willing to consider for SNF. [facility]: [facility]-unavailable this week. [facility]: CLARISSA (left VM) F# [phone]. [facility] P#[phone] returned call and reported [facility] offers SNF to enable Jimmy to remain in that one area. CLARISSA faxed referral and provided application to [facility] for completion and provided to S[facility] once complete.
--- NOTE | 2019-01-12 12:01 | PT.INTREAT ---
Date of service: 01/12/19 Time of Service: 12:01 PT Notes Inpatient Physical Therapy Treatment Note [facility] Date: 01/12/19 PRECAUTIONS: Fall SUBJECTIVE: Jimmy appears to be in better spirits today. He does report that he continues to not feel well, although states that he was able to have a bowel movement yesterday, and appears happy about that. He is agreeable to participating in PT, with minimal encouragement, and continues to report goals of getting strong enough to return to home in the future. OBJECTIVE: PAIN: Patient c/o pain in abdomen with transfers and bed mobility. BED MOBILITY/TRANSFERS Sit-supine: S with HOB flat Sit-stand: CGA Stand-sit: SBA GAIT Assistive Device: FWW Weight bearing: Full Assist: CGA x2 Distance: 30' Deviation: Slow pace, cueing for FWW mechanics for safety, standing rest x3 Static standing with CGA x2 and FWW support 3 x 2 minutes THEREX: Patient performed AP exercise in a supine position ASSESSMENT: Patient tolerated a progression in gait distance with FWW support and CGA x2. Patient requires cueing for FWW mechanics for safety, and demonstrates a slow pace. Patient would benefit from continued gait and transfer training, as well as strengthening for improved activity tolerance and mobility. PLAN: Continue with PT's POC TREATMENT CODE/TIME: 25 minutes; [id number] x2
[2019-01-12] MEDS: Bisacodyl 5 MG TABEC PO (13:13)
[2019-01-12] MEDS: POTASSIUM CHLORIDE/D5-0.45NACL 1,000 ML 82 MEQ IV (14:12)
--- NOTE | 2019-01-12 15:10 | PT.INNT ---
Date of service: 01/12/19 Time of Service: 15:10 PT Notes 01/12/19 Patient refused afternoon PT session due to pain. Per nsg, patient has been requesting to get up to chair and walk short distances in room today. Will attempt to resume PT services tomorrow morning.
[2019-01-12 15:31] VITALS: BP 165/82; PULSE 72; RESP 22; TEMP 36.2; O2SAT 95
--- NOTE | 2019-01-12 15:54 | CHAPLAIN ---
Jimmy was in bed and seemed restless. I spoke with his daughter who is locating residential placements for Jimmy, in [facility] where she lives. I continued to offer support.
[2019-01-12 19:28] VITALS: BP 158/98; PULSE 71; RESP 18; TEMP 36.3; O2SAT 94
[2019-01-12 19:58] LABS: HCT 35.9 % (40.0-50.0); Mean Corp. HGB Concentration 33.4 g/dL (32.0-36.0); Mean Corpuscular Hemoglobin 32.9 pg (27.0-33.0); Mean Corpuscular Volume 98.4 fL (80-95); Mean Platelet Volume 9.5 fL (8.0-11.0); Platelet Count 301 x1000/uL (130-400); RBC 3.65 m/cumm (4.50-6.00); RBC Distribution Width 13.5 % (11.8-14.1); White Blood Cell Count 12.66 k/cumm (4.4-10.8)
[2019-01-12 20:09] LABS: Magnesium 1.8 mg/dL (1.8-2.4)
[2019-01-12 20:14] LABS: ALT 20 U/L (12-78); AST 39 U/L (15-37); Albumin 1.5 g/dL (3.4-5.0); Alkaline Phosphatase 358 U/L (46-116); Anion Gap 6.9 mmol/L (3-11); BUN 11 mg/dL (7-18); Bilirubin, Total 1.3 mg/dL (0.2-1.0); CO2 26.1 mmol/L (21.0-32.0); CREATININE 0.98 mg/dL (0.70-1.30); Calcium 8.4 mg/dL (8.5-10.1); Chloride 101 mmol/L (98-107); Glucose 126 mg/dL (70-100); Total Protein 6.5 g/dL (6.4-8.2)
--- NOTE | 2019-01-12 20:15 | W.PM.PROGNOT ---
Date of Service Date of service: 01/12/19 Time of Service: 20:15 Assessment and Plan (1) Acute gangrenous cholecystitis: Current visit: Yes Status: Acute pt WBC is mildly elevated at 12.6. 11 yest. no diarrhea no fevers no eating and incont refusing PT. drain is out on 01/10 (was serious only) -will check CR -UA is pd. CT w/ IV and oral contrast for abscess or bile leak. pain out of proportion to expectations. Subjective Interval history since last seen: called by nursing. -pt still is not eating. 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 He is now completely incont of urine. -Has developed bruise on R flank- this is probably old hematoma from surgery. stop lovenox adn toradol (he has been on 5 days of IV toradol). -will check UA. st or condom cath if need be. -will check cbc and electrolytes. Exam GI Other: insicion was c/d/i intact today. There was some slt bruising around superior portion of incision today. + BS. abdomen was less distended after BM. Still c/o pain. L: CTA b/l. mild LE non pitting edema Objective Objective Clinical Data: Abnormal lab results 01/12/19 Range/Units 19:50 WBC 12.66 H (4.4-10.8) k/cumm RBC 3.65 L (4.50-6.00) m/cumm Hgb 12.0 L (13.5-17.5) g/dL Hct 35.9 L (40.0-50.0) % MCV 98.4 H (80-95) fL Vital Signs Temperature 36.3 C L 01/12/19 19:28 Temperature Source Tympanic 01/12/19 19:28 Pulse 71 01/12/19 19:28 Pulse Rhythm Irregular 01/12/19 16:45 Pulse 60 01/03/19 13:20 Respiratory Rate 18 01/12/19 19:28 Respiratory Effort Incrsd Work of Breathing 01/12/19 16:45 Respiratory Depth Normal 01/12/19 16:45 Respiratory Pattern Apnea 01/12/19 16:45 Blood Pressure 158/98 H 01/12/19 19:28 Blood Pressure Mean 125 01/03/19 13:16 Blood Pressure Position Supine 01/03/19 09:32 Pulse Oximetry 94 L 01/12/19 19:28 Respiratory End-tidal CO2 24 01/06/19 11:00 Oxygen Delivery Method Room Air 01/12/19 19:28 Oxygen Flow Rate 0 01/12/19 19:28 Pain Level 8 01/12/19 19:28 Comment 01/12/19 00:27 Intake & Output 01/11/19 01/12/19 01/12/19 23:59 11:59 23:59 Intake Total 1550 / 1820 130 / 1130 1000 / 1130 Balance 1550 / 1820 130 / 1130 1000 / 1130 Intake: IV 1310 / 1480 130 / 1130 1000 / 1130 Oral 240 / 340 Other: Urine Color Yellow Urine Appearance Clear Clear Urine Odor Normal Comment incontinent incontinet Stool Size Copious Stool Characteristics Soft Formed Brown Voiding Methods Diaper Incontinent Diaper Incontinent Laboratory Results WBC 12.66 k/cumm (4.4-10.8) H 01/12/19 19:50 RBC 3.65 m/cumm (4.50-6.00) L 01/12/19 19:50 Hgb 12.0 g/dL (13.5-17.5) L 01/12/19 19:50 Hct 35.9 % (40.0-50.0) L 01/12/19 19:50 MCV 98.4 fL (80-95) H 01/12/19 19:50 MCH 32.9 pg (27.0-33.0) 01/12/19 19:50 MCHC 33.4 g/dL (32.0-36.0) 01/12/19 19:50 RDW 13.5 % (11.8-14.1) 01/12/19 19:50 Plt Count 301 x1000/uL (130-400) 01/12/19 19:50 MPV 9.5 fL (8.0-11.0) 01/12/19 19:50 Immature Gran % See Differential 01/11/19 06:50 73.0 01/11/19 06:50 9.0 01/11/19 06:50 Atypical Lymphs % 2 01/11/19 06:50 11.0 01/11/19 06:50 1.0 01/11/19 06:50 0.0 01/11/19 06:50 1.0 % 01/11/19 06:50 3.0 % 01/11/19 06:50 Absolute Neutrophils 8.16 k/cumm (1.2-6.7) H 01/11/19 06:50 Absolute Lymphocytes 1.23 k/cumm (1.2-3.4) 01/11/19 06:50 Absolute Monocytes 1.23 k/cumm (0.11-0.7) H 01/11/19 06:50 Absolute Eosinophils 0.11 k/cumm (0.0-0.7) 01/11/19 06:50 Absolute Basophils 0.00 k/cumm (0.0-0.2) 01/11/19 06:50 Nucleated RBCs 1 /100WBC 01/11/19 06:50 Manual differential 01/11/19 06:50 RBC Morphology See below 01/11/19 06:50 Present 01/11/19 06:50 PT 11.0 sec (9.3-11.0) 01/03/19 09:40 INR 1.1 (0.9-1.1) 01/03/19 09:40 Sodium 138 mmol/L (136-145) 01/11/19 06:50 Potassium 3.6 mmol/L (3.5-5.1) 01/11/19 06:50 Chloride 101 mmol/L (98-107) 01/11/19 06:50 Carbon Dioxide 27.0 mmol/L (21.0-32.0) 01/11/19 06:50 10.0 mmol/L (3-11) 01/11/19 06:50 BUN 12 mg/dL (7-18) 01/11/19 06:50 0.96 mg/dL (0.70-1.30) 01/11/19 06:50 >= 60.00 (mL/min/1.73m2) 01/11/19 06:50 Glucose 116 mg/dL (70-100) H 01/11/19 06:50 2.3 mmol/l (0.6-1.4) H 01/04/19 13:43 Calcium 8.7 mg/dL (8.5-10.1) 01/11/19 06:50 Magnesium 1.8 mg/dL (1.8-2.4) 01/12/19 19:50 Iron 17 ug/dL (50-175) L 01/09/19 06:48 TIBC 135 ug/dL (250-450) L 01/09/19 06:48 Transferrin % Sat 13 % (20-55) L 01/09/19 06:48 1.6 mg/dL (0.2-1.0) H 01/11/19 06:50 AST 34 U/L (15-37) 01/11/19 06:50 ALT 22 U/L (12-78) 01/11/19 06:50 317 U/L (46-116) H 01/11/19 06:50 0.06 ng/mL (0.00-0.06) 01/03/19 12:33 6.7 g/dL (6.4-8.2) 01/11/19 06:50 1.6 g/dL (3.4-5.0) L 01/11/19 06:50 Amylase 20 U/L (25-115) L 01/07/19 07:15 43 U/L (73-393) L 01/07/19 07:15 Carcinoembryonic Ag 1.3 ng/ml 01/05/19 06:55 12 U/mL (<35) 01/04/19 06:30 TSH 1.77 uIU/mL (0.36-3.74) 01/03/19 09:40 Yellow (Yellow) 01/03/19 10:13 Clear (Clear) 01/03/19 10:13 8.0 (5-8) 01/03/19 10:13 Ur Specific [place] 1.015 (1.005-1.025) 01/03/19 10:13 Negative mg/dL (Negative) 01/03/19 10:13 Negative mg/dL (Negative) 01/03/19 10:13 Negative (Negative) 01/03/19 10:13 Negative (Negative) 01/03/19 10:13 Negative (Negative) 01/03/19 10:13 1.0 EU/dL (Up TO 0.2) H 01/03/19 10:13 Ur Leukocyte Esterase Negative (Negative) 01/03/19 10:13 Negative mg/dL (Negative) 01/03/19 10:13
[2019-01-12 20:30] LABS: Absolute Eosinophil Count 0.25 k/cumm (0.0-0.7); Absolute Lymphocyte Count 1.39 k/cumm (1.2-3.4); Absolute Monocyte Count 1.01 k/cumm (0.11-0.7); Atypical Lymphocytes % 1
[2019-01-12 20:31] LABS: Diff Comment Manual Differential; Macrocytosis 1+; Polychromasia Present; Potassium 3.6 mmol/L (3.5-5.1); Sodium 136 mmol/L (136-145)
[2019-01-12] MEDS: Magnesium Oxide 400 MG TAB 800 MG PO (20:34)
[2019-01-12] MEDS: Omnipaque 350 MG/ML 50 ML BTL IJ ×2 (20:35→22:41)
[2019-01-12] MEDS: Breeza Beverage 473 ML BTL PO ×2 (20:36→20:37)
[2019-01-12 20:57] LABS: ESR 105 mm/hr (1-20)
--- NOTE | 2019-01-12 22:26 | DI.CT_ITS ---
SYMPTOM/DIAGNOSIS: S/P OPEN AZAM, GANGRENOUS GB, ELEVATED WBC ABDOMINAL AND PELVIC CT: 01/12 CT examination of the abdomen and pelvis was performed with a bolus infusion of 100 cc Omnipaque 350. Cardiac size is mildly enlarged. No pericardial effusion seen. There is a very large subcapsular fluid collection of the liver in a patient who reportedly has had recent cholecystectomy. Fluid also noted in gallbladder fossa. Fluid also noted in right pleural space. The findings would be consistent with either seroma, bile collection or less likely hemorrhage. No devascularization of the liver identified. Spleen appears normal. Pancreas appears normal. Small quantity of free fluid noted in the peritoneal space, in the pelvis and right pericolic gutter. No evidence of bowel obstruction. Adrenals and kidneys unremarkable except for bilateral renal cortical scarring. Abdominal aorta and major branches appear intact. No adenopathy seen. Small quantities of fluid in anterolateral abdominal wall, nonspecific. CONCLUSION: Very large subcapsular fluid collection with associated right pleural effusion and fluid in gallbladder fossa and also in the peritoneal cavity in a patient who is status post recent cholecystectomy.
--- NOTE | 2019-01-12 22:29 | DI.RAD_ITS ---
SYMPTOM/DIAGNOSIS: S/P OPEN AZAM, ELEVATED WBC PORTABLE AP CHEST: 01/12 Heart is mildly enlarged. There is elevation of the diaphragm on the right, CT showed right pleural effusion and very large right subcapsular fluid collection of the liver. Lungs otherwise appear clear. No other significant findings.
[2019-01-12] MEDS: Omnipaque 350 MG/ML 100 ML BTL IJ (22:40)
[2019-01-12 23:39] VITALS: BP 164/94; PULSE 77; RESP 19; TEMP 36.7; O2SAT 96
--- NOTE | 2019-01-12 23:42 | DI.VRAD_ITS ---
EXAM: CT Abdomen and Pelvis With Contrast EXAM DATE/TIME: 01/12/2019 8:11 PM CLINICAL HISTORY: 78 years old, male; Abdominal pain; Generalized; Prior surgery; Surgery type: S/P open shirley, gangrenous gallbladder, elevated wbc TECHNIQUE: Imaging protocol: Axial computed tomography images of the abdomen and pelvis with intravenous contrast. Coronal and sagittal reformatted images were created and reviewed. Radiation optimization: All CT scans at this facility use at least one of these dose optimization techniques: automated exposure control; mA and/or kV adjustment per patient size (includes targeted exams where dose is matched to clinical indication); or iterative reconstruction. Contrast material: [id number];Contrast volume: 150 ml;Contrast route: IV 18G LEFT FOREARM; COMPARISON: CT ABDOMEN/ PELVIS CTA 01/03/2019 10:04 AM FINDINGS: Pleural space: Right-sided pleural effusion. Heart: Mild cardiomegaly. Liver: Interval development of a large subcapsular collection predominantly within the right hepatic lobe, 19.1 x 6.6 x 21.0 cm. Gallbladder and bile ducts: Status post cholecystectomy. Small amount of fluid within gallbladder fossa, may represent a spectrum of postop changes. CBD is mildly dilated, likely secondary to post cholecystectomy status. Pancreas: Atrophic pancreas. Spleen: Unremarkable. No splenomegaly. Adrenals: Unremarkable. No mass. Kidneys and ureters: Unremarkable. No hydronephrosis. Stomach and bowel: Colonic diverticulosis. Appendix: No evidence of appendicitis. Intraperitoneal space: Small amount of perihepatic ascites. Vasculature: Atherosclerotic abdominal aorta and branches. Coronary arterial calcifications. Lymph nodes: No enlarged lymph nodes. Bladder: Unremarkable as visualized. Reproductive: Enlarged prostate measures 5.3 x 5.1 cm. Bones/joints: Degenerative changes within thoracic and lumbar spine. Soft tissues: The abdomen is obese. Small fluid collection anterior to the liver extending to the anterior abdominal wall, 6.3 x 3.0 cm. This collection does not demonstrate surrounding rim of enhancement, no definite evidence to represent an abscess. Small amount of gas within the right upper quadrant anterior abdominal wall. IMPRESSION: Status post cholecystectomy. Interval development of large low density subcapsular liver collection, seroma versus bile. Small fluid collection within gallbladder fossa. Fluid tracking anterior to the liver towards the right upper quadrant anterior abdominal wall, superimposed infection cannot be ruled out. Colonic diverticulosis, no acute diverticulitis. Dictated and Authenticated by: Mg Cosme MD. Ordering:LITZY Barrios MD
--- NOTE | 2019-01-12 23:47 | DI.VRAD_ITS ---
EXAM: XR Chest, 1 View EXAM DATE/TIME: 01/12/2019 10:27 PM CLINICAL HISTORY: 78 years old, male; Other: Elevated wbc S/P open shirley; Prior surgery TECHNIQUE: Imaging protocol: XR of the chest, 1 view. COMPARISON: CR XR ABD FLAT UPRIGHT PA CHEST 01/10/2019 7:49 AM FINDINGS: Lungs: Loss of volume at the right lung base. Linear opacities of atelectasis and/or fibrosis at the right lung base. Pleural space: Right-sided pleural effusion. Heart/Mediastinum: Unremarkable. No cardiomegaly. Bones/joints: Unremarkable. IMPRESSION: Right-sided pleural effusion. Atelectasis at the right lung base. No large infiltrates. Dictated and Authenticated by: Mg Cosme MD. Ordering:LITZY Barrios MD
[2019-01-13] MEDS: Melatonin 3 MG TAB PO (00:13)
[2019-01-13 00:36] LABS: Bilirubin Negative (Negative); Blood Trace-intact (Negative); Clarity Clear (Clear); Glucose Negative (Negative); Ketones Negative (Negative); Leukocyte Esterase Negative (Negative); Nitrite Negative (Negative); pH 7.5 (5-8)
[2019-01-13 00:44] LABS: Bacteria Negative HPF (Negative); C & S Indicated? No; Casts Negative LPF (Negative); Crystals Negative HPF (Negative); Epithelial Cells Negative HPF (Negative); Mucus Negative (Negative); RBC 0-2 (0-2); WBC 0-2 HPF (0-5)
[2019-01-13] MEDS: Ondansetron 4 MG/2 ML VIAL IVP (01:24)
[2019-01-13] MEDS: HYDROcodone 5/Acetaminophen 325 TAB PO ×2 (02:40→09:41)
[2019-01-13] MEDS: POTASSIUM CHLORIDE/D5-0.45NACL 1,000 ML 82 MEQ IV ×2 (03:20→16:46)
[2019-01-13] MEDS: Levothyroxine 125 MCG TAB PO (05:54)
[2019-01-13 07:31] LABS: HCT 37.2 % (40.0-50.0); HGB 12.5 g/dL (13.5-17.5)
[2019-01-13 08:02] LABS: D-Dimer 2471 ng/mlFEU (<500)
--- NOTE | 2019-01-13 09:02 | PGE_ITS ---
Documented by User: MAREK Manzanares 01/13/19 09:08 Date of Service Date of service: 01/13/19 Time of Service: 09:02 Assessment and Plan (1) Acute gangrenous cholecystitis: Current visit: Yes Status: Acute POD #7 s/p open cholecystectomy Patient was refusing his medications this morning. Abdominal pain continues. Fluid collection noted on CT scan, Dr. Bush will discuss this further with radiology. Encouraged activity out of bed, his family has also been enocuraging this. Subjective Interval history since last seen: I am in pain and I am not hungry. Exam Const General: cooperative and comfortable Orientation: alert and oriented x3 Resp Effort & Inspection: normal respiratory effort, no audible wheezes and no cough GI Inspection: normal to inspection and distended Palpation: soft, no guarding and tender Auscultation: hypoactive bowel sounds Objective Objective Clinical Data: Abnormal lab results 01/12/19 01/12/19 01/12/19 Range/Units 19:50 19:50 19:50 WBC 12.66 H (4.4-10.8) k/cumm RBC 3.65 L (4.50-6.00) m/cumm Hgb 12.0 L (13.5-17.5) g/dL Hct 35.9 L (40.0-50.0) % MCV 98.4 H (80-95) fL Absolute Neutrophils 9.50 H (1.2-6.7) k/cumm Absolute Monocytes 1.01 H (0.11-0.7) k/cumm ESR 105 H (1-20) mm/hr D-Dimer (<500) ng/mlFEU Glucose 126 H (70-100) mg/dL Calcium 8.4 L (8.5-10.1) mg/dL Total Bilirubin 1.3 H (0.2-1.0) mg/dL AST 39 H (15-37) U/L Alkaline Phosphatase 358 H (46-116) U/L Albumin 1.5 L (3.4-5.0) g/dL Urine Blood (Negative) Urine Urobilinogen (Up TO 0.2) EU/dL 01/13/19 01/13/19 01/13/19 Range/Units 00:15 06:50 06:50 WBC (4.4-10.8) k/cumm RBC (4.50-6.00) m/cumm Hgb 12.5 L (13.5-17.5) g/dL Hct 37.2 L (40.0-50.0) % MCV (80-95) fL Absolute Neutrophils (1.2-6.7) k/cumm Absolute Monocytes (0.11-0.7) k/cumm ESR (1-20) mm/hr D-Dimer 2471 H (<500) ng/mlFEU Glucose (70-100) mg/dL Calcium (8.5-10.1) mg/dL Total Bilirubin (0.2-1.0) mg/dL AST (15-37) U/L Alkaline Phosphatase (46-116) U/L Albumin (3.4-5.0) g/dL Urine Blood Trace-intact H (Negative) Urine Urobilinogen 1.0 H (Up TO 0.2) EU/dL Vital Signs Temperature 36.7 C 01/12/19 23:39 Temperature Source Tympanic 01/12/19 23:39 Pulse 77 01/12/19 23:39 Pulse Rhythm Irregular 01/12/19 20:41 Pulse 60 01/03/19 13:20 Respiratory Rate 19 01/12/19 23:39 Respiratory Effort Non-Labored 01/12/19 20:41 Respiratory Depth Shallow 01/12/19 20:41 Respiratory Pattern Normal 01/12/19 20:41 Blood Pressure 164/94 H 01/12/19 23:39 Blood Pressure Mean 125 01/03/19 13:16 Blood Pressure Position Supine 01/03/19 09:32 Pulse Oximetry 96 01/12/19 23:39 Respiratory End-tidal CO2 24 01/06/19 11:00 Oxygen Delivery Method Room Air 01/12/19 23:39 Oxygen Flow Rate 0 01/12/19 23:39 Pain Level 8 01/13/19 02:40 Comment 01/12/19 00:27 Intake & Output 01/12/19 01/13/19 01/13/19 18:59 06:59 18:59 Intake Total 1070 / 2330 1260 / 2330 Balance 1070 / 2330 1260 / 2330 Intake: IV 1070 / 2080 1010 / 2080 Oral 250 / 250 Other: Urine Color Yellow Urine Appearance Clear Comment incontinet Voiding Methods Incontinent Incontinent Laboratory Results WBC 12.66 k/cumm (4.4-10.8) H 01/12/19 19:50 RBC 3.65 m/cumm (4.50-6.00) L 01/12/19 19:50 Hgb 12.5 g/dL (13.5-17.5) L 01/13/19 06:50 Hct 37.2 % (40.0-50.0) L 01/13/19 06:50 MCV 98.4 fL (80-95) H 01/12/19 19:50 MCH 32.9 pg (27.0-33.0) 01/12/19 19:50 MCHC 33.4 g/dL (32.0-36.0) 01/12/19 19:50 RDW 13.5 % (11.8-14.1) 01/12/19 19:50 Plt Count 301 x1000/uL (130-400) 01/12/19 19:50 MPV 9.5 fL (8.0-11.0) 01/12/19 19:50 Immature Gran % See Differential 01/12/19 19:50 72.0 01/12/19 19:50 3.0 % 01/12/19 19:50 10.0 01/12/19 19:50 Atypical Lymphs % 1 01/12/19 19:50 8.0 01/12/19 19:50 2.0 01/12/19 19:50 0.0 01/12/19 19:50 1.0 % 01/12/19 19:50 3.0 % 01/12/19 19:50 Absolute Neutrophils 9.50 k/cumm (1.2-6.7) H 01/12/19 19:50 Absolute Lymphocytes 1.39 k/cumm (1.2-3.4) 01/12/19 19:50 Absolute Monocytes 1.01 k/cumm (0.11-0.7) H 01/12/19 19:50 Absolute Eosinophils 0.25 k/cumm (0.0-0.7) 01/12/19 19:50 Absolute Basophils 0.00 k/cumm (0.0-0.2) 01/12/19 19:50 Nucleated RBCs 1 /100WBC 01/11/19 06:50 Manual differential 01/12/19 19:50 RBC Morphology See below 01/12/19 19:50 Present 01/12/19 19:50 1+ 01/12/19 19:50 ESR 105 mm/hr (1-20) H 01/12/19 19:50 PT 11.0 sec (9.3-11.0) 01/03/19 09:40 INR 1.1 (0.9-1.1) 01/03/19 09:40 2471 ng/mlFEU (<500) H 01/13/19 06:50 Sodium 136 mmol/L (136-145) 01/12/19 19:50 Potassium 3.6 mmol/L (3.5-5.1) 01/12/19 19:50 Chloride 101 mmol/L (98-107) 01/12/19 19:50 Carbon Dioxide 26.1 mmol/L (21.0-32.0) 01/12/19 19:50 6.9 mmol/L (3-11) 01/12/19 19:50 BUN 11 mg/dL (7-18) 01/12/19 19:50 0.98 mg/dL (0.70-1.30) 01/12/19 19:50 >= 60.00 (mL/min/1.73m2) 01/12/19 19:50 Glucose 126 mg/dL (70-100) H 01/12/19 19:50 2.3 mmol/l (0.6-1.4) H 01/04/19 13:43 Calcium 8.4 mg/dL (8.5-10.1) L 01/12/19 19:50 Magnesium 1.8 mg/dL (1.8-2.4) 01/12/19 19:50 Iron 17 ug/dL (50-175) L 01/09/19 06:48 TIBC 135 ug/dL (250-450) L 01/09/19 06:48 Transferrin % Sat 13 % (20-55) L 01/09/19 06:48 1.3 mg/dL (0.2-1.0) H 01/12/19 19:50 AST 39 U/L (15-37) H 01/12/19 19:50 ALT 20 U/L (12-78) 01/12/19 19:50 358 U/L (46-116) H 01/12/19 19:50 0.06 ng/mL (0.00-0.06) 01/03/19 12:33 6.5 g/dL (6.4-8.2) 01/12/19 19:50 1.5 g/dL (3.4-5.0) L 01/12/19 19:50 Amylase 20 U/L (25-115) L 01/07/19 07:15 43 U/L (73-393) L 01/07/19 07:15 Carcinoembryonic Ag 1.3 ng/ml 01/05/19 06:55 12 U/mL (<35) 01/04/19 06:30 TSH 1.77 uIU/mL (0.36-3.74) 01/03/19 09:40 Yellow (Yellow) 01/13/19 00:15 Clear (Clear) 01/13/19 00:15 7.5 (5-8) 01/13/19 00:15 Ur Specific [place] 1.010 (1.005-1.025) 01/13/19 00:15 Negative mg/dL (Negative) 01/13/19 00:15 Negative mg/dL (Negative) 01/13/19 00:15 Trace-intact (Negative) H 01/13/19 00:15 Negative (Negative) 01/13/19 00:15 Negative (Negative) 01/13/19 00:15 1.0 EU/dL (Up TO 0.2) H 01/13/19 00:15 Ur Leukocyte Esterase Negative (Negative) 01/13/19 00:15 0-2 (0-2) 01/13/19 00:15 0-2 HPF (0-5) 01/13/19 00:15 Ur Epithelial Cells Negative HPF (Negative) 01/13/19 00:15 Negative HPF (Negative) 01/13/19 00:15 Negative HPF (Negative) 01/13/19 00:15 Negative LPF (Negative) 01/13/19 00:15 Negative (Negative) 01/13/19 00:15 Ur Culture Indicated? No 01/13/19 00:15 Negative mg/dL (Negative) 01/13/19 00:15 Documented by User: Sophie Bush, DO 01/13/19 12:18 Assessment and Plan (1) Intraabdominal fluid collection: Current visit: Yes Status: Acute I did review the CT scan myself and w/ rads. the collection does not seem to be flood or abscess. (WBC and Hgb are nl). Pt does not have fever. c/o pain and won't eat. I [place] [facility] can do aspiration of fluid collection today. He is off lovenox and toradol. He is off abx. He had a drain in the GB until Wed- this was only draining minimal serous fluid and was removed. The drain was not draining bile. He had a ruptured GB and had lg amount of bile in the abdom at time of initial surgery. His bile duct is midly enlarged on the CT. There does not appear to be an bile duct injury. There is a small fluid collection in the GB fossa- but this is nl postOp. I don't have an etiology for this lg subcapsular collection. There were no retractors in this area. There was no bile leakage at the completion of surgery. He is still c/o pain and not eating. d/w family and agree to have fluid drainage down for symptom relief and hopefully he will not be in so much pain and can eat. Risks: bleeding/infection/transportation. Ambulance will not transport w/ fluids or pain meds. Orders sent for fluid to be sent for gram stain and aerobic/aerobic culture. paperwork completed for transfer. Phone consent obtained form son how is POA for IR drainage procedure. Son also stated that family wants pt to be DNR/DNI. He is POA and paperwork is on charted and this is amended to reflect family/pt wishes. will hold diet and PT today resume regular diet when pt returns and PT in am. Pt DOES have bed in [place] available on wednesday. hopefully pt will have less pain and can start eating once fluid drained and will be more willing to do PT and improved quality of life. -pt did not tolerate GETA and taking him back to the OR is not an option. -paperwork completed for transfer.
[2019-01-13 09:28] VITALS: BP 144/83; PULSE 80; RESP 18; TEMP 36.7; O2SAT 94
[2019-01-13 10:20] LABS: Anion Gap 10.8 mmol/L (3-11); BUN 10 mg/dL (7-18); CO2 25.2 mmol/L (21.0-32.0); CREATININE 0.96 mg/dL (0.70-1.30); Calcium 8.7 mg/dL (8.5-10.1); Chloride 100 mmol/L (98-107); Glucose 133 mg/dL (70-100); Magnesium 1.9 mg/dL (1.8-2.4); Potassium 3.7 mmol/L (3.5-5.1); Sodium 136 mmol/L (136-145)
[2019-01-13 10:28] LABS: Troponin I 0.07 ng/mL (0.00-0.06)
--- NOTE | 2019-01-13 11:18 | PT.INNT ---
Date of service: 01/13/19 Time of Service: 11:18 PT Notes 01/13/19 Hold PT for today, per patient's primary MD. Will attempt to resume PT services tomorrow morning, if appropriate.
[2019-01-13] MEDS: Normal Saline 1,000 ML 100 ML IV (11:30)
[2019-01-13] MEDS: HYDROmorphone 2 MG/ML VIAL 0.5 MG IVP (11:42)
[2019-01-13] MEDS: Normal Saline Flush 10 ML SYR IVP ×2 (11:43→16:46)
--- NOTE | 2019-01-13 16:33 | CMPROGNOTE_ITS ---
Care Management Progress Note S/O: Jimmy went to [facility] (down and back) IR for fluid collection. CM met with Clive and Dr. Bush to review discharge planning and patient readiness. Anticipate that if all goes well over the weekend, Jimmy will discharge on Wednesday. Clive reported 1.2L of fluid was removed at [facility] today. CM continues to follow. A: 78 year old male admitted to [facility] 01/03/19 for Cholelithiasis-brought to OR today for Open Cholecystectomy. P: Jimmy will continue to be closely monitored and evaluated post-surgically. Tentative plan for Jimmy to discharge on Wednesday to [facility]: via [facility] self paid $[id number] coordinated by this press writer with Kelechi Marquez of [employer] and Clive; Jimmy's son. If Kendrick is medically ready on Wednesday his discharge orders will need to be available before 1100 AM and faxed to [facility]. Jimmy will then be transported by [employer] at 1300. [facility] Admissions Cell Phone to be utilized on day of discharge: P#[phone] P#[phone] F# [phone]-discharge orders to be faxed day of discharge.
--- NOTE | 2019-01-13 16:33 | PDOC.CMPRO ---
Care Management Progress Note S/O: Jimmy went [place] [facility] [place] for fluid collection. CM met with Clive and Dr. Bush to review discharge planning and patient readiness. Anticipate that if all goes well over the weekend, Jimmy will discharge on Wednesday. Clive reported 1.2L of fluid was removed at [facility] today. CM continues to follow. A: 78 year old male admitted to [facility] 01/03/19 for Cholelithiasis-brought to OR today for Open Cholecystectomy. P: Jimmy will continue to be closely monitored and evaluated post-surgically. Tentative plan for Jimmy to discharge on Wednesday to [facility]: via [facility] [facility] self paid $[phone] coordinated by this comic writer with Kelechi Marquez of [employer] and Clive; Jimmy's son. If Kendrick is medically ready on Wednesday his discharge orders will need to be available before 1100 AM and faxed to [facility]. Jimmy will then be transported by [employer] at 1300. [facility] Admissions Cell Phone to be utilized on day of discharge: P#[phone] P#[phone] F# [phone]-discharge orders to be faxed day of discharge.
[2019-01-13 16:39] VITALS: BP 144/78; PULSE 75; RESP 12; TEMP 37.3; O2SAT 94
[2019-01-13 18:25] VITALS: TEMP 32; O2SAT 94
[2019-01-13 19:20] VITALS: BP 130/80; PULSE 82; RESP 16; TEMP 36.4; O2SAT 95
[2019-01-13 19:23] VITALS: TEMP 32
[2019-01-13] MEDS: Magnesium Oxide 400 MG TAB 800 MG PO (21:20)
[2019-01-13] MEDS: Divalproex 500 MG TABEC PO (21:20)
[2019-01-14] MEDS: POTASSIUM CHLORIDE/D5-0.45NACL 1,000 ML 82 MEQ IV (02:27)
[2019-01-14 04:30] VITALS: BP 151/93; PULSE 85; RESP 20; TEMP 36.3; O2SAT 95
[2019-01-14] MEDS: HYDROcodone 5/Acetaminophen 325 TAB PO ×3 (04:32→22:26)
[2019-01-14] MEDS: Levothyroxine 125 MCG TAB PO (04:32)
[2019-01-14 07:40] VITALS: BP 119/73; PULSE 70; RESP 18; TEMP 36.9; O2SAT 92
[2019-01-14] MEDS: Bisacodyl 5 MG TABEC PO (08:36)
[2019-01-14] MEDS: Atorvastatin 40 MG TAB PO (08:36)
[2019-01-14] MEDS: metFORMIN 850 MG TAB PO ×2 (08:36→16:28)
[2019-01-14] MEDS: Magnesium Oxide 400 MG TAB 800 MG PO ×2 (08:37→20:27)
[2019-01-14] MEDS: Divalproex 500 MG TABEC PO ×2 (08:37→20:27)
[2019-01-14] MEDS: Normal Saline Flush 10 ML SYR IVP (08:37)
--- NOTE | 2019-01-14 08:38 | PT.INTREAT ---
Date of service: 01/14/19 Time of Service: 08:38 PT Notes 01/14/19 SUBJECTIVE: Jimmy reporting that he is very comfortable in bed. He notes that he feels extremely cold. With encouragement pt is agreeable to get up to the recliner. OBJECTIVE: Supine in bed. Agreeable to PT. TRANSFERS Supine to sit: Min A x2 Sit to stand: CGA Stand to sit: CGA GAIT Device: FWW Weight bearing: Full Assist: CGAx2 Distance: 15' Deviation: Refuses gait belt, slow cautious gait pattern, complains of pain in the abdomen. ASSESSMENT: Tolerated PT well today. Requires encouragement to participate in PT. No LOB during short distance gait. PLAN: Continue current POC progressing gait distance as he can tolerate. Direct time: 15 minutes [id number] Petra Michaels PTA Clinic location: [facility] [place], [place]
[2019-01-14 11:45] VITALS: BP 142/85; PULSE 86; RESP 20; TEMP 37; O2SAT 96
[2019-01-14] MEDS: Insulin Aspart 300 UNITS/3 ML PEN SC (12:16)
[2019-01-14] MEDS: POTASSIUM CHLORIDE/D5-0.45NACL 1,000 ML 100 MEQ IV ×2 (12:17→22:01)
--- NOTE | 2019-01-14 13:41 | CMPROGNOTE_ITS ---
Care Management Progress Note S/O: Jimmy was resting in his recliner. I did not wake him this afternoon. A: 78 year old male admitted to [facility] 01/03/19 for Cholelithiasis-Open Cholecystectomy 01/06/19. P: Jimmy will continue to be closely monitored and evaluated over the weekend. Tentative plan for Jimmy to discharge on Wednesday to [facility]: via [facility] self paid $2408 coordinated with [facility] and Clive; Jimmy's son. If Kendrick is medically ready on Wednesday his discharge orders will need to be available before 1100 AM and faxed to [facility]. Jimmy will then be transported by [facility] at 1300. [facility] Admissions Cell Phone to be utilized on day of discharge: P#[phone] P#[phone] F# [phone]-discharge orders to be faxed day of discharge.
--- NOTE | 2019-01-14 13:41 | PDOC.CMPRO ---
Care Management Progress Note S/O: Jimmy was resting in his recliner. I did not wake him this afternoon. A: 78 year old male admitted to [facility] 01/03/19 for Cholelithiasis-Open Cholecystectomy 01/06/19. P: Jimmy will continue to be closely monitored and evaluated over the weekend. Tentative plan for Jimmy to discharge on Wednesday to [facility]: via [facility] self paid $[phone] [facility] and Clive; Jimmy's son. If Kendrick is medically ready on Wednesday his discharge orders will need to be available before 1100 AM and faxed to [facility]. Jimmy will then be transported by [employer] at 1300. [facility] Admissions Cell Phone to be utilized on day of discharge: P#[phone] P#[phone] F# [phone]-discharge orders to be faxed day of discharge.
--- NOTE | 2019-01-14 17:17 | W.PM.PROGNOT ---
Date of Service Date of service: 01/14/19 Time of Service: 17:18 Assessment and Plan (1) Acute gangrenous cholecystitis: Current visit: Yes Status: Acute The patient is not eating well primarily due to lack of interest He indicates that he would like to be allowed to go. Will discuss options with his son which could include the planned LTC admission on Wednesday, palliative care consult or feeding tube. Subjective Interval history since last seen: Patient reports he is comfortable. Nurses indicate he is not eating well. Patient says eating does not bother him but he is not interested. Exam Narrative Exam Narrative: Easily arousable Patient requests that he not be examined but he does allow inspection of the incisions, which look good Objective Objective Clinical Data: Vital Signs Temperature 98.6 F 01/14/19 11:45 Temperature Source Tympanic 01/14/19 11:45 Pulse 86 01/14/19 11:45 Pulse Rhythm Regular 01/14/19 07:30 Pulse 60 01/03/19 13:20 Respiratory Rate 20 01/14/19 11:45 Respiratory Effort Incrsd Work of Breathing 01/14/19 07:30 Respiratory Depth Deep 01/14/19 07:30 Respiratory Pattern Irregular 01/14/19 07:30 Blood Pressure 142/85 H 01/14/19 11:45 Blood Pressure Mean 125 01/03/19 13:16 Blood Pressure Position Supine 01/03/19 09:32 Pulse Oximetry 96 01/14/19 11:45 Respiratory End-tidal CO2 24 01/06/19 11:00 Oxygen Delivery Method Nasal Cannula 01/14/19 11:45 Oxygen Flow Rate 2 01/14/19 11:45 Fraction of Inspired Oxygen (FIO2) 35 01/13/19 19:23 Pain Level 10 01/14/19 16:29 Comment 01/12/19 00:27 Intake & Output 01/13/19 01/14/19 01/14/19 23:59 11:59 23:59 Intake Total 1029. 1547.266 / 2.266 575 / 2121.266 Balance 1029 1547.266 / 2121.266 575 / 2121.266 Intake: IV 999.333 1227.266 / 1682.266 455 / 1682.266 Oral 30 / 30 320 / 440 120 / 440 Other: Urine Color Straw Voiding Methods Diaper Diaper Diaper Incontinent Incontinent Incontinent Laboratory Results WBC 12.66 k/cumm (4.4-10.8) H 01/12/19 19:50 RBC 3.65 m/cumm (4.50-6.00) L 01/12/19 19:50 Hgb 12.5 g/dL (13.5-17.5) L 01/13/19 06:50 Hct 37.2 % (40.0-50.0) L 01/13/19 06:50 MCV 98.4 fL (80-95) H 01/12/19 19:50 MCH 32.9 pg (27.0-33.0) 01/12/19 19:50 MCHC 33.4 g/dL (32.0-36.0) 01/12/19 19:50 RDW 13.5 % (11.8-14.1) 01/12/19 19:50 Plt Count 301 x1000/uL (130-400) 01/12/19 19:50 MPV 9.5 fL (8.0-11.0) 01/12/19 19:50 Immature Gran % See Differential 01/12/19 19:50 72.0 01/12/19 19:50 3.0 % 01/12/19 19:50 10.0 01/12/19 19:50 Atypical Lymphs % 1 01/12/19 19:50 8.0 01/12/19 19:50 2.0 01/12/19 19:50 0.0 01/12/19 19:50 1.0 % 01/12/19 19:50 3.0 % 01/12/19 19:50 Absolute Neutrophils 9.50 k/cumm (1.2-6.7) H 01/12/19 19:50 Absolute Lymphocytes 1.39 k/cumm (1.2-3.4) 01/12/19 19:50 Absolute Monocytes 1.01 k/cumm (0.11-0.7) H 01/12/19 19:50 Absolute Eosinophils 0.25 k/cumm (0.0-0.7) 01/12/19 19:50 Absolute Basophils 0.00 k/cumm (0.0-0.2) 01/12/19 19:50 Nucleated RBCs 1 /100WBC 01/11/19 06:50 Manual differential 01/12/19 19:50 RBC Morphology See below 01/12/19 19:50 Present 01/12/19 19:50 1+ 01/12/19 19:50 ESR 105 mm/hr (1-20) H 01/12/19 19:50 PT 11.0 sec (9.3-11.0) 01/03/19 09:40 INR 1.1 (0.9-1.1) 01/03/19 09:40 2471 ng/mlFEU (<500) H 01/13/19 06:50 Sodium 136 mmol/L (136-145) 01/13/19 06:50 Potassium 3.7 mmol/L (3.5-5.1) 01/13/19 06:50 Chloride 100 mmol/L (98-107) 01/13/19 06:50 Carbon Dioxide 25.2 mmol/L (21.0-32.0) 01/13/19 06:50 10.8 mmol/L (3-11) 01/13/19 06:50 BUN 10 mg/dL (7-18) 01/13/19 06:50 0.96 mg/dL (0.70-1.30) 01/13/19 06:50 >= 60.00 (mL/min/1.73m2) 01/13/19 06:50 Glucose 133 mg/dL (70-100) H 01/13/19 06:50 2.3 mmol/l (0.6-1.4) H 01/04/19 13:43 Calcium 8.7 mg/dL (8.5-10.1) 01/13/19 06:50 Magnesium 1.9 mg/dL (1.8-2.4) 01/13/19 06:50 Iron 17 ug/dL (50-175) L 01/09/19 06:48 TIBC 135 ug/dL (250-450) L 01/09/19 06:48 Transferrin % Sat 13 % (20-55) L 01/09/19 06:48 1.3 mg/dL (0.2-1.0) H 01/12/19 19:50 AST 39 U/L (15-37) H 01/12/19 19:50 ALT 20 U/L (12-78) 01/12/19 19:50 358 U/L (46-116) H 01/12/19 19:50 0.07 ng/mL (0.00-0.06) H 01/13/19 06:50 6.5 g/dL (6.4-8.2) 01/12/19 19:50 1.5 g/dL (3.4-5.0) L 01/12/19 19:50 Amylase 20 U/L (25-115) L 01/07/19 07:15 43 U/L (73-393) L 01/07/19 07:15 Carcinoembryonic Ag 1.3 ng/ml 01/05/19 06:55 12 U/mL (<35) 01/04/19 06:30 TSH 1.77 uIU/mL (0.36-3.74) 01/03/19 09:40 Yellow (Yellow) 01/13/19 00:15 Clear (Clear) 01/13/19 00:15 7.5 (5-8) 01/13/19 00:15 Ur Specific [place] 1.010 (1.005-1.025) 01/13/19 00:15 Negative mg/dL (Negative) 01/13/19 00:15 Negative mg/dL (Negative) 01/13/19 00:15 Trace-intact (Negative) H 01/13/19 00:15 Negative (Negative) 01/13/19 00:15 Negative (Negative) 01/13/19 00:15 1.0 EU/dL (Up TO 0.2) H 01/13/19 00:15 Ur Leukocyte Esterase Negative (Negative) 01/13/19 00:15 0-2 (0-2) 01/13/19 00:15 0-2 HPF (0-5) 01/13/19 00:15 Ur Epithelial Cells Negative HPF (Negative) 01/13/19 00:15 Negative HPF (Negative) 01/13/19 00:15 Negative HPF (Negative) 01/13/19 00:15 Negative LPF (Negative) 01/13/19 00:15 Negative (Negative) 01/13/19 00:15 Ur Culture Indicated? No 01/13/19 00:15 Negative mg/dL (Negative) 01/13/19 00:15 Path Cons Comment 01/11/19 06:50
[2019-01-14 18:00] VITALS: BP 119/79; PULSE 79; RESP 22; TEMP 36.4; O2SAT 95
[2019-01-14] MEDS: Melatonin 3 MG TAB PO (20:27)
[2019-01-14 23:51] VITALS: BP 144/86; PULSE 75; RESP 22; TEMP 36.9; O2SAT 97
[2019-01-15] MEDS: HYDROcodone 5/Acetaminophen 325 TAB PO ×4 (04:00→22:00)
[2019-01-15 06:07] VITALS: BP 173/83; PULSE 50; RESP 20; TEMP 36.5; O2SAT 97
[2019-01-15] MEDS: Levothyroxine 125 MCG TAB PO (06:07)
[2019-01-15] MEDS: POTASSIUM CHLORIDE/D5-0.45NACL 1,000 ML 100 MEQ IV ×2 (08:02→18:51)
[2019-01-15] MEDS: Atorvastatin 40 MG TAB PO (08:51)
[2019-01-15] MEDS: metFORMIN 850 MG TAB PO (08:51)
[2019-01-15] MEDS: Magnesium Oxide 400 MG TAB 800 MG PO ×2 (08:51→19:30)
[2019-01-15] MEDS: Bisacodyl 5 MG TABEC PO (08:51)
[2019-01-15] MEDS: Divalproex 500 MG TABEC PO ×2 (08:51→19:30)
--- NOTE | 2019-01-15 10:15 | PT.INNT ---
Date of service: 01/15/19 Time of Service: 10:15 PT Notes 01/15/19 Pt refused x 2 this AM due to pain in his abdomen. Despite encouragement he did not participate in PT. Petra Michaels, TOLL COLLECTOR
[2019-01-15 11:03] VITALS: TEMP 37.7
[2019-01-15 11:43] VITALS: BP 163/81; PULSE 57; RESP 19; O2SAT 94
[2019-01-15] MEDS: Insulin Aspart 300 UNITS/3 ML PEN SC (11:52)
--- NOTE | 2019-01-15 12:43 | W.PM.PROGNOT ---
Date of Service Date of service: 01/15/19 Time of Service: 12:43 Assessment and Plan (1) Acute gangrenous cholecystitis: Current visit: Yes Status: Acute Will check labs today Have left a few messages back and forth with his son, will continue to attempt a conversation soon Subjective Interval history since last seen: Reports epigastric pain and not feeling well Exam Narrative Exam Narrative: Appears restless Lungs CTA Heart irregular but not tachy Abdomen soft, nondistended, tender as expected in RUQ but no peritonitis. Incision look good Objective Objective Clinical Data: Vital Signs Temperature 99.9 F H 01/15/19 11:03 Temperature Source Tympanic 01/15/19 11:03 Pulse 57 L 01/15/19 11:43 Pulse Rhythm Regular 01/15/19 07:56 Pulse 60 01/03/19 13:20 Respiratory Rate 19 01/15/19 11:43 Respiratory Effort Incrsd Work of Breathing 01/15/19 07:56 Respiratory Depth Deep 01/15/19 07:56 Respiratory Pattern Irregular 01/15/19 07:56 Blood Pressure 163/81 H 01/15/19 11:43 Blood Pressure Mean 125 01/03/19 13:16 Blood Pressure Position Supine 01/03/19 09:32 Pulse Oximetry 94 L 01/15/19 11:43 Respiratory End-tidal CO2 24 01/06/19 11:00 Oxygen Delivery Method Room Air 01/15/19 11:43 Oxygen Flow Rate 0 01/15/19 11:43 Fraction of Inspired Oxygen (FIO2) 35 01/13/19 19:23 Pain Level 10 01/15/19 10:14 Comment 01/12/19 00:27 Intake & Output 01/14/19 01/15/19 01/15/19 23:59 11:59 23:59 Intake Total 1548.334 / 3095.600 1200.000 / 1200.000 Balance 1548.334 / 3095.600 1200.000 / 1200.000 Intake: IV 1428.334 / 2655.600 1000.000 / 1000.000 Oral 120 / 440 200 / 200 Other: Urine Color Straw Urine Odor Normal Comment incontinent of large volume of urine at this time Voiding Methods Diaper Diaper Incontinent Laboratory Results WBC 12.66 k/cumm (4.4-10.8) H 01/12/19 19:50 RBC 3.65 m/cumm (4.50-6.00) L 01/12/19 19:50 Hgb 12.5 g/dL (13.5-17.5) L 01/13/19 06:50 Hct 37.2 % (40.0-50.0) L 01/13/19 06:50 MCV 98.4 fL (80-95) H 01/12/19 19:50 MCH 32.9 pg (27.0-33.0) 01/12/19 19:50 MCHC 33.4 g/dL (32.0-36.0) 01/12/19 19:50 RDW 13.5 % (11.8-14.1) 01/12/19 19:50 Plt Count 301 x1000/uL (130-400) 01/12/19 19:50 MPV 9.5 fL (8.0-11.0) 01/12/19 19:50 Immature Gran % See Differential 01/12/19 19:50 72.0 01/12/19 19:50 3.0 % 01/12/19 19:50 10.0 01/12/19 19:50 Atypical Lymphs % 1 01/12/19 19:50 8.0 01/12/19 19:50 2.0 01/12/19 19:50 0.0 01/12/19 19:50 1.0 % 01/12/19 19:50 3.0 % 01/12/19 19:50 Absolute Neutrophils 9.50 k/cumm (1.2-6.7) H 01/12/19 19:50 Absolute Lymphocytes 1.39 k/cumm (1.2-3.4) 01/12/19 19:50 Absolute Monocytes 1.01 k/cumm (0.11-0.7) H 01/12/19 19:50 Absolute Eosinophils 0.25 k/cumm (0.0-0.7) 01/12/19 19:50 Absolute Basophils 0.00 k/cumm (0.0-0.2) 01/12/19 19:50 Nucleated RBCs 1 /100WBC 01/11/19 06:50 Manual differential 01/12/19 19:50 RBC Morphology See below 01/12/19 19:50 Present 01/12/19 19:50 1+ 01/12/19 19:50 ESR 105 mm/hr (1-20) H 01/12/19 19:50 PT 11.0 sec (9.3-11.0) 01/03/19 09:40 INR 1.1 (0.9-1.1) 01/03/19 09:40 2471 ng/mlFEU (<500) H 01/13/19 06:50 Sodium 136 mmol/L (136-145) 01/13/19 06:50 Potassium 3.7 mmol/L (3.5-5.1) 01/13/19 06:50 Chloride 100 mmol/L (98-107) 01/13/19 06:50 Carbon Dioxide 25.2 mmol/L (21.0-32.0) 01/13/19 06:50 10.8 mmol/L (3-11) 01/13/19 06:50 BUN 10 mg/dL (7-18) 01/13/19 06:50 0.96 mg/dL (0.70-1.30) 01/13/19 06:50 >= 60.00 (mL/min/1.73m2) 01/13/19 06:50 Glucose 133 mg/dL (70-100) H 01/13/19 06:50 2.3 mmol/l (0.6-1.4) H 01/04/19 13:43 Calcium 8.7 mg/dL (8.5-10.1) 01/13/19 06:50 Magnesium 1.9 mg/dL (1.8-2.4) 01/13/19 06:50 Iron 17 ug/dL (50-175) L 01/09/19 06:48 TIBC 135 ug/dL (250-450) L 01/09/19 06:48 Transferrin % Sat 13 % (20-55) L 01/09/19 06:48 1.3 mg/dL (0.2-1.0) H 01/12/19 19:50 AST 39 U/L (15-37) H 01/12/19 19:50 ALT 20 U/L (12-78) 01/12/19 19:50 358 U/L (46-116) H 01/12/19 19:50 0.07 ng/mL (0.00-0.06) H 01/13/19 06:50 6.5 g/dL (6.4-8.2) 01/12/19 19:50 1.5 g/dL (3.4-5.0) L 01/12/19 19:50 Amylase 20 U/L (25-115) L 01/07/19 07:15 43 U/L (73-393) L 01/07/19 07:15 Carcinoembryonic Ag 1.3 ng/ml 01/05/19 06:55 12 U/mL (<35) 01/04/19 06:30 TSH 1.77 uIU/mL (0.36-3.74) 01/03/19 09:40 Yellow (Yellow) 01/13/19 00:15 Clear (Clear) 01/13/19 00:15 7.5 (5-8) 01/13/19 00:15 Ur Specific [place] 1.010 (1.005-1.025) 01/13/19 00:15 Negative mg/dL (Negative) 01/13/19 00:15 Negative mg/dL (Negative) 01/13/19 00:15 Trace-intact (Negative) H 01/13/19 00:15 Negative (Negative) 01/13/19 00:15 Negative (Negative) 01/13/19 00:15 1.0 EU/dL (Up TO 0.2) H 01/13/19 00:15 Ur Leukocyte Esterase Negative (Negative) 01/13/19 00:15 0-2 (0-2) 01/13/19 00:15 0-2 HPF (0-5) 01/13/19 00:15 Ur Epithelial Cells Negative HPF (Negative) 01/13/19 00:15 Negative HPF (Negative) 01/13/19 00:15 Negative HPF (Negative) 01/13/19 00:15 Negative LPF (Negative) 01/13/19 00:15 Negative (Negative) 01/13/19 00:15 Ur Culture Indicated? No 01/13/19 00:15 Negative mg/dL (Negative) 01/13/19 00:15 Path Cons Comment 01/11/19 06:50
[2019-01-15 13:42] LABS: ALT 16 U/L (12-78); AST 25 U/L (15-37); Albumin 1.6 g/dL (3.4-5.0); Alkaline Phosphatase 341 U/L (46-116); Anion Gap 9.3 mmol/L (3-11); BUN 7 mg/dL (7-18); Bilirubin, Total 1.6 mg/dL (0.2-1.0); CO2 23.7 mmol/L (21.0-32.0); CREATININE 1.05 mg/dL (0.70-1.30); Calcium 8.7 mg/dL (8.5-10.1); Chloride 101 mmol/L (98-107); Glucose 159 mg/dL (70-100); HCT 37.9 % (40.0-50.0); HGB 12.9 g/dL (13.5-17.5); Mean Corpuscular Hemoglobin 33.3 pg (27.0-33.0); Mean Corpuscular Volume 97.9 fL (80-95); Mean Platelet Volume 9.5 fL (8.0-11.0); Platelet Count 418 x1000/uL (130-400); Potassium 4.8 mmol/L (3.5-5.1); RBC 3.87 m/cumm (4.50-6.00); RBC Distribution Width 13.5 % (11.8-14.1); Sodium 134 mmol/L (136-145); Total Protein 6.9 g/dL (6.4-8.2)
--- NOTE | 2019-01-15 13:53 | CMPROGNOTE_ITS ---
Care Management Progress Note S/O: Jimmy was resting in bed. I did not wake him this afternoon. A: 78 year old male admitted to [facility] 01/03/19 for Cholelithiasis-Open Cholecystectomy 01/06/19. P: Jimmy will continue to be closely monitored and evaluated over the weekend. Tentative plan for Jimmy to discharge on Wednesday to [facility]: via [facility] self paid $[phone] [facility] and Clive; Jimmy's son. If Kendrick is medically ready on Wednesday his discharge orders will need to be available before 1100 AM and faxed to [facility]. Jimmy will then be transported by [facility] at 1300. [facility] Admissions Cell Phone to be utilized on day of discharge: P#[phone] P#[phone] F# [phone]-discharge orders to be faxed day of discharge.
--- NOTE | 2019-01-15 13:53 | PDOC.CMPRO ---
Care Management Progress Note S/O: Jimmy was resting in bed. I did not wake him this afternoon. A: 78 year old male admitted to [facility] 01/03/19 for Cholelithiasis-Open Cholecystectomy 01/06/19. P: Jimmy will continue to be closely monitored and evaluated over the weekend. Tentative plan for Jimmy to discharge on Wednesday to [facility]: via [facility] self paid $[phone] [facility] and Clive; Jimmy's son. If Kendrick is medically ready on Wednesday his discharge orders will need to be available before 1100 AM and faxed to [facility]. Jimmy will then be transported by [facility] at 1300. [facility] Admissions Cell Phone to be utilized on day of discharge: P#[phone] P#[phone] F# [phone]-discharge orders to be faxed day of discharge.
[2019-01-15 14:07] VITALS: TEMP 37.4
--- NOTE | 2019-01-15 14:13 | NUR.NOTE ---
Nursing Note: 01/15/19 1413 [facility] [place]: Spoke with Riya in lab regarding results from 01/13/19. Pt went down to [place] [facility] [place] had subcapsular fluid cultures collected. Riya spoke with [facility] and per her report, there is no growth of the subcapsular fluid cultures at this time.
[2019-01-15] MEDS: PIPERACILLIN/TAZO 3.375 GM in Normal Saline 50 ML IVPB ×2 (14:39→19:30)
[2019-01-15 15:48] VITALS: TEMP 36.9
[2019-01-15] MEDS: MORPHine 10 MG/ML VIAL IVP (17:18)
[2019-01-15] MEDS: Normal Saline Flush 10 ML SYR IVP (17:19)
[2019-01-15 20:29] VITALS: BP 121/65; PULSE 79; RESP 18; TEMP 37.5; O2SAT 95
[2019-01-15] MEDS: Melatonin 3 MG TAB PO (22:01)
[2019-01-16] MEDS: PIPERACILLIN/TAZO 3.375 GM in Normal Saline 50 ML IVPB (01:56)
[2019-01-16] MEDS: Acetaminophen 325 MG TAB 650 MG PO (02:41)
[2019-01-16] MEDS: MORPHine 10 MG/ML VIAL IVP ×4 (03:03→11:01)
[2019-01-16] MEDS: Normal Saline Flush 10 ML SYR IVP ×4 (03:03→11:02)
[2019-01-16] MEDS: HYDROcodone 5/Acetaminophen 325 TAB PO ×2 (03:37→12:40)
[2019-01-16 03:51] VITALS: BP 135/84; PULSE 98; RESP 18; TEMP 37.6; O2SAT 93
[2019-01-16 05:00] VITALS: O2SAT 92
[2019-01-16] MEDS: POTASSIUM CHLORIDE/D5-0.45NACL 1,000 ML 100 MEQ IV (05:23)
[2019-01-16] MEDS: Levothyroxine 125 MCG TAB PO (07:24)
[2019-01-16 07:25] VITALS: BP 123/61; PULSE 56; RESP 27; TEMP 37.2; O2SAT 97
[2019-01-16 07:44] LABS: Abs Immature Grans 0.63 k/cumm (0.0-0.09); HGB 12.2 g/dL (13.5-17.5); Mean Corpuscular Hemoglobin 33.1 pg (27.0-33.0); Mean Corpuscular Volume 100.3 fL (80-95); Platelet Count 314 x1000/uL (130-400); RBC 3.69 m/cumm (4.50-6.00); RBC Distribution Width 14.1 % (11.8-14.1)
--- NOTE | 2019-01-16 07:56 | W.PM.PROGNOT ---
Date of Service Date of service: 01/16/19 Time of Service: 07:56 Assessment and Plan (1) Acute gangrenous cholecystitis: Current visit: Yes Status: Acute Continues to report poor appetite. Participates in minimal activity. Dr. Dang was attempting to speak with his son regarding potential plan for LTC admission on Wednesday, palliative care consult or feeding tube. Subjective Interval history since last seen: Nsg reports that patient had increased pain levels early this morning, he was yelling out in pain. Per nsg after he received Morphine and hydrocodone, his pain level decreased enough and he was able to sleep. Nsg staff expressed concern that following having fluid drained his appetite improved. However after 24 hours he has returned to no appetite and a distended abdomen. Exam Const General: cooperative and comfortable Orientation: alert and confused Resp Effort & Inspection: normal respiratory effort, no audible wheezes and no cough GI Inspection: distended Palpation: soft, no guarding and nontender Auscultation: normal bowel sounds Objective Objective Clinical Data: Abnormal lab results 01/15/19 01/15/19 Range/Units 12:55 12:55 WBC 29.90 H* (4.4-10.8) k/cumm RBC 3.87 L (4.50-6.00) m/cumm Hgb 12.9 L (13.5-17.5) g/dL Hct 37.9 L (40.0-50.0) % MCV 97.9 H (80-95) fL MCH 33.3 H (27.0-33.0) pg Plt Count 418 H (130-400) x1000/uL Sodium 134 L (136-145) mmol/L Glucose 159 H (70-100) mg/dL Total Bilirubin 1.6 H (0.2-1.0) mg/dL Alkaline Phosphatase 341 H (46-116) U/L Albumin 1.6 L (3.4-5.0) g/dL Vital Signs Temperature 37.6 C H 01/16/19 03:51 Temperature Source Tympanic 01/16/19 03:51 Pulse 98 H 01/16/19 03:51 Pulse Rhythm Regular 01/15/19 19:30 Pulse 60 01/03/19 13:20 Respiratory Rate 18 01/16/19 03:51 Respiratory Effort Incrsd Work of Breathing 01/15/19 19:30 Respiratory Depth Shallow 01/15/19 19:30 Respiratory Pattern Tachypnea 01/15/19 19:30 Blood Pressure 135/84 01/16/19 03:51 Blood Pressure Mean 125 01/03/19 13:16 Blood Pressure Position Supine 01/03/19 09:32 Pulse Oximetry 92 L 01/16/19 05:00 Respiratory End-tidal CO2 24 01/06/19 11:00 Oxygen Delivery Method Nasal Cannula 01/16/19 05:00 Oxygen Flow Rate 3 01/16/19 05:00 Fraction of Inspired Oxygen (FIO2) 35 01/13/19 19:23 Pain Level 10 01/15/19 17:18 Comment 01/15/19 15:48 Intake & Output 01/15/19 01/16/19 01/16/19 18:59 06:59 18:59 Intake Total 2225.000 / 3325.000 1100 / 3325.000 Output Total Balance 2205.000 / 3305.000 1100 / 3305.000 Intake: IV 2050.000 / 3150.000 1100 / 3150.000 Oral 175 / 175 Output: Emesis Other: Urine Color Yellow Urine Appearance Clear Urine Odor Normal Normal Comment incontinent of large volume of urine at this time Emesis Description Bile Voiding Methods Diaper Diaper Incontinent Incontinent Laboratory Results WBC 29.90 k/cumm (4.4-10.8) H* 01/15/19 12:55 RBC 3.87 m/cumm (4.50-6.00) L 01/15/19 12:55 Hgb 12.9 g/dL (13.5-17.5) L 01/15/19 12:55 Hct 37.9 % (40.0-50.0) L 01/15/19 12:55 MCV 97.9 fL (80-95) H 01/15/19 12:55 MCH 33.3 pg (27.0-33.0) H 01/15/19 12:55 MCHC 34.0 g/dL (32.0-36.0) 01/15/19 12:55 RDW 13.5 % (11.8-14.1) 01/15/19 12:55 Plt Count 418 x1000/uL (130-400) H 01/15/19 12:55 MPV 9.5 fL (8.0-11.0) 01/15/19 12:55 Immature Gran % See Differential 01/12/19 19:50 72.0 01/12/19 19:50 3.0 % 01/12/19 19:50 10.0 01/12/19 19:50 Atypical Lymphs % 1 01/12/19 19:50 8.0 01/12/19 19:50 2.0 01/12/19 19:50 0.0 01/12/19 19:50 1.0 % 01/12/19 19:50 3.0 % 01/12/19 19:50 Absolute Neutrophils 9.50 k/cumm (1.2-6.7) H 01/12/19 19:50 Absolute Lymphocytes 1.39 k/cumm (1.2-3.4) 01/12/19 19:50 Absolute Monocytes 1.01 k/cumm (0.11-0.7) H 01/12/19 19:50 Absolute Eosinophils 0.25 k/cumm (0.0-0.7) 01/12/19 19:50 Absolute Basophils 0.00 k/cumm (0.0-0.2) 01/12/19 19:50 Nucleated RBCs 1 /100WBC 01/11/19 06:50 Manual differential 01/12/19 19:50 RBC Morphology See below 01/12/19 19:50 Present 01/12/19 19:50 1+ 01/12/19 19:50 ESR 105 mm/hr (1-20) H 01/12/19 19:50 PT 11.0 sec (9.3-11.0) 01/03/19 09:40 INR 1.1 (0.9-1.1) 01/03/19 09:40 2471 ng/mlFEU (<500) H 01/13/19 06:50 Sodium 134 mmol/L (136-145) L 01/15/19 12:55 Potassium 4.8 mmol/L (3.5-5.1) D 01/15/19 12:55 Chloride 101 mmol/L (98-107) 01/15/19 12:55 Carbon Dioxide 23.7 mmol/L (21.0-32.0) 01/15/19 12:55 9.3 mmol/L (3-11) 01/15/19 12:55 BUN 7 mg/dL (7-18) 01/15/19 12:55 1.05 mg/dL (0.70-1.30) 01/15/19 12:55 >= 60.00 (mL/min/1.73m2) 01/15/19 12:55 Glucose 159 mg/dL (70-100) H 01/15/19 12:55 2.3 mmol/l (0.6-1.4) H 01/04/19 13:43 Calcium 8.7 mg/dL (8.5-10.1) 01/15/19 12:55 Magnesium 1.9 mg/dL (1.8-2.4) 01/13/19 06:50 Iron 17 ug/dL (50-175) L 01/09/19 06:48 TIBC 135 ug/dL (250-450) L 01/09/19 06:48 Transferrin % Sat 13 % (20-55) L 01/09/19 06:48 1.6 mg/dL (0.2-1.0) H 01/15/19 12:55 AST 25 U/L (15-37) 01/15/19 12:55 ALT 16 U/L (12-78) 01/15/19 12:55 341 U/L (46-116) H 01/15/19 12:55 0.07 ng/mL (0.00-0.06) H 01/13/19 06:50 6.9 g/dL (6.4-8.2) 01/15/19 12:55 1.6 g/dL (3.4-5.0) L 01/15/19 12:55 Amylase 20 U/L (25-115) L 01/07/19 07:15 43 U/L (73-393) L 01/07/19 07:15 Carcinoembryonic Ag 1.3 ng/ml 01/05/19 06:55 12 U/mL (<35) 01/04/19 06:30 TSH 1.77 uIU/mL (0.36-3.74) 01/03/19 09:40 Yellow (Yellow) 01/13/19 00:15 Clear (Clear) 01/13/19 00:15 7.5 (5-8) 01/13/19 00:15 Ur Specific [place] 1.010 (1.005-1.025) 01/13/19 00:15 Negative mg/dL (Negative) 01/13/19 00:15 Negative mg/dL (Negative) 01/13/19 00:15 Trace-intact (Negative) H 01/13/19 00:15 Negative (Negative) 01/13/19 00:15 Negative (Negative) 01/13/19 00:15 1.0 EU/dL (Up TO 0.2) H 01/13/19 00:15 Ur Leukocyte Esterase Negative (Negative) 01/13/19 00:15 0-2 (0-2) 01/13/19 00:15 0-2 HPF (0-5) 01/13/19 00:15 Ur Epithelial Cells Negative HPF (Negative) 01/13/19 00:15 Negative HPF (Negative) 01/13/19 00:15 Negative HPF (Negative) 01/13/19 00:15 Negative LPF (Negative) 01/13/19 00:15 Negative (Negative) 01/13/19 00:15 Ur Culture Indicated? No 01/13/19 00:15 Negative mg/dL (Negative) 01/13/19 00:15 Path Cons Comment 01/11/19 06:50
[2019-01-16 08:03] LABS: White Blood Cell Count 47.42 k/cumm (4.4-10.8)
[2019-01-16 08:11] LABS: Absolute Lymphocyte Count 0.95 k/cumm (1.2-3.4); Absolute Monocyte Count 4.27 k/cumm (0.11-0.7); Absolute Neutrophil Count 41.73 k/cumm (1.2-6.7); Diff Comment Manual Differential
[2019-01-16 08:12] LABS: RBC Morphology Normal
--- NOTE | 2019-01-16 10:39 | CMPROGNOTE_ITS ---
- If Service Date Differs Date of service: 01/16/19 Time of Service: 10:39 Care Management Progress Note S/O: Jimmy was sleeping when CM entered the room. His son, Clive was there and asked to speak with CM in the family waiting room. Clive informed CM that after meeting with Dr. Whyte they have decided to move forward with [employer]. He reports that his father's pain has been hard to manage, and that his father has said many times in the past week that he is going to here. Jimmy has been started on IV morphine. Family has declined a visit from the [place] or other soothing measures which were offered by CM. A: 78 year old male admitted to [facility] 01/03/19 for Cholelithiasis-Open Cholecyst ectomy 01/06/19. Fluid collection noted on CT scan on 01/13/19, and 1.2L fluid removed at [facility] [place] on [place]13[place]. P: Jimmy will remain here on [employer] as an inpatient while medication is being adjusted. The family will remain at his bedside during this process. His son, Clive expressed that his father will be cremated and asked that CM contact [facility] (P: [phone]) upon his passing. They will handle services from there. CM will follow.
[2019-01-16] MEDS: MORPHine 250 MG in Normal Saline 245 ML IV (11:37)
[2019-01-16] MEDS: Scopolamine 1 MG/3 DAYS PATCH TD (11:46)
--- NOTE | 2019-01-16 12:17 | W.PALPGNOTE ---
Date of service: 01/16/19 Assessment and Plan (1) Dying care: Current visit: Yes Status: Acute Based on Jimmy's preadmission decline and overall debility, his chances of surviving his illness were slim. He is now actively declining. His white count went from 29+ to 47+. He is dying. His family is aware and support my recommendation to change to comfort measures only. Surgeons support this direction, too. 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 All unnecessary medications stopped. Son Clive understands how limited his father's time is. Subjective Interval history since last seen: Texted with surgeons over the weekend about Jimmy. He is not doing well. Dr Dang asked me to talk with son, Clive, who is DPOA today. Jimmy's white count is climbing. He is uncomfortable. Appears he is dying. Discussed this with Clive. He says he thinks his father is dying. Will change him over to comfort measure only status. Discussed with Dr Dang and Care Management. Exam Narrative Exam Narrative: Patient NOT SEEN. Discussion with surgeons and family. Orders entered. Discussed with CM and nursing and pharmacy. Objective Objective Clinical Data: Abnormal lab results 01/15/19 01/15/19 01/16/19 Range/Units 12:55 12:55 06:50 WBC 29.90 H* 47.42 H* D (4.4-10.8) k/cumm RBC 3.87 L 3.69 L (4.50-6.00) m/cumm Hgb 12.9 L 12.2 L (13.5-17.5) g/dL Hct 37.9 L 37.0 L (40.0-50.0) % MCV 97.9 H 100.3 H (80-95) fL MCH 33.3 H 33.1 H (27.0-33.0) pg Plt Count 418 H (130-400) x1000/uL Absolute Neutrophils 41.73 H (1.2-6.7) k/cumm Absolute Lymphocytes 0.95 L (1.2-3.4) k/cumm Absolute Monocytes 4.27 H (0.11-0.7) k/cumm Sodium 134 L (136-145) mmol/L Glucose 159 H (70-100) mg/dL Total Bilirubin 1.6 H (0.2-1.0) mg/dL Alkaline Phosphatase 341 H (46-116) U/L Albumin 1.6 L (3.4-5.0) g/dL Vital Signs Temperature 99.0 F 01/16/19 07:25 Temperature Source Tympanic 01/16/19 07:25 Pulse 56 L 01/16/19 07:25 Pulse Rhythm Regular 01/15/19 19:30 Pulse 60 01/03/19 13:20 Respiratory Rate 27 H 01/16/19 07:25 Respiratory Effort 01/16/19 10:52 Respiratory Depth Shallow 01/15/19 19:30 Respiratory Pattern Apnea 01/16/19 10:52 Blood Pressure 123/61 01/16/19 07:25 Blood Pressure Mean 125 01/03/19 13:16 Blood Pressure Position Supine 01/03/19 09:32 Pulse Oximetry 97 01/16/19 07:25 Respiratory End-tidal CO2 24 01/06/19 11:00 Oxygen Delivery Method Nasal Cannula 01/16/19 07:25 Oxygen Flow Rate 3 01/16/19 07:25 Fraction of Inspired Oxygen (FIO2) 35 01/13/19 19:23 Pain Level 10 01/16/19 07:25 Comment 01/16/19 07:25 Intake & Output 01/15/19 01/16/19 01/16/19 23:59 11:59 23:59 Intake Total 1175.000 / 2475.000 1050 / 1050 Output Total Balance 1155.000 / 2455.000 1050 / 1050 Intake: IV 1100.000 / 2100.000 1050 / 1050 Oral 75 / 375 Output: Emesis Other: Urine Color Yellow Urine Appearance Clear Urine Odor Normal Emesis Description Bile Voiding Methods Urinal Diaper Incontinent Incontinent Laboratory Results WBC 47.42 k/cumm (4.4-10.8) H* D 01/16/19 06:50 RBC 3.69 m/cumm (4.50-6.00) L 01/16/19 06:50 Hgb 12.2 g/dL (13.5-17.5) L 01/16/19 06:50 Hct 37.0 % (40.0-50.0) L 01/16/19 06:50 MCV 100.3 fL (80-95) H 01/16/19 06:50 MCH 33.1 pg (27.0-33.0) H 01/16/19 06:50 MCHC 33.0 g/dL (32.0-36.0) 01/16/19 06:50 RDW 14.1 % (11.8-14.1) 01/16/19 06:50 Plt Count 314 x1000/uL (130-400) D 01/16/19 06:50 MPV 10.0 fL (8.0-11.0) 01/16/19 06:50 Immature Gran % See Differential 01/16/19 06:50 77.0 01/16/19 06:50 11.0 % 01/16/19 06:50 2.0 01/16/19 06:50 Atypical Lymphs % 1 01/12/19 19:50 9.0 01/16/19 06:50 0.0 01/16/19 06:50 0.0 01/16/19 06:50 1.0 % 01/16/19 06:50 3.0 % 01/12/19 19:50 Absolute Neutrophils 41.73 k/cumm (1.2-6.7) H 01/16/19 06:50 Absolute Lymphocytes 0.95 k/cumm (1.2-3.4) L 01/16/19 06:50 Absolute Monocytes 4.27 k/cumm (0.11-0.7) H 01/16/19 06:50 Absolute Eosinophils 0.00 k/cumm (0.0-0.7) 01/16/19 06:50 Absolute Basophils 0.00 k/cumm (0.0-0.2) 01/16/19 06:50 Nucleated RBCs 1 /100WBC 01/11/19 06:50 Manual differential 01/16/19 06:50 RBC Morphology Normal 01/16/19 06:50 Present 01/12/19 19:50 1+ 01/12/19 19:50 ESR 105 mm/hr (1-20) H 01/12/19 19:50 PT 11.0 sec (9.3-11.0) 01/03/19 09:40 INR 1.1 (0.9-1.1) 01/03/19 09:40 2471 ng/mlFEU (<500) H 01/13/19 06:50 Sodium Cancelled 01/16/19 06:50 Potassium Cancelled 01/16/19 06:50 Chloride Cancelled 01/16/19 06:50 Carbon Dioxide Cancelled 01/16/19 06:50 Cancelled 01/16/19 06:50 BUN Cancelled 01/16/19 06:50 Cancelled 01/16/19 06:50 Cancelled 01/16/19 06:50 Glucose Cancelled 01/16/19 06:50 2.3 mmol/l (0.6-1.4) H 01/04/19 13:43 Calcium Cancelled 01/16/19 06:50 Magnesium 1.9 mg/dL (1.8-2.4) 01/13/19 06:50 Iron 17 ug/dL (50-175) L 01/09/19 06:48 TIBC 135 ug/dL (250-450) L 01/09/19 06:48 Transferrin % Sat 13 % (20-55) L 01/09/19 06:48 Cancelled 01/16/19 06:50 AST Cancelled 01/16/19 06:50 ALT Cancelled 01/16/19 06:50 Cancelled 01/16/19 06:50 0.07 ng/mL (0.00-0.06) H 01/13/19 06:50 Cancelled 01/16/19 06:50 Cancelled 01/16/19 06:50 Amylase 20 U/L (25-115) L 01/07/19 07:15 43 U/L (73-393) L 01/07/19 07:15 Carcinoembryonic Ag 1.3 ng/ml 01/05/19 06:55 12 U/mL (<35) 01/04/19 06:30 TSH 1.77 uIU/mL (0.36-3.74) 01/03/19 09:40 Yellow (Yellow) 01/13/19 00:15 Clear (Clear) 01/13/19 00:15 7.5 (5-8) 01/13/19 00:15 Ur Specific [place] 1.010 (1.005-1.025) 01/13/19 00:15 Negative mg/dL (Negative) 01/13/19 00:15 Negative mg/dL (Negative) 01/13/19 00:15 Trace-intact (Negative) H 01/13/19 00:15 Negative (Negative) 01/13/19 00:15 Negative (Negative) 01/13/19 00:15 1.0 EU/dL (Up TO 0.2) H 01/13/19 00:15 Ur Leukocyte Esterase Negative (Negative) 01/13/19 00:15 0-2 (0-2) 01/13/19 00:15 0-2 HPF (0-5) 01/13/19 00:15 Ur Epithelial Cells Negative HPF (Negative) 01/13/19 00:15 Negative HPF (Negative) 01/13/19 00:15 Negative HPF (Negative) 01/13/19 00:15 Negative LPF (Negative) 01/13/19 00:15 Negative (Negative) 01/13/19 00:15 Ur Culture Indicated? No 01/13/19 00:15 Negative mg/dL (Negative) 01/13/19 00:15 Path Cons Comment 01/11/19 06:50
--- NOTE | 2019-01-16 12:26 | PT.INDS ---
Date of service: 01/16/19 Time of Service: 12:26 PT Notes Date: 01/16/19 Referring Doctor: Sophie Bush PT Orders: PT CONSULT: Weak, dementia status post open cholecystectomy Precautions: Falls Treatment Dates: 01/08/19 - 01/16/19 This document serves as a summary of care. No PT services were provided on this date. Patient Profile/Admitting Diagnosis: 78-year-old male admitted approximately 1 week ago with abdominal pain. Status post open cholecystectomy, followed by additional abdominal surgery at [facility] 01/13/19. He participated in 8 sessions of PT intervention over the past 9 days, with declining ability to participate during that time. He has now transitioned to comfort level of care, and PT has been discontinued. Subjective: Not obtained. Objective: ROM: His active assistive range of motion the articular structures throughout eye within functional limits and without pain on movement Strength: Has full motor control and strength is generally rated -5 / 5 except for his core due to his abdominal pain Neuro: Reflexes symmetrical, sensation is intact light touch Bed Mobility/Transfers: supine-sit: min A x 2 sit-stand: CGA stand-sit: CGA Gait: Patient tolerated up to 30' of ambulation with FWW and CGA. He has been unable to tolerate ambulation with pT for the past 2 days. Balance: Static Sitting: Good Dynamic Sitting: Good Static Standing: Good Dynamic Standing: Fair Assessment: Patient is a 78 year old male referred to physical therapy services with the diagnosis of status post cholecystectomy. Patient participated in skilled PT intervention for 8 sessions over the past 9 days, with limited tolerance due to poorly controlled pain and ongoing medical issues. Patient has now transitioned to comfort level care, and PT will be discontinued in acute care setting. Goals: Independent bed mobility (not met) Independent ambulation with a wheeled walker (not met) Plan: D/C from PT services in acute care setting Krista Briceño, PT, DPT [facility]
--- NOTE | 2019-01-16 13:31 | CHAPLAIN ---
Jimmy's Director Call Center Sales, Diane Maria, let me know that Jimmy's family is not interested in veterinary parasitologist visits, or visits from the priests. I called the rectory and left a message on Fr. Kunz's answering machine so he would know this before he visits today. This morning Jimmy was put on comfort measures after his palliative care consult.
[2019-01-16] MEDS: LORazepam 1 MG TAB PO (15:02)
[2019-01-16] MEDS: LORazepam 2 MG/ML VIAL 1 MG IVP (15:22)
--- NOTE | 2019-01-16 16:18 | PGE_ITS ---
Date of Service Date of service: 01/16/19 Time of Service: 16:19 Assessment and Plan (1) Acute gangrenous cholecystitis: Current visit: Yes Status: Acute I talked with the patient's son Clive yesterday and this morning. Initially we had discussed the concern that the patient was not eating and whether or not to supplement with TPN or a feeding tube. This intervention was not consistent with comments Jimmy had made to me or his family, so we agreed not to proceed. The thought at that time was to move towards comfort care. The patients condition declined over the past 24 hours with a rapidly rising WBC count. Further evaluation with imaging was also deemed inconsistent with his wishes, so we agreed to officially keep him here as comfort care. Antibiotics were stopped after discussion. Medicine has kindly agreed to take the patient on their service and palliative care has made recommendations. Objective Objective Clinical Data: Abnormal lab results 01/16/19 Range/Units 06:50 WBC 47.42 H* D (4.4-10.8) k/cumm RBC 3.69 L (4.50-6.00) m/cumm Hgb 12.2 L (13.5-17.5) g/dL Hct 37.0 L (40.0-50.0) % MCV 100.3 H (80-95) fL MCH 33.1 H (27.0-33.0) pg Absolute Neutrophils 41.73 H (1.2-6.7) k/cumm Absolute Lymphocytes 0.95 L (1.2-3.4) k/cumm Absolute Monocytes 4.27 H (0.11-0.7) k/cumm Vital Signs Temperature 99.0 F 01/16/19 07:25 Temperature Source Tympanic 01/16/19 07:25 Pulse 56 L 01/16/19 07:25 Pulse Rhythm Regular 01/15/19 19:30 Pulse 60 01/03/19 13:20 Respiratory Rate 27 H 01/16/19 07:25 Respiratory Effort 01/16/19 10:52 Respiratory Depth Shallow 01/15/19 19:30 Respiratory Pattern Apnea 01/16/19 10:52 Blood Pressure 123/61 01/16/19 07:25 Blood Pressure Mean 125 01/03/19 13:16 Blood Pressure Position Supine 01/03/19 09:32 Pulse Oximetry 97 01/16/19 07:25 Respiratory End-tidal CO2 24 01/06/19 11:00 Oxygen Delivery Method Nasal Cannula 01/16/19 07:25 Oxygen Flow Rate 3 01/16/19 07:25 Fraction of Inspired Oxygen (FIO2) 35 01/13/19 19:23 Pain Level 10 01/16/19 13:40 Comment 01/16/19 07:25 Intake & Output 01/15/19 01/16/19 01/16/19 23:59 11:59 23:59 Intake Total 1175.000 / 2475.000 1050 / 1960.434 910.434 / 1960.434 Output Total Balance 1155.000 / 2455.000 1050 / 1960.434 910.434 / 1960.434 Intake: IV 1100.000 / 2100.000 1050 / 1960.434 910.434 / 1960.434 Oral 75 / 375 Output: Emesis Other: Urine Color Yellow Light Luisa Urine Appearance Clear Clear Urine Odor Normal Emesis Description Bile Voiding Methods Urinal Diaper Incontinent Incontinent Laboratory Results WBC 47.42 k/cumm (4.4-10.8) H* D 01/16/19 06:50 RBC 3.69 m/cumm (4.50-6.00) L 01/16/19 06:50 Hgb 12.2 g/dL (13.5-17.5) L 01/16/19 06:50 Hct 37.0 % (40.0-50.0) L 01/16/19 06:50 MCV 100.3 fL (80-95) H 01/16/19 06:50 MCH 33.1 pg (27.0-33.0) H 01/16/19 06:50 MCHC 33.0 g/dL (32.0-36.0) 01/16/19 06:50 RDW 14.1 % (11.8-14.1) 01/16/19 06:50 Plt Count 314 x1000/uL (130-400) D 01/16/19 06:50 MPV 10.0 fL (8.0-11.0) 01/16/19 06:50 Immature Gran % See Differential 01/16/19 06:50 77.0 01/16/19 06:50 11.0 % 01/16/19 06:50 2.0 01/16/19 06:50 Atypical Lymphs % 1 01/12/19 19:50 9.0 01/16/19 06:50 0.0 01/16/19 06:50 0.0 01/16/19 06:50 1.0 % 01/16/19 06:50 3.0 % 01/12/19 19:50 Absolute Neutrophils 41.73 k/cumm (1.2-6.7) H 01/16/19 06:50 Absolute Lymphocytes 0.95 k/cumm (1.2-3.4) L 01/16/19 06:50 Absolute Monocytes 4.27 k/cumm (0.11-0.7) H 01/16/19 06:50 Absolute Eosinophils 0.00 k/cumm (0.0-0.7) 01/16/19 06:50 Absolute Basophils 0.00 k/cumm (0.0-0.2) 01/16/19 06:50 Nucleated RBCs 1 /100WBC 01/11/19 06:50 Manual differential 01/16/19 06:50 RBC Morphology Normal 01/16/19 06:50 Present 01/12/19 19:50 1+ 01/12/19 19:50 ESR 105 mm/hr (1-20) H 01/12/19 19:50 PT 11.0 sec (9.3-11.0) 01/03/19 09:40 INR 1.1 (0.9-1.1) 01/03/19 09:40 2471 ng/mlFEU (<500) H 01/13/19 06:50 Sodium Cancelled 01/16/19 06:50 Potassium Cancelled 01/16/19 06:50 Chloride Cancelled 01/16/19 06:50 Carbon Dioxide Cancelled 01/16/19 06:50 Cancelled 01/16/19 06:50 BUN Cancelled 01/16/19 06:50 Cancelled 01/16/19 06:50 Cancelled 01/16/19 06:50 Glucose Cancelled 01/16/19 06:50 2.3 mmol/l (0.6-1.4) H 01/04/19 13:43 Calcium Cancelled 01/16/19 06:50 Magnesium 1.9 mg/dL (1.8-2.4) 01/13/19 06:50 Iron 17 ug/dL (50-175) L 01/09/19 06:48 TIBC 135 ug/dL (250-450) L 01/09/19 06:48 Transferrin % Sat 13 % (20-55) L 01/09/19 06:48 Cancelled 01/16/19 06:50 AST Cancelled 01/16/19 06:50 ALT Cancelled 01/16/19 06:50 Cancelled 01/16/19 06:50 0.07 ng/mL (0.00-0.06) H 01/13/19 06:50 Cancelled 01/16/19 06:50 Cancelled 01/16/19 06:50 Amylase 20 U/L (25-115) L 01/07/19 07:15 43 U/L (73-393) L 01/07/19 07:15 Carcinoembryonic Ag 1.3 ng/ml 01/05/19 06:55 12 U/mL (<35) 01/04/19 06:30 TSH 1.77 uIU/mL (0.36-3.74) 01/03/19 09:40 Yellow (Yellow) 01/13/19 00:15 Clear (Clear) 01/13/19 00:15 7.5 (5-8) 01/13/19 00:15 Ur Specific [place] 1.010 (1.005-1.025) 01/13/19 00:15 Negative mg/dL (Negative) 01/13/19 00:15 Negative mg/dL (Negative) 01/13/19 00:15 Trace-intact (Negative) H 01/13/19 00:15 Negative (Negative) 01/13/19 00:15 Negative (Negative) 01/13/19 00:15 1.0 EU/dL (Up TO 0.2) H 01/13/19 00:15 Ur Leukocyte Esterase Negative (Negative) 01/13/19 00:15 0-2 (0-2) 01/13/19 00:15 0-2 HPF (0-5) 01/13/19 00:15 Ur Epithelial Cells Negative HPF (Negative) 01/13/19 00:15 Negative HPF (Negative) 01/13/19 00:15 Negative HPF (Negative) 01/13/19 00:15 Negative LPF (Negative) 01/13/19 00:15 Negative (Negative) 01/13/19 00:15 Ur Culture Indicated? No 01/13/19 00:15 Negative mg/dL (Negative) 01/13/19 00:15 Path Cons Comment 01/11/19 06:50
[2019-01-17 14:34] LABS: Troponin I 0.07 ng/mL (0.00-0.06)
== END 2019-01-17 00:12 | disposition expired | DRG 414 ==
LOC: ER 13:05 → MS 13:54
PROVIDERS: Internal Medicine; Physical Therapy Assistant; Surgery; Admitting Provider Surgery; Emergency Provider Student in an Organized Health Care Education/Training Program; PCP Student in an Organized Health Care Education/Training Program; Visit Provider Surgery
PROC: 0FT44ZZ Resection of Gallbladder, Percutaneous Endoscopic Approach (ICD-10-PCS; CPT 47562; principal; 2019-01-06 07:30)
PROC: 0FT40ZZ Resection of Gallbladder, Open Approach (ICD-10-PCS; CPT 47600; 2019-01-06 07:30)
DX: K80.00 Calculus of gallbladder with acute cholecystitis without obstruction (principal); K65.3 Choleperitonitis; R17 Unspecified jaundice; K56.7 Ileus, unspecified; K82.A1 Gangrene of gallbladder in cholecystitis; Z53.31 Laparoscopic surgical procedure converted to open procedure; D72.829 Elevated white blood cell count, unspecified; R68.2 Dry mouth, unspecified; Z71.3 Dietary counseling and surveillance; E11.9 Type 2 diabetes mellitus without complications; Z79.84 Long term (current) use of oral hypoglycemic drugs; G31.09 Other frontotemporal neurocognitive disorder; F02.80 Dementia in other diseases classified elsewhere, unspecified severity, without behavioral disturbance, psychotic disturbance, mood disturbance, and anxiety; R13.13 Dysphagia, pharyngeal phase; Z51.5 Encounter for palliative care; G89.18 Other acute postprocedural pain; I25.10 Atherosclerotic heart disease of native coronary artery without angina pectoris; E78.5 Hyperlipidemia, unspecified; Z79.01 Long term (current) use of anticoagulants; G47.33 Obstructive sleep apnea (adult) (pediatric); I49.5 Sick sinus syndrome; E03.9 Hypothyroidism, unspecified
CPT/HCPCS: 47600; 36415; 36416; 78227; 80048; 80053; 82962; 83690; 85027; 85652; 93005; 96361; 96365; 96366; 96375; 96376; 97162; 97530; 99223; 99231; 99232; 99233; 99252; 99255; 99285; NC; 71045; 71046; 74022; 74174; 74177; 76705; 81003; 81015; 82150; 82378; 83540; 83550; 83605; 83735; 84443; 84484; 85014; 85018; 85025; 85379; 85610; 86301; 88304; 92507; 92522; 93010; 99221; A0425; A0428; A0429; J0131; J1100; J1650; J1756; J1885; J2001; J2060; J2270; J2405; J2543; J3010; J3475; J3480; J3490; Q9967